=== PATIENT | male | born 1945 | race Caucasian/White ===

== ENCOUNTER 2016-07-10 08:13 | Day surgery (SDC) | payer MEDICARE ==
[2016-07-05 10:29] VITALS: BMI 32.5
[~2016-07-10 08:13] MED LIST: LACTATED RINGERS 1,000 ML IV SCH; SODIUM CHLORIDE 0.9% 1,000 ML IV SCH
[2016-07-10 09:15] LABS: Anion Gap 13 mmol/L; Blood Urea Nitrogen 20 mg/dL (9-20); Calcium 9.2 mg/dL (8.4-10.2); Carbon Dioxide 26 mmol/L (22-30); Chloride 104 mmol/L (98-107); Glucose 115 mg/dL (74-99); Non-African American GFR(MDRD) >60 (>60 ml/min/1.73 sqM); Potassium 4.7 mmol/L (3.5-5.1); Sodium 143 mmol/L (137-145)
[2016-07-10] MEDS ORDERED: SODIUM CHLORIDE 0.9% 1,000 ML IV ONE (09:22)
[2016-07-10] MEDS ORDERED: PROPOFOL 10 MG/ML 20 ML VIAL IV ONE (10:07)
[2016-07-10 11:40] VITALS: PULSE 60
--- NOTE | 2016-07-10 11:45 | CE ---
DATE OF SERVICE: Mr. Jennings has cardiomyopathy, has a single chamber [employer] ICD protector XDVR 314 VRG, serial # [id number]. He has a history of ventricular fibrillation, he received an appropriate ICD shock. He was treated with oral amiodarone. Currently, he is on 200 mg of amiodarone. He was brought in for DFT testing on amiodarone. The battery voltage is 3.04 volts, last volt charge 10.9 seconds, pacing impedance 309 ohms and defibrillation impedance 72 ohms and pacing threshold 1.25 volts at 0.4 ms, R waves 11.1 mV. Shock and T-wave protocol was used to induce ventricular fibrillation. This was adequately and appropriately detected at least sensitivity and successfully internally defibrillated with a 10 joule shock, three dropouts were noted. There was no postshock noise. The charge time was 1.8 seconds. Shocking impedance 72 ohms. Delivered energy 10 joules. The device was then reprogrammed. VF zone at 207 beats a minute, VT zone at 176 beats a minute, monitor zone at 133 beats a minute. The # of detected beats have changed and increased for both the VT zones. Appropriate antitachycardia pacing, cardioversion and defibrillation programmed. Sensitivity was reprogrammed. RESULT: An ICD testing revealed atrial fibrillation, unchanged defibrillation threshold from baseline even after starting oral amiodarone for suppression of ventricular fibrillation. PLAN: Follow up in the ICD clinic in 4 months and follow up with Dr. Laura in 6 months.
[2016-07-10 11:55] VITALS: BP 124/67; RESP 20
== END 2016-07-10 11:56 | disposition home or self-care (01) ==
LOC: CATHEP 08:13
PROVIDERS: ATTEND Internal Medicine Clinical Cardiac Electrophysiology
DX: Z45.02 Encounter for adjustment and management of automatic implantable cardiac defibrillator (principal); I42.9 Cardiomyopathy, unspecified; I49.01 Ventricular fibrillation; I48.91 Unspecified atrial fibrillation; I25.10 Atherosclerotic heart disease of native coronary artery without angina pectoris; I47.2 Ventricular tachycardia; I10 Essential (primary) hypertension; E78.5 Hyperlipidemia, unspecified; I50.22 Chronic systolic (congestive) heart failure; Z79.82 Long term (current) use of aspirin; Z79.899 Other long term (current) drug therapy; Z88.0 Allergy status to penicillin; Z82.49 Family history of ischemic heart disease and other diseases of the circulatory system; Z86.73 Personal history of transient ischemic attack (TIA), and cerebral infarction without residual deficits; Z87.891 Personal history of nicotine dependence
CPT/HCPCS: 93642; 80048; J2704; 99152; 99153

== ENCOUNTER → 2017-08-31 | Outpatient (CLI) | payer MEDICARE ==
[2017-08-31 09:38] LABS: Potassium 4.4 mmol/L (3.5-5.1)
[2017-08-31 09:45] LABS: Anisocytosis Slight; HCT 38.3 % (39.0-53.0); HGB 11.7 gm/dL (13.0-17.5); Hypochromasia Moderate; MCH 26.2 pg (25.0-35.0); MCHC 30.6 g/dL (31.0-37.0); MCV 85.7 fL (80.0-100.0); Mean Platelet Volume 8.3; Platelet Count 185 k/uL (150-450); RBC 4.47 m/uL (4.30-5.90); RDW 16.2 % (11.5-15.5); WBC 9.4 k/uL (3.8-10.6)
== END | disposition home or self-care (01) ==
LOC: LABWHC1 08:59
PROVIDERS: ATTEND Internal Medicine Cardiovascular Disease
DX: Z01.812 Encounter for preprocedural laboratory examination (principal); I25.5 Ischemic cardiomyopathy
CPT/HCPCS: 36415; 80051; 82565; 84520; 85027

== ENCOUNTER 2017-09-05 07:36 | Day surgery (SDC) | payer MEDICARE ==
[2017-09-03 17:20] VITALS: BMI 31.2
[~2017-09-05 07:36] MED LIST changes: +ALPRAZolam 0.25 MG TAB PO PRN; +ALPRAZolam 0.5 MG TAB PO PRN; +ASPIRIN 325 MG TAB PO STA; -LACTATED RINGERS 1,000 ML IV SCH; +NITROGLYCERIN SL TABS 0.4 MG TAB SUBLINGUAL PRN; -SODIUM CHLORIDE 0.9% 1,000 ML IV SCH; +SODIUM CHLORIDE 0.9% 1,000 ML in EMPTY BAG 1 BAG IV ONE
[2017-09-05 08:42] VITALS: PULSE 86; TEMP 97.7
[2017-09-05] MEDS ORDERED: IV FLUID CONTINUATION 950 ML IV ONE (08:55)
[2017-09-05] MEDS ORDERED: LIDOCAINE 2% INJ 20 MG/ML (20 ML MDV) ONE (08:56)
[2017-09-05] MEDS ORDERED: fentaNYL (PF) 50 MCG/ML 2 ML AMP ONE (08:56)
[2017-09-05] MEDS ORDERED: LIDOCAINE 2% INJ 20 MG/ML SQ ONE (09:14)
[2017-09-05] MEDS ORDERED: fentaNYL (PF) 50 MCG/ML 2 ML AMP IV ONE (09:14)
[2017-09-05] MEDS ORDERED: IOPAMIDOL-370 125ML BTL INJ ONE (09:33)
[2017-09-05] MEDS ORDERED: RX INFO: IV CONTRAST WAS GIVEN 1 EACH MISC MISCELLANE PRN (09:51)
[2017-09-05] MEDS ORDERED: CARVEDILOL 6.25 MG TAB PO SCH (10:00)
[2017-09-05] MEDS ORDERED: LOSARTAN 50 MG TAB PO SCH (10:00)
[2017-09-05] MEDS ORDERED: SODIUM CHLORIDE 0.9% 1,000 ML IV SCH (10:00)
--- NOTE | 2017-09-05 10:00 | CC ---
CARDIAC CATHETERIZATION REPORT INDICATIONS: This is a 72-year-old gentleman with history of cardiomyopathy with congestive heart failure, who recently underwent a stress test that showed ischemia involving anterior wall due to which his primary diver tender, Dr. Laura has advised him to undergo cardiac catheterization. I was asked to perform this procedure. I had seen the patient prior to cath, explained risks, benefits. The patient understood and accepted. The patient is hypotensive at rest, which he has been all along. His systolic blood pressures are in the 90s systolic. He does not have any symptoms other than the leg edema. PROCEDURE NOTE: After obtaining informed consent, left heart catheterization and coronary angiogram were performed via the right femoral artery using standard Cinda catheters. The patient tolerated the procedure well without any obvious immediate complications. FINDINGS: 1. HEMODYNAMICS: Left ventricular end-diastolic pressure is 24 to 26 mm. There is no significant gradient across the aortic valve. 2. LEFT VENTRICULOGRAM: Left ventriculogram is not performed. 3. ANGIOGRAPHIC DATA: Left main coronary artery: Left main coronary artery left main coronary artery is a normal-sized vessel and is free of stenosis. Divides into left anterior descending coronary artery and circumflex coronary artery. LAD and its branches, circumflex coronary artery and its branches are free of significant stenosis. Circumflex coronary artery is a large dominant vessel and is free of significant disease. Right coronary artery was selectively engaged using a Mehrdad catheter, where it is a nondominant vessel and is free of significant disease. CONCLUSIONS: 1. Normal coronary arteries. 2. Elevated left ventricular end-diastolic pressures. PLAN: I reviewed angiographic data with the patient and advised him on continued medical therapy. His stress test is probably a false-positive stress test. The patient will follow up with Dr. Laura for further optimization of his medical therapy. MMODL / IJN: [id number] /
[2017-09-05 15:04] VITALS: RESP 18
[2017-09-05 15:06] VITALS: BP 112/63
== END 2017-09-05 15:04 | disposition home or self-care (01) ==
LOC: CATHCVL 07:36
PROVIDERS: ATTEND Internal Medicine Cardiovascular Disease
DX: R94.39 Abnormal result of other cardiovascular function study (principal); I42.9 Cardiomyopathy, unspecified; I49.3 Ventricular premature depolarization; I11.0 Hypertensive heart disease with heart failure; I50.9 Heart failure, unspecified; E78.5 Hyperlipidemia, unspecified; I47.2 Ventricular tachycardia; I34.0 Nonrheumatic mitral (valve) insufficiency; Z95.810 Presence of automatic (implantable) cardiac defibrillator; Z82.49 Family history of ischemic heart disease and other diseases of the circulatory system; Z79.82 Long term (current) use of aspirin; Z79.891 Long term (current) use of opiate analgesic; Z79.899 Other long term (current) drug therapy; Z88.0 Allergy status to penicillin; Z87.891 Personal history of nicotine dependence
CPT/HCPCS: J2001; J3010; Q9967; 93458

== ENCOUNTER 2017-09-18 20:13 | Inpatient (IN) | payer MEDICARE ==
--- NOTE | 2017-09-18 20:55 | ED ---
General Adult HPI - General Chief complaint: Shortness of Breath Stated complaint: fluid retention Time Seen by Provider: 09/18/17 20:52 Source: patient, RN notes reviewed, old records reviewed Mode of arrival: ambulatory Limitations: no limitations - History of Present Illness Initial comments: This is a 72-year-old male to the ER for evaluation. Patient presents today for evaluation regarding shortness of breath patient was seen in his office by cardiology, sent to ER for further evaluation management treatment. Patient herself does complain of shortness of breath. No chest pain patient was seen in the office by school crossing guard supervisor, concern for level of fluid patient is is gaining both in weight and on his legs. Patient himself admits to mild shortness of breath but denies any pain - Related Data Home Medications Medication Instructions Recorded Confirmed Aspirin [Adult Low Dose Aspirin EC] 81 mg PO DAILY 11/03/15 09/18/17 Metaxalone [Skelaxin] 800 mg PO TID PRN 11/03/15 09/18/17 Albuterol Nebulized [Ventolin 2.5 mg INHALATION RT-QID PRN 09/03/17 09/18/17 Nebulized] Zagnw-R-Ctzklkggihuci [Beano] 300 unit PO DIRECTED PRN 09/03/17 09/18/17 Atorvastatin [Lipitor] 20 mg PO HS 09/03/17 09/18/17 Ketoprofen 200 mg PO DAILY PRN 09/03/17 09/18/17 traMADol HCL [traMADol HCL ER] 200 mg PO DAILY PRN 09/03/17 09/18/17 Amiodarone [Cordarone] 100 mg PO DAILY 09/18/17 09/18/17 Furosemide [Lasix] 40 mg PO BID 09/18/17 09/18/17 Isosorbide Mononitrate ER [Imdur] 30 mg PO DAILY 09/18/17 09/18/17 Levofloxacin [Levaquin] 500 mg PO DAILY 09/18/17 09/18/17 Losartan [Cozaar] 50 mg PO BID 09/18/17 09/18/17 Potassium Chloride [Klor-Con 20] 20 meq PO DAILY 09/18/17 09/18/17 Promethazine 6.25MG/5Ml [Phenergan 6.25 mg PO Q8H PRN 09/18/17 09/18/17 Syrup] Spironolactone [Aldactone] 25 mg PO DAILY 09/18/17 09/18/17 Previous Rx's Medication Instructions Recorded Carvedilol [Coreg] 6.25 mg PO BID-W/MEALS #60 tab 09/05/17 Allergies Allergy/AdvReac Type Severity Reaction Status Date / Time Penicillins Allergy Anaphylaxis Verified 09/18/17 21:05 venom-honey bee Allergy Anaphylaxis Verified 09/18/17 21:05 [bee venom (honey bee)] Review of Systems ROS Statement: Those systems with pertinent positive or pertinent negative responses have been documented in the HPI. ROS Other: All systems not noted in ROS Statement are negative. Past Medical History Past Medical History: Hypertension Additional Past Medical History / Comment(s): REVIEW DR. SIDHU'S HISTORY AND PHYSICAL FOR CARDIAC HISTORY. CHRONIC BACK History of Any Multi-Drug Resistant Organisms: None Reported Past Surgical History: AICD, Heart Catheterization, Pacemaker, Tonsillectomy Additional Past Surgical History / Comment(s): defibulator Past Anesthesia/Blood Transfusion Reactions: No Reported Reaction Type of Cardiac Device: AICD Device Placement Date:: 2012 Past Psychological History: No Psychological Hx Reported Smoking Status: Former smoker Past Alcohol Use History: None Reported Past Drug Use History: None Reported - Past Family History Mother Family Medical History: Cancer Father Family Medical History: Diabetes Mellitus Sister(s) Family Medical History: Cancer General Exam Limitations: no limitations General appearance: alert, in no apparent distress Head exam: Present: atraumatic, normocephalic, normal inspection Eye exam: Present: normal appearance, PERRL, EOMI. Absent: scleral icterus, conjunctival injection, periorbital swelling ENT exam: Present: normal exam, mucous membranes moist Neck exam: Present: normal inspection. Absent: tenderness, meningismus, lymphadenopathy Respiratory exam: Present: normal lung sounds bilaterally. Absent: respiratory distress, wheezes, rales, rhonchi, stridor Cardiovascular Exam: Present: regular rate, normal rhythm, normal heart sounds. Absent: systolic murmur, diastolic murmur, rubs, gallop, clicks GI/Abdominal exam: Present: soft, normal bowel sounds. Absent: distended, tenderness, guarding, rebound, rigid Extremities exam: Present: normal inspection, full ROM, normal capillary refill. Absent: tenderness, pedal edema, joint swelling, calf tenderness Back exam: Present: normal inspection Neurological exam: Present: alert, oriented X3, CN II-XII intact Psychiatric exam: Present: normal affect, normal mood Skin exam: Present: warm, dry, intact, normal color. Absent: rash Course Vital Signs 09/18/17 09/18/17 09/18/17 20:14 21:33 21:47 Temperature 94.5 F L Pulse Rate 97 89 Pulse Rate [ Left] Respiratory 18 20 18 Rate Blood Pressure 101/77 99/67 Blood Pressure [Left Arm Sitting] O2 Sat by Pulse 98 97 Oximetry 09/18/17 09/18/17 22:16 22:25 Temperature 97.0 F L Pulse Rate 90 Pulse Rate [ 90 Left] Respiratory 20 18 Rate Blood Pressure 118/91 Blood Pressure 115/75 [Left Arm Sitting] O2 Sat by Pulse 97 98 Oximetry - Reevaluation(s) Reevaluation #1: 09/18/17 21:36 Spoke with school crossing guard supervisor will continue to evaluate Medical Decision Making - Medical Decision Making 72 male sent to ER for evaluation by school crossing guard supervisor. Patient sent for admission regarding heart failure, need for cardiac surgery secondary to heart disease. Nonischemic cardiomyopathy - Lab Data Result diagrams: 09/18/17 21:12 09/18/17 21:12 Lab Results 09/18/17 09/18/17 09/18/17 Range/Units 21:12 21:12 21:12 WBC 9.3 (3.8-10.6) k/uL RBC 4.59 (4.30-5.90) m/uL Hgb 12.0 L (13.0-17.5) gm/dL Hct 38.1 L (39.0-53.0) % MCV 83.1 (80.0-100.0) fL MCH 26.1 (25.0-35.0) pg MCHC 31.4 (31.0-37.0) g/dL RDW 16.6 H (11.5-15.5) % Plt Count 135 L (150-450) k/uL Neutrophils % (Manual) 69 % Lymphocytes % (Manual) 26 % Monocytes % (Manual) 5 % Neutrophils # (Manual) 6.42 (1.3-7.7) k/uL Lymphocytes # (Manual) 2.42 (1.0-4.8) k/uL Monocytes # (Manual) 0.47 (0-1.0) k/uL Nucleated RBCs 0 (0-0) /100 WBC Polychromasia Present Hypochromasia Slight Anisocytosis Slight PT (9.0-12.0) sec INR (<1.2) APTT (22.0-30.0) sec Sodium 139 (137-145) mmol/L Potassium 3.7 (3.5-5.1) mmol/L Chloride 98 (98-107) mmol/L Carbon Dioxide 24 (22-30) mmol/L Anion Gap 17 mmol/L BUN 44 H (9-20) mg/dL Creatinine 1.33 H (0.66-1.25) mg/dL Est GFR (CKD-EPI)AfAm 62 (>60 ml/min/1.73 sqM) Est GFR (CKD-EPI)NonAf 54 (>60 ml/min/1.73 sqM) Glucose 125 H (74-99) mg/dL Calcium 9.2 (8.4-10.2) mg/dL Magnesium 1.9 (1.6-2.3) mg/dL Total Bilirubin 3.3 H (0.2-1.3) mg/dL AST 86 H (17-59) U/L ALT 90 H (21-72) U/L Alkaline Phosphatase 120 (38-126) U/L Total Creatine Kinase 47 L (55-170) U/L CK-MB (CK-2) 1.8 (0.0-2.4) ng/mL CK-MB (CK-2) Rel Index 3.8 Troponin I 0.027 (0.000-0.034) ng/mL NT-Pro-B Natriuret Pep pg/mL Total Protein 6.5 (6.3-8.2) g/dL Albumin 3.6 (3.5-5.0) g/dL Lipase 263 (23-300) U/L TSH (0.465-4.680) mIU/L 09/18/17 09/18/17 09/18/17 Range/Units 21:12 21:12 21:12 WBC (3.8-10.6) k/uL RBC (4.30-5.90) m/uL Hgb (13.0-17.5) gm/dL Hct (39.0-53.0) % MCV (80.0-100.0) fL MCH (25.0-35.0) pg MCHC (31.0-37.0) g/dL RDW (11.5-15.5) % Plt Count (150-450) k/uL Neutrophils % (Manual) % Lymphocytes % (Manual) % Monocytes % (Manual) % Neutrophils # (Manual) (1.3-7.7) k/uL Lymphocytes # (Manual) (1.0-4.8) k/uL Monocytes # (Manual) (0-1.0) k/uL Nucleated RBCs (0-0) /100 WBC Polychromasia Hypochromasia Anisocytosis PT 13.5 H (9.0-12.0) sec INR 1.4 H (<1.2) APTT 23.5 (22.0-30.0) sec Sodium (137-145) mmol/L Potassium (3.5-5.1) mmol/L Chloride (98-107) mmol/L Carbon Dioxide (22-30) mmol/L Anion Gap mmol/L BUN (9-20) mg/dL Creatinine (0.66-1.25) mg/dL Est GFR (CKD-EPI)AfAm (>60 ml/min/1.73 sqM) Est GFR (CKD-EPI)NonAf (>60 ml/min/1.73 sqM) Glucose (74-99) mg/dL Calcium (8.4-10.2) mg/dL Magnesium (1.6-2.3) mg/dL Total Bilirubin (0.2-1.3) mg/dL AST (17-59) U/L ALT (21-72) U/L Alkaline Phosphatase (38-126) U/L Total Creatine Kinase (55-170) U/L CK-MB (CK-2) (0.0-2.4) ng/mL CK-MB (CK-2) Rel Index Troponin I (0.000-0.034) ng/mL NT-Pro-B Natriuret Pep 19143 pg/mL Total Protein (6.3-8.2) g/dL Albumin (3.5-5.0) g/dL Lipase (23-300) U/L TSH 4.510 (0.465-4.680) mIU/L - Radiology Data Radiology results: report reviewed (Chest x-ray is pending), image reviewed Disposition Clinical Impression: Hyperlipemia, NICM (nonischemic cardiomyopathy), Bilateral lower extremity edema, CHF (congestive heart failure) Disposition: ADMITTED IP TO THIS HOSP Condition: Fair
[2017-09-18] MEDS ORDERED: FUROSEMIDE 250 MG in SODIUM CHLORIDE 0.9% 225 ML IVP ONE (21:15)
[2017-09-18] MEDS ORDERED: NITROGLYCERIN OINT 1 INCH/GM PACKET TOPICAL STA (21:17)
[2017-09-18] MEDS ORDERED: NITROGLYCERIN SL TABS 0.4 MG TAB SUBLINGUAL PRN (21:17)
[2017-09-18 21:38] LABS: Anisocytosis Slight; HCT 38.1 % (39.0-53.0); Hypochromasia Slight; MCH 26.1 pg (25.0-35.0); MCHC 31.4 g/dL (31.0-37.0); MCV 83.1 fL (80.0-100.0); Mean Platelet Volume 8.5; Platelet Count 135 k/uL (150-450); RBC 4.59 m/uL (4.30-5.90); RDW 16.6 % (11.5-15.5); WBC 9.3 k/uL (3.8-10.6)
[2017-09-18 21:48] LABS: INR 1.4 (<1.2); Partial Thromboplastin Time 23.5 sec (22.0-30.0); Prothrombin Time 13.5 sec (9.0-12.0)
[2017-09-18 21:49] LABS: Albumin 3.6 g/dL (3.5-5.0); Calcium 9.2 mg/dL (8.4-10.2); Magnesium 1.9 mg/dL (1.6-2.3); Potassium 3.7 mmol/L (3.5-5.1); Total Bilirubin 3.3 mg/dL (0.2-1.3); Total Protein 6.5 g/dL (6.3-8.2)
--- NOTE | 2017-09-18 21:51 | XR ---
EXAMINATION TYPE: XR chest 2V DATE OF EXAM: 09/18/2017 COMPARISON: 02/26/2016 HISTORY: Short of breath TECHNIQUE: Frontal and lateral views of the chest are obtained. FINDINGS: Heart is enlarged. There is coarsening of pulmonary markings. There is mild pulmonary khoi estion. There is a left axillary pacemaker noted with the lead tip over the right ventricle. There ar e chest leads. There is slight blunting of the costophrenic angle posteriorly on the lateral view. Th is is probably on the right side. Bony thorax is intact. IMPRESSION: Heart appears increased compared to last exam and there are changes consistent with mild heart failure which is new compared to old exam.
[2017-09-18 22:10] LABS: Lymphocytes # (M) 2.42 k/uL (1.0-4.8); Monocytes # (M) 0.47 k/uL (0-1.0); Neutrophils # (M) 6.42 k/uL (1.3-7.7); Neutrophils % (M) 69 %; Nucleated Red Blood Cells 0 /100 WBC (0-0); Polychromasia Present; Total Cells Counted 100
[2017-09-18 22:16] LABS: Creatine Kinase MB 1.8 ng/mL (0.0-2.4); Troponin I 0.027 ng/mL (0.000-0.034)
[2017-09-19 03:55] LABS: Calcium 9.3 mg/dL (8.4-10.2); Magnesium 1.9 mg/dL (1.6-2.3); Potassium 3.8 mmol/L (3.5-5.1)
[2017-09-19 04:18] LABS: Creatine Kinase MB 2.1 ng/mL (0.0-2.4); Troponin I 0.021 ng/mL (0.000-0.034)
--- NOTE | 2017-09-19 08:41 | P.CRDCN ---
History of Present Illness Consult date: 09/19/17 Requesting physician: Zo Castaneda Consult reason: congestive heart failure Chief complaint: Shortness of breath and weight gain History of present illness: This is a pleasant 72-year-old gentleman who follows with Dr. Laura in the office. He has a known history of nonischemic cardiomyopathy, hypertension, hyperlipidemia, mitral regurgitation, most recent echo showed an ejection fraction of 20-25%. History of single chamber AICD, history of nonsustained ventricular tachycardia. Patient did undergo a cardiac catheterization recently by Dr. Rizvi which revealed normal coronary arteries. This was performed in August of this year. Patient has been progressively more short of breath, he also states that he's been feeling bloated and has noticed significant peripheral edema. For this reason he was advised by Dr. Laura to be admitted to the [facility]. The patient was initiated on an IV Lasix drip, he has diuresed well through the night last night. 2900 out. White blood cell count 9.3, hemoglobin 12, platelet count 135. Sodium 141, potassium 3.8, BUN on admission 44 creatinine 13, 44 and 1.2 this morning. AST and ALT mildly elevated, AST 86, ALT 90, likely secondary to liver congestion. Troponin 0.0-7 , 0.021. BNP level 10,700. TSH normal at 4.5. EKG shows a normal sinus rhythm with PVCs. Chest x-ray reveals changes consistent with mild congestive heart failure, new from prior exam. At the time of my examination this morning , patient does state he feels less bloated, still complaining of mild shortness of breath, continues to have peripheral edema and mild tenderness in the right upper quadrant this morning. Past Medical History Past Medical History: Hypertension Additional Past Medical History / Comment(s): REVIEW DR. LAURA'S HISTORY AND PHYSICAL FOR CARDIAC HISTORY. CHRONIC BACK History of Any Multi-Drug Resistant Organisms: None Reported Past Surgical History: AICD, Heart Catheterization, Pacemaker, Tonsillectomy Additional Past Surgical History / Comment(s): defibulator Past Anesthesia/Blood Transfusion Reactions: No Reported Reaction Type of Cardiac Device: AICD Device Placement Date:: 2012 Past Psychological History: No Psychological Hx Reported Smoking Status: Former smoker Past Alcohol Use History: None Reported Past Drug Use History: None Reported - Past Family History Mother Family Medical History: Cancer Father Family Medical History: Diabetes Mellitus Sister(s) Family Medical History: Cancer Medications and Allergies Home Medications Medication Instructions Recorded Confirmed Type Aspirin [Adult Low Dose Aspirin EC] 81 mg PO DAILY 11/03/15 09/18/17 History Metaxalone [Skelaxin] 800 mg PO TID PRN 11/03/15 09/18/17 History Albuterol Nebulized [Ventolin 2.5 mg INHALATION RT-QID PRN 09/03/17 09/18/17 History Nebulized] Hfqrh-A-Utmbzkehhcyyq [Beano] 300 unit PO DIRECTED PRN 09/03/17 09/18/17 History Atorvastatin [Lipitor] 20 mg PO HS 09/03/17 09/18/17 History Ketoprofen 200 mg PO DAILY PRN 09/03/17 09/18/17 History traMADol HCL [traMADol HCL ER] 200 mg PO DAILY PRN 09/03/17 09/18/17 History Carvedilol [Coreg] 6.25 mg PO BID-W/MEALS #60 tab 09/05/17 09/18/17 Rx Amiodarone [Cordarone] 100 mg PO DAILY 09/18/17 09/18/17 History Furosemide [Lasix] 40 mg PO BID 09/18/17 09/18/17 History Isosorbide Mononitrate ER [Imdur] 30 mg PO DAILY 09/18/17 09/18/17 History Levofloxacin [Levaquin] 500 mg PO DAILY 09/18/17 09/18/17 History Losartan [Cozaar] 50 mg PO BID 09/18/17 09/18/17 History Potassium Chloride [Klor-Con 20] 20 meq PO DAILY 09/18/17 09/18/17 History Promethazine 6.25MG/5Ml [Phenergan 6.25 mg PO Q8H PRN 09/18/17 09/18/17 History Syrup] Spironolactone [Aldactone] 25 mg PO DAILY 09/18/17 09/18/17 History Allergies Allergy/AdvReac Type Severity Reaction Status Date / Time Penicillins Allergy Anaphylaxis Verified 09/18/17 21:05 venom-honey bee Allergy Anaphylaxis Verified 09/18/17 21:05 [bee venom (honey bee)] Physical Exam Vitals: Vital Signs Temp Pulse Pulse Resp BP BP Pulse Ox 09/19/17 03:33 97.9 F 86 18 94/62 96 09/19/17 00:00 97.2 F L 81 17 120/72 96 09/18/17 22:25 97.0 F L 90 18 115/75 98 09/18/17 22:16 90 20 118/91 97 09/18/17 21:47 89 18 99/67 97 09/18/17 21:33 20 09/18/17 20:14 94.5 F L 97 18 101/77 98 Intake and Output 09/18/17 09/19/17 09/19/17 22:59 06:59 14:59 Intake Total 50 Output Total 2900 Balance -2850 Intake: Intake, IV Titration 50 Amount Furosemide 250 mg In 50 Sodium Chloride 0.9% 225 ml @ 10 MG/HR 10 mls/hr IVP .Q24H ONE Rx#: [id number] Output: Urine 2900 Other: Voiding Method Toilet Urinal Weight 98.883 kg 98.4 kg PHYSICAL EXAMINATION: HEENT: Head is atraumatic, normocephalic. Pupils equal, round. Neck is supple. There is elevated jugular venous pressure. HEART EXAMINATION: Heart S1 S2 1 systolic murmur is heard. CHEST EXAMINATION: Lungs are clear with mild diminished air entry to the bases ABDOMEN: [ Soft, mild right upper quadrant tenderness, liver is mildly enlarged on palpation EXTREMITIES:[ 2+ peripheral pulses with 2+ evidence of peripheral edema NEUROLOGIC patient is awake, alert and oriented -3. . Results 09/18/17 21:12 09/19/17 03:20 Cardiac Enzymes 09/18/17 09/18/17 09/19/17 Range/Units 21:12 21:12 03:05 AST 86 H (17-59) U/L CK-MB (CK-2) 1.8 2.1 (0.0-2.4) ng/mL Troponin I 0.027 0.021 (0.000-0.034) ng/mL Coagulation 09/18/17 Range/Units 21:12 PT 13.5 H (9.0-12.0) sec APTT 23.5 (22.0-30.0) sec Lipids 09/19/17 Range/Units 03:20 Triglycerides 83 (<150) mg/dL Cholesterol 98 (<200) mg/dL HDL Cholesterol 28 L (40-60) mg/dL CBC 09/18/17 Range/Units 21:12 WBC 9.3 (3.8-10.6) k/uL RBC 4.59 (4.30-5.90) m/uL Hgb 12.0 L (13.0-17.5) gm/dL Hct 38.1 L (39.0-53.0) % Plt Count 135 L (150-450) k/uL Comprehensive Metabolic Panel 09/18/17 09/19/17 Range/Units 21:12 03:20 Sodium 139 141 (137-145) mmol/L Potassium 3.7 3.8 (3.5-5.1) mmol/L Chloride 98 98 (98-107) mmol/L Carbon Dioxide 24 28 (22-30) mmol/L BUN 44 H 44 H (9-20) mg/dL Creatinine 1.33 H 1.29 H (0.66-1.25) mg/dL Glucose 125 H 105 H (74-99) mg/dL Calcium 9.2 9.3 (8.4-10.2) mg/dL AST 86 H (17-59) U/L ALT 90 H (21-72) U/L Alkaline Phosphatase 120 (38-126) U/L Total Protein 6.5 (6.3-8.2) g/dL Albumin 3.6 (3.5-5.0) g/dL Current Medications Generic Name Dose Route Start Last Admin Trade Name Freq PRN Reason Stop Dose Admin Amiodarone HCl 100 mg 09/19/17 09:00 Cordarone PO DAILY [facility] Aspirin 81 mg 09/19/17 09:00 Aspirin PO DAILY [facility] Atorvastatin Calcium 20 mg 09/19/17 21:00 Lipitor PO HS [facility] Carvedilol 3.125 mg 09/19/17 07:30 Coreg PO BID-W/MEALS [facility] Furosemide 250 mg/ Sodium 250 mls @ 10 mls/hr 09/18/17 21:15 09/18/17 21:27 Chloride IVP 09/19/17 21:14 10 mg/hr .Q24H ONE 10 mls/hr Protocol Administration 10 MG/HR Nitroglycerin 0.4 mg 09/18/17 21:17 Nitrostat SUBLINGUAL Q5M PRN Chest Pain Spironolactone 50 mg 09/19/17 09:00 Aldactone PO DAILY [facility]ANE[facility] Intake and Output 09/18/17 09/19/17 09/19/17 22:59 06:59 14:59 Intake Total 50 Output Total 2900 Balance -2850 Intake: Intake, IV Titration 50 Amount Furosemide 250 mg In 50 Sodium Chloride 0.9% 225 ml @ 10 MG/HR 10 mls/hr IVP .Q24H ONE Rx#: [id number] Output: Urine 2900 Other: Voiding Method Toilet Urinal Weight 98.883 kg 98.4 kg 09/18/17 21:12 09/19/17 03:20 EKG Interpretations (text) EKG shows a normal sinus rhythm with occasional PVCs. Assessment and Plan Plan: Assessment and plan #1 systolic congestive heart failure acute on chronic #2 nonischemic cardiomyopathy with prior single chamber AICD, last documented ejection fraction 20-25% #3 hypertension #4 hyperlipidemia #5 family history of premature coronary artery disease #6 history of nonsustained VT #7 prior history of smoking #8 mild CAD, most recent heart cath performed in August of this year. Plan We will continue the IV Lasix drip for 24 hours. Patient had ALSO been on Cozaar as an outpatient, this was discontinued. We will start the patient on Entresto today. Continue to monitor intake and output along with daily weights , daily lytes BUN and creatinine. We will also continue amiodarone 100 mg daily , baby aspirin 81 mg daily, Lipitor 20 mg daily, Coreg 3.125 mg twice a day, and Aldactone 50 mg daily. DNP note has been reviewed, I agree with a documented findings and plan of care. Patient was seen and examined.
[2017-09-19] MEDS ORDERED: ASPIRIN 325 MG TAB PO SCH (09:00)
[2017-09-19] MEDS ORDERED: SPIRONOLACTONE 25 MG TAB PO SCH (09:00)
[2017-09-19 09:29] LABS: Creatine Kinase MB 1.7 ng/mL (0.0-2.4); Troponin I 0.023 ng/mL (0.000-0.034)
[2017-09-19] MEDS: ASPIRIN 81 MG PO SCH (12:44)
[2017-09-19] MEDS: AMIODARONE 100 MG TAB PO SCH (12:44)
[2017-09-19] MEDS: CARVEDILOL 3.125 MG TAB PO SCH ×2 (12:44→17:24)
[2017-09-19] MEDS: SACUBITRIL/VALSARTAN 24 MG-26 MG TABLET PO SCH ×2 (12:44→21:19)
--- NOTE | 2017-09-19 13:41 | US ---
EXAMINATION TYPE: US gallbladder DATE OF EXAM: 09/19/2017 COMPARISON: NONE CLINICAL HISTORY: 72 year-old male abdominal pain. Right upper quadrant pain Technique: Multiple sonographic images of the right upper quadrant are obtained. FINDINGS: PAPER SALES REPRESENTATIVE NOTES: Overlying bowel gas Liver Length: 17.9 cm Gallbladder Wall: 0.4 cm CBD: 0.5 cm Right Kidney: 11.9 x 4.9 x 5.4 cm Pancreas: wnl Liver: difficult to penetrate, intercostal images. Limited assessment. Gallbladder: Mild wall thickening and borderline distention of 4.0 cm. No pericholecystic fluid or s hadowing calculi. Evidence for sonographic Song's sign: no CBD: wnl Right Kidney: 4.0cm simple cyst, centrally in the mid pole. No hydronephrosis. IMPRESSION: 1. Limited assessment of the liver due to intercostal views and attenuating appearance. There may be some degree of underlying fatty infiltration. 2. Mild gallbladder wall thickening is nonspecific. Wall thickening can also be seen in the setting of fluid overload states or adjacent inflammation (for example, hepatitis and pancreatitis). No galls tones or evidence of sonographic Song sign. If further imaging evaluation of the gallbladder is lilliam ired, HIDA scan can be performed.
--- NOTE | 2017-09-19 20:26 | P.HPIM ---
History of Present Illness H&P Date: 09/19/17 This is a pleasant 72 years old male with past medical history of HTN, nonischemic cardiomyopathy, with EF 20-25% status post AICD and heart catheterization, status post pacemaker , he presents with signs and symptoms of dyspnea CXR is consistent with congestive heart failure, mild Past Medical History Past Medical History: Hypertension Additional Past Medical History / Comment(s): REVIEW DR. SIDHU'S HISTORY AND PHYSICAL FOR CARDIAC HISTORY. CHRONIC BACK History of Any Multi-Drug Resistant Organisms: None Reported Past Surgical History: AICD, Heart Catheterization, Pacemaker, Tonsillectomy Additional Past Surgical History / Comment(s): defibulator Past Anesthesia/Blood Transfusion Reactions: No Reported Reaction Type of Cardiac Device: AICD Device Placement Date:: 2012 Past Psychological History: No Psychological Hx Reported Smoking Status: Former smoker Past Alcohol Use History: None Reported Past Drug Use History: None Reported - Past Family History Mother Family Medical History: Cancer Father Family Medical History: Diabetes Mellitus Sister(s) Family Medical History: Cancer Medications and Allergies Home Medications Medication Instructions Recorded Confirmed Type Aspirin [Adult Low Dose Aspirin EC] 81 mg PO DAILY 11/03/15 09/18/17 History Metaxalone [Skelaxin] 800 mg PO TID PRN 11/03/15 09/18/17 History Albuterol Nebulized [Ventolin 2.5 mg INHALATION RT-QID PRN 09/03/17 09/18/17 History Nebulized] Fnrxs-F-Kxqnmfosrdlpt [Beano] 300 unit PO DIRECTED PRN 09/03/17 09/18/17 History Atorvastatin [Lipitor] 20 mg PO HS 09/03/17 09/18/17 History Ketoprofen 200 mg PO DAILY PRN 09/03/17 09/18/17 History traMADol HCL [traMADol HCL ER] 200 mg PO DAILY PRN 09/03/17 09/18/17 History Carvedilol [Coreg] 6.25 mg PO BID-W/MEALS #60 tab 09/05/17 09/18/17 Rx Amiodarone [Cordarone] 100 mg PO DAILY 09/18/17 09/18/17 History Furosemide [Lasix] 40 mg PO BID 09/18/17 09/18/17 History Isosorbide Mononitrate ER [Imdur] 30 mg PO DAILY 09/18/17 09/18/17 History Levofloxacin [Levaquin] 500 mg PO DAILY 09/18/17 09/18/17 History Losartan [Cozaar] 50 mg PO BID 09/18/17 09/18/17 History Potassium Chloride [Klor-Con 20] 20 meq PO DAILY 09/18/17 09/18/17 History Promethazine 6.25MG/5Ml [Phenergan 6.25 mg PO Q8H PRN 09/18/17 09/18/17 History Syrup] Spironolactone [Aldactone] 25 mg PO DAILY 09/18/17 09/18/17 History Allergies Allergy/AdvReac Type Severity Reaction Status Date / Time Penicillins Allergy Anaphylaxis Verified 09/18/17 21:05 venom-honey bee Allergy Anaphylaxis Verified 09/18/17 21:05 [bee venom (honey bee)] Physical Exam Vitals: Vital Signs Temp Pulse Pulse Resp BP BP Pulse Ox 09/19/17 19:54 97.6 F 102 H 16 107/70 95 09/19/17 17:27 85 09/19/17 16:03 97 F L 94 16 108/65 96 09/19/17 08:00 88 16 103/60 94 L 09/19/17 03:33 97.9 F 86 18 94/62 96 09/19/17 00:00 97.2 F L 81 17 120/72 96 09/18/17 22:25 97.0 F L 90 18 115/75 98 09/18/17 22:16 90 20 118/91 97 09/18/17 21:47 89 18 99/67 97 09/18/17 21:33 20 09/18/17 20:14 94.5 F L 97 18 101/77 98 Intake and Output 09/19/17 09/19/17 09/19/17 06:59 14:59 22:59 Intake Total 50 360 240 Output Total 2900 2450 Balance -2850 -2090 240 Intake: Intake, IV Titration 50 Amount Furosemide 250 mg In 50 Sodium Chloride 0.9% 225 ml @ 10 MG/HR 10 mls/hr IVP .Q24H ONE Rx#: [id number] Oral 360 240 Output: Urine 2900 2450 Other: Voiding Method Toilet Toilet Urinal Urinal Weight 98.4 kg 98.4 kg Results CBC & Chem 7: 09/18/17 21:12 09/19/17 03:20 Labs: Abnormal Lab Results - Last 24 Hours (Table) 09/18/17 09/18/17 09/18/17 Range/Units 21:12 21:12 21:12 Hgb 12.0 L (13.0-17.5) gm/dL Hct 38.1 L (39.0-53.0) % RDW 16.6 H (11.5-15.5) % Plt Count 135 L (150-450) k/uL PT (9.0-12.0) sec INR (<1.2) BUN 44 H (9-20) mg/dL Creatinine 1.33 H (0.66-1.25) mg/dL Glucose 125 H (74-99) mg/dL Total Bilirubin 3.3 H (0.2-1.3) mg/dL AST 86 H (17-59) U/L ALT 90 H (21-72) U/L Total Creatine Kinase 47 L (55-170) U/L HDL Cholesterol (40-60) mg/dL 09/18/17 09/19/17 09/19/17 Range/Units 21:12 03:05 03:20 Hgb (13.0-17.5) gm/dL Hct (39.0-53.0) % RDW (11.5-15.5) % Plt Count (150-450) k/uL PT 13.5 H (9.0-12.0) sec INR 1.4 H (<1.2) BUN 44 H (9-20) mg/dL Creatinine 1.29 H (0.66-1.25) mg/dL Glucose 105 H (74-99) mg/dL Total Bilirubin (0.2-1.3) mg/dL AST (17-59) U/L ALT (21-72) U/L Total Creatine Kinase 40 L (55-170) U/L HDL Cholesterol 28 L (40-60) mg/dL 09/19/17 Range/Units 08:35 Hgb (13.0-17.5) gm/dL Hct (39.0-53.0) % RDW (11.5-15.5) % Plt Count (150-450) k/uL PT (9.0-12.0) sec INR (<1.2) BUN (9-20) mg/dL Creatinine (0.66-1.25) mg/dL Glucose (74-99) mg/dL Total Bilirubin (0.2-1.3) mg/dL AST (17-59) U/L ALT (21-72) U/L Total Creatine Kinase 40 L (55-170) U/L HDL Cholesterol (40-60) mg/dL Thrombosis Risk Factor Assmnt - Choose All That Apply Each Factor Represents 1 point: Heart failure (<1month), Obesity (BMI >25) Each Risk Factor Represents 2 Points: Age 61-74 years Thrombosis Risk Factor Assessment Total Risk Factor Score: 4 Thrombosis Risk Factor Assessment Level: Moderate Risk Assessment and Plan Assessment: -acute systolic CHF exacerbation, on the top of her chronic nonischemic cardiomyopathy, presents with dyspnea, cardiology consultation is appreciated continue with Lasix drip and c/w Entresto -Acute kidney injury, creatinine is up from 1.07 on 08/2017-1.33 on 09/18/2017, MISTI Hugo on follow-up creatinine level DVT prophylaxis patient is high-risk continue with heparin subcutaneous
[2017-09-19] MEDS: HEPARIN SODIUM,PORCINE 5,000 UNIT/ML 1 ML VIAL SQ SCH (21:18)
[2017-09-19] MEDS: ATORVASTATIN 20 MG TAB PO SCH (21:19)
[2017-09-19] MEDS: MAGNESIUM OXIDE 400 MG TAB PO SCH (23:52)
[2017-09-20] MEDS: CARVEDILOL 3.125 MG TAB PO SCH ×2 (06:07→17:32)
[2017-09-20 06:30] LABS: Anisocytosis Slight; Basophils # (A) 0.1 k/uL (0-0.2); Basophils % (A) 1 %; Eosinophils # (A) 0.1 k/uL (0-0.7); Eosinophils % (A) 2 %; HCT 43.3 % (39.0-53.0); HGB 13.6 gm/dL (13.0-17.5); Hypochromasia Slight; Lymphocytes # (A) 2.1 k/uL (1.0-4.8); Lymphocytes % (A) 23 %; MCH 25.8 pg (25.0-35.0); MCHC 31.4 g/dL (31.0-37.0); MCV 82.4 fL (80.0-100.0); Mean Platelet Volume 8.4; Monocytes # (A) 0.7 k/uL (0-1.0); Monocytes % (A) 8 %; Neutrophils # (A) 5.5 k/uL (1.3-7.7); Neutrophils % (A) 62 %; Platelet Count 156 k/uL (150-450); RBC 5.25 m/uL (4.30-5.90); RDW 16.3 % (11.5-15.5); WBC 8.9 k/uL (3.8-10.6)
[2017-09-20 06:47] LABS: Albumin 3.6 g/dL (3.5-5.0); Bilirubin, Delta 0.6 mg/dL (0.0-0.2); Bilirubin,Unconjugated 2.6 mg/dL (0.0-1.1); Calcium 9.4 mg/dL (8.4-10.2); Magnesium 1.9 mg/dL (1.6-2.3); Potassium 3.3 mmol/L (3.5-5.1); Total Bilirubin 3.2 mg/dL (0.2-1.3); Total Protein 6.7 g/dL (6.3-8.2)
[2017-09-20] MEDS: ASPIRIN 81 MG PO SCH (07:57)
[2017-09-20] MEDS: HEPARIN SODIUM,PORCINE 5,000 UNIT/ML 1 ML VIAL SQ SCH ×2 (07:57→20:38)
[2017-09-20] MEDS: MAGNESIUM OXIDE 400 MG TAB PO SCH (07:57)
--- NOTE | 2017-09-20 11:15 | P.PN ---
Subjective Progress Note Date: 09/20/17 OLIVIER This is a pleasant 72 years old male with past medical history of HTN, nonischemic cardiomyopathy, with EF 20-25% status post AICD and heart catheterization, status post pacemaker , he presents with signs and symptoms of dyspnea CXR is consistent with congestive heart failure, mild Subjective Patient seen and examined by me at bedside No new complaints Objective - Vital Signs Vital signs: Vital Signs Temp 97 F L 09/20/17 08:00 Pulse 62 09/20/17 08:00 Resp 16 09/20/17 08:00 BP 89/56 09/20/17 08:00 Pulse Ox 94 L 09/20/17 08:00 Intake & Output 09/19/17 09/20/17 09/20/17 18:59 06:59 18:59 Intake Total 600 80 360 Output Total 2450 4875 Balance -1850 -1696 360 Weight 98.4 kg 89.7 kg Intake: Intake, IV Titration 80 Amount Furosemide 250 mg In 80 Sodium Chloride 0.9% 225 ml @ 10 MG/HR 10 mls/hr IVP .Q24H ONE Rx#: [id number] Oral 600 360 Output: Urine 2450 4875 Other: Voiding Method Toilet Toilet Toilet Urinal Urinal Urinal # Voids 1 Constitutional: No acute distress, conversant, pleasant Eyes: Anicteric sclerae, moist conjunctiva, no lid-lag PERRLA ENMT: NC/AT Oropharynx clear, no erythema, exudates Neck: Supple, FROM, no masses, or JVD No carotid bruits No thyromegaly Lungs: Clear to auscultation Clear to percussion Normal respiratory effort, no accessory muscle use Cardiovascular: Heart regular in rate and rhythm, No murmurs, gallops, or rubs No peripheral edema Abdominal: Soft Nontender, no guarding, rebound or rigidity Abdomen moving with respiration Normoactive bowel sounds No hepatomegaly, No splenomegaly No palpable mass No abdominal wall hernia noted Skin: Normal temperature, tone, texture, turgor No induration No subcutaneous nodules No rash, lesions No ulcers Extremities: No digital cyanosis No clubbing Pedal pulses intact and symmetrical Radial pulses intact and symmetrical Normal gait and station No calf tenderness Psychiatric: Alert and oriented to person, place and time Appropriate affect Intact judgement Neuro: Muscles Strength 5/5 in all 4 extremities Sensation to light touch grossly present throughout Cranial nerves II-XII grossly intact No focal sensory deficits - Labs CBC & Chem 7: 09/20/17 05:47 09/20/17 05:47 Labs: Abnormal Lab Results - Last 24 Hours (Table) 09/20/17 09/20/17 Range/Units 05:47 05:47 RDW 16.3 H (11.5-15.5) % Potassium 3.3 L (3.5-5.1) mmol/L Chloride 93 L (98-107) mmol/L Carbon Dioxide 35 H (22-30) mmol/L BUN 39 H (9-20) mg/dL Glucose 102 H (74-99) mg/dL Total Bilirubin 3.2 H (0.2-1.3) mg/dL Unconjugated Bilirubin 2.6 H (0.0-1.1) mg/dL Delta Bilirubin 0.6 H (0.0-0.2) mg/dL AST 71 H (17-59) U/L ALT 89 H (21-72) U/L Alkaline Phosphatase 139 H (38-126) U/L Assessment and Plan Assessment: -acute systolic CHF exacerbation, on the top of her chronic nonischemic cardiomyopathy, presents with dyspnea, cardiology consultation is appreciated, c /w Lasix drip and c/w Entresto, his BP on the low side so multiple pressure medications are held discuss with staff Follow-up cardiology recommendation for management and clearance -Acute kidney injury, creatinine is up from 1.07 on 08/2017-1.33 on 09/18/2017, MISTI Hugo on follow-up creatinine level, creatinine is down to 1.25 [WNL] DVT prophylaxis subcu heparin
[2017-09-20] MEDS: SPIRONOLACTONE 25 MG TAB PO SCH (11:49)
[2017-09-20] MEDS: AMIODARONE 100 MG TAB PO SCH (11:49)
[2017-09-20] MEDS: SACUBITRIL/VALSARTAN 24 MG-26 MG TABLET PO SCH ×2 (11:50→20:38)
--- NOTE | 2017-09-20 12:02 | P.PN ---
Subjective Progress Note Date: 09/20/17 Principal diagnosis: Congestive heart failure exacerbation secondary to systolic dysfunction This is a pleasant 72-year-old gentleman who sees Dr. Laura as an outpatient with severe nonischemic cardiomyopathy and status post AICD, hypertension, and dyslipidemia, was admitted to the hospital with acute exacerbation of systolic heart failure. The patient wasn't started on Lasix drip and also he was started on entersto. On follow-up with him today, he denies having any chest pain or chest discomfort. He stated that he is feeling better in terms of shortness of breath. Hemodynamically, he is slightly hypotensive with a systolic blood pressure in the 80s and 90s. I feel he is a slightly on the dry side today. I am going to DC the Lasix drip and start the patient on Lasix by mouth. Beside that I would lower the dose of Aldactone. He is on a very small dose of Coreg at 3.125 mg by mouth twice a day. Objective - Vital Signs Vital signs: Vital Signs Temp 97 F L 09/20/17 08:00 Pulse 85 09/20/17 11:51 Resp 16 09/20/17 11:54 BP 93/56 09/20/17 11:51 Pulse Ox 95 09/20/17 11:51 Intake & Output 09/19/17 09/20/17 09/20/17 18:59 06:59 18:59 Intake Total 600 80 360 Output Total 2450 4875 Balance -8013 -1631 360 Weight 98.4 kg 89.7 kg Intake: Intake, IV Titration 80 Amount Furosemide 250 mg In 80 Sodium Chloride 0.9% 225 ml @ 10 MG/HR 10 mls/hr IVP .Q24H ONE Rx#: [id number] Oral 600 360 Output: Urine 2450 4875 Other: Voiding Method Toilet Toilet Toilet Urinal Urinal Urinal # Voids 1 - Constitutional General appearance: Present: no acute distress - Respiratory Respiratory: bilateral: CTA - Cardiovascular Rhythm: regular Heart sounds: normal: S1, S2 - Labs CBC & Chem 7: 09/20/17 05:47 09/20/17 05:47 Labs: Abnormal Lab Results - Last 24 Hours (Table) 09/20/17 09/20/17 Range/Units 05:47 05:47 RDW 16.3 H (11.5-15.5) % Potassium 3.3 L (3.5-5.1) mmol/L Chloride 93 L (98-107) mmol/L Carbon Dioxide 35 H (22-30) mmol/L BUN 39 H (9-20) mg/dL Glucose 102 H (74-99) mg/dL Total Bilirubin 3.2 H (0.2-1.3) mg/dL Unconjugated Bilirubin 2.6 H (0.0-1.1) mg/dL Delta Bilirubin 0.6 H (0.0-0.2) mg/dL AST 71 H (17-59) U/L ALT 89 H (21-72) U/L Alkaline Phosphatase 139 H (38-126) U/L Assessment and Plan Assessment: Assessment #1 congestive heart failure exacerbation secondary to systolic dysfunction #2 severe nonischemic cardiomyopathy. #3 status post AICD #4 hypertension Plan #1 DC the Lasix drip and start the patient on Lasix by mouth #2 decrease the dose of Aldactone in view of the marginal blood pressure #3 follow-up with the patient.
[2017-09-20] MEDS ORDERED: Potassium Replacement Protocol 1 EACH MISC MISCELLANE PRN ×2 (13:55→13:58)
[2017-09-20] MEDS ORDERED: POTASSIUM CHLORIDE ER 20 MEQ TAB.ER PO SCH (14:00)
[2017-09-20 14:55] VITALS: BMI 29.2
[2017-09-20] MEDS: POTASSIUM CHLORIDE ER 20 MEQ TAB.ER PO SCH (15:19)
[2017-09-20] MEDS: ATORVASTATIN 20 MG TAB PO SCH (20:38)
[2017-09-21 00:28] VITALS: RESP 16
[2017-09-21 06:38] LABS: HCT 42.6 % (39.0-53.0); HGB 13.2 gm/dL (13.0-17.5); Hypochromasia Slight; MCH 26.1 pg (25.0-35.0); Mean Platelet Volume 7.8; Platelet Count 157 k/uL (150-450); RBC 5.06 m/uL (4.30-5.90); RDW 15.9 % (11.5-15.5); WBC 8.6 k/uL (3.8-10.6)
[2017-09-21] MEDS: CARVEDILOL 3.125 MG TAB PO SCH (06:41)
[2017-09-21 06:48] LABS: Potassium 3.8 mmol/L (3.5-5.1)
[2017-09-21 07:06] LABS: Basophils # (M) 0.17 k/uL (0-0.2); Eosinophils # (M) 0.17 k/uL (0-0.7); Lymphocytes # (M) 2.06 k/uL (1.0-4.8); Monocytes # (M) 1.29 k/uL (0-1.0); Neutrophils % (M) 57 %; Nucleated Red Blood Cells 0 /100 WBC (0-0); Reactive Lymphocytes Present; Total Cells Counted 100
[2017-09-21] MEDS: MAGNESIUM OXIDE 400 MG TAB PO SCH (07:52)
[2017-09-21] MEDS: SACUBITRIL/VALSARTAN 24 MG-26 MG TABLET PO SCH (07:53)
[2017-09-21] MEDS: ASPIRIN 81 MG PO SCH (07:53)
[2017-09-21] MEDS: HEPARIN SODIUM,PORCINE 5,000 UNIT/ML 1 ML VIAL SQ SCH (07:53)
[2017-09-21] MEDS: SPIRONOLACTONE 25 MG TAB PO SCH (07:53)
[2017-09-21] MEDS: AMIODARONE 100 MG TAB PO SCH (07:53)
[2017-09-21] MEDS ORDERED: FUROSEMIDE 40 MG TAB PO SCH (09:00)
[2017-09-21 10:28] VITALS: PULSE 85; TEMP 96.6
[2017-09-21 11:48] VITALS: BP 103/58
--- NOTE | 2017-09-21 13:57 | P.PN ---
Subjective Progress Note Date: 09/21/17 Principal diagnosis: CHF This is a pleasant 72-year-old gentleman who follows with Dr. Laura in the office. He has a known history of nonischemic cardiomyopathy, hypertension, hyperlipidemia, mitral regurgitation, most recent echo showed an ejection fraction of 20-25%. History of single chamber AICD, history of nonsustained ventricular tachycardia. Patient did undergo a cardiac catheterization recently by Dr. Rizvi which revealed normal coronary arteries. This was performed in August of this year. Patient has been progressively more short of breath, he also states that he's been feeling bloated and has noticed significant peripheral edema. For this reason he was advised by Dr. Laura to be admitted to the [facility]. The patient was initiated on an IV Lasix drip, he has diuresed well through the night last night. 2900 out. White blood cell count 9.3, hemoglobin 12, platelet count 135. Sodium 141, potassium 3.8, BUN on admission 44 creatinine 13, 44 and 1.2 this morning. AST and ALT mildly elevated, AST 86, ALT 90, likely secondary to liver congestion. Troponin 0.0-7 , 0.021. BNP level 10,700. TSH normal at 4.5. EKG shows a normal sinus rhythm with PVCs. Chest x-ray reveals changes consistent with mild congestive heart failure, new from prior exam. At the time of my examination this morning , patient does state he feels less bloated, still complaining of mild shortness of breath, continues to have peripheral edema and mild tenderness in the right upper quadrant this morning. 09/21/2017 Patient seen and examined this morning, continues to diurese well. Edema has significantly improved. He is hemodynamically stable. He is noted to have runs of nonsustained ventricular tachycardia on the monitor. Potassium today 3.8, BUN 32, creatinine 1.1. Objective - Vital Signs Vital signs: Vital Signs Temp 96.6 F L 09/21/17 08:00 Pulse 85 09/21/17 11:47 Resp 16 09/21/17 11:47 BP 103/58 09/21/17 11:47 Pulse Ox 95 09/21/17 11:47 Intake & Output 09/20/17 09/21/17 09/21/17 18:59 06:59 18:59 Intake Total 844 20 360 Output Total 900 Balance -56 20 360 Weight 89.7 kg 89.8 kg Intake: IV 20 0.9 20 Intake, IV Titration 40 Amount Furosemide 250 mg In 40 Sodium Chloride 0.9% 225 ml @ 10 MG/HR 10 mls/hr IVP .Q24H ONE Rx#: [id number] Oral 804 360 Output: Urine 900 Other: Voiding Method Toilet Toilet Urinal Urinal # Voids 1 - Exam PHYSICAL EXAMINATION: HEENT: Head is atraumatic, normocephalic. Pupils equal, round. Neck is supple. There is no elevated jugular venous pressure. HEART EXAMINATION: Heart S1 and S2 systolic murmur is heard. CHEST EXAMINATION: Lungs are clear to auscultation and precussion. No chest wall tenderness is noted on palpation or with deep breathing. ABDOMEN: Soft, nontender. Bowel sounds are heard. No organomegaly noted. EXTREMITIES: 2+ peripheral pulses with no evidence of peripheral edema and no calf tenderness noted. NEUROLOGIC patient is awake, alert and oriented -3. . - Labs CBC & Chem 7: 09/21/17 06:08 09/21/17 06:08 Labs: Abnormal Lab Results - Last 24 Hours (Table) 09/21/17 09/21/17 Range/Units 06:08 06:08 RDW 15.9 H (11.5-15.5) % Monocytes # (Manual) 1.29 H (0-1.0) k/uL Chloride 93 L (98-107) mmol/L Carbon Dioxide 34 H (22-30) mmol/L BUN 32 H (9-20) mg/dL Glucose 112 H (74-99) mg/dL Assessment and Plan Plan: Assessment and plan #1 systolic congestive heart failure acute on chronic #2 nonischemic cardiomyopathy with prior single chamber AICD, last documented ejection fraction 20-25% #3 hypertension #4 hyperlipidemia #5 family history of premature coronary artery disease #6 history of nonsustained VT #7 prior history of smoking #8 mild CAD, most recent heart cath performed in August of this year. Plan From cardiology's perspective, patient may be able to be discharged home today. He has an appointment to follow up at the heart failure center with Dr. Scales next week. After that he will follow with Dr. Laura in the office. Patient will be discharged home on amiodarone 100 mg daily, aspirin 81 mg daily , Lipitor 20 mg daily, Coreg 3.125 mg twice a day, Lasix 80 mg by mouth twice a day, and chest O one tablet by mouth twice a day, Aldactone which was decreased to [address] Velazquez. DNP note has been reviewed, I agree with a documented findings and plan of care. Patient was seen and examined.
[2017-09-21 14:10] LABS: Albumin 3.1 g/dL (3.5-5.0); Bilirubin, Delta 0.5 mg/dL (0.0-0.2); Bilirubin,Unconjugated 1.7 mg/dL (0.0-1.1); Total Bilirubin 2.2 mg/dL (0.2-1.3); Total Protein 6.2 g/dL (6.3-8.2)
--- NOTE | 2017-09-21 14:40 | P.DS ---
Providers Date of admission: 09/18/17 21:17 Attending physician: Zo Castaneda price lindsey Consults: 09/18/17 21:17 Consult Physician Urgent Consulting Provider: Jordan Laura Consult Reason/Comments: known Do you want consulting provider notified?: Yes bhavik Pichardo Primary care physician: [facility] Course: This is a pleasant 72 years old male with past medical history of HTN, nonischemic cardiomyopathy, with EF 20-25% status post AICD and heart catheterization, status post pacemaker , he presents with signs and symptoms of dyspnea, patient was admitted for CHF exacerbation secondary to systolic dysfunction and in view of his severe nonischemic cardiomyopathy and has been evaluated by mud [employer] and he was treated with Lasix trip patient showed interval improvement with dyspnea significantly. Patient without any chest pain or discomfort dynamically stable however his blood pressure was on the low side however his blood pressure today is 103/58 and heart rate is 85 regular, and continue with other blood pressure medication including Coreg and traced as well as a statin and oral dose of Lasix, amiodarone 100 mg daily patient was cleared by cardiology team for discharge His high creatinine on admission and went down to 1.1 [WNL] His AST on admission was 86 trending down 41[WNL],, ALT 89 down to 69 [WNL], patient bilirubin is trending down from 3.2 to 2.2 Patient is asymptomatic today and can ambulate with no difficulty; pt is stable, he can be discharged home however he needs follow-up as an outpatient Problem list and management plan were discussed with the patient and he verbalized understanding and acceptance Constitutional: No acute distress, conversant, pleasant Eyes: Anicteric sclerae, moist conjunctiva, no lid-lag PERRLA ENMT: NC/AT Oropharynx clear, no erythema, exudates Neck: supple, FROM, no masses, or JVD No carotid bruits No thyromegaly Lungs: Clear to auscultation Clear to percussion Normal respiratory effort, no accessory muscle use Cardiovascular: Heart regular in rate and rhythm, No murmurs, gallops, or rubs No peripheral edema Abdominal: Soft Nontender, no guarding, rebound or rigidity Abdomen moving with respiration Normoactive bowel sounds No hepatomegaly, No splenomegaly No palpable mass No abdominal wall hernia noted Skin: Normal temperature, tone, texture, turgor No induration No subcutaneous nodules No rash, lesions No ulcers Extremities: No digital cyanosis No clubbing Pedal pulses intact and symmetrical Radial pulses intact and symmetrical Normal gait and station No calf tenderness Psychiatric: Alert and oriented to person, place and time Appropriate affect Intact judgement Neuro: Muscles Strength 5/5 in all 4 extremities Sensation to light touch grossly present throughout Cranial nerves II-XII grossly intact No focal sensory deficits Patient Condition at Discharge: Good Plan - Discharge Summary New Discharge Prescriptions: New Furosemide [Lasix] 40 mg PO DAILY #0 tab Sacubitril/Valsartan [Entresto 24 mg-26 mg Tablet] 1 each PO BID #60 tablet Continue Aspirin [Adult Low Dose Aspirin EC] 81 mg PO DAILY Atorvastatin [Lipitor] 20 mg PO HS Carvedilol [Coreg] 6.25 mg PO BID-W/MEALS #60 tab Spironolactone [Aldactone] 25 mg PO DAILY Isosorbide Mononitrate ER [Imdur] 30 mg PO DAILY Amiodarone [Cordarone] 100 mg PO DAILY Discontinued Furosemide [Lasix] 40 mg PO BID Losartan [Cozaar] 50 mg PO BID No Action Metaxalone [Skelaxin] 800 mg PO TID PRN PRN Reason: BACK PAIN Ketoprofen 200 mg PO DAILY PRN PRN Reason: Pain traMADol HCL [traMADol HCL ER] 200 mg PO DAILY PRN PRN Reason: Pain Albuterol Nebulized [Ventolin Nebulized] 2.5 mg INHALATION RT-QID PRN PRN Reason: Shortness Of Breath Ovpzz-V-Piynqglxxrmug [Beano] 300 unit PO DIRECTED PRN PRN Reason: GAS Promethazine 6.25MG/5Ml [Phenergan Syrup] 6.25 mg PO Q8H PRN PRN Reason: Cough Potassium Chloride [Klor-Con 20] 20 meq PO DAILY Levofloxacin [Levaquin] 500 mg PO DAILY Discharge Medication List Aspirin [Adult Low Dose Aspirin EC] 81 mg PO DAILY 11/03/15 [History] Metaxalone [Skelaxin] 800 mg PO TID PRN 11/03/15 [History] Albuterol Nebulized [Ventolin Nebulized] 2.5 mg INHALATION RT-QID PRN 09/03/17 [ History] Kfuuy-Z-Lmruhrrsuzmpx [Beano] 300 unit PO DIRECTED PRN 09/03/17 [History] Atorvastatin [Lipitor] 20 mg PO HS 09/03/17 [History] Ketoprofen 200 mg PO DAILY PRN 09/03/17 [History] traMADol HCL [traMADol HCL ER] 200 mg PO DAILY PRN 09/03/17 [History] Carvedilol [Coreg] 6.25 mg PO BID-W/MEALS #60 tab 09/05/17 [Rx] Amiodarone [Cordarone] 100 mg PO DAILY 09/18/17 [History] Isosorbide Mononitrate ER [Imdur] 30 mg PO DAILY 09/18/17 [History] Levofloxacin [Levaquin] 500 mg PO DAILY 09/18/17 [History] Potassium Chloride [Klor-Con 20] 20 meq PO DAILY 09/18/17 [History] Promethazine 6.25MG/5Ml [Phenergan Syrup] 6.25 mg PO Q8H PRN 09/18/17 [History] Spironolactone [Aldactone] 25 mg PO DAILY 09/18/17 [History] Furosemide [Lasix] 40 mg PO DAILY #0 tab 09/21/17 [Rx] Sacubitril/Valsartan [Entresto 24 mg-26 mg Tablet] 1 each PO BID #60 tablet [Rx] Follow up Appointment(s)/Referral(s): Jordan Laura MD [STAFF PHYSICIAN] - 10/11/17 6:00 pm Frank Perez MD [Primary Care Provider] - 10/01/17 2:00 pm (we recommend to repeat your blood test with your doctor including liver function test and basic metabolic panel, please take this referal to your doctor) Discharge Disposition: HOME SELF-CARE
--- NOTE | 2017-09-21 15:21 | P.DS ---
Providers Date of admission: 09/18/17 21:17 Attending physician: Zo Castaneda price lindsey Consults: 09/18/17 21:17 Consult Physician Urgent Consulting Provider: Jordan Laura Consult Reason/Comments: known Do you want consulting provider notified?: Yes Dr. Hank Love Primary care physician: [facility] Course: This is a pleasant 72 years old male with past medical history of HTN, nonischemic cardiomyopathy, with EF 20-25% status post AICD and heart catheterization, status post pacemaker , he presents with signs and symptoms of dyspnea, patient was admitted for CHF exacerbation secondary to systolic dysfunction and in view of his severe nonischemic cardiomyopathy and has been evaluated by prom burn off operator and he was treated with Lasix trip patient showed interval improvement with dyspnea significantly. Patient without any chest pain or discomfort dynamically stable however his blood pressure was on the low side however his blood pressure today is 103/58 and heart rate is 85 regular, and continue with other blood pressure medication including Coreg and traced as well as a statin and oral dose of Lasix, amiodarone 100 mg daily patient was cleared by cardiology team for discharge His high creatinine on admission and went down to 1.1 [WNL] His AST on admission was 86 trending down 41[WNL],, ALT 89 down to 69 [WNL], patient bilirubin is trending down from 3.2 to 2.2 Patient is asymptomatic today and can ambulate with no difficulty; pt is stable, he can be discharged home however he needs follow-up as an outpatient Problem list and management plan were discussed with the patient and he verbalized understanding and acceptance Constitutional: No acute distress, conversant, pleasant Eyes: Anicteric sclerae, moist conjunctiva, no lid-lag PERRLA ENMT: NC/AT Oropharynx clear, no erythema, exudates Neck: supple, FROM, no masses, or JVD No carotid bruits No thyromegaly Lungs: Clear to auscultation Clear to percussion Normal respiratory effort, no accessory muscle use Cardiovascular: Heart regular in rate and rhythm, No murmurs, gallops, or rubs No peripheral edema Abdominal: Soft Nontender, no guarding, rebound or rigidity Abdomen moving with respiration Normoactive bowel sounds No hepatomegaly, No splenomegaly No palpable mass No abdominal wall hernia noted Skin: Normal temperature, tone, texture, turgor No induration No subcutaneous nodules No rash, lesions No ulcers Extremities: No digital cyanosis No clubbing Pedal pulses intact and symmetrical Radial pulses intact and symmetrical Normal gait and station No calf tenderness Psychiatric: Alert and oriented to person, place and time Appropriate affect Intact judgement Neuro: Muscles Strength 5/5 in all 4 extremities Sensation to light touch grossly present throughout Cranial nerves II-XII grossly intact No focal sensory deficits Patient Condition at Discharge: Good Plan - Discharge Summary New Discharge Prescriptions: New Sacubitril/Valsartan [Entresto 24 mg-26 mg Tablet] 1 each PO BID #60 tablet Carvedilol [Coreg] 3.125 mg PO BID-W/MEALS #60 tab Furosemide [Lasix] 80 mg PO BID@0900,1600 #60 tab Nitroglycerin Sl Tabs [Nitrostat] 0.4 mg SUBLINGUAL Q5M PRN #30 tab PRN Reason: Chest Pain Potassium Chloride ER [K-Dur 10] 10 meq PO DAILY #10 tab Continue Albuterol Nebulized [Ventolin Nebulized] 2.5 mg INHALATION RT-QID PRN PRN Reason: Shortness Of Breath Debau-M-Ugvbmqommuorn [Beano] 300 unit PO DIRECTED PRN PRN Reason: GAS Spironolactone [Aldactone] 25 mg PO DAILY Isosorbide Mononitrate ER [Imdur] 30 mg PO DAILY Potassium Chloride [Klor-Con 20] 20 meq PO DAILY Amiodarone [Cordarone] 100 mg PO DAILY #30 tab Aspirin [Adult Low Dose Aspirin EC] 81 mg PO DAILY #30 tablet. Atorvastatin [Lipitor] 20 mg PO HS #30 tab Discontinued Metaxalone [Skelaxin] 800 mg PO TID PRN PRN Reason: BACK PAIN Ketoprofen 200 mg PO DAILY PRN PRN Reason: Pain Carvedilol [Coreg] 6.25 mg PO BID-W/MEALS #60 tab Furosemide [Lasix] 40 mg PO BID Promethazine 6.25MG/5Ml [Phenergan Syrup] 6.25 mg PO Q8H PRN PRN Reason: Cough Losartan [Cozaar] 50 mg PO BID Levofloxacin [Levaquin] 500 mg PO DAILY Discharge Medication List Albuterol Nebulized [Ventolin Nebulized] 2.5 mg INHALATION RT-QID PRN 09/03/17 [ History] Bfcib-E-Jqvdpqhubfxus [Beano] 300 unit PO DIRECTED PRN 09/03/17 [History] Isosorbide Mononitrate ER [Imdur] 30 mg PO DAILY 09/18/17 [History] Potassium Chloride [Klor-Con 20] 20 meq PO DAILY 09/18/17 [History] Spironolactone [Aldactone] 25 mg PO DAILY 09/18/17 [History] Amiodarone [Cordarone] 100 mg PO DAILY #30 tab 09/21/17 [Rx] Aspirin [Adult Low Dose Aspirin EC] 81 mg PO DAILY #30 tablet. 09/21/17 [Rx] Atorvastatin [Lipitor] 20 mg PO HS #30 tab 09/21/17 [Rx] Carvedilol [Coreg] 3.125 mg PO BID-W/MEALS #60 tab 09/21/17 [Rx] Furosemide [Lasix] 80 mg PO BID@0900,1600 #60 tab 09/21/17 [Rx] Nitroglycerin Sl Tabs [Nitrostat] 0.4 mg SUBLINGUAL Q5M PRN #30 tab 09/21/17 [Rx ] Potassium Chloride ER [K-Dur 10] 10 meq PO DAILY #10 tab 09/21/17 [Rx] Sacubitril/Valsartan [Entresto 24 mg-26 mg Tablet] 1 each PO BID #60 tablet [Rx] Follow up Appointment(s)/Referral(s): Jordan Laura MD [STAFF PHYSICIAN] - 10/11/17 6:00 pm Frank Perez MD [Primary Care Provider] - 10/01/17 2:00 pm (we recommend to repeat your blood test with your doctor including liver function test and basic metabolic panel, please take this referal to your doctor) Discharge Disposition: HOME SELF-CARE
[2017-09-21] MEDS ORDERED: FUROSEMIDE 80 MG TAB PO SCH (16:00)
== END 2017-09-21 15:38 | disposition home or self-care (01) | DRG 292 ==
LOC: EC 20:13 → 6SEL 21:17
PROVIDERS: ADMIT Hospitalist; ATTEND Hospitalist
DX: I11.0 Hypertensive heart disease with heart failure (principal); N17.9 Acute kidney failure, unspecified; I42.8 Other cardiomyopathies; I34.0 Nonrheumatic mitral (valve) insufficiency; E78.5 Hyperlipidemia, unspecified; I25.10 Atherosclerotic heart disease of native coronary artery without angina pectoris; I49.3 Ventricular premature depolarization; I50.23 Acute on chronic systolic (congestive) heart failure; K76.1 Chronic passive congestion of liver; Z66 Do not resuscitate; Z79.82 Long term (current) use of aspirin; Z79.899 Other long term (current) drug therapy; Z82.49 Family history of ischemic heart disease and other diseases of the circulatory system; Z83.3 Family history of diabetes mellitus; Z87.891 Personal history of nicotine dependence; Z95.810 Presence of automatic (implantable) cardiac defibrillator; Z88.0 Allergy status to penicillin; Z91.030 Bee allergy status; Z80.9 Family history of malignant neoplasm, unspecified
CPT/HCPCS: 36415; 71046; 76705; 80048; 80053; 80061; 80076; 82550; 82553; 83690; 83735; 83880; 84443; 84484; 85025; 85610; 85730; 93005; 96365; 99285

== ENCOUNTER → 2018-06-20 | Outpatient (CLI) | payer MEDICARE ==
[2018-06-20 17:41] LABS: Anion Gap 6.8 mmol/L (4.00-12.00); Calcium 9.3 mg/dL (8.7-10.3); Carbon Dioxide 28.2 mmol/L (21.6-31.8); Potassium 4.5 mmol/L (3.5-5.5)
== END | disposition home or self-care (01) ==
LOC: LABWHC1 06-18 10:14
PROVIDERS: ATTEND Nurse Practitioner Adult Health
DX: E87.5 Hyperkalemia (principal)
CPT/HCPCS: 36415; 80048

== ENCOUNTER → 2019-11-11 | Outpatient (CLI) | payer MEDICARE ==
--- NOTE | 2019-11-11 10:03 | CT ---
EXAMINATION TYPE: CT ChestAbdPelvis wo con DATE OF EXAM: 11/11/2019 COMPARISON: None HISTORY: 74-year-old male R10.9, abdominal pain and weight loss TECHNIQUE: Contiguous axial scanning of the chest, abdomen, and pelvis without IV contrast. Coronal a nd sagittal reconstructions performed. CT DLP: 449.80 mGycm Automated exposure control for dose reduction was used. FINDINGS: CHEST: Left anterior chest wall ICD generator with right ventricular lead.. Heart upper limits of normal in size with trace pericardial fluid. Urinary artery calcifications are present and unremarkable for coronary artery disease. Ectatic ascending aorta 3.8 cm with mild atherosclerotic arch calcifications and conventional branchi ng anatomy. Bilateral axillary lymphadenopathy measuring up to 3.5 cm on the right and 2.4 cm on the left. Extensive mediastinal lymphadenopathy, greatest along the right paratracheal region measuring up to 6 .9 cm craniocaudal on the coronal view and 5.8 cm on the axial series. Subcarinal lymphadenopathy eloina sures up to 3.9 cm. Underlying hilar lymphadenopathy is also suspected though assessment limited due to lack of IV contrast. Retrocrural lymphadenopathy measuring up to 1.2 cm. There is a small right pleural effusion. Approximately 3 right upper and mid lung pulmonary nodules ranging from 5 mm to 7 mm. Some septal lines in the right lower lung. ABDOMEN: Liver normal size at 16.7 cm. Noncontrast appearance of the liver, gallbladder, adrenal glands, and p ancreas show no gross abnormality. Assessment limited due to the lack of IV contrast. Hypodense renal lesions measuring up to 4.4 cm on the right and 5.0 cm on the left suspected renal cy sts. Spleen enlarged at 19.5 cm on axial series. Retroperitoneal lymphadenopathy measuring up to 1.8 cm short axis left periaortic and 1.7 cm short ax is aortocaval. Moderate atherosclerotic calcification throughout the abdominal aorta and iliac arteries. No dilated small bowel, free fluid, or free air. [id number] stool right side of the abdomen there are no pericolonic inflammatory change. PELVIS: Left common iliac chain lymph nodes measure up to 1.7 cm and on the right measures up to 1.8 cm. Bilateral external iliac chain lymph nodes are larger on the left measuring up to 2.0 cm in bilateral inguinal chain lymph nodes, left greater than right, measuring up to 2.5 cm. Upper femoral chain lym ph nodes are also enlarged measuring up to 2.2 cm. Mild circumferential bladder wall thickening. Left-sided dependent bladder calculus measuring 1.8 cm. There is soft tissue impressing on the posterior bladder base, likely median lobe of the prostate hy pertrophy. Prostate gland is enlarged measuring 5.6 cm wide. BONES: Multilevel moderate degenerative change of both hips. Patient within the lower thoracic spine. Degene rative disc disease lower lumbar spine. IMPRESSION: 1. MEDIASTINAL, AXILLARY, hilar, retrocrural, retroperitoneal, bilateral iliac chain, inguinal chain, and upper femoral chain lymphadenopathy. Largest yoan conglomerate is in the right paratracheal reg ion measuring up to 6.9 cm craniocaudal. Findings highly suspicious for lymphoma. 2. Splenomegaly measuring 19.5 cm. 3. Approximately 3 pulmonary nodules on the right measuring up to 7 mm. These are nonspecific and jenny uld be reassessed at follow-up. 4. Small right pleural effusion. Some septal lines in the right lower lung could represent venous con gestion from lymphadenopathy at the right hilum. 5. Bladder calculus measuring 1.8 cm. Prostatomegaly of 5.6 cm; correlate for BPH.
== END | disposition home or self-care (01) ==
LOC: RADCTMAIN 07:47
PROVIDERS: ATTEND Family Medicine
DX: R59.0 Localized enlarged lymph nodes (principal); R16.1 Splenomegaly, not elsewhere classified; J90 Pleural effusion, not elsewhere classified; N21.0 Calculus in bladder; N40.0 Benign prostatic hyperplasia without lower urinary tract symptoms; R10.9 Unspecified abdominal pain
CPT/HCPCS: 71250; 74176

== ENCOUNTER → 2019-11-27 | Outpatient (CLI) | payer MEDICARE ==
--- NOTE | 2019-11-27 15:45 | PE ---
Nuclear medicine PET/CT HISTORY: Lymphadenopathy, lymphoma, initial Patient received 9 mCi F-18 FDG intravenously in delayed scanning was performed from the skull base t o the mid thighs. Localization and attenuation correction CT scan was performed. Correlation to prior chest abdomen pelvis CT 11/11/2019 neck and chest: Extensive cervical uptake, supraclavicular, submandibular axillary adenopathy seen on prior exam shows associated hypermetabolic uptake. There is abnormal uptake corresponding to the enl arged mediastinal and hilar nodes. There is a right pleural effusion as on prior exam. Inflammatory c hange noted in the right maxillary sinus. Upper abdomen shows extensive adenopathy as noted on CT, there is associated hypermetabolic uptake pr esent throughout and extending along the retroperitoneum and iliac chains, into the inguinal regions bilaterally. Osseous structures show focus of uptake within the left femoral neck. The right proximal femur also s hows foci of uptake, focus of uptake present in the left acetabulum, uptake present within the iliac bones, proximal right humerus. IMPRESSION: Findings compatible with patient's history of lymphoma.
== END | disposition home or self-care (01) ==
LOC: RADPETMAIN 13:01
PROVIDERS: ATTEND Family Medicine
DX: R59.0 Localized enlarged lymph nodes (principal)
CPT/HCPCS: 78815; A9552

== ENCOUNTER 2019-12-08 08:47 | Inpatient (IN) | payer MEDICARE ==
[~2019-12-08 08:47] MED LIST changes: +ACETAMINOPHEN TAB 500 MG TAB PO ONE; -ALPRAZolam 0.25 MG TAB PO PRN; -ALPRAZolam 0.5 MG TAB PO PRN; -ASPIRIN 325 MG TAB PO STA; +HEPARIN SODIUM,PORCINE 5,000 UNIT/ML 1 ML VIAL SQ ONE; -NITROGLYCERIN SL TABS 0.4 MG TAB SUBLINGUAL PRN; +Pre Op ABX Message 1 EACH MISC MISCELLANE ONE; -SODIUM CHLORIDE 0.9% 1,000 ML in EMPTY BAG 1 BAG IV ONE
[2019-12-08 09:33] LABS: Glucose,Whole Blood 93 mg/dL (75-99)
[2019-12-08] MEDS ORDERED: LACTATED RINGERS 1,000 ML IV ONE (09:38)
[2019-12-08] MEDS ORDERED: LIDOCAINE 1% (10MG/ML) FOR IV START INTRADERMA ONE (09:39)
--- NOTE | 2019-12-08 09:51 | P.GSHP ---
History of Present Illness H&P Date: 12/08/19 Chief Complaint: Lymphadenopathy This a 74-year-old male who has developed generalized lymphadenopathy. Patient undergoing workup for lymphoma. Patient presents today for left cervical lymph node biopsy Past Medical History Past Medical History: Heart Failure, Hyperlipidemia, Hypertension, Memory Impairment Additional Past Medical History / Comment(s): weakness, 25 lb. weight loss recently, "just not feeling well" per spouse, enlarged lymph nodes per spouse History of Any Multi-Drug Resistant Organisms: None Reported Past Surgical History: AICD, Heart Catheterization, Pacemaker, Tonsillectomy Additional Past Surgical History / Comment(s): defibulator Past Anesthesia/Blood Transfusion Reactions: No Reported Reaction Type of Cardiac Device: AICD Device Placement Date:: 2012 Smoking Status: Former smoker - Past Family History Mother Family Medical History: Cancer Father Family Medical History: Diabetes Mellitus Sister(s) Family Medical History: Cancer Medications and Allergies Home Medications Medication Instructions Recorded Confirmed Type Albuterol Nebulized [Ventolin 2.5 mg INHALATION RT-QID PRN 09/03/17 12/07/19 History Nebulized] Spironolactone [Aldactone] 25 mg PO DAILY 09/18/17 12/07/19 History Amiodarone [Cordarone] 100 mg PO DAILY #30 tab 09/21/17 12/07/19 Rx Atorvastatin [Lipitor] 20 mg PO HS #30 tab 09/21/17 12/07/19 Rx Carvedilol [Coreg] 6.25 mg PO BID-W/MEALS 12/07/19 12/07/19 History Docusate [Colace] 100 mg PO DAILY 12/07/19 12/07/19 History Furosemide [Lasix] 40 mg PO BID@0900,1600 12/07/19 12/07/19 History Ivabradine HCl [Corlanor] 5 mg PO BID 12/07/19 12/07/19 History Lisinopril [Zestril] 2.5 mg PO DAILY 12/07/19 12/07/19 History Lorazepam(Unknown Dose) 5 mg PO BID PRN 12/07/19 History Metoprolol Succinate (ER) [Toprol 25 mg PO DAILY 12/07/19 12/07/19 History Xl] Allergies Allergy/AdvReac Type Severity Reaction Status Date / Time Penicillins Allergy Anaphylaxis Verified 12/08/19 09:41 venom-honey bee Allergy Anaphylaxis Verified 12/08/19 09:41 [bee venom (honey bee)] Surgical - Exam Vital Signs Temp Pulse Resp BP Pulse Ox 97.7 F 60 16 91/63 95 12/08/19 09:09 12/08/19 09:09 12/08/19 09:09 12/08/19 09:09 12/08/19 09:09 - General well developed, no distress - Eyes PERRL - ENT normal pinna - Neck no masses - Respiratory normal expansion - Cardiovascular Rhythm: regular - Abdomen Abdomen: soft, non tender Generalized lymphadenopathy with enlarged axillary cervical and inguinal lymph nodes Assessment and Plan Plan: Lymphadenopathy. We'll perform open excisional biopsy of left cervical lymph node
[2019-12-08] MEDS ORDERED: ONDANSETRON 4 MG/2 ML VIAL IVP ONE (09:55)
[2019-12-08] MEDS ORDERED: fentaNYL (PF) 50 MCG/ML 2 ML AMP ONE (10:03)
[2019-12-08] MEDS ORDERED: LIDOCAINE 1% INJ 10MG/ML (20 ML MDV) ONE (10:03)
[2019-12-08] MEDS ORDERED: ETOMIDATE 2 MG/ML 10 ML VIAL ONE (10:03)
[2019-12-08] MEDS ORDERED: SUCCINYLCHOLINE CHLORIDE 100 MG/5 ML SYR IV ONE (10:03)
[2019-12-08] MEDS ORDERED: PHENYLEPHRINE-0.9% NACL SYG 1 MG/10 ML SYRINGE ONE (10:03)
[2019-12-08] MEDS ORDERED: BUPIVACAIN-EPI 0.25%-1:200,000 30 ML VIAL SQ ONE (10:28)
--- NOTE | 2019-12-08 10:40 | P.OP ---
Date of Procedure: 12/08/19 Preoperative Diagnosis: Lymphadenopathy Postoperative Diagnosis: Lymphadenopathy Procedure(s) Performed: Excision of left cervical lymph node Anesthesia: LADONNA Surgeon: Alex Toledo Estimated Blood Loss (ml): 5 Pathology: other (Left cervical lymph node) Condition: stable Disposition: PACU Description of Procedure: The patient's placed on the operating table in supine position. He received general anesthesia. His left neck was prepped and draped usual fashion. The patient had several enlarged cervical lymph nodes. The skin was anesthetized 1% local Xylocaine over the enlarged supraclavicular lymph node. A transverse skin incision was made. Then using a clutch cautery and blunt and sharp dissection the lymph node was dissected free. Several small veins were ligated 3-0 Vicryl suture. The specimen sent to pathology fresh. The wound was inspected. There is no bleeding seen. The skin was closed interrupted 3-0 Monocryl suture. Dermabond was applied. Patient tolerated the procedure well was sent to recovery in stable condition.
[2019-12-08 11:08] LABS: Glucose,Whole Blood 107 mg/dL (75-99)
[2019-12-08] MEDS ORDERED: SODIUM CHLORIDE 0.9% 1,000 ML IV ONE (11:28)
[2019-12-08] MEDS: PHENYLEPHRINE 40 MG in SODIUM CHLORIDE 0.9% 250 ML IV SCH ×3 (12:34→23:51)
--- NOTE | 2019-12-08 13:26 | P.CRDCN ---
History of Present Illness History of present illness: HISTORY OF PRESENTING ILLNESS This is a pleasant 74-year-old male past medical history significant for chronic systolic heart failure status post AICD 2013, non-ischemic cardiomyopathy with EF 30% hypertension, non-sustained ventricular tachycardia on amiodarone and dyslipidemia. He follows in the office with Dr. Wilkinson. He underwent cardiac catheterization in 2018 revealing normal coronary arteries with elevated LV end-diastolic pressure. He presented to the hospital for an elective cervical node excision secondary to lymphadenopathy with Dr. Toledo. He was seen and evaluated pre-operatively for tachycardia. EKG on arrival revealed atrial fibrillation with heart rate 114. At the time of evaluation his heart rate was 67 with blood pressure of 91/63. He was resting comfortably on the stretcher in no acute distress. He had no chest pain, shortness of breath, dizziness or palpitations. According to the staff on arrival he was short of breath along with tachycardia and 0.9 NS 500 cc bolus was administered. He was clinically stable and underwent his procedure. Post-operatively he was seen in Phase 1 recovery. He continues to be in afib. His blood pressures are running low in the 50-60 systolic range. He he alert and communicating appropriately. He is urinating in the urinal and wants to go home. He still has no complaints. More fluids were given per anesthesia and phenylephrine infusion initiated. REVIEW OF SYSTEMS At the time of my exam: CONSTITUTIONAL: Denies fever or chills. CARDIOVASCULAR: Denies chest pain, shortness of breath, orthopnea, PND or palpitations. RESPIRATORY: Denies cough. GASTROINTESTINAL: Denies abdominal pain, diarrhea, constipation, nausea or vomiting. MUSCULOSKELETAL: Denies myalgias. NEUROLOGIC: Denies numbness, tingling or weakness. ENDOCRINE: Denies fatigue, weight change, polydipsia or polyurina. GENITOURINARY: Denies burning, hematuria or urgency with micturation. HEMATOLOGIC: Denies history of anemia or bleeding. PHYSICAL EXAMINATION Blood pressure 70/63 heart rate 115 afebrile and maintaining oxygen saturation on nasal cannula. CONSTITUTIONAL: No apparent distress. HEENT: Head is normocephalic. Pupils are equal, round. Sclerae anicteric. Mucous membranes of the mouth are moist. No JVD. No carotid bruit. CHEST EXAMINATION: Lungs are clear to auscultation. No chest wall tenderness is noted on palpation or with deep breathing. HEART EXAMINATION: Irregular rate and rhythm. S1, S2 heard. Systolic ejection murmur at the left sternal border, no gallops or rub. ABDOMEN: Soft, nontender. Positive bowel sounds. EXTREMITIES: 2+ peripheral pulses, no lower extremity edema and no calf tenderness. NEUROLOGIC EXAMINATION: Patient is awake, alert and oriented x3. ASSESSMENT New-onset paroxysmal atrial fibrillation with rapid ventricular rate Hypotension Status post cervical node excision Nonischemic cardiomyopathy status post AICD Chronic systolic heart failure, clinically euvolemic History of nonsustained ventricular tachycardia maintained on amiodarone Dyslipidemia PLAN Recommend ICU admission as he is requiring phenylephrine to maintain stable blood pressure. Discussed with Kandi SAMUEL. Repeat 2-D echocardiogram and Doppler study to assess cardiac structure and function. Hold antihypertensives. Continue amiodarone and Toprol in the morning if his blood pressure will tolerate. Check a baseline chest x-rays he has received over 1 L of fluids. Check CMP, CBC, TSH and magnesium. Discussed with Dr. Toledo and we will hold on anticoagulation until tomorrow secondary to surgery. Further recommendations to follow based on clinical course. Thank you kindly for this consultation. Nurse Practitioner note has been reviewed, I agree with a documented findings and plan of care. Patient was seen and examined. Past Medical History Past Medical History: Heart Failure, Hyperlipidemia, Hypertension, Memory Impairment Additional Past Medical History / Comment(s): weakness, 25 lb. weight loss recently, "just not feeling well" per spouse, enlarged lymph nodes per spouse History of Any Multi-Drug Resistant Organisms: None Reported Past Surgical History: AICD, Heart Catheterization, Pacemaker, Tonsillectomy Additional Past Surgical History / Comment(s): defibulator Past Anesthesia/Blood Transfusion Reactions: No Reported Reaction Type of Cardiac Device: AICD Device Placement Date:: 2012 Smoking Status: Former smoker - Past Family History Mother Family Medical History: Cancer Father Family Medical History: Diabetes Mellitus Sister(s) Family Medical History: Cancer Medications and Allergies Home Medications Medication Instructions Recorded Confirmed Type Albuterol Nebulized [Ventolin 2.5 mg INHALATION RT-QID PRN 09/03/17 12/07/19 History Nebulized] Spironolactone [Aldactone] 25 mg PO DAILY 09/18/17 12/07/19 History Amiodarone [Cordarone] 100 mg PO DAILY #30 tab 09/21/17 12/07/19 Rx Atorvastatin [Lipitor] 20 mg PO HS #30 tab 09/21/17 12/07/19 Rx Carvedilol [Coreg] 6.25 mg PO BID-W/MEALS 12/07/19 12/07/19 History Docusate [Colace] 100 mg PO DAILY 12/07/19 12/07/19 History Furosemide [Lasix] 40 mg PO BID@0900,1600 12/07/19 12/07/19 History Ivabradine HCl [Corlanor] 5 mg PO BID 12/07/19 12/07/19 History Lisinopril [Zestril] 2.5 mg PO DAILY 12/07/19 12/07/19 History Lorazepam(Unknown Dose) 5 mg PO BID PRN 12/07/19 History Metoprolol Succinate (ER) [Toprol 25 mg PO DAILY 12/07/19 12/07/19 History Xl] Allergies Allergy/AdvReac Type Severity Reaction Status Date / Time Penicillins Allergy Anaphylaxis Verified 12/08/19 09:41 venom-honey bee Allergy Anaphylaxis Verified 12/08/19 09:41 [bee venom (honey bee)] Physical Exam Vitals: Vital Signs Temp Pulse Resp BP BP Pulse Ox 12/08/19 11:46 105 H 16 63/52 100 12/08/19 11:43 66/47 12/08/19 11:36 117 H 16 79/59 100 12/08/19 11:33 107 H 16 75/54 100 12/08/19 11:28 110 H 16 76/57 100 12/08/19 11:15 110 H 16 64/47 61/50 100 12/08/19 11:03 111 H 16 90/63 100 12/08/19 10:46 97.2 F L 117 H 18 82/54 100 12/08/19 09:55 63 95/62 12/08/19 09:09 97.7 F 60 16 91/63 95 Intake and Output 12/07/19 12/08/19 12/08/19 22:59 06:59 14:59 Intake Total 800 Output Total 152 Balance 648 Intake: IV 800 Output: Urine 150 Estimated Blood Loss 2 Other: Weight 76.1 kg Results Intake and Output 12/07/19 12/08/19 12/08/19 22:59 06:59 14:59 Intake Total 800 Output Total 152 Balance 648 Intake: IV 800 Output: Urine 150 Estimated Blood Loss 2 Other: Weight 76.1 kg Patient Weight 12/09/19 06:59 Weight 76.1 kg
--- NOTE | 2019-12-08 13:43 | XR ---
EXAMINATION TYPE: XR chest 1V DATE OF EXAM: 12/08/2019 COMPARISON: Prior chest x-ray 09/18/2017, CT 11/11/2019 HISTORY: Heart failure TECHNIQUE: Single frontal view of the chest is obtained. FINDINGS: The mediastinum is widened due to adenopathy. The heart is enlarged. Aorta is dense and an eurysmal. Patchy densities present at the right lung base. No pneumothorax. Mild blunting the right c ostophrenic angle. There is mild prominence of interstitium in the perihilar locations. There is a ge nerator in left pectoral region, lead is present in the right ventricle. There are overlying cardiac leads. IMPRESSION: There may be a component of interstitial edema, correlate to exclude pneumonia, possible small pleural effusion
--- NOTE | 2019-12-08 16:06 | P.CNPUL ---
History of Present Illness Consult date: 12/08/19 Reason for consult: other (Postoperative hypotension) Chief complaint: Status post supraclavicular lymph node biopsy, possible lymphoma. History of present illness: This is a 74-year-old white male with history of multiple medical problems including chronic systolic congestive heart failure, nonischemic in nature, ejection fraction is around 30%, history of nonsustained ventricular tachycardia, maintained on amiodarone. Patient is also known to have history of hypertension maintained on multiple medications for hypertension. His last cardiac catheterization was in 2018, and showed normal coronaries. Elevated l eft ventricular end-diastolic pressure. Patient was recently discovered to have significant lymphadenopathy including cervical lymph nodes, supraclavicular lymph nodes, retroperitoneal lymph nodes, iliac and groin lymph nodes. Patient was referred to Dr. Toledo for excisional biopsy of one of his supraclavicular lymph nodes, and this was done today. Prior to his surgery, the patient was noted to be tachycardic, and he was in atrial fibrillation with RVR rate of 114. Blood pressure was also noted to be a bit low at 91/63. Patient was cleared by cardiology for surgery, and postoperatively the patient was brought into the recovery room, his blood pressure was extremely low with a systolic in the 50s60s range. Hence the patient was placed on phenylephrine, and presently on 2.5 mcg/kg/m. Patient is sitting in bed, asymptomatic, denies any cough no wheezing no shortness of breath no chest pain denies any palpitations. He seems to have decent urine output, and the patient is not in any form of distress. However considering a low blood pressure, and considering his atrial fibrillation, agent will be admitted to the ICU, and I was asked to see him on consultation. I saw the patient in the recovery room, and he was basically asymptomatic. Again the patient was discovered to have lymphadenopathy in the last 4-6 weeks, and he was advised to undergo supraclavicular lymph node biopsy by Dr. Toledo which was done today. Clinically the patient had symptoms of weight loss, no fever no chills, and no pruritus. Review of Systems CONSTITUTIONAL: Significant amount of weight loss over the last few months. Poor appetite. CARDIOVASCULAR: Denies chest pain, shortness of breath, orthopnea, PND or palpitations. RESPIRATORY: Denies any chest pain, no cough, no wheezing. GASTROINTESTINAL: Denies abdominal pain, diarrhea, constipation, nausea or vomiting. MUSCULOSKELETAL: Denies myalgias. NEUROLOGIC: Denies numbness, tingling or weakness. ENDOCRINE: Denies fatigue, weight change, polydipsia or polyurina. GENITOURINARY: Denies burning, hematuria or urgency with micturation. HEMATOLOGIC: Denies history of anemia or bleeding. Past Medical History Past Medical History: Heart Failure, Hyperlipidemia, Hypertension, Memory Impairment Additional Past Medical History / Comment(s): weakness, 25 lb. weight loss recently, "just not feeling well" per spouse, enlarged lymph nodes per spouse History of Any Multi-Drug Resistant Organisms: None Reported Past Surgical History: AICD, Heart Catheterization, Pacemaker, Tonsillectomy Additional Past Surgical History / Comment(s): defibulator Past Anesthesia/Blood Transfusion Reactions: No Reported Reaction Type of Cardiac Device: AICD Device Placement Date:: 2012 Smoking Status: Former smoker - Past Family History Mother Family Medical History: Cancer Father Family Medical History: Diabetes Mellitus Sister(s) Family Medical History: Cancer Medications and Allergies Home Medications Medication Instructions Recorded Confirmed Type Albuterol Nebulized [Ventolin 2.5 mg INHALATION RT-QID PRN 09/03/17 12/07/19 History Nebulized] Spironolactone [Aldactone] 25 mg PO DAILY 09/18/17 12/07/19 History Amiodarone [Cordarone] 100 mg PO DAILY #30 tab 09/21/17 12/07/19 Rx Atorvastatin [Lipitor] 20 mg PO HS #30 tab 09/21/17 12/07/19 Rx Carvedilol [Coreg] 6.25 mg PO BID-W/MEALS 12/07/19 12/07/19 History Docusate [Colace] 100 mg PO DAILY 12/07/19 12/07/19 History Furosemide [Lasix] 40 mg PO BID@0900,1600 12/07/19 12/07/19 History Ivabradine HCl [Corlanor] 5 mg PO BID 12/07/19 12/07/19 History Lisinopril [Zestril] 2.5 mg PO DAILY 12/07/19 12/07/19 History Lorazepam(Unknown Dose) 5 mg PO BID PRN 12/07/19 History Metoprolol Succinate (ER) [Toprol 25 mg PO DAILY 12/07/19 12/07/19 History Xl] Allergies Allergy/AdvReac Type Severity Reaction Status Date / Time Penicillins Allergy Anaphylaxis Verified 12/08/19 09:41 venom-honey bee Allergy Anaphylaxis Verified 12/08/19 09:41 [bee venom (honey bee)] Physical Exam Vitals: Vital Signs Temp Pulse Resp BP BP Pulse Ox 12/08/19 15:44 84 16 88/61 98 12/08/19 14:59 108 H 16 91/62 100 12/08/19 14:56 104/73 12/08/19 14:44 104 H 16 83/60 100 12/08/19 14:38 112 H 20 82/63 99 12/08/19 14:30 122 H 16 77/55 98 12/08/19 14:23 103 H 16 76/46 100 12/08/19 14:16 77/56 12/08/19 14:13 83/56 12/08/19 13:59 118 H 16 92/73 100 12/08/19 13:40 105 H 16 90/63 100 12/08/19 13:34 95 16 84/69 100 12/08/19 13:20 100 16 87/70 100 12/08/19 13:05 99 16 98/72 99 12/08/19 12:50 70/63 12/08/19 12:46 116 H 16 66/58 100 12/08/19 12:44 113 H 16 72/57 100 12/08/19 12:42 97 16 77/50 99 12/08/19 12:31 70/44 12/08/19 12:11 110 H 16 87/75 100 12/08/19 12:10 108 H 16 67/49 100 12/08/19 12:04 90 16 74/60 99 12/08/19 12:00 103 H 16 75/46 100 12/08/19 11:55 100 16 79/64 95 12/08/19 11:48 59/44 12/08/19 11:46 105 H 16 63/52 100 12/08/19 11:43 66/47 12/08/19 11:36 117 H 16 79/59 100 12/08/19 11:33 107 H 16 75/54 100 12/08/19 11:28 110 H 16 76/57 100 12/08/19 11:26 59/44 12/08/19 11:15 110 H 16 64/47 61/50 100 12/08/19 11:03 111 H 16 90/63 100 12/08/19 10:46 97.2 F L 117 H 18 82/54 100 12/08/19 09:55 63 95/62 12/08/19 09:09 97.7 F 60 16 91/63 95 Intake and Output 12/08/19 12/08/19 12/08/19 06:59 14:59 22:59 Intake Total 800 Output Total 727 Balance 73 Intake: IV 800 Output: Urine 725 Estimated Blood Loss 2 Other: Weight 76.1 kg Physical Exam: Revealed a 74-year-old white male very pleasant, in no distress, sitting in bed, on room air. Head: Atraumatic, normocephalic. HEENT:[Neck is supple.] Positive bilateral cervical lymphadenopathy and supraclavicular lymphadenopathy] Chest: [Clear throughout, no crackles, no rhonchi, no wheezes.] Pacemaker/defibrillator is noted in the left upper chest wall area Cardiac Exam: Irregular irregular rhythm. [Normal S1 and S2, no S3 gallop, 2/6 systolic murmur at the left lower sternal border. Abdomen: [Soft, nontender, no megaly, no rebound, no guarding, normal bowel sounds.] Extremities: [No clubbing, no edema, no cyanosis.] Neurological Exam: [No focal neurologic deficit.] Alert and oriented 3. Skin: No rashes. Psychiatric: Normal mood affect and normal mental status examination. Results - Laboratory Findings Abnormal lab findings: Abnormal Labs 12/08/19 11:06 POC Glucose (mg/dL) 107 H - Diagnostic Findings Chest x-ray: image reviewed (Chest x-ray showed minimal interstitial changes, possibly mild interstitial edema.) Assessment and Plan Assessment: Impression: Postoperative hypotension, multifactorial, secondary to severe nonischemic cardiomyopathy and LV dysfunction, atrial fibrillation with RVR, and related to the fact that the patient took all his blood pressure medications prior to surgery. Paroxysmal atrial fibrillation with RVR. Status post left cervical node excisional biopsy. Possible lymphoma, diagnostic workup is in progress. History of nonischemic cardiomyopathy History of nonsustained ventricular tachycardia, normally maintained on amiodarone. Mild systolic congestive heart failure as noted on the chest x-ray, this is clearly related to underlying nonischemic cardiomyopathy and the fact that the patient was given 1 L of fluid bolus. Recommendation: Continue phenylephrine, titrate to a mean of above 60. Continue to hold his blood pressure medications for now. Cautious hydration, as the patient may go into congestive heart failure easily. Monitor the patient in the ICU overnight. Patient will need another IV access since I have noted that the patient has very small tiny peripheral IV in the dorsal aspect of his right foot. Anesthesia was made aware. We'll continue to follow. Time with Patient: Greater than 30
--- NOTE | 2019-12-08 16:15 | XR ---
EXAMINATION TYPE: XR chest 1V DATE OF EXAM: 12/08/2019 COMPARISON: Prior chest x-ray same dated earlier time HISTORY: Central line placement TECHNIQUE: Single frontal view of the chest is obtained. FINDINGS: Interval placement of right jugular central venous catheter, distal tip is overlying super ior vena cava. No evident pneumothorax or sizable effusion. Basilar density persists. IMPRESSION: No evident complication status post central venous catheter placement
[2019-12-08 16:34] LABS: Albumin 3.3 g/dL (3.5-5.0); Calcium 11.2 mg/dL (8.4-10.2); Magnesium 2.1 mg/dL (1.6-2.3); Potassium 4.6 mmol/L (3.5-5.1); Total Bilirubin 2.7 mg/dL (0.2-1.3); Total Protein 5.6 g/dL (6.3-8.2)
[2019-12-08 16:36] LABS: Glucose,Whole Blood 97 mg/dL (75-99)
[2019-12-08 16:38] LABS: Anisocytosis Slight; HCT 38.8 % (39.0-53.0); HGB 12.7 gm/dL (13.0-17.5); MCH 30.3 pg (25.0-35.0); MCHC 32.7 g/dL (31.0-37.0); MCV 92.6 fL (80.0-100.0); Mean Platelet Volume 8.7; Platelet Count 142 k/uL (150-450); RBC 4.18 m/uL (4.30-5.90); RDW 16.1 % (11.5-15.5); WBC 9.6 k/uL (3.8-10.6)
[2019-12-08 17:08] LABS: Lymphocytes # (M) 4.13 k/uL (1.0-4.8); Monocytes # (M) 0.58 k/uL (0-1.0); Neutrophils % (M) 51 %; Nucleated Red Blood Cells 0 /100 WBC (0-0); Reactive Lymphocytes Present; Total Cells Counted 100
[2019-12-08 17:33] LABS: T4, Free (Free Thyroxine) 2.44 ng/dL (0.78-2.19)
--- NOTE | 2019-12-08 17:51 | P.ANPRN ---
Procedure Note - Anesthesia - Invasive Line Right Central Line Time Out Performed: Yes Date of Procedure: 12/08/19 Location of Patient: Phase II Preparation: Sterile Prep, Sterile Dressing Ultrasound Used: Yes Purpose - Visualization and Identification of Vasculature: Yes Needle Guage: Triple-lumen Image Stored and Saved: Yes Narrative: Indication : Hypertension, and hemodynamic instability Procedure : Right internal jugular triple-lumen venous catheter placement under ultrasound guidance Right internal jugular triple-lumen venous catheter placement under sterile conditions with one attempt. Catheter secured with suture. A Biopatch applied. Sterile dressing placed.
[2019-12-08] MEDS: ATORVASTATIN 20 MG TAB PO SCH (20:22)
--- NOTE | 2019-12-08 20:45 | P.CONS ---
History of Present Illness - Reason for Consult Consult date: 12/08/19 Medical management Requesting physician: Alex Toledo - Chief Complaint Low blood pressure - History of Present Illness Consultation: This is a pleasant 74-year-old patient of Dr. Mark gresham. Chronic stable medical conditions include AICD, hyperlipidemia, some cognitive impairment CHF EF not known. Patient was recently found to have cervical lymphadenopathy. Was brought in for an outpatient procedure by Dr. Toledo for left cervical lymph node biopsy. Preoperative patient was running a bit low blood pressure. Cervical node excision was carried out. Patient postoperatively bit hypotensive. Also found to have a heart rate of 130s. Cardiology was called. Patient was then transferred to the ICU. Patient feels slightly tired. Patient is on amiodarone at home. Given IV fluids. Preoperative practically bleak his systolic blood pressure was in the 90s. Later blood pressure dropped down to about 60 systolic. Patient had been put on a norepinephrine drip. Review of systems: GEN.: Tired EYES: None HEENT: None NECK: None RESPIRATORY: None CARDIOVASCULAR: None GASTROINTESTINAL: None GENITOURINARY: None MUSCULOSKELETAL: Some joint pains LYMPHATICS: None HEMATOLOGICAL: None PSYCHIATRY: Slightly forgetful NEUROLOGICAL: None Past medical history to include: CHF EF 30%, hypertension, nonsustained V. tach,. Cardiac catheterization in 2018 revealed normal coronaries. AICD in 2013. Social history: . No alcohol. Started smoking at age of 17 and quit in 2011 smoked a pack a day and also smoked a pipe Physical examination: VITAL SIGNS: 98, 125, 17, 90/76, 93% on 2 L GENERAL: BMI 24.8, laying in bed, a bit tired. EYES: Pupils equal. Conjunctiva normal. HEENT: External appearance of nose and ears normal, oral cavity grossly normal. NECK: JVD not raised; masses not palpable, stitches over the left supraclavicular area. HEART: Heart sounds irregular; no edema. AICD noted LUNGS: Respiratory rate normal; decreased breath sounds. ABDOMEN: Soft, nontender, liver spleen not palpable, no masses palpable. PSYCH: Alert and oriented x3; mood and affect normal. NEUROLOGICAL: Cranial nerves grossly intact; no facial asymmetry, power and sensation grossly intact. LYMPHATICS: Cervical lymphadenopathy INVESTIGATIONS, reviewed in the clinical context: White count 9.6 hemoglobin 12.7 platelets 142 potassium 4.6 bun 26 creatinine 1.4 bilirubin 2.7 albumin 3.3 TSH 9.1 free T4 2.44 Chest x-ray film personally reviewed by me-[email or web address], prominent aortic knuckle Assessment: -Persistent atrial fibrillation with a rapid ventricular rate -Hypotension due to rapid ventricular rate -AICD -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 tach for which patient is on amiodarone -Hyperlipidemia Plan: Patient was given IV fluids. Norepinephrine. Diuretics have been currently been held. Home dose of amiodarone has been resumed. Care was discussed with the patient question were answered. Thank you Dr. Toledo Past Medical History Past Medical History: Heart Failure, Hyperlipidemia, Hypertension, Memory Impairment Additional Past Medical History / Comment(s): weakness, 25 lb. weight loss recently, "just not feeling well" per spouse, enlarged lymph nodes per spouse History of Any Multi-Drug Resistant Organisms: None Reported Past Surgical History: AICD, Heart Catheterization, Pacemaker, Tonsillectomy Additional Past Surgical History / Comment(s): defibulator Past Anesthesia/Blood Transfusion Reactions: No Reported Reaction Type of Cardiac Device: AICD Device Placement Date:: 2012 Smoking Status: Former smoker - Past Family History Mother Family Medical History: Cancer Father Family Medical History: Diabetes Mellitus Sister(s) Family Medical History: Cancer Medications and Allergies Home Medications Medication Instructions Recorded Confirmed Type Albuterol Nebulized [Ventolin 2.5 mg INHALATION RT-QID PRN 09/03/17 12/07/19 History Nebulized] Spironolactone [Aldactone] 25 mg PO DAILY 09/18/17 12/07/19 History Amiodarone [Cordarone] 100 mg PO DAILY #30 tab 09/21/17 12/07/19 Rx Atorvastatin [Lipitor] 20 mg PO HS #30 tab 09/21/17 12/07/19 Rx Carvedilol [Coreg] 6.25 mg PO BID-W/MEALS 12/07/19 12/07/19 History Docusate [Colace] 100 mg PO DAILY 12/07/19 12/07/19 History Furosemide [Lasix] 40 mg PO BID@0900,1600 12/07/19 12/07/19 History Ivabradine HCl [Corlanor] 5 mg PO BID 12/07/19 12/07/19 History Lisinopril [Zestril] 2.5 mg PO DAILY 12/07/19 12/07/19 History Lorazepam(Unknown Dose) 5 mg PO BID PRN 12/07/19 History Metoprolol Succinate (ER) [Toprol 25 mg PO DAILY 12/07/19 12/07/19 History Xl] Allergies Allergy/AdvReac Type Severity Reaction Status Date / Time Penicillins Allergy Anaphylaxis Verified 12/08/19 09:41 venom-honey bee Allergy Anaphylaxis Verified 12/08/19 09:41 [bee venom (honey bee)] Physical Exam Vitals: Vital Signs Temp Pulse Pulse Resp BP BP BP 12/08/19 20:12 12/08/19 19:00 124 H 17 108/82 12/08/19 18:00 125 H 8 L 12/08/19 17:00 125 H 15 96/74 12/08/19 16:40 98.0 F 117 H 25 H 90/76 12/08/19 16:34 100 12 12/08/19 16:00 127 H 16 101/78 12/08/19 15:44 84 16 88/61 12/08/19 14:59 108 H 16 91/62 12/08/19 14:56 104/73 12/08/19 14:44 104 H 16 83/60 12/08/19 14:38 112 H 20 82/63 12/08/19 14:30 122 H 16 77/55 12/08/19 14:23 103 H 16 76/46 12/08/19 14:16 77/56 12/08/19 14:13 83/56 12/08/19 13:59 118 H 16 92/73 12/08/19 13:40 105 H 16 90/63 12/08/19 13:34 95 16 84/69 12/08/19 13:20 100 16 87/70 12/08/19 13:05 99 16 98/72 12/08/19 12:50 70/63 12/08/19 12:46 116 H 16 66/58 12/08/19 12:44 113 H 16 72/57 12/08/19 12:42 97 16 77/50 12/08/19 12:31 70/44 12/08/19 12:11 110 H 16 87/75 12/08/19 12:10 108 H 16 67/49 12/08/19 12:04 90 16 74/60 12/08/19 12:00 103 H 16 75/46 12/08/19 11:55 100 16 79/64 12/08/19 11:48 59/44 12/08/19 11:46 105 H 16 63/52 12/08/19 11:43 66/47 12/08/19 11:36 117 H 16 79/59 12/08/19 11:33 107 H 16 75/54 12/08/19 11:28 110 H 16 76/57 12/08/19 11:26 59/44 12/08/19 11:15 110 H 16 64/47 61/50 12/08/19 11:03 111 H 16 90/63 12/08/19 10:46 97.2 F L 117 H 18 82/54 12/08/19 09:55 63 95/62 12/08/19 09:09 97.7 F 60 16 91/63 Pulse Ox 12/08/19 20:12 96 12/08/19 19:00 96 12/08/19 18:00 96 12/08/19 17:00 97 12/08/19 16:40 93 L 12/08/19 16:34 12/08/19 16:00 99 12/08/19 15:44 98 12/08/19 14:59 100 12/08/19 14:56 12/08/19 14:44 100 12/08/19 14:38 99 12/08/19 14:30 98 12/08/19 14:23 100 12/08/19 14:16 12/08/19 14:13 12/08/19 13:59 100 12/08/19 13:40 100 12/08/19 13:34 100 12/08/19 13:20 100 12/08/19 13:05 99 12/08/19 12:50 12/08/19 12:46 100 12/08/19 12:44 100 12/08/19 12:42 99 12/08/19 12:31 12/08/19 12:11 100 12/08/19 12:10 100 12/08/19 12:04 99 12/08/19 12:00 100 12/08/19 11:55 95 12/08/19 11:48 12/08/19 11:46 12/08/19 11:43 12/08/19 11:36 12/08/19 11:33 12/08/19 11:28 12/08/19 11:26 12/08/19 11:15 100 12/08/19 11:03 12/08/19 10:46 12/08/19 09:55 12/08/19 09:09 95 Intake and Output 12/08/19 12/08/19 12/08/19 06:59 14:59 22:59 Intake Total 800 150 Output Total 727 Balance 73 150 Intake: IV 800 Intake, IV Titration 150 Amount Phenylephrine 40 mg In 150 Sodium Chloride 0.9% 250 ml @ 1 MCG/KG/MIN 28.994 mls/hr IV .[id number] [facility] Rx# :[id number] Output: Urine 725 Estimated Blood Loss 2 Other: # Voids 1 Weight 76.1 kg Results CBC & Chem 7: 12/08/19 15:21 12/08/19 15:21 Labs: Abnormal Lab Results - Last 24 Hours (Table) 12/08/19 12/08/19 12/08/19 Range/Units 11:06 15:21 15:21 RBC 4.18 L (4.30-5.90) m/uL Hgb 12.7 L (13.0-17.5) gm/dL Hct 38.8 L (39.0-53.0) % RDW 16.1 H (11.5-15.5) % Plt Count 142 L (150-450) k/uL Sodium 132 L (137-145) mmol/L Chloride 97 L (98-107) mmol/L BUN 26 H (9-20) mg/dL Creatinine 1.42 H (0.66-1.25) mg/dL POC Glucose (mg/dL) 107 H (75-99) mg/dL Calcium 11.2 H (8.4-10.2) mg/dL Total Bilirubin 2.7 H (0.2-1.3) mg/dL Total Protein 5.6 L (6.3-8.2) g/dL Albumin 3.3 L (3.5-5.0) g/dL TSH 9.180 H (0.465-4.680) mIU/L Free T4 2.44 H (0.78-2.19) ng/dL
[2019-12-09] MEDS: PHENYLEPHRINE 40 MG in SODIUM CHLORIDE 0.9% 250 ML IV SCH ×5 (03:00→23:45)
[2019-12-09 04:41] LABS: Anisocytosis Slight; HCT 37.5 % (39.0-53.0); HGB 12.1 gm/dL (13.0-17.5); MCH 29.8 pg (25.0-35.0); MCHC 32.3 g/dL (31.0-37.0); MCV 92.2 fL (80.0-100.0); Mean Platelet Volume 8.2; Platelet Count 112 k/uL (150-450); RBC 4.07 m/uL (4.30-5.90); RDW 16.1 % (11.5-15.5); WBC 8.6 k/uL (3.8-10.6)
[2019-12-09 04:50] LABS: Calcium 11.2 mg/dL (8.4-10.2); Potassium 4.6 mmol/L (3.5-5.1)
[2019-12-09 05:24] LABS: Neutrophils % (M) 50 %; Nucleated Red Blood Cells 0 /100 WBC (0-0); Total Cells Counted 100
[2019-12-09 05:25] LABS: Reactive Lymphocytes Present
[2019-12-09] MEDS: PANTOPRAZOLE 40 MG TABLET PO SCH (06:44)
[2019-12-09] MEDS ORDERED: HYDROCORTISONE SUCCINATE 100 MG/2 ML VIAL IV STA (08:42)
[2019-12-09] MEDS ORDERED: SODIUM CHLORIDE 0.9% 500 ML 500 ML IV ONE (08:48)
[2019-12-09] MEDS: MIDODRINE 5 MG TAB PO SCH ×2 (08:50→17:02)
[2019-12-09] MEDS: METOPROLOL SUCCINATE (ER) 25 MG TAB.ER.24H PO SCH (08:50)
[2019-12-09] MEDS: AMIODARONE 100 MG TAB PO SCH ×2 (08:57→21:12)
[2019-12-09] MEDS ORDERED: AMIODARONE 100 MG TAB PO SCH (09:00)
[2019-12-09] MEDS: SODIUM CHLORIDE 0.9% 1,000 ML IV SCH ×2 (09:42→23:45)
[2019-12-09] MEDS: APIXABAN 5 MG TAB PO SCH ×2 (09:42→21:12)
--- NOTE | 2019-12-09 12:19 | P.PN ---
Subjective Progress Note Date: 12/09/19 Principal diagnosis: Hypotension secondary to atrial fibrillation with RVR, and nonischemic cardiomyopathy with LV dysfunction. This is a 74-year-old white male with history of multiple medical problems including chronic systolic congestive heart failure, nonischemic in nature, ejection fraction is around 30%, history of nonsustained ventricular tachycardia, maintained on amiodarone. Patient is also known to have history of hypertension maintained on multiple medications for hypertension. His last cardiac catheterization was in 2018, and showed normal coronaries. Elevated left ventricular end-diastolic pressure. Patient was recently discovered to have significant lymphadenopathy including cervical lymph nodes, supraclavicular lymph nodes, retroperitoneal lymph nodes, iliac and groin lymph nodes. Patient was referred to Dr. Toledo for excisional biopsy of one of his supraclavicular lymph nodes, and this was done today. Prior to his surgery, the patient was n oted to be tachycardic, and he was in atrial fibrillation with RVR rate of 114. Blood pressure was also noted to be a bit low at 91/63. Patient was cleared by cardiology for surgery, and postoperatively the patient was brought into the recovery room, his blood pressure was extremely low with a systolic in the 50s60s range. Hence the patient was placed on phenylephrine, and presently on 2.5 mcg/kg/m. Patient is sitting in bed, asymptomatic, denies any cough no wheezing no shortness of breath no chest pain denies any palpitations. He seems to have decent urine output, and the patient is not in any form of distress. However considering a low blood pressure, and considering his atrial fib rillation, agent will be admitted to the ICU, and I was asked to see him on consultation. I saw the patient in the recovery room, and he was basically asymptomatic. Again the patient was discovered to have lymphadenopathy in the last 4-6 weeks, and he was advised to undergo supraclavicular lymph node biopsy by Dr. Toledo which was done today. Clinically the patient had symptoms of weight loss, no fever no chills, and no pruritus. Patient was reevaluated today on 12/09/19, patient remains in the ICU, remains on Onel-Synephrine. Patient is presently on 2.1 mcg/kg/m of Onel-Synephrine. Remain s in atrial fibrillation with RVR, he is on amiodarone at 200 mg twice a day, midodrine was added today, and the patient is on Eliquis. Blood pressure remains low, hence I recommended CVP evaluation and came back to be low, I recommended 500 mL of fluid bolus. Hoping once his heart rate is controlled, his blood pressure will likely improve. Serum cortisol level was ordered, and I recommended 100 mg of hydrocortisone to be given 1. Midodrine was added by cardiology. Considering the low blood pressure, patient will remain in the ICU as long as he is requiring pressors. CBC is relatively normal lites are normal BUN is 28 creatinine 1.41 Objective - Vital Signs Vital signs: Vital Signs Temp 97.6 F 12/09/19 12:00 Pulse 126 H 12/09/19 12:00 Resp 12 12/09/19 12:00 BP 90/70 12/09/19 12:00 Pulse Ox 99 12/09/19 12:00 Intake & Output 12/08/19 12/09/19 12/09/19 18:59 06:59 18:59 Intake Total 950 3778.073 9406.000 Output Total 727 700 300 Balance 223 579.452 994.000 Weight 76.1 kg 78.7 kg Intake: IV 800 550 800 .9 @ 50 550 300 Sodium Chloride 0.9% 500 500 ml 500 ml @ 999 mls/hr IV .Q31M ONE Rx#:[id number] Intake, IV Titration 150 729.452 254.000 Amount Phenylephrine 40 mg In 150 729.452 254.000 Sodium Chloride 0.9% 250 ml @ 1 MCG/KG/MIN 28.994 mls/hr IV .Q8H46M [facility] Rx# :[id number] Oral 240 Output: Urine 725 700 300 Estimated Blood Loss 2 Other: Voiding Method Urinal Urinal # Voids 0 1 - Exam Physical Exam: Revealed a 74-year-old white male very pleasant, in no distress, sitting in bed, on 2 L nasal cannula. Head: Atraumatic, normocephalic. HEENT:[Neck is supple.] Positive bilateral cervical lymphadenopathy and bruce praclavicular lymphadenopathy] Chest: [Clear throughout, no crackles, no rhonchi, no wheezes.] Pace maker/defibrillator is noted in the left upper chest wall area Cardiac Exam: Irregular irregular rhythm. [Normal S1 and S2, no S3 gallop, 2/6 systolic murmur at the left lower sternal border. Abdomen: [Soft, nontender, no megaly, no rebound, no guarding, normal bowel sounds.] Extremities: [No clubbing, no edema, no cyanosis.] Neurological Exam: [No focal neurologic deficit.] Alert and oriented 3. Skin: No rashes. Psychiatric: Normal mood affect and normal mental status examination. - Labs CBC & Chem 7: 12/09/19 03:57 12/09/19 03:57 Labs: Abnormal Lab Results - Last 24 Hours (Table) 12/08/19 12/08/19 12/09/19 Range/Units 15:21 15:21 03:57 RBC 4.18 L 4.07 L (4.30-5.90) m/uL Hgb 12.7 L 12.1 L (13.0-17.5) gm/dL Hct 38.8 L 37.5 L (39.0-53.0) % RDW 16.1 H 16.1 H (11.5-15.5) % Plt Count 142 L 112 L (150-450) k/uL Monocytes # (Manual) 1.20 H (0-1.0) k/uL Sodium 132 L (137-145) mmol/L Chloride 97 L (98-107) mmol/L Carbon Dioxide (22-30) mmol/L BUN 26 H (9-20) mg/dL Creatinine 1.42 H (0.66-1.25) mg/dL Glucose (74-99) mg/dL Calcium 11.2 H (8.4-10.2) mg/dL Total Bilirubin 2.7 H (0.2-1.3) mg/dL Total Protein 5.6 L (6.3-8.2) g/dL Albumin 3.3 L (3.5-5.0) g/dL TSH 9.180 H (0.465-4.680) mIU/L Free T4 2.44 H (0.78-2.19) ng/dL 12/09/19 Range/Units 03:57 RBC (4.30-5.90) m/uL Hgb (13.0-17.5) gm/dL Hct (39.0-53.0) % RDW (11.5-15.5) % Plt Count (150-450) k/uL Monocytes # (Manual) (0-1.0) k/uL Sodium 130 L (137-145) mmol/L Chloride (98-107) mmol/L Carbon Dioxide 21 L (22-30) mmol/L BUN 28 H (9-20) mg/dL Creatinine 1.41 H (0.66-1.25) mg/dL Glucose 104 H (74-99) mg/dL Calcium 11.2 H (8.4-10.2) mg/dL Total Bilirubin (0.2-1.3) mg/dL Total Protein (6.3-8.2) g/dL Albumin (3.5-5.0) g/dL TSH (0.465-4.680) mIU/L Free T4 (0.78-2.19) ng/dL Assessment and Plan Assessment: Impression: Postoperative hypotension, multifactorial, secondary to severe nonischemic cardiomyopathy and LV dysfunction, atrial fibrillation with RVR, and related to the fact that the patient took all his blood pressure medications prior to surgery. Paroxysmal atrial fibrillation with RVR. Amiodarone has been increased by cardiology. Status post left cervical node excisional biopsy. Possible lymphoma, diagnostic workup is in progress. History of nonischemic cardiomyopathy, ejection fraction is 30% History of nonsustained ventricular tachycardia, normally maintained on amiodarone. Suspect chronic mild congestive heart failure secondary to LV dysfunction. Chronic in nature. Recommendation: Continue phenylephrine, titrate accordingly. Agree with attempts to control the rate that would hopefully improve blood pressure. Will give a trial of hydrocortisone and add midodrine. Continue to hold his blood pressure medications for now. Cautious hydration, since the patient CVP is low, will give him 1 bolus of 500 mL of 0.9 normal saline. Continue to monitor in the ICU.. We'll continue to follow. Time with Patient: Less than 30
[2019-12-09] MEDS: DILTIAZEM ORAL 30 MG TAB PO SCH ×2 (12:50→21:12)
--- NOTE | 2019-12-09 14:48 | PN ---
PROGRESS NOTE 74-year-old gentleman who is admitted to hospital with weight loss and an enlarged lymph node. He actually came for a lymph node biopsy and after the biopsy was done, he was found to be significantly hypotensive, was started on a pressor and is admitted to ICU and was also found to be in atrial fibrillation, seems to be a new onset. This morning he remains in atrial fibrillation with poorly controlled ventricular rate. We have resumed his Toprol-XL 25 mg daily. I am giving him midodrine and I started him on Eliquis 5 b.i.d., hopefully we can taper and stop the pressors. He is also on amiodarone 200 b.i.d. On exam, heart rate is 110 beats per minute. Blood pressure is 100/87, respiratory rate is 18. Chest exam reveals good air entry bilaterally. Heart exam reveals first and second heart sounds, irregular rhythm. Abdomen is soft. Exam of extremities did not reveal any edema. Peripheral pulses are palpable. I will obtain a 2D echo on him. ASSESSMENT: 1. Persistent atrial fibrillation with poorly controlled ventricular rate. 2. Related enlarged lymph nodes status post biopsy. 3. Nonischemic cardiomyopathy status post AICD. 4. Chronic systolic heart failure. 5. Hypotension. PLAN: I am going to put him on midodrine, start him on amiodarone. Resume the oral beta blockers. MMTOYAL / IJN: [id number] /
--- NOTE | 2019-12-09 15:11 | ECHOF ---
Referral Reason:afib MEASUREMENTS -------- HEIGHT: 175.3 cm WEIGHT: 69.4 kg BP: 103/77 RVIDd: 2.5 cm (< 3.3) IVSd: 0.9 cm (0.6 - 1.1) LVIDd: 6.3 cm (3.9 - 5.3) LVPWd: 0.9 cm (0.6 - 1.1) IVSs: 1.0 cm LVIDs: 5.7 cm LVPWs: 1.2 cm LAESV Index (A-L): 42.18 ml/m Ao Diam: 3.0 cm (2.0 - 3.7) AV Cusp: 2.1 cm (1.5 - 2.6) LA Diam: 4.2 cm (2.7 - 3.8) AR PHT: 293 ms RAP: 20.00 mmHg RVSP: 40.47 mmHg FINDINGS -------- Atrial fibrillation. AICD This was a technically good study. The left ventricle is mildly dilated. Left ventricular wall thickness is normal. There is severe global hypokinesis of LV . Overall left ventricular systolic function is severely impaired with, an EF < 20%. The right ventricle is normal in size. LA is severely dilated >40 ml/m2 RA appears enlarged. Aortic valve is trileaflet and is mildly thickened. Trace amount of aortic regurgitation. The mitral valve is normal. The mitral valve leaflets are mildly thickened. Moderate mitral regur gitation is present. The tricuspid valve appears structurally normal. Mild tricuspid regurgitation present. There is m ild pulmonary hypertension. The right ventricular systolic pressure, as measured by Doppler, is 40. 47mmHg. There is no pulmonic regurgitation present. The aortic root size is normal. The inferior vena cava is dilated with no significant inspiratory collapse which is consistent estima johnna right atrial pressure of >20 mmHg. There is a small, generalized pericardial effusion present. CONCLUSIONS -------- 1. Atrial fibrillation. 2. AICD 3. This was a technically good study. 4. The left ventricle is mildly dilated. 5. Left ventricular wall thickness is normal. 6. There is severe global hypokinesis of LV . 7. Overall left ventricular systolic function is severely impaired with, an EF < 20%. 8. The right ventricle is normal in size. 9. LA is severely dilated >40 ml/m2 10. RA appears enlarged. 11. Aortic valve is trileaflet and is mildly thickened. 12. Trace amount of aortic regurgitation. 13. The mitral valve is normal. 14. The mitral valve leaflets are mildly thickened. 15. Moderate mitral regurgitation is present. 16. The tricuspid valve appears structurally normal. 17. Mild tricuspid regurgitation present. 18. There is mild pulmonary hypertension. 19. The right ventricular systolic pressure, as measured by Doppler, is 40.47mmHg. 20. There is no pulmonic regurgitation present. 21. The aortic root size is normal. 22. The inferior vena cava is dilated with no significant inspiratory collapse which is consistent es timated right atrial pressure of >20 mmHg. 23. There is a small, generalized pericardial effusion present. DIRECTOR INDEPENDENT: Ambreen Song RDCS
--- NOTE | 2019-12-09 17:13 | P.PN ---
Progress Note - Text Progress Note Date: 12/09/19 - Chief Complaint Low blood pressure - History of Present Illness Consultation: This is a pleasant 74-year-old patient of Dr. Mark gresham. Chronic stable medical conditions include AICD, hyperlipidemia, some cognitive impairment CHF EF not known. Patient was recently found to have cervical lymphadenopathy. Was brought in for an outpatient procedure by Dr. Toledo for left cervical lymph node biopsy. Preoperative patient was running a bit low blood pressure. Cervical node excision was carried out. Patient postoperatively bit hypotensive. Also found to have a heart rate of 130s. Cardiology was called. Patient was then transferred to the ICU. Patient feels slightly tired. Patient is on amiodarone at home. Given IV fluids. Preoperative practically bleak his systolic blood pressure was in the 90s. Later blood pressure dropped down to about 60 systolic. Patient had been put on a norepinephrine drip. [id number]'s heart rate still remains uncontrolled and 130s. Cardizem was added orally by cardiac surgery. Does of amiodarone was increased. Patient started having some diet. Patient is having urinary frequency. Bladder scanning did not show any retention. at the bedside. Patient a bit tired. Review of systems: Was done for constitutional, cardiovascular, GI, pulmonary. relevant finding as above Active Medications Amiodarone HCl (Cordarone) 200 mg PO BID [facility] Last Admin: 12/09/19 08:57 Dose: 200 mg Documented by: Apixaban (Eliquis) 5 mg PO BID [facility] Last Admin: 12/09/19 09:42 Dose: 5 mg Documented by: Atorvastatin Calcium (Lipitor) 20 mg PO HS [facility] Last Admin: 12/08/19 20:22 Dose: 20 mg Documented by: Diltiazem HCl (Cardizem Oral) 30 mg PO Q8H [facility] Last Admin: 12/09/19 12:50 Dose: 30 mg Documented by: Phenylephrine HCl 40 mg/ (Sodium Chloride) 254 mls @ 28.994 mls/hr IV .Q8H46M [facility]; Protocol Last Admin: 12/09/19 17:00 Dose: 1.4 mcg/kg/min, 40.592 mls/hr Documented by: Sodium Chloride (Saline 0.9%) 1,000 mls @ 50 mls/hr IV .Q20H [facility] Last Admin: 12/09/19 09:42 Dose: 50 mls/hr Documented by: Metoprolol Succinate (Toprol Xl) 25 mg PO DAILY [facility] Last Admin: 12/09/19 08:50 Dose: 25 mg Documented by: Midodrine (Proamatine) 5 mg PO AC-BID [facility] Last Admin: 12/09/19 17:02 Dose: 5 mg Documented by: Pantoprazole Sodium (Protonix) 40 mg PO AC-BRKFST [facility] Last Admin: 12/09/19 06:44 Dose: 40 mg Documented by: Physical examination: VITAL SIGNS: 97.6, 126, 20, 90/70, 99% on 2 L GENERAL: Sitting up in the bed, but tired eating EYES: Pupils equal. Conjunctiva normal. HEENT: External appearance of nose and ears normal, oral cavity grossly normal. NECK: JVD not raised; masses not palpable, stitches over the left supraclavicular area. HEART: Heart sounds irregular; no edema. AICD LUNGS: Respiratory rate normal; decreased breath sounds. ABDOMEN: Soft, nontender, liver spleen not palpable, no masses palpable. PSYCH: Alert and oriented x3; mood and affect normal. LYMPHATICS: Cervical lymphadenopathy INVESTIGATIONS, reviewed in the clinical context: White count 8.6 hemoglobin 12.1 platelets 112 potassium 4.6 bun 28 creatinine 1.41 Previous testing White count 9.6 hemoglobin 12.7 platelets 142 potassium 4.6 bun 26 creatinine 1.4 bilirubin 2.7 albumin 3.3 TSH 9.1 free T4 2.44 Chest x-ray film personally reviewed by me-cardiomegaly, prominent aortic knuckle Assessment: -Persistent atrial fibrillation with a rapid ventricular rate-remains uncontrolled -Anticoagulation with eliquis -Hypotension shock due to rapid ventricular rate-requiring norepinephrine -AICD -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 tach for which patient is on amiodarone -Hyperlipidemia -Hyponatremia -Chronic kidney disease stage III likely nephrosclerosis -Abnormal TSH in the setting of patient taking amiodarone. Clinically patient is not hypothyroid. Does not eat any further treatment currently. Plan: Cardizem 30 mg 3 times a day was added. Also on Toprol-XL. Also getting IV norepinephrine. Also getting IV fluids at 50 mL an hour. Care was discussed with the patient and at the bedside. Also started on liquids. Thank you Dr. Toledo
[2019-12-09] MEDS: ATORVASTATIN 20 MG TAB PO SCH (21:12)
[2019-12-10 04:03] LABS: Anisocytosis Slight; HCT 37.6 % (39.0-53.0); HGB 11.9 gm/dL (13.0-17.5); MCHC 31.6 g/dL (31.0-37.0); MCV 91.8 fL (80.0-100.0); Mean Platelet Volume 8.1; Platelet Count 103 k/uL (150-450); RBC 4.09 m/uL (4.30-5.90); RDW 16.3 % (11.5-15.5)
[2019-12-10 04:22] LABS: Calcium 10.5 mg/dL (8.4-10.2); Potassium 4.2 mmol/L (3.5-5.1)
[2019-12-10 04:40] LABS: Basophils # (M) 0.08 k/uL (0-0.2); Lymphocytes # (M) 2.24 k/uL (1.0-4.8); Monocytes # (M) 1.52 k/uL (0-1.0); Neutrophils # (M) 4.16 k/uL (1.3-7.7); Neutrophils % (M) 52 %; Nucleated Red Blood Cells 0 /100 WBC (0-0); Total Cells Counted 100
[2019-12-10] MEDS: PANTOPRAZOLE 40 MG TABLET PO SCH (06:13)
[2019-12-10] MEDS: DILTIAZEM ORAL 30 MG TAB PO SCH ×3 (06:13→22:02)
[2019-12-10] MEDS: MIDODRINE 5 MG TAB PO SCH ×2 (06:14→18:26)
[2019-12-10] MEDS: PHENYLEPHRINE 40 MG in SODIUM CHLORIDE 0.9% 250 ML IV SCH (06:33)
[2019-12-10] MEDS: METOPROLOL SUCCINATE (ER) 25 MG TAB.ER.24H PO SCH (08:51)
[2019-12-10] MEDS: APIXABAN 5 MG TAB PO SCH ×2 (08:51→20:26)
[2019-12-10] MEDS: AMIODARONE 100 MG TAB PO SCH ×2 (08:51→20:26)
--- NOTE | 2019-12-10 09:56 | XR ---
EXAMINATION TYPE: XR chest 1V portable DATE OF EXAM: 12/10/2019 HISTORY: Shortness of breath. COMPARISON: 12/08/2019 TECHNIQUE: Single view of the chest is submitted. FINDINGS: Demonstrated are scattered senescent parenchymal change. Persistent pulmonary venous congestion with right lower lobe infiltrate and/or atelectasis. Right-rolando ed effusion is stable. The heart is stable. Hilar and mediastinal structures are within normal limits. Degenerative changes are seen of the dorsal spine. IMPRESSION: 1. Persistent pulmonary venous congestion with right lower lobe infiltrate and/or atelectasis. Right -sided effusion is stable.
[2019-12-10] MEDS ORDERED: FUROSEMIDE 10 MG/ML 2 ML VIAL IV ONE (09:58)
[2019-12-10] MEDS ORDERED: LACTULOSE 20 GM/30 ML CUP PO ONE (10:49)
--- NOTE | 2019-12-10 12:47 | P.PN ---
Subjective Progress Note Date: 12/10/19 Principal diagnosis: Hypotension secondary to atrial fibrillation with RVR, and nonischemic cardiomyopathy with LV dysfunction. This is a 74-year-old white male with history of multiple medical problems including chronic systolic congestive heart failure, nonischemic in nature, ejection fraction is around 30%, history of nonsustained ventricular tachycardia, maintained on amiodarone. Patient is also known to have history of hypertension maintained on multiple medications for hypertension. His last cardiac catheterization was in 2018, and showed normal coronaries. Elevated left ventricular end-diastolic pressure. Patient was recently discovered to have significant lymphadenopathy including cervical lymph nodes, supraclavicular lymph nodes, retroperitoneal lymph nodes, iliac and groin lymph nodes. Patient was referred to Dr. Toledo for excisional biopsy of one of his supraclavicular lymph nodes, and this was done today. Prior to his surgery, the patient was n oted to be tachycardic, and he was in atrial fibrillation with RVR rate of 114. Blood pressure was also noted to be a bit low at 91/63. Patient was cleared by cardiology for surgery, and postoperatively the patient was brought into the recovery room, his blood pressure was extremely low with a systolic in the 50s60s range. Hence the patient was placed on phenylephrine, and presently on 2.5 mcg/kg/m. Patient is sitting in bed, asymptomatic, denies any cough no wheezing no shortness of breath no chest pain denies any palpitations. He seems to have decent urine output, and the patient is not in any form of distress. However considering a low blood pressure, and considering his atrial fib rillation, agent will be admitted to the ICU, and I was asked to see him on consultation. I saw the patient in the recovery room, and he was basically asymptomatic. Again the patient was discovered to have lymphadenopathy in the last 4-6 weeks, and he was advised to undergo supraclavicular lymph node biopsy by Dr. Toledo which was done today. Clinically the patient had symptoms of weight loss, no fever no chills, and no pruritus. Patient was reevaluated today on 12/09/19, patient remains in the ICU, remains on Onel-Synephrine. Patient is presently on 2.1 mcg/kg/m of Onel-Synephrine. Remain s in atrial fibrillation with RVR, he is on amiodarone at 200 mg twice a day, midodrine was added today, and the patient is on Eliquis. Blood pressure remains low, hence I recommended CVP evaluation and came back to be low, I recommended 500 mL of fluid bolus. Hoping once his heart rate is controlled, his blood pressure will likely improve. Serum cortisol level was ordered, and I recommended 100 mg of hydrocortisone to be given 1. Midodrine was added by cardiology. Considering the low blood pressure, patient will remain in the ICU as long as he is requiring pressors. CBC is relatively normal lites are normal BUN is 28 creatinine 1.41 Patient was reevaluated today on 12/10/19, patient remains in the ICU, still requiring Onel-Synephrine however the dose is down to 60 mcg/m, his IV fluids at 50 ML per hour, his mean arterial pressure is 65, chest x-ray showed mild congestive changes hence I recommended that the patient goes on Lasix 20 mg IV push times one. CVP is ranging around 8. And the patient has fairly good urine output. He is on 2 L nasal cannula, he is in atrial fibrillation, and his echocardiogram showed ejection fraction less than 20%. Objective - Vital Signs Vital signs: Vital Signs Temp 98.6 F 12/10/19 12:00 Pulse 100 12/10/19 12:00 Resp 24 12/10/19 12:00 BP 72/58 12/10/19 12:00 Pulse Ox 95 12/10/19 12:00 Intake & Output 12/09/19 12/10/19 12/10/19 18:59 06:59 18:59 Intake Total 2505.071 1319.255 232.808 Output Total 500 475 375 Balance 844.255 -142.192 Weight 79.6 kg Intake: IV 1100 650 130 .9 @ 50 600 650 130 Sodium Chloride 0.9% 500 500 ml 500 ml @ 999 mls/hr IV .Q31M [facility] Rx#:[id number] Intake, IV Titration 445.071 419.255 102.808 Amount Phenylephrine 40 mg In 445.071 419.255 102.808 Sodium Chloride 0.9% 250 ml @ 1 MCG/KG/MIN 28.994 mls/hr IV .Q8H46M [facility] Rx# :[id number] Oral 960 250 Output: Urine 500 475 375 Other: Voiding Method Urinal Urinal Urinal - Exam Physical Exam: Revealed a 74-year-old white male very pleasant, in no distress, sitting in bed, on 2 L nasal cannula. Head: Atraumatic, normocephalic. HEENT:[Neck is supple.] Positive bilateral cervical lymphadenopathy and supracl avicular lymphadenopathy] Chest: [Clear throughout, no crackles, no rhonchi, no wheezes.] Pacemaker /defibrillator is noted in the left upper chest wall area Cardiac Exam: Irregular irregular rhythm. [Normal S1 and S2, no S3 gallop, 2/6 systolic murmur at the left lower sternal border. Abdomen: [Soft, nontender, no megaly, no rebound, no guarding, normal bowel sounds.] Extremities: [No clubbing, no edema, no cyanosis.] Neurological Exam: [No focal neurologic deficit.] Alert and oriented 3. Skin: No rashes. Psychiatric: Normal mood affect and normal mental status examination. - Labs CBC & Chem 7: 12/10/19 03:52 12/10/19 03:52 Labs: Abnormal Lab Results - Last 24 Hours (Table) 12/10/19 12/10/19 Range/Units 03:52 03:52 RBC 4.09 L (4.30-5.90) m/uL Hgb 11.9 L (13.0-17.5) gm/dL Hct 37.6 L (39.0-53.0) % RDW 16.3 H (11.5-15.5) % Plt Count 103 L (150-450) k/uL Monocytes # (Manual) 1.52 H (0-1.0) k/uL Sodium 132 L (137-145) mmol/L BUN 28 H (9-20) mg/dL Creatinine 1.27 H (0.66-1.25) mg/dL Glucose 102 H (74-99) mg/dL Calcium 10.5 H (8.4-10.2) mg/dL Assessment and Plan Assessment: Impression: Postoperative hypotension, multifactorial, secondary to severe nonischemic cardiomyopathy and LV dysfunction, atrial fibrillation with RVR, and related to the fact that the patient took all his blood pressure medications prior to surgery. Paroxysmal atrial fibrillation with RVR. Amiodarone has been increased by cardiology. Acute on chronic systolic congestive heart failure Status post left cervical node excisional biopsy. Possible lymphoma, diagnostic workup is in progress. History of nonischemic cardiomyopathy, ejection fraction is less than 20% History of nonsustained ventricular tachycardia, normally maintained on amiodarone. Recommendation: Continue phenylephrine, titrate down, and possibly discontinue today. Gentle diuresis. Continue midodrine. Continue to hold his blood pressure medications for now. Continue to monitor CVP. Continue to monitor in the ICU.. We'll continue to follow. Time with Patient: Less than 30
--- NOTE | 2019-12-10 14:10 | PN ---
PROGRESS NOTE Yogesh is admitted to hospital with hypotension in the perioperative setting. Continues to require pressors but they are gradually coming down. He is back on his Eliquis. He is on amiodarone 200 b.i.d. Cardizem 30-18, Toprol-XL and I started him on midodrine yesterday for the low blood pressure. EXAM: Heart rate is 80 beats per minute. Blood pressure is 90/70, respiratory rate 18. Chest exam reveals good air entry bilaterally. Heart exam reveals first and second heart sounds, irregular rhythm. Systolic murmur at the apex. Abdomen soft. Exam of extremities reveals bilateral pitting edema. ASSESSMENT: 1. Persistent atrial fibrillation with better controlled ventricular rate. 2. Hypotension. 3. Acute exacerbation of chronic systolic heart failure. PLAN: We will resume the Lasix and continue rest of his medications we should be able to send him home once the pressors are off. MMODL / IJN: [id number] /
[2019-12-10] MEDS: ATORVASTATIN 20 MG TAB PO SCH (20:26)
--- NOTE | 2019-12-10 21:29 | P.PN ---
Progress Note - Text Progress Note Date: 12/10/19 Consultation: This is a pleasant 74-year-old patient of Dr. Mark greshma. Chronic stable medical conditions include AICD, hyperlipidemia, some cognitive impairment CHF EF not known. Patient was recently found to have cervical lymphadenopathy. Was brought in for an outpatient procedure by Dr. Toledo for left cervical lymph node biopsy. Preoperative patient was running a bit low blood pressure. Cervical node excision was carried out. Patient postoperatively bit hypotensive. Also found to have a heart rate of 130s. Cardiology was called. Patient was then transferred to the ICU. Patient feels slightly tired. Patient is on amiodarone at home. Given IV fluids. Preoperative practically bleak his systolic blood pressure was in the 90s. Later blood pressure dropped down to about 60 systolic. Patient had been put on a norepinephrine drip. Cardizem was added. Because of amiodarone increased. [id number] remains on IV norepinephrine. Remains in atrial fibrillation heart rate about 1 teens. Tolerating a diet. Review of systems: Was done for constitutional, cardiovascular, GI, pulmonary. relevant finding as above Active Medications Amiodarone HCl (Cordarone) 200 mg PO BID [facility] Last Admin: 12/10/19 20:26 Dose: 200 mg Documented by: Apixaban (Eliquis) 5 mg PO BID [facility] Last Admin: 12/10/19 20:26 Dose: 5 mg Documented by: Atorvastatin Calcium (Lipitor) 20 mg PO HS [facility] Last Admin: 12/10/19 20:26 Dose: 20 mg Documented by: Diltiazem HCl (Cardizem Oral) 30 mg PO Q8H [facility] Last Admin: 12/10/19 13:09 Dose: 30 mg Documented by: Phenylephrine HCl 40 mg/ (Sodium Chloride) 254 mls @ 28.994 mls/hr IV .Q8H46M [facility]; Protocol Last Titration: 12/10/19 14:30 Dose: 0 mcg/kg/min, 0 mls/hr Documented by: Sodium Chloride (Saline 0.9%) 1,000 mls @ 10 mls/hr IV .Q24H [facility] Last Admin: 12/09/19 23:45 Dose: 50 mls/hr Documented by: Metoprolol Succinate (Toprol Xl) 25 mg PO DAILY [facility] Last Admin: 12/10/19 08:51 Dose: 25 mg Documented by: Midodrine (Proamatine) 5 mg PO AC-BID [facility] Last Admin: 12/10/19 18:26 Dose: 5 mg Documented by: Pantoprazole Sodium (Protonix) 40 mg PO AC-BRKFST [facility] Last Admin: 12/10/19 06:13 Dose: 40 mg Documented by: Physical examination: VITAL SIGNS: 98.6, 112, 20, 75% 60, 95% on room air GENERAL: Sitting up in the bed, tired EYES: Pupils equal. Conjunctiva normal. HEENT: External appearance of nose and ears normal, oral cavity grossly normal. NECK: JVD not raised; masses not palpable, stitches over the left supraclavicular area. HEART: Heart sounds irregular; no edema. AICD LUNGS: Respiratory rate normal; decreased breath sounds. ABDOMEN: Soft, nontender, liver spleen not palpable, no masses palpable. PSYCH: Alert and oriented x3; mood and affect normal. LYMPHATICS: Cervical lymphadenopathy INVESTIGATIONS, reviewed in the clinical context: White count 8 hemoglobin 11.9 potassium 4.2 bun 28 creatinine 1.27 Previous testing White count 9.6 hemoglobin 12.7 platelets 142 potassium 4.6 bun 26 creatinine 1.4 bilirubin 2.7 albumin 3.3 TSH 9.1 free T4 2.44 Chest x-ray film personally reviewed by me-cardiomegaly, prominent aortic knuckle Assessment: -Persistent atrial fibrillation with a rapid ventricular rate-remains uncontrolled -Anticoagulation with eliquis -Hypotension shock due to rapid ventricular rate-requiring norepinephrine- uncontrolled -AICD -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 tach for which patient is on amiodarone -Hyperlipidemia -Hyponatremia -Chronic kidney disease stage III likely nephrosclerosis -Abnormal TSH in the setting of patient taking amiodarone. Clinically patient is not hypothyroid. Does not eat any further treatment currently. Plan: Patient's currently on amiodarone, eliquis, Cardizem 30 mg every 8, Toprol-XL 25 mg a day. Midodrine was also added by cardiology earlier today. Follow Thank you Dr. Toledo
[2019-12-11] MEDS ORDERED: ACETAMINOPHEN TAB 325 MG TAB PO PRN (04:20)
[2019-12-11] MEDS: PHENYLEPHRINE 40 MG in SODIUM CHLORIDE 0.9% 250 ML IV SCH (04:26)
[2019-12-11] MEDS: SODIUM CHLORIDE 0.9% 1,000 ML IV SCH (04:29)
[2019-12-11 06:10] LABS: Anisocytosis Slight; HCT 36.1 % (39.0-53.0); HGB 11.8 gm/dL (13.0-17.5); MCH 30.3 pg (25.0-35.0); MCHC 32.6 g/dL (31.0-37.0); MCV 92.8 fL (80.0-100.0); Mean Platelet Volume 8.2; Platelet Count 107 k/uL (150-450); RBC 3.89 m/uL (4.30-5.90); RDW 16.5 % (11.5-15.5)
[2019-12-11 06:18] LABS: Calcium 10.6 mg/dL (8.4-10.2)
[2019-12-11] MEDS: MIDODRINE 5 MG TAB PO SCH ×3 (06:42→17:14)
[2019-12-11] MEDS: DILTIAZEM ORAL 30 MG TAB PO SCH (06:42)
[2019-12-11] MEDS: PANTOPRAZOLE 40 MG TABLET PO SCH (06:42)
[2019-12-11] MEDS ORDERED: DIGOXIN 250 MCG/ML 2 ML AMP IVP ONE (09:12)
[2019-12-11] MEDS: AMIODARONE 100 MG TAB PO SCH ×2 (09:15→20:09)
[2019-12-11] MEDS: METOPROLOL SUCCINATE (ER) 25 MG TAB.ER.24H PO SCH (09:16)
[2019-12-11] MEDS: APIXABAN 5 MG TAB PO SCH ×2 (09:16→20:09)
--- NOTE | 2019-12-11 09:17 | P.PN ---
Progress Note - Text Progress Note Date: 12/11/19 This is a 74-year-old male with history of cardiomyopathy and chronic congestive heart failure who is being treated for hypertension and CHF. Patient has persistent atrial fibrillation with moderately rapid ventricle response. Patient is also hypotensive. He is on accommodation of amiodarone, beta addison and small dose of Cardizem. His blood pressure still running low. His heart rate is in the 100s. Patient claims that he is feeling fairly well. Doesn't appear to be in acute distress. Patient seemed to be on a positive fluid balance. I'm going to add small dose of Lanoxin and discontinue Cardizem. Continue to monitor his cardiac rhythm and be cautious about the dose of Lanoxin because of renal failure and also being on amiodarone. After 3 doses. I'll get a Lanoxin level. Further recommendations will depend upon clinical course. Prognosis is guarded Physical exam: Reveals a gentleman who is alert. Doesn't appear to be in acute distress. Blood pressure is about 85/60. Pulse is in the 110 range. Lungs show a few rales. Heart is irregular. Final impression: #1. Acute on chronic CHF #2. Atrial fibrillation with a rapid ventricular response #3. Cardiomyopathy #4 hypertension. Plan: I will add small dose of Lanoxin. Discontinue Cardizem. Further recommendation depending upon clinical course
--- NOTE | 2019-12-11 11:12 | P.PN ---
Subjective Progress Note Date: 12/11/19 Principal diagnosis: Hypotension secondary to atrial fibrillation with RVR, and nonischemic cardiomyopathy with LV dysfunction. This is a 74-year-old white male with history of multiple medical problems including chronic systolic congestive heart failure, nonischemic in nature, ejection fraction is around 30%, history of nonsustained ventricular tachycardia, maintained on amiodarone. Patient is also known to have history of hypertension maintained on multiple medications for hypertension. His last cardiac catheterization was in 2018, and showed normal coronaries. Elevated left ventricular end-diastolic pressure. Patient was recently discovered to have significant lymphadenopathy including cervical lymph nodes, supraclavicular lymph nodes, retroperitoneal lymph nodes, iliac and groin lymph nodes. Patient was referred to Dr. Toledo for excisional biopsy of one of his supraclavicular lymph nodes, and this was done today. Prior to his surgery, the patient was n oted to be tachycardic, and he was in atrial fibrillation with RVR rate of 114. Blood pressure was also noted to be a bit low at 91/63. Patient was cleared by cardiology for surgery, and postoperatively the patient was brought into the recovery room, his blood pressure was extremely low with a systolic in the 50s60s range. Hence the patient was placed on phenylephrine, and presently on 2.5 mcg/kg/m. Patient is sitting in bed, asymptomatic, denies any cough no wheezing no shortness of breath no chest pain denies any palpitations. He seems to have decent urine output, and the patient is not in any form of distress. However considering a low blood pressure, and considering his atrial fib rillation, agent will be admitted to the ICU, and I was asked to see him on consultation. I saw the patient in the recovery room, and he was basically asymptomatic. Again the patient was discovered to have lymphadenopathy in the last 4-6 weeks, and he was advised to undergo supraclavicular lymph node biopsy by Dr. Toledo which was done today. Clinically the patient had symptoms of weight loss, no fever no chills, and no pruritus. Patient was reevaluated today on 12/09/19, patient remains in the ICU, remains on Onel-Synephrine. Patient is presently on 2.1 mcg/kg/m of Onel-Synephrine. Remain s in atrial fibrillation with RVR, he is on amiodarone at 200 mg twice a day, midodrine was added today, and the patient is on Eliquis. Blood pressure remains low, hence I recommended CVP evaluation and came back to be low, I recommended 500 mL of fluid bolus. Hoping once his heart rate is controlled, his blood pressure will likely improve. Serum cortisol level was ordered, and I recommended 100 mg of hydrocortisone to be given 1. Midodrine was added by cardiology. Considering the low blood pressure, patient will remain in the ICU as long as he is requiring pressors. CBC is relatively normal lites are normal BUN is 28 creatinine 1.41 Patient was reevaluated today on 12/10/19, patient remains in the ICU, still requiring Onel-Synephrine however the dose is down to 60 mcg/m, his IV fluids at 50 ML per hour, his mean arterial pressure is 65, chest x-ray showed mild congestive changes hence I recommended that the patient goes on Lasix 20 mg IV push times one. CVP is ranging around 8. And the patient has fairly good urine output. He is on 2 L nasal cannula, he is in atrial fibrillation, and his echocardiogram showed ejection fraction less than 20%. Patient was reevaluated today on 01/07/20 remains in the ICU, asymptomatic, however his blood pressure remains low and still requiring Onel-Synephrine at 0.8 mcg/kg/m. Yesterday he was off Onel-Synephrine between 2 PM until 10 PM last night, however his systolic pressure dropped down late at night and had to go back on Onel-Synephrine, patient is doing well otherwise. Remains on midodrine. 5 mg twice a day. And his serum cortisol level was normal, hence the patient will not benefit from hydrocortisone injections Objective - Vital Signs Vital signs: Vital Signs Temp 98.2 F 12/11/19 08:00 Pulse 101 H 12/11/19 10:00 Resp 13 12/11/19 10:00 BP 85/66 12/11/19 10:00 Pulse Ox 97 12/11/19 10:00 Intake & Output 12/10/19 12/11/19 12/11/19 18:59 06:59 18:59 Intake Total 752.192 201.085 154.429 Output Total 575 260 30 Balance 177.192 -58.915 124.429 Weight 80.5 kg Intake: IV 190 120 40 .9 @ 50 190 120 10 Sodium Chloride 0.9% 1, 30 000 ml @ 10 mls/hr IV . Q24H [facility] Rx#:[id number] Intake, IV Titration 142.192 81.085 114.429 Amount Phenylephrine 40 mg In 142.192 81.085 114.429 Sodium Chloride 0.9% 250 ml @ 1 MCG/KG/MIN 28.994 mls/hr IV .Q8H46M [facility] Rx# :[id number] Oral 420 Output: Urine 575 260 30 Other: Voiding Method Urinal Urinal # Voids 1 0 # Bowel Movements 1 - Exam Physical Exam: Revealed a 74-year-old white male very pleasant, in no distress, sitting in bed, on 2 L nasal cannula. Head: Atraumatic, normocephalic. HEENT:[Neck is supple.] Positive bilateral cervical lymphadenopathy and supraclavicular lymphadenopathy] Chest: [Clear throughout, no crackles, no rhonchi, no wheezes.] Pacemaker/defibrillator is noted in the left upper chest wall area Cardiac Exam: Irregular irregular rhythm. [Normal S1 and S2, no S3 gallop, 2/6 systolic murmur at the left lower sternal border. Abdomen: [Soft, nontender, no megaly, no rebound, no guarding, normal bowel sounds.] Extremities: [No clubbing, no edema, no cyanosis.] Neurological Exam: [No focal neurologic deficit.] Alert and oriented 3. Skin: No rashes. Psychiatric: Normal mood affect and normal mental status examination. - Labs CBC & Chem 7: 12/11/19 05:41 12/11/19 05:41 Labs: Abnormal Lab Results - Last 24 Hours (Table) 12/11/19 12/11/19 Range/Units 05:41 05:41 RBC 3.89 L (4.30-5.90) m/uL Hgb 11.8 L (13.0-17.5) gm/dL Hct 36.1 L (39.0-53.0) % RDW 16.5 H (11.5-15.5) % Plt Count 107 L (150-450) k/uL Sodium 133 L (137-145) mmol/L BUN 28 H (9-20) mg/dL Creatinine 1.38 H (0.66-1.25) mg/dL Glucose 101 H (74-99) mg/dL Calcium 10.6 H (8.4-10.2) mg/dL Assessment and Plan Assessment: Impression: Postoperative hypotension, multifactorial, secondary to severe nonischemic cardiomyopathy and LV dysfunction, atrial fibrillation with RVR, and related to the fact that the patient took all his blood pressure medications prior to surgery. Paroxysmal atrial fibrillation with RVR. Amiodarone has been increased by ca rdiology. Acute on chronic systolic congestive heart failure Status post left cervical node excisional biopsy. Possible lymphoma, diagnostic workup is in progress. History of nonischemic cardiomyopathy, ejection fraction is less than 20% History of nonsustained ventricular tachycardia, normally maintained on amiodarone. Recommendation: Continue to titrate Onel-Synephrine until discontinued. Gentle diuresis. As needed Continue midodrine. At 5 mg twice a day.. Continue to monitor CVP. Continue to monitor in the ICU.. We'll continue to follow. Time with Patient: Less than 30
--- NOTE | 2019-12-11 20:01 | P.PN ---
Progress Note - Text Progress Note Date: 12/11/19 Consultation: This is a pleasant 74-year-old patient of Dr. Mark gresham. Chronic stable medical conditions include AICD, hyperlipidemia, some cognitive impairment CHF EF not known. Patient was recently found to have cervical lymphadenopathy. Was brought in for an outpatient procedure by Dr. Toledo for left cervical lymph node biopsy. Preoperative patient was running a bit low blood pressure. Cervical node excision was carried out. Patient postoperatively bit hypotensive. Also found to have a heart rate of 130s. Cardiology was called. Patient was then transferred to the ICU. Patient feels slightly tired. Patient is on amiodarone at home. Given IV fluids. Preoperative practically bleak his systolic blood pressure was in the 90s. Later blood pressure dropped down to about 60 systolic. Patient had been put on a norepinephrine drip. Cardizem was added. Because of amiodarone increased. Vittm-UBS-cprui pressure still running low. On IV norepinephrine. Cardizem discontinued by cardiology earlier today and given IV digoxin. Also on beta addison and amiodarone. Patient is tolerating a diet. Awake otherwise comfortable Review of systems: Was done for constitutional, cardiovascular, GI, pulmonary. relevant finding as above Active Medications Acetaminophen (Tylenol Tab) 650 mg PO Q6HR PRN PRN Reason: Fever and/ or Pain Last Admin: 12/11/19 04:26 Dose: 650 mg Documented by: Amiodarone HCl (Cordarone) 200 mg PO BID [facility] OF [facility] Last Admin: 12/11/19 09:15 Dose: 200 mg Documented by: Apixaban (Eliquis) 5 mg PO BID [facility] Last Admin: 12/11/19 09:16 Dose: 5 mg Documented by: Atorvastatin Calcium (Lipitor) 20 mg PO HS [facility] Last Admin: 12/10/19 20:26 Dose: 20 mg Documented by: Digoxin (Lanoxin) 125 mcg PO DAILY ON [facility] OF [facility] Phenylephrine HCl 40 mg/ (Sodium Chloride) 254 mls @ 28.994 mls/hr IV .Q8H46M [facility]; Protocol Last Titration: 12/11/19 15:30 Dose: 0 mcg/kg/min, 0 mls/hr Documented by: Sodium Chloride (Saline 0.9%) 1,000 mls @ 10 mls/hr IV .Q24H [facility] Last Admin: 12/11/19 04:29 Dose: 10 mls/hr Documented by: Metoprolol Succinate (Toprol Xl) 25 mg PO DAILY [facility] Last Admin: 12/11/19 09:16 Dose: 25 mg Documented by: Midodrine (Proamatine) 5 mg PO AC-TID [facility] Last Admin: 12/11/19 17:14 Dose: 5 mg Documented by: Pantoprazole Sodium (Protonix) 40 mg PO AC-BRKFST [facility] Last Admin: 12/11/19 06:42 Dose: 40 mg Documented by: Physical examination: VITAL SIGNS: 97.7, 92, 19, 77 was 65, 90% on room air GENERAL: Sitting up in the bed, awake EYES: Pupils equal. Conjunctiva normal. HEENT: External appearance of nose and ears normal, oral cavity grossly normal. NECK: JVD not raised; masses not palpable, stitches over the left supraclavicular area. HEART: Heart sounds irregular; no edema. AICD LUNGS: Respiratory rate normal; decreased breath sounds. ABDOMEN: Soft, nontender, liver spleen not palpable, no masses palpable. PSYCH: Alert and oriented x3; mood and affect normal. LYMPHATICS: Cervical lymphadenopathy INVESTIGATIONS, reviewed in the clinical context: White count 8 hemoglobin 11.8 platelets 107 potassium 4 creatinine 1.38 Previous testing White count 9.6 hemoglobin 12.7 platelets 142 potassium 4.6 bun 26 creatinine 1.4 bilirubin 2.7 albumin 3.3 TSH 9.1 free T4 2.44 Chest x-ray film personally reviewed by me-cardiomegaly, prominent aortic knuckle Assessment: -Persistent atrial fibrillation with a rapid ventricular somewhat better controlled -Anticoagulation with eliquis -Hypotension shock due to rapid ventricular rate-requiring norepinephrine- uncontrolled -AICD -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 tach for which patient is on amiodarone -Hyperlipidemia -Hyponatremia -Chronic kidney disease stage III likely nephrosclerosis -Abnormal TSH in the setting of patient taking amiodarone. Clinically patient is not hypothyroid. Does not eat any further treatment currently. Plan: Continue on IV norepinephrine. Toribio discussed her. IV digoxin started gynecology. Discussed with patient. Follow Thank you Dr. Toledo
[2019-12-11] MEDS: ATORVASTATIN 20 MG TAB PO SCH (20:09)
[2019-12-12 03:54] LABS: Anisocytosis Slight; HCT 34.9 % (39.0-53.0); HGB 11.4 gm/dL (13.0-17.5); MCH 30.3 pg (25.0-35.0); MCHC 32.7 g/dL (31.0-37.0); MCV 92.7 fL (80.0-100.0); Mean Platelet Volume 8.5; Poikilocytosis Slight; RBC 3.77 m/uL (4.30-5.90); RDW 16.9 % (11.5-15.5); WBC 5.3 k/uL (3.8-10.6)
[2019-12-12 04:04] LABS: Calcium 10.5 mg/dL (8.4-10.2); Potassium 4.2 mmol/L (3.5-5.1)
[2019-12-12] MEDS: SODIUM CHLORIDE 0.9% 1,000 ML IV SCH (04:25)
[2019-12-12 04:39] LABS: Band Neutrophils % 2 %; Eosinophils # (M) 0.11 k/uL (0-0.7); Lymphocytes # (M) 1.43 k/uL (1.0-4.8); Monocytes # (M) 0.74 k/uL (0-1.0); Neutrophils % (M) 55 %; Nucleated Red Blood Cells 0 /100 WBC (0-0); Total Cells Counted 100
[2019-12-12 04:40] LABS: Platelet Count 83 k/uL (150-450)
[2019-12-12] MEDS: PHENYLEPHRINE 40 MG in SODIUM CHLORIDE 0.9% 250 ML IV SCH ×2 (04:42→14:31)
[2019-12-12] MEDS: PANTOPRAZOLE 40 MG TABLET PO SCH (06:56)
[2019-12-12] MEDS: MIDODRINE 5 MG TAB PO SCH ×3 (06:56→17:20)
[2019-12-12] MEDS: AMIODARONE 100 MG TAB PO SCH ×2 (09:31→21:10)
[2019-12-12] MEDS: DIGOXIN 125 MCG TAB PO SCH (09:31)
[2019-12-12] MEDS: METOPROLOL SUCCINATE (ER) 25 MG TAB.ER.24H PO SCH (09:31)
[2019-12-12] MEDS: APIXABAN 5 MG TAB PO SCH ×2 (09:31→21:10)
--- NOTE | 2019-12-12 10:00 | P.PN ---
Subjective Progress Note Date: 12/12/19 This is a 74-year-old gentleman with a nonischemic heart myopathy and generalized lymphadenopathy and chronic systolic congestive heart failure. Recently had a biopsy of the lymph node. Following that patient became hypotensive requiring admission to ICU. Patient also in atrial fibrillation with moderately rapid ventricular response. Patient is on amiodarone and beta addison. Patient was put on Lanoxin, yesterday. His heart rate is in the 90 distal 100. His blood pressure is running about 85-90 systolic. Patient is tolerating well is mildly short of breath. Doesn't appear to be in acute dis tress. We'll continue current medical therapy and increase activity as tolerated. May transfer to telemetry unit Objective - Vital Signs Vital signs: Vital Signs Temp 98.6 F 12/12/19 08:00 Pulse 109 H 12/12/19 09:30 Resp 17 12/12/19 09:30 BP 83/64 12/12/19 09:30 Pulse Ox 96 12/12/19 09:30 Intake & Output 12/11/19 12/12/19 12/12/19 18:59 06:59 18:59 Intake Total 303.390 136.772 30 Output Total 440 405 Balance -136.610 -268.228 30 Weight 81 kg Intake: IV 110 110 30 .9 @ 50 10 Sodium Chloride 0.9% 1, 100 110 30 000 ml @ 10 mls/hr IV . Q24H [facility] Rx#:[id number] Intake, IV Titration 193.390 26.772 Amount Phenylephrine 40 mg In 193.390 26.772 Sodium Chloride 0.9% 250 ml @ 1 MCG/KG/MIN 28.994 mls/hr IV .Q8H46M [facility] Rx# :[id number] Output: Urine 440 405 Other: Voiding Method Urinal Urinal Urinal # Voids 0 0 - Exam GENERAL EXAM: Patient is alert and oriented and doesn't appear to be in any acute distress HEENT: Normocephalic. Normal reaction of pupils, equal size, normal range of extraocular motion. No erythema or exudates in the throat. NECK: No masses, no nuchal rigidity. CHEST: No chest wall deformity. LUNGS: Equal air entry with no crackles or wheeze. HEART: S1 and S2 normal with no audible mumurs or gallops. Irregular rhythm ABDOMEN: No hepatosplenomegaly, normal bowel sounds, no guarding or rigidity. SKIN: No rashes CENTRAL NERVOUS SYSTEM: No focal deficits. EXTREMITIES: No cyanosis, clubbing or edema. - Labs CBC & Chem 7: 12/12/19 03:45 12/12/19 03:45 Labs: Abnormal Lab Results - Last 24 Hours (Table) 12/12/19 12/12/19 Range/Units 03:45 03:45 RBC 3.77 L (4.30-5.90) m/uL Hgb 11.4 L (13.0-17.5) gm/dL Hct 34.9 L (39.0-53.0) % RDW 16.9 H (11.5-15.5) % Plt Count 83 L (150-450) k/uL Sodium 131 L (137-145) mmol/L BUN 27 H (9-20) mg/dL Creatinine 1.27 H (0.66-1.25) mg/dL Calcium 10.5 H (8.4-10.2) mg/dL Assessment and Plan (1) Cardiac defibrillator in place Current Visit: Yes Status: Acute Code(s): Z95.810 - PRESENCE OF AUTOMATIC (IMPLANTABLE) CARDIAC DEFIBRILLATOR SNOMED Code(s): 754704930 (2) NICM (nonischemic cardiomyopathy) Current Visit: No Status: Acute Code(s): I42.9 - CARDIOMYOPATHY, UNSPECIFIED SNOMED Code(s): 84890978 (3) Ventricular tachycardia Current Visit: No Status: Acute Code(s): I47.2 - VENTRICULAR TACHYCARDIA SNOMED Code(s): 66817099 (4) Persistent atrial fibrillation Current Visit: Yes Status: Acute Code(s): I48.19 - OTHER PERSISTENT ATRIAL FIBRILLATION SNOMED Code(s): 561157211 (5) Hypotension Current Visit: Yes Status: Acute Code(s): I95.9 - HYPOTENSION, UNSPECIFIED SNOMED Code(s): 07416696 Plan: Continue current medical therapy. Lanoxin level tomorrow. Increase activity as tolerated
[2019-12-12] MEDS: FUROSEMIDE 10 MG/ML 2 ML VIAL IV SCH (11:17)
--- NOTE | 2019-12-12 13:02 | P.PN ---
Subjective Progress Note Date: 12/12/19 Principal diagnosis: Hypotension secondary to atrial fibrillation with RVR, and nonischemic cardiomyopathy with LV dysfunction. This is a 74-year-old white male with history of multiple medical problems including chronic systolic congestive heart failure, nonischemic in nature, ejection fraction is around 30%, history of nonsustained ventricular tachycardia, maintained on amiodarone. Patient is also known to have history of hypertension maintained on multiple medications for hypertension. His last cardiac catheterization was in 2018, and showed normal coronaries. Elevated left ventricular end-diastolic pressure. Patient was recently discovered to have significant lymphadenopathy including cervical lymph nodes, supraclavicular lymph nodes, retroperitoneal lymph nodes, iliac and groin lymph nodes. Patient was referred to Dr. Toledo for excisional biopsy of one of his supraclavicular lymph nodes, and this was done today. Prior to his surgery, the patient was n oted to be tachycardic, and he was in atrial fibrillation with RVR rate of 114. Blood pressure was also noted to be a bit low at 91/63. Patient was cleared by cardiology for surgery, and postoperatively the patient was brought into the recovery room, his blood pressure was extremely low with a systolic in the 50s60s range. Hence the patient was placed on phenylephrine, and presently on 2.5 mcg/kg/m. Patient is sitting in bed, asymptomatic, denies any cough no wheezing no shortness of breath no chest pain denies any palpitations. He seems to have decent urine output, and the patient is not in any form of distress. However considering a low blood pressure, and considering his atrial fib rillation, agent will be admitted to the ICU, and I was asked to see him on consultation. I saw the patient in the recovery room, and he was basically asymptomatic. Again the patient was discovered to have lymphadenopathy in the last 4-6 weeks, and he was advised to undergo supraclavicular lymph node biopsy by Dr. Toledo which was done today. Clinically the patient had symptoms of weight loss, no fever no chills, and no pruritus. Patient was reevaluated today on 12/09/19, patient remains in the ICU, remains on Onel-Synephrine. Patient is presently on 2.1 mcg/kg/m of Onel-Synephrine. Remain s in atrial fibrillation with RVR, he is on amiodarone at 200 mg twice a day, midodrine was added today, and the patient is on Eliquis. Blood pressure remains low, hence I recommended CVP evaluation and came back to be low, I recommended 500 mL of fluid bolus. Hoping once his heart rate is controlled, his blood pressure will likely improve. Serum cortisol level was ordered, and I recommended 100 mg of hydrocortisone to be given 1. Midodrine was added by cardiology. Considering the low blood pressure, patient will remain in the ICU as long as he is requiring pressors. CBC is relatively normal lites are normal BUN is 28 creatinine 1.41 Patient was reevaluated today on 12/10/19, patient remains in the ICU, still requiring Onel-Synephrine however the dose is down to 60 mcg/m, his IV fluids at 50 ML per hour, his mean arterial pressure is 65, chest x-ray showed mild congestive changes hence I recommended that the patient goes on Lasix 20 mg IV push times one. CVP is ranging around 8. And the patient has fairly good urine output. He is on 2 L nasal cannula, he is in atrial fibrillation, and his echocardiogram showed ejection fraction less than 20%. Patient was reevaluated today on 12/11/19 remains in the ICU, asymptomatic, however his blood pressure remains low and still requiring Onel-Synephrine at 0.8 mcg/kg/m. Yesterday he was off Onel-Synephrine between 2 PM until 10 PM last night, however his systolic pressure dropped down late at night and had to go back on Onel-Synephrine, patient is doing well otherwise. Remains on midodrine. 5 mg twice a day. And his serum cortisol level was normal, hence the patient will not benefit from hydrocortisone injections Patient was reevaluated today on 12/12/19, remains in the intensive care unit, continues to have low blood pressure requiring Onel-Synephrine. Presently at 0.25 mcg/kg/m, developing more swelling of the lower extremities. Hence I recommended Lasix to be given on a daily basis. His CVP is 12 remains in atrial fibrillation but with relatively controlled rate. Patient denies shortness of breath, no cough no wheezing no chest pain. Objective - Vital Signs Vital signs: Vital Signs Temp 98.6 F 12/12/19 08:00 Pulse 105 H 12/12/19 11:00 Resp 11 L 12/12/19 11:00 BP 92/68 12/12/19 11:00 Pulse Ox 93 L 12/12/19 11:00 Intake & Output 12/11/19 12/12/19 12/12/19 18:59 06:59 18:59 Intake Total 303.390 136.772 50 Output Total 440 405 150 Balance -136.610 -268.228 -100 Weight 81 kg Intake: IV 110 110 50 .9 @ 50 10 Sodium Chloride 0.9% 1, 100 110 50 000 ml @ 10 mls/hr IV . Q24H [facility] Rx#:[id number] Intake, IV Titration 193.390 26.772 Amount Phenylephrine 40 mg In 193.390 26.772 Sodium Chloride 0.9% 250 ml @ 1 MCG/KG/MIN 28.994 mls/hr IV .Q8H46M [facility] Rx# :[id number] Output: Urine 440 405 150 Other: Voiding Method Urinal Urinal Urinal # Voids 0 0 - Exam Physical Exam: Revealed a 74-year-old white male very pleasant, in no distress, sitting in bed, on 2 L nasal cannula. Head: Atraumatic, normocephalic. HEENT:[Neck is supple.] Positive bilateral cervical lymphadenopathy and supraclavicular lymphadenopathy] Chest: [Clear throughout, no crackles, no rhonchi, no wheezes.] Pacemaker/defibrillator is noted in the left upper chest wall area Cardiac Exam: Irregular irregular rhythm. [Normal S1 and S2, no S3 gallop, 2/6 systolic murmur at the left lower sternal border. Abdomen: [Soft, nontender, no megaly, no rebound, no guarding, normal bowel sounds.] Extremities: [No clubbing, 2+ bipedal edema, no cyanosis.] Neurological Exam: [No focal neurologic deficit.] Alert and oriented 3. Skin: No rashes. Psychiatric: Normal mood affect and normal mental status examination. - Labs CBC & Chem 7: 12/12/19 03:45 12/12/19 03:45 Labs: Abnormal Lab Results - Last 24 Hours (Table) 12/12/19 12/12/19 Range/Units 03:45 03:45 RBC 3.77 L (4.30-5.90) m/uL Hgb 11.4 L (13.0-17.5) gm/dL Hct 34.9 L (39.0-53.0) % RDW 16.9 H (11.5-15.5) % Plt Count 83 L (150-450) k/uL Sodium 131 L (137-145) mmol/L BUN 27 H (9-20) mg/dL Creatinine 1.27 H (0.66-1.25) mg/dL Calcium 10.5 H (8.4-10.2) mg/dL Assessment and Plan Assessment: Impression: Postoperative hypotension, multifactorial, secondary to severe nonischemic cardiomyopathy and LV dysfunction, atrial fibrillation with RVR, and related to the fact that the patient took all his blood pressure medications prior to surgery. Paroxysmal atrial fibrillation with RVR. Remains on amiodarone. Acute on chronic systolic congestive heart failure Status post left cervical node excisional biopsy. Pathology from the biopsy is pending. Possible lymphoma, diagnostic workup is in progress. History of nonischemic cardiomyopathy, ejection fraction is less than 20% History of nonsustained ventricular tachycardia, normally maintained on amiodarone. Recommendation: Continue to titrate Onel-Synephrine until discontinued. Gentle diuresis. Continue Lasix. Continue midodrine. Continue to monitor CVP. Continue to monitor in the ICU.. We'll continue to follow. Time with Patient: Less than 30
--- NOTE | 2019-12-12 16:34 | P.PN ---
Progress Note - Text Progress Note Date: 12/12/19 Consultation: This is a pleasant 74-year-old patient of Dr. Mark gresham. Chronic stable medical conditions include AICD, hyperlipidemia, some cognitive impairment CHF EF not known. Patient was recently found to have cervical lymphadenopathy. Was brought in for an outpatient procedure by Dr. Toledo for left cervical lymph node biopsy. Preoperative patient was running a bit low blood pressure. Cervical node excision was carried out. Patient postoperatively bit hypotensive. Also found to have a heart rate of 130s. Cardiology was called. Patient was then transferred to the ICU. Patient feels slightly tired. Patient is on amiodarone at home. Given IV fluids. Preoperative practically bleak his systolic blood pressure was in the 90s. Later blood pressure dropped down to about 60 systolic. Patient had been put on a norepinephrine drip. Cardizem was added. Because of amiodarone increased. Nptep-FNP-qshylot on phenylephrine IV. Heart rate close to 100. Tolerating diet. at the bedside. Review of systems: Was done for constitutional, cardiovascular, GI, pulmonary. relevant finding as above Active Medications Acetaminophen (Tylenol Tab) 650 mg PO Q6HR PRN PRN Reason: Fever and/ or Pain Last Admin: 12/11/19 04:26 Dose: 650 mg Documented by: Amiodarone HCl (Cordarone) 200 mg PO BID [facility] Last Admin: 12/12/19 09:31 Dose: 200 mg Documented by: Apixaban (Eliquis) 5 mg PO BID [facility] Last Admin: 12/12/19 09:31 Dose: 5 mg Documented by: Atorvastatin Calcium (Lipitor) 20 mg PO HS [facility] Last Admin: 12/11/19 20:09 Dose: 20 mg Documented by: Digoxin (Lanoxin) 125 mcg PO DAILY [facility] Last Admin: 12/12/19 09:31 Dose: 125 mcg Documented by: Furosemide (Lasix) 20 mg IV DAILY [facility] Last Admin: 12/12/19 11:17 Dose: 20 mg Documented by: Phenylephrine HCl 40 mg/ (Sodium Chloride) 254 mls @ 28.994 mls/hr IV .Q8H46M [facility]; Protocol Last Admin: 12/12/19 14:31 Dose: Not Given Documented by: Sodium Chloride (Saline 0.9%) 1,000 mls @ 10 mls/hr IV .Q24H [facility] Last Admin: 12/12/19 04:25 Dose: 10 mls/hr Documented by: Metoprolol Succinate (Toprol Xl) 25 mg PO DAILY [facility] Last Admin: 12/12/19 09:31 Dose: 25 mg Documented by: Midodrine (Proamatine) 5 mg PO AC-TID [facility] Last Admin: 12/12/19 14:00 Dose: 5 mg Documented by: Pantoprazole Sodium (Protonix) 40 mg PO AC-BRKFST [facility] Last Admin: 12/12/19 06:56 Dose: 40 mg Documented by: Physical examination: VITAL SIGNS: 98.9, 116, 14, 104/93, 92% on room air GENERAL: Laying in bed, comfortable EYES: Pupils equal. Conjunctiva normal. HEENT: External appearance of nose and ears normal, oral cavity grossly normal. NECK: JVD not raised; masses not palpable, stitches over the left supraclavicular area. HEART: Heart sounds irregular; no edema. AICD LUNGS: Respiratory rate normal; decreased breath sounds. ABDOMEN: Soft, nontender, liver spleen not palpable, no masses palpable. PSYCH: Alert and oriented x3; mood and affect normal. LYMPHATICS: Cervical lymphadenopathy INVESTIGATIONS, reviewed in the clinical context: White count 5.3 hemoglobin 11.4 platelets 83 potassium 4.2 bun 27 creatinine 1.27 Previous testing White count 9.6 hemoglobin 12.7 platelets 142 potassium 4.6 bun 26 creatinine 1.4 bilirubin 2.7 albumin 3.3 TSH 9.1 free T4 2.44 Chest x-ray film personally reviewed by me-cardiomegaly, prominent aortic knuckle Assessment: -Persistent atrial fibrillation with a rapid ventricular-still uncontrolled -Anticoagulation with eliquis -Hypotension shock due to rapid ventricular rate-requiring norepinephrine- uncontrolled -AICD -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 tach for which patient is on amiodarone -Hyperlipidemia -Hyponatremia -Chronic kidney disease stage III likely nephrosclerosis -Abnormal TSH in the setting of patient taking amiodarone. Clinically patient is not hypothyroid. Does not eat any further treatment currently. Plan: Continue on IV norepinephrine. Patient on by mouth amiodarone, eliquis, by mouth digoxin IV Lasix 20 mg daily Toprol-XL and midodrine. Discussed with the patient.
[2019-12-12] MEDS: ATORVASTATIN 20 MG TAB PO SCH (21:10)
[2019-12-13] MEDS: SODIUM CHLORIDE 0.9% 1,000 ML IV SCH (03:35)
[2019-12-13 05:21] LABS: Anisocytosis Slight; HCT 32.5 % (39.0-53.0); HGB 11.1 gm/dL (13.0-17.5); MCH 31.2 pg (25.0-35.0); MCHC 34.1 g/dL (31.0-37.0); MCV 91.6 fL (80.0-100.0); Mean Platelet Volume 8.1; Poikilocytosis Slight; RBC 3.55 m/uL (4.30-5.90); RDW 16.9 % (11.5-15.5); WBC 4.4 k/uL (3.8-10.6)
[2019-12-13 05:30] LABS: Platelet Count 73 k/uL (150-450)
[2019-12-13 05:31] LABS: Calcium 10.3 mg/dL (8.4-10.2); Potassium 3.9 mmol/L (3.5-5.1)
[2019-12-13] MEDS: PHENYLEPHRINE 40 MG in SODIUM CHLORIDE 0.9% 250 ML IV SCH (06:54)
--- NOTE | 2019-12-13 07:28 | XR ---
EXAMINATION TYPE: XR chest 1V portable DATE OF EXAM: 12/13/2019 COMPARISON: 12/10/2019 HISTORY: Shortness of breath TECHNIQUE: Single frontal view of the chest is obtained. FINDINGS: There is widening of the mediastinum. Patient rotated. Heart is enlarged. Persistent bilat eral consolidation and pleural effusion. Coarsened interstitium with biapical pleural thickening, car diomegaly and atherosclerotic change aorta. IMPRESSION: 1. Widened mediastinum may reflect the reported history of mediastinal adenopathy and ectatic aorta. 2. Persistent diffuse bilateral pleural-parenchymal changes stable. Correlate for CHF otherwise consi adin pneumonia.
[2019-12-13] MEDS: MIDODRINE 5 MG TAB PO SCH ×3 (08:20→16:58)
[2019-12-13] MEDS: PANTOPRAZOLE 40 MG TABLET PO SCH (08:20)
[2019-12-13] MEDS: APIXABAN 5 MG TAB PO SCH ×2 (08:20→20:23)
[2019-12-13] MEDS: FUROSEMIDE 10 MG/ML 2 ML VIAL IV SCH (08:20)
[2019-12-13] MEDS: METOPROLOL SUCCINATE (ER) 25 MG TAB.ER.24H PO SCH (08:20)
[2019-12-13] MEDS: DIGOXIN 125 MCG TAB PO SCH (08:21)
[2019-12-13] MEDS: AMIODARONE 100 MG TAB PO SCH ×2 (08:21→21:37)
--- NOTE | 2019-12-13 09:54 | P.PN ---
Subjective Progress Note Date: 12/13/19 This is a 74-year-old gentleman with a nonischemic heart myopathy and generalized lymphadenopathy and chronic systolic congestive heart failure. Recently had a biopsy of the lymph node. Following that patient became hypotensive requiring admission to ICU. Patient also in atrial fibrillation with moderately rapid ventricular response. Patient is on amiodarone and beta addison. Patient was put on Lanoxin, yesterday. His heart rate is in the 90 distal 100. His blood pressure is running about 85-90 systolic. Patient is tolerating well is mildly short of breath. Doesn't appear to be in acute dis tress. We'll continue current medical therapy and increase activity as tolerated. May transfer to telemetry unit. 12/13/2019: This patient with history of nonischemic cardiomyopathy, generalized lymphadenopathy and chronic systolic heart congestive heart failure. Patient is a feeling reasonably well. Complaints of mild shortness of breath. Chest x-ray shows some congestive changes consistent with CHF. His on by mouth Lasix 20 mg twice a day. Patient is in atrial fibrillation with his heart rate fluctuating between 9210. He is on metoprolol, amiodarone, and also digoxin. We will get a digoxin level tomorrow. Otherwise patient doesn't appear to be in acute distress. His blood pressure has been fluctuating between 80 and about 110 systolic Objective - Vital Signs Vital signs: Vital Signs Temp 97.9 F 12/13/19 04:00 Pulse 92 12/13/19 06:30 Resp 18 12/13/19 06:30 BP 61/42 12/13/19 06:30 Pulse Ox 95 12/13/19 06:30 Intake & Output 12/12/19 12/13/19 12/13/19 18:59 06:59 18:59 Intake Total 773.447 146.456 Output Total 1100 500 Balance -326.553 -353.544 Intake: IV 120 120 Sodium Chloride 0.9% 1, 120 120 000 ml @ 10 mls/hr IV . Q24H [facility] Rx#:[id number] Intake, IV Titration 53.447 26.456 Amount Phenylephrine 40 mg In 53.447 26.456 Sodium Chloride 0.9% 250 ml @ 1 MCG/KG/MIN 28.994 mls/hr IV .Q8H46M [facility] Rx# :[id number] Oral 600 Output: Urine 1100 500 Other: Voiding Method Urinal Urinal - Exam GENERAL EXAM: Patient is alert and oriented and doesn't appear to be in any acute distress HEENT: Normocephalic. Normal reaction of pupils, equal size, normal range of extraocular motion. No erythema or exudates in the throat. NECK: No masses, no nuchal rigidity. CHEST: No chest wall deformity. LUNGS: Diminished breath sounds at bases HEART: S1 and S2 normal with no audible mumurs or gallops. Irregular rhythm ABDOMEN: No hepatosplenomegaly, normal bowel sounds, no guarding or rigidity. SKIN: No rashes CENTRAL NERVOUS SYSTEM: No focal deficits. EXTREMITIES: No cyanosis, clubbing or edema. - Labs CBC & Chem 7: 12/13/19 04:58 12/13/19 04:58 Labs: Abnormal Lab Results - Last 24 Hours (Table) 12/13/19 12/13/19 Range/Units 04:58 04:58 RBC 3.55 L (4.30-5.90) m/uL Hgb 11.1 L (13.0-17.5) gm/dL Hct 32.5 L (39.0-53.0) % RDW 16.9 H (11.5-15.5) % Plt Count 73 L (150-450) k/uL Sodium 130 L (137-145) mmol/L BUN 27 H (9-20) mg/dL Creatinine 1.31 H (0.66-1.25) mg/dL Calcium 10.3 H (8.4-10.2) mg/dL Assessment and Plan (1) Cardiac defibrillator in place Current Visit: Yes Status: Acute Code(s): Z95.810 - PRESENCE OF AUTOMATIC (IMPLANTABLE) CARDIAC DEFIBRILLATOR SNOMED Code(s): 385788574 (2) NICM (nonischemic cardiomyopathy) Current Visit: No Status: Acute Code(s): I42.9 - CARDIOMYOPATHY, UNSPECIFIED SNOMED Code(s): 98860787 (3) Ventricular tachycardia Current Visit: No Status: Acute Code(s): I47.2 - VENTRICULAR TACHYCARDIA SNOMED Code(s): 86953484 (4) Persistent atrial fibrillation Current Visit: Yes Status: Acute Code(s): I48.19 - OTHER PERSISTENT ATRIAL FIBRILLATION SNOMED Code(s): 637951503 (5) Hypotension Current Visit: Yes Status: Acute Code(s): I95.9 - HYPOTENSION, UNSPECIFIED SNOMED Code(s): 39201387 Plan: Patient continues to be hypotensive and mildly tachycardic. Waiting for the biopsy of this lymph node. Doesn't appear to be in acute distress. If necessary, we'll may consider adding dobutamine.
--- NOTE | 2019-12-13 13:27 | P.PN ---
Subjective Progress Note Date: 12/13/19 Principal diagnosis: Hypotension secondary to atrial fibrillation with RVR, and nonischemic cardiomyopathy with LV dysfunction. This is a 74-year-old white male with history of multiple medical problems including chronic systolic congestive heart failure, nonischemic in nature, ejection fraction is around 30%, history of nonsustained ventricular tachycardia, maintained on amiodarone. Patient is also known to have history of hypertension maintained on multiple medications for hypertension. His last cardiac catheterization was in 2018, and showed normal coronaries. Elevated left ventricular end-diastolic pressure. Patient was recently discovered to have significant lymphadenopathy including cervical lymph nodes, supraclavicular lymph nodes, retroperitoneal lymph nodes, iliac and groin lymph nodes. Patient was referred to Dr. Toledo for excisional biopsy of one of his supraclavicular lymph nodes, and this was done today. Prior to his surgery, the patient was n oted to be tachycardic, and he was in atrial fibrillation with RVR rate of 114. Blood pressure was also noted to be a bit low at 91/63. Patient was cleared by cardiology for surgery, and postoperatively the patient was brought into the recovery room, his blood pressure was extremely low with a systolic in the 50s60s range. Hence the patient was placed on phenylephrine, and presently on 2.5 mcg/kg/m. Patient is sitting in bed, asymptomatic, denies any cough no wheezing no shortness of breath no chest pain denies any palpitations. He seems to have decent urine output, and the patient is not in any form of distress. However considering a low blood pressure, and considering his atrial fib rillation, agent will be admitted to the ICU, and I was asked to see him on consultation. I saw the patient in the recovery room, and he was basically asymptomatic. Again the patient was discovered to have lymphadenopathy in the last 4-6 weeks, and he was advised to undergo supraclavicular lymph node biopsy by Dr. Toledo which was done today. Clinically the patient had symptoms of weight loss, no fever no chills, and no pruritus. Patient was reevaluated today on 12/09/19, patient remains in the ICU, remains on Onel-Synephrine. Patient is presently on 2.1 mcg/kg/m of Onel-Synephrine. Remain s in atrial fibrillation with RVR, he is on amiodarone at 200 mg twice a day, midodrine was added today, and the patient is on Eliquis. Blood pressure remains low, hence I recommended CVP evaluation and came back to be low, I recommended 500 mL of fluid bolus. Hoping once his heart rate is controlled, his blood pressure will likely improve. Serum cortisol level was ordered, and I recommended 100 mg of hydrocortisone to be given 1. Midodrine was added by cardiology. Considering the low blood pressure, patient will remain in the ICU as long as he is requiring pressors. CBC is relatively normal lites are normal BUN is 28 creatinine 1.41 Patient was reevaluated today on 12/10/19, patient remains in the ICU, still requiring Onel-Synephrine however the dose is down to 60 mcg/m, his IV fluids at 50 ML per hour, his mean arterial pressure is 65, chest x-ray showed mild congestive changes hence I recommended that the patient goes on Lasix 20 mg IV push times one. CVP is ranging around 8. And the patient has fairly good urine output. He is on 2 L nasal cannula, he is in atrial fibrillation, and his echocardiogram showed ejection fraction less than 20%. Patient was reevaluated today on 12/11/19 remains in the ICU, asymptomatic, however his blood pressure remains low and still requiring Onel-Synephrine at 0.8 mcg/kg/m. Yesterday he was off Onel-Synephrine between 2 PM until 10 PM last night, however his systolic pressure dropped down late at night and had to go back on Onel-Synephrine, patient is doing well otherwise. Remains on midodrine. 5 mg twice a day. And his serum cortisol level was normal, hence the patient will not benefit from hydrocortisone injections Patient was reevaluated today on 12/12/19, remains in the intensive care unit, continues to have low blood pressure requiring Onel-Synephrine. Presently at 0.25 mcg/kg/m, developing more swelling of the lower extremities. Hence I recommended Lasix to be given on a daily basis. His CVP is 12 remains in atrial fibrillation but with relatively controlled rate. Patient denies shortness of breath, no cough no wheezing no chest pain. Patient was reevaluated today on 12/13/19, remains in the intensive care unit, has been off Onel-Synephrine since yesterday at 2 PM. Patient is doing well, denies any shortness of breath cough or wheezing, I have noted that his chest x-ray is showing evidence of mild edema, and I recommended Lasix 20 mg by mouth twice a day. In the meantime I have recommended possibly transferring the patient today out of the ICU to a monitor bed on selective. CBC is relatively normal elect rolytes are basically normal. Renal profile is improving. Objective - Vital Signs Vital signs: Vital Signs Temp 97.9 F 12/13/19 04:00 Pulse 102 H 12/13/19 12:30 Resp 26 H 12/13/19 12:30 BP 91/75 12/13/19 12:30 Pulse Ox 93 L 12/13/19 12:30 Intake & Output 12/12/19 12/13/19 12/13/19 18:59 06:59 18:59 Intake Total 773.447 146.456 410 Output Total 1100 500 675 Balance -326.553 -353.544 -265 Intake: IV 120 120 60 Sodium Chloride 0.9% 1, 120 120 60 000 ml @ 10 mls/hr IV . Q24H [facility] Rx#:[id number] Intake, IV Titration 53.447 26.456 Amount Phenylephrine 40 mg In 53.447 26.456 Sodium Chloride 0.9% 250 ml @ 1 MCG/KG/MIN 28.994 mls/hr IV .[id number] [facility] Rx# :[id number] Oral 600 350 Output: Urine 1100 500 675 Other: Voiding Method Urinal Urinal Urinal - Exam Physical Exam: Revealed a 74-year-old white male very pleasant, in no distress, sitting in bed, on 2 L nasal cannula. Head: Atraumatic, normocephalic. HEENT:[Neck is supple.] Positive bilateral cervical lymphadenopathy and supraclavicular lymphadenopathy] Chest: [Clear throughout, no crackles, no rhonchi, no wheezes.] Pacemaker/defibrillator is noted in the left upper chest wall area Cardiac Exam: Irregular irregular rhythm. [Normal S1 and S2, no S3 gallop, 2/6 systolic murmur at the left lower sternal border. Abdomen: [Soft, nontender, no megaly, no rebound, no guarding, normal bowel sounds.] Extremities: [No clubbing, 2+ bipedal edema, no cyanosis.] Neurological Exam: [No focal neurologic deficit.] Alert and oriented 3. Skin: No rashes. Psychiatric: Normal mood affect and normal mental status examination. - Labs CBC & Chem 7: 12/13/19 04:58 12/13/19 04:58 Labs: Abnormal Lab Results - Last 24 Hours (Table) 12/13/19 12/13/19 Range/Units 04:58 04:58 RBC 3.55 L (4.30-5.90) m/uL Hgb 11.1 L (13.0-17.5) gm/dL Hct 32.5 L (39.0-53.0) % RDW 16.9 H (11.5-15.5) % Plt Count 73 L (150-450) k/uL Sodium 130 L (137-145) mmol/L BUN 27 H (9-20) mg/dL Creatinine 1.31 H (0.66-1.25) mg/dL Calcium 10.3 H (8.4-10.2) mg/dL Assessment and Plan Assessment: Impression: Postoperative hypotension, multifactorial, secondary to severe nonischemic cardiomyopathy and LV dysfunction, atrial fibrillation with RVR, and related to the fact that the patient took all his blood pressure medications prior to surgery. Paroxysmal atrial fibrillation with RVR. Remains on amiodarone. Acute on chronic systolic congestive heart failure Status post left cervical node excisional biopsy. Pathology from the biopsy is pending. Possible lymphoma, diagnostic workup is in progress. History of nonischemic cardiomyopathy, ejection fraction is less than 20% History of nonsustained ventricular tachycardia, normally maintained on amiodarone. Recommendation: Discontinue Onel-Synephrine Continue Lasix. Continue midodrine. Transfer to a monitor bed on selective Consider discharge planning in the next 24 hours. We'll continue to follow. Time with Patient: Less than 30
--- NOTE | 2019-12-13 14:28 | P.PN ---
Progress Note - Text Progress Note Date: 12/13/19 Interval history: This is a pleasant 74-year-old patient of Dr. Mark gresham. Chronic stable medical conditions include AICD, hyperlipidemia, some cognitive impairment CHF EF not known. Patient was recently found to have cervical lymphadenopathy. Was brought in for an outpatient procedure by Dr. Toledo for left cervical lymph node biopsy. Preoperative patient was running a bit low blood pressure. Cervical node excision was carried out. Patient postoperatively bit hypotensive. Also found to have a heart rate of 130s. Cardiology was called. Patient was then transferred to the ICU. Patient feels slightly tired. Patient is on amiodarone at home. Given IV fluids. Preoperative practically bleak his systolic blood pressure was in the 90s. Later blood pressure dropped down to about 60 systolic. Patient had been put on a norepinephrine drip. Cardizem was added. Because of amiodarone increased. [id number] is taken off pressor support yesterday. Blood pressures running anywhere from 70s to 90s systolic. At her baseline his systolic from urology on 90s. Heart rate is anywhere from 100 -130s. Tolerating a diet. Slightly tired. is present. Significant edema present. Review of systems: Was done for constitutional, cardiovascular, GI, pulmonary. relevant finding as above Active Medications Acetaminophen (Tylenol Tab) 650 mg PO Q6HR PRN PRN Reason: Fever and/ or Pain Last Admin: 12/11/19 04:26 Dose: 650 mg Documented by: Amiodarone HCl (Cordarone) 200 mg PO BID [facility] Last Admin: 12/13/19 08:21 Dose: 200 mg Documented by: Apixaban (Eliquis) 5 mg PO BID [facility] Last Admin: 12/13/19 08:20 Dose: 5 mg Documented by: Atorvastatin Calcium (Lipitor) 20 mg PO HS [facility] Last Admin: 12/12/19 21:10 Dose: 20 mg Documented by: Digoxin (Lanoxin) 125 mcg PO DAILY [facility] Last Admin: 12/13/19 08:21 Dose: 125 mcg Documented by: Furosemide (Lasix) 20 mg PO BID@0900,1600 [facility] Sodium Chloride (Saline 0.9%) 1,000 mls @ 10 mls/hr IV .Q24H [facility] Last Admin: 12/13/19 03:35 Dose: Not Given Documented by: Metoprolol Succinate (Toprol Xl) 25 mg PO DAILY [facility] Last Admin: 12/13/19 08:20 Dose: 25 mg Documented by: Midodrine (Proamatine) 5 mg PO AC-TID [facility] Last Admin: 12/13/19 13:06 Dose: 5 mg Documented by: Pantoprazole Sodium (Protonix) 40 mg PO AC-BRKFST [facility] Last Admin: 12/13/19 08:20 Dose: 40 mg Documented by: Physical examination: VITAL SIGNS: Afebrile, 120, 19, 81/62, 94% GENERAL: Sitting up in a chair, tired EYES: Pupils equal. Conjunctiva normal. HEENT: External appearance of nose and ears normal, oral cavity grossly normal. NECK: JVD not raised; masses not palpable, stitches over the left supraclavicular area. HEART: Heart sounds irregular; significant edema, AICD LUNGS: Respiratory rate normal; decreased breath sounds. ABDOMEN: Soft, nontender, liver spleen not palpable, no masses palpable. : Alert and oriented x3; mood and affect normal. LYMPHATICS: Cervical lymphadenopathy INVESTIGATIONS, reviewed in the clinical context: White count 4.4 hemoglobin 11.1. This 73 potassium 3.9 creatinine 1.31 Previous testing White count 9.6 hemoglobin 12.7 platelets 142 potassium 4.6 bun 26 creatinine 1.4 bilirubin 2.7 albumin 3.3 TSH 9.1 free T4 2.44 Chest x-ray film personally reviewed by me-cardiomegaly, prominent aortic knuckle Assessment: -Persistent atrial fibrillation with a rapid ventricular-still uncontrolled- patient remains off IV pressor support. -Anticoagulation with eliquis -Hypotension shock due to rapid ventricular now has been off IV pressor support since yesterday -AICD -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 tach for which patient is on amiodarone -Hyperlipidemia -Hyponatremia -Chronic kidney disease stage III likely nephrosclerosis -Abnormal TSH in the setting of patient taking amiodarone. Clinically patient is not hypothyroid. Does not eat any further treatment currently. Plan: Patient currently on Cordarone, eliquis, oral digoxin, Lasix 20 mg twice a day, Toprol-XL. Overall prognosis guarded. Patient to be moved out of the ICU. Discussed with the patient.
[2019-12-13] MEDS: FUROSEMIDE 20 MG TAB PO SCH (16:58)
[2019-12-13] MEDS: ATORVASTATIN 20 MG TAB PO SCH (20:23)
[2019-12-13 21:56] VITALS: RESP 18
[2019-12-14] MEDS: MIDODRINE 5 MG TAB PO SCH ×2 (06:17→12:35)
[2019-12-14] MEDS: PANTOPRAZOLE 40 MG TABLET PO SCH (06:17)
[2019-12-14 08:08] LABS: Calcium 10.2 mg/dL (8.4-10.2); Potassium 4.1 mmol/L (3.5-5.1)
[2019-12-14 08:27] LABS: Anisocytosis Slight; HCT 34.8 % (39.0-53.0); HGB 11.8 gm/dL (13.0-17.5); MCH 31.1 pg (25.0-35.0); MCHC 33.9 g/dL (31.0-37.0); MCV 91.8 fL (80.0-100.0); Mean Platelet Volume 8.1; RBC 3.79 m/uL (4.30-5.90); WBC 4.8 k/uL (3.8-10.6)
[2019-12-14 08:28] LABS: Platelet Count 79 k/uL (150-450)
[2019-12-14 08:50] LABS: Basophils # (M) 0.05 k/uL (0-0.2); Lymphocytes # (M) 1.15 k/uL (1.0-4.8); Monocytes # (M) 0.58 k/uL (0-1.0); Neutrophils # (M) 3.02 k/uL (1.3-7.7); Neutrophils % (M) 63 %; Nucleated Red Blood Cells 0 /100 WBC (0-0); Total Cells Counted 100
--- NOTE | 2019-12-14 08:57 | XR ---
EXAMINATION TYPE: XR chest 1V portable DATE OF EXAM: 12/14/2019 COMPARISON: Prior chest x-ray 12/13/2019 HISTORY: Congestive heart failure TECHNIQUE: Single frontal view of the chest is obtained. FINDINGS: Patient is rotated. Generator is present in left pectoral region, lead is present right ve ntricle. Right jugular central venous catheter has been removed. There is improved aeration in the ri ght upper lobe. No evident pneumothorax. There is persistent blunting of the right costophrenic angle , obscured right hemidiaphragm consistent with pleural effusion. Central vascularity is mildly promin ent. Perihilar vascular indistinctness is noted. Aorta is dense. IMPRESSION: Suspect some improvement in patient's volume status, aeration.
[2019-12-14] MEDS: AMIODARONE 100 MG TAB PO SCH (09:33)
[2019-12-14] MEDS: METOPROLOL SUCCINATE (ER) 25 MG TAB.ER.24H PO SCH (09:33)
[2019-12-14] MEDS: APIXABAN 5 MG TAB PO SCH (09:33)
[2019-12-14] MEDS: DIGOXIN 125 MCG TAB PO SCH (09:33)
[2019-12-14] MEDS: FUROSEMIDE 20 MG TAB PO SCH (09:33)
[2019-12-14 09:47] VITALS: TEMP 97.7
[2019-12-14 12:08] VITALS: BP 100/58; PULSE 95
[2019-12-14 14:31] VITALS: BMI 25.7
--- NOTE | 2019-12-14 14:45 | P.PN ---
Subjective Progress Note Date: 12/14/19 Principal diagnosis: Hypotension secondary to age fibrillation with RVR, and nonischemic cardiomyopathy with LV dysfunction This is a 74-year-old white male with history of multiple medical problems including chronic systolic congestive heart failure, nonischemic in nature, ej ection fraction is around 30%, history of nonsustained ventricular tachycardia, maintained on amiodarone. Patient is also known to have history of hypertension maintained on multiple medications for hypertension. His last cardiac catheterization was in 2018, and showed normal coronaries. Elevated left ventricular end-diastolic pressure. Patient was recently discovered to have significant lymphadenopathy including cervical lymph nodes, supraclavicular lymph nodes, retroperitoneal lymph nodes, iliac and groin lymph nodes. Patient was referred to Dr. Toledo for excisional biopsy of one of his supraclavicular lymph nodes, and this was done today. Prior to his surgery, the patient was not ed to be tachycardic, and he was in atrial fibrillation with RVR rate of 114. Blood pressure was also noted to be a bit low at 91/63. Patient was cleared by cardiology for surgery, and postoperatively the patient was brought into the recovery room, his blood pressure was extremely low with a systolic in the 50s60s range. Hence the patient was placed on phenylephrine, and presently on 2.5 mcg/kg/m. Patient is sitting in bed, asymptomatic, denies any cough no wheezing no shortness of breath no chest pain denies any palpitations. He seems to have decent urine output, and the patient is not in any form of distress. However considering a low blood pressure, and considering his atrial fibri llation, agent will be admitted to the ICU, and I was asked to see him on consultation. I saw the patient in the recovery room, and he was basically asymptomatic. Again the patient was discovered to have lymphadenopathy in the last 4-6 weeks, and he was advised to undergo supraclavicular lymph node biopsy by Dr. Toledo which was done today. Clinically the patient had symptoms of weight loss, no fever no chills, and no pruritus. Patient was reevaluated today on 12/09/19, patient remains in the ICU, remains on Onel-Synephrine. Patient is presently on 2.1 mcg/kg/m of Onel-Synephrine. Remains in atrial fibrillation with RVR, he is on amiodarone at 200 mg twice a day, midodrine was added today, and the patient is on Eliquis. Blood pressure remains low, hence I recommended CVP evaluation and came back to be low, I recommended 500 mL of fluid bolus. Hoping once his heart rate is controlled, his blood pressure will likely improve. Serum cortisol level was ordered, and I recommended 100 mg of hydrocortisone to be given 1. Midodrine was added by cardiology. Considering the low blood pressure, patient will remain in the ICU as long as he is requiring pressors. CBC is relatively normal lites are normal BUN is 28 creatinine 1.41 Patient was reevaluated today on 12/10/19, patient remains in the ICU, still requiring Onel-Synephrine however the dose is down to 60 mcg/m, his IV fluids at 50 ML per hour, his mean arterial pressure is 65, chest x-ray showed mild congestive changes hence I recommended that the patient goes on Lasix 20 mg IV push times one. CVP is ranging around 8. And the patient has fairly good urine output. He is on 2 L nasal cannula, he is in atrial fibrillation, and his echocardiogram showed ejection fraction less than 20%. Patient was reevaluated today on 12/11/19 remains in the ICU, asymptomatic, however his blood pressure remains low and still requiring Onel-Synephrine at 0.8 mcg/kg/m. Yesterday he was off Onel-Synephrine between 2 PM until 10 PM last night, however his systolic pressure dropped down late at night and had to go back on Onel-Synephrine, patient is doing well otherwise. Remains on midodrine. 5 mg twice a day. And his serum cortisol level was normal, hence the patient will not benefit from hydrocortisone injections Patient was reevaluated today on 12/12/19, remains in the intensive care unit, continues to have low blood pressure requiring Onel-Synephrine. Presently at 0.25 mcg/kg/m, developing more swelling of the lower extremities. Hence I recommended Lasix to be given on a daily basis. His CVP is 12 remains in atrial fibrillation but with relatively controlled rate. Patient denies shortness of breath, no cough no wheezing no chest pain. Patient was reevaluated today on 12/13/19, remains in the intensive care unit, has been off Onel-Synephrine since yesterday at 2 PM. Patient is doing well, denies any shortness of breath cough or wheezing, I have noted that his chest x-ray is showing evidence of mild edema, and I recommended Lasix 20 mg by mouth twice a day. In the meantime I have recommended possibly transferring the patient today out of the ICU to a monitor bed on [facility]. CBC is relatively normal electro lytes are basically normal. Renal profile is improving. On 12/14/2019 patient seen in follow-up on [facility] care unit, she is up in the chair, denies any acute distress, and a pulse ox is 90%, hemodynamically patient is stable, no fever or chills. His cervical node biopsy is still pending at thi s time, lung sounds are clear, diminished at the bases, legs reveal significant amount of lower extremity edema, 2+. he remains on oral Lasix at 20 mg twice daily. But pressure has been stable, remains on midodrine 5 mg 3 times daily, patient is on oral amiodarone, and on Eliquis for anticoagulation. His chest pain, no couplets or shortness of breath cough or congestion. Today's chest x- ray shows some improvement in patient's volume status and aeration. Objective - Vital Signs Vital signs: Vital Signs Temp 97.7 F 12/14/19 09:33 Pulse 95 12/14/19 12:00 Resp 18 12/14/19 12:00 BP 100/58 12/14/19 12:00 Pulse Ox 98 12/14/19 12:00 Intake & Output 12/13/19 12/14/19 12/14/19 18:59 06:59 18:59 Intake Total 670 240 Output Total 825 730 Balance -155 -730 240 Weight 79.1 kg 79.1 kg Intake: IV 80 Sodium Chloride 0.9% 1, 80 000 ml @ 10 mls/hr IV . Q24H [facility] Rx#:[id number] Oral 590 240 Output: Urine 825 730 Other: Voiding Method Urinal Urinal Urinal # Voids 1 # Bowel Movements 1 - Exam GENERAL EXAM: Alert, very pleasant, 74-year-old white male, sitting up in the recliner, on room air, with pulse ox of 98%, comfortable in no apparent distress. HEAD: Normocephalic/atraumatic. EYES: Normal reaction of pupils, equal size. Conjunctiva pink, sclera white. NOSE: Clear with pink turbinates. THROAT: No erythema or exudates. NECK: No masses, no JVD, no thyroid enlargement, no adenopathy. CHEST: No chest wall deformity. Symmetrical expansion. LUNGS: Equal air entry with no crackles, wheeze, rhonchi or dullness. CVS: Regular rate and rhythm, normal S1 and S2, no gallops, no murmurs, no rubs ABDOMEN: Soft, nontender. No hepatosplenomegaly, normal bowel sounds, no guarding or rigidity. EXTREMITIES: No clubbing, 2+ lower extremity edema involving bilateral legs, lower legs are yobany wrapped, no cyanosis, 2+ pulses and upper and lower extremities. MUSCULOSKELETAL: Muscle strength and tone normal. SPINE: No scoliosis or deformity SKIN: No rashes CENTRAL NERVOUS SYSTEM: Alert and oriented -3. No focal deficits, tone is normal in all 4 extremities. PSYCHIATRIC: Alert and oriented -3. Appropriate affect. Intact judgment and insight. - Labs CBC & Chem 7: 12/14/19 06:51 12/14/19 06:51 Labs: Abnormal Lab Results - Last 24 Hours (Table) 12/14/19 12/14/19 Range/Units 06:51 06:51 RBC 3.79 L (4.30-5.90) m/uL Hgb 11.8 L (13.0-17.5) gm/dL Hct 34.8 L (39.0-53.0) % RDW 17.0 H (11.5-15.5) % Plt Count 79 L (150-450) k/uL Sodium 130 L (137-145) mmol/L Carbon Dioxide 20 L (22-30) mmol/L BUN 27 H (9-20) mg/dL Creatinine 1.26 H (0.66-1.25) mg/dL Assessment and Plan Plan: Assessment: #1. Postoperative hypotension, multifactorial, secondary to severe nonischemic cardiomyopathy and LV dysfunction, atrial fibrillation with RVR, and related to the fact that the patient took all his blood pressure medications prior to surgery. #2. Paroxysmal atrial fibrillation with RVR. Remains on amiodarone. #3. Acute on chronic systolic congestive heart failure #4. Status post left cervical node excisional biopsy. Pathology from the biopsy is pending. #5. Possible lymphoma, diagnostic workup is in progress. #6. History of nonischemic cardiomyopathy, ejection fraction is less than 20% #7. History of nonsustained ventricular tachycardia, normally maintained on amiodarone. Recommendation: Continue oral diuretics, patient is breathing comfortably, vital signs are stable, blood pressure stable, no acute events overnight, today's chest x-ray shows improvement in volume status and aeration, is maintaining stable oxygenation on room air. From pulmonary perspective patient could be considered for discharge home. Discharge recommendations per attending and discharge planning I performed a history & physical examination of the patient and discussed their management with my nurse practitioner, Kandi Park. I reviewed the nurse practitioner's note and agree with the documented findings and plan of care. Lung sounds are positive for diminished breath sounds. The findings and the impression was discussed with the patient. I attest to the documentation by the nurse practitioner. Time with Patient: Less than 30
--- NOTE | 2019-12-15 23:26 | P.DS ---
Providers Date of admission: 12/08/19 10:46 Expected date of discharge: 12/14/19 Attending physician: Ever Springer Consults: 12/08/19 13:03 Consult Physician Routine Consulting Provider: Ran Spencer Consult Reason/Comments: hypotension, ICU management Do you want consulting provider notified?: Already Contacted Placement Type Exists?: Yes Consult Physician Routine Consulting Provider: Timo Toro Consult Reason/Comments: afib Do you want consulting provider notified?: Already Contacted Placement Type Exists?: Yes 12/08/19 20:29 Consult Physician Routine Consulting Provider: Ever Springer Consult Reason/Comments: primary physican Do you want consulting provider notified?: Already Contacted Primary care physician: Frank Perez [facility] Course: Interval history: This is a pleasant 74-year-old patient of Dr. Mark perez. Chronic stable medical conditions include AICD, hyperlipidemia, some cognitive impairment CHF EF not known. Patient was recently found to have cervical lymphadenopathy. Was brought in for an outpatient procedure by Dr. Toledo for left cervical lymph node biopsy. Preoperative patient was running a bit low blood pressure. C ervical node excision was carried out. Patient postoperatively bit hypotensive. Also found to have a heart rate of 130s. Cardiology was called. Patient was then transferred to the ICU. tired. Patient is on amiodarone at home. Given IV fluids. Preoperative his systolic blood pressure was in the 90s. Later blood pressure dropped down to about 60 systolic. Patient had been put on a norepinephrine drip. Cardizem was added. amiodarone increased. Digoxin admitted. Today-discussed with Dr. Pizano from cardiology. Discussed with the patient. And the . Use Harjinder wraps. Prognosis is guarded. Systolic blood pressure 1 teens. Discussion and discharge planning more than 35 minutes Consultation: Dr. Pizano from cardiology Physical examination: VITAL SIGNS: Afebrile, 120, 18, 107/59, 95% room air GENERAL: Sitting up in a chair, more comfortable EYES: Pupils equal. Conjunctiva normal. HEENT: External appearance of nose and ears normal, oral cavity grossly normal. NECK: JVD not raised; masses not palpable, stitches over the left supraclavicular area. HEART: Heart sounds irregular; significant edema, AICD LUNGS: Respiratory rate normal; decreased breath sounds. ABDOMEN: Soft, nontender, liver spleen not palpable, no masses palpable. : Alert and oriented x3; mood and affect normal. LYMPHATICS: Cervical lymphadenopathy INVESTIGATIONS, reviewed in the clinical context: White count 4.8 hemoglobin 11.8 potassium 4.1 crit 1.26 digoxin 0.7 Previous testing White count 9.6 hemoglobin 12.7 platelets 142 potassium 4.6 bun 26 creatinine 1.4 bilirubin 2.7 albumin 3.3 TSH 9.1 free T4 2.44 Chest x-ray film personally reviewed by me-cardiomegaly, prominent aortic knuckle Assessment: -Persistent atrial fibrillation with a rapid POA -Anticoagulation with eliquis -Hypotension shock due to rapid ventricular now has been off IV pressor support POA -AICD -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 tach for which patient is on amiodarone -Hyperlipidemia -Hyponatremia -Chronic kidney disease stage III likely nephrosclerosis -Abnormal TSH in the setting of patient taking amiodarone. Clinically patient is not hypothyroid. Does not eat any further treatment currently. Disposition: Home Patient Condition at Discharge: Stable Plan - Discharge Summary Discharge Rx Participant: No New Discharge Prescriptions: New Apixaban [Eliquis] 5 mg PO BID #60 tab Digoxin [Lanoxin] 125 mcg PO DAILY #30 tab Furosemide [Lasix] 20 mg PO BID@0900,1600 #60 tab Midodrine [ProAmatine] 5 mg PO AC-TID #90 tab Amiodarone [Cordarone] 200 mg PO DAILY #7 tab Continue Albuterol Nebulized [Ventolin Nebulized] 2.5 mg INHALATION RT-QID PRN PRN Reason: Shortness Of Breath Atorvastatin [Lipitor] 20 mg PO HS #30 tab Docusate [Colace] 100 mg PO DAILY Metoprolol Succinate (ER) [Toprol XL] 25 mg PO DAILY Discontinued Spironolactone [Aldactone] 25 mg PO DAILY Amiodarone [Cordarone] 100 mg PO DAILY #30 tab Lisinopril [Zestril] 2.5 mg PO DAILY Furosemide [Lasix] 40 mg PO BID@0900,1600 Carvedilol [Coreg] 6.25 mg PO BID-W/MEALS Lorazepam(Unknown Dose) 5 mg PO BID PRN PRN Reason: Anxiety Ivabradine HCl [Corlanor] 5 mg PO BID Discharge Medication List Albuterol Nebulized [Ventolin Nebulized] 2.5 mg INHALATION RT-QID PRN 09/03/17 [History] Atorvastatin [Lipitor] 20 mg PO HS #30 tab 09/21/17 [Rx] Docusate [Colace] 100 mg PO DAILY 12/07/19 [History] Metoprolol Succinate (ER) [Toprol XL] 25 mg PO DAILY 12/07/19 [History] Amiodarone [Cordarone] 200 mg PO DAILY #7 tab 12/14/19 [Rx] Apixaban [Eliquis] 5 mg PO BID #60 tab 12/14/19 [Rx] Digoxin [Lanoxin] 125 mcg PO DAILY #30 tab 12/14/19 [Rx] Furosemide [Lasix] 20 mg PO BID@0900,1600 #60 tab 12/14/19 [Rx] Midodrine [ProAmatine] 5 mg PO AC-TID #90 tab 12/14/19 [Rx] Follow up Appointment(s)/Referral(s): Jordan Laura MD [STAFF PHYSICIAN] - 12/22/19 3:00 pm (Saturday device check and follow up with [employer] appointment is cancelled. ) Frank Perez MD [REFERRING] - 12/24/19 12:30 pm ( earliest available appointment) Alex Toledo MD [STAFF PHYSICIAN] - 12/15/19 3:10 pm (Saturday) Patient Instructions/Handouts: A-fib (Atrial Fibrillation) (DC), Safe Use of Anticoagulants (DC) Activity/Diet/Wound Care/Special Instructions: bmp - 3 days harjinder wraps daily during daytime Discharge Disposition: HOME SELF-CARE
== END 2019-12-14 14:49 | disposition home or self-care (01) | DRG 823 ==
LOC: OR 08:47 → 2SICU 10:46 → 3SCARD 12-13 18:18
PROVIDERS: ADMIT Hospitalist; ATTEND Hospitalist
PROC: 07B20ZX Excision of Left Neck Lymphatic, Open Approach, Diagnostic (ICD-10-PCS; principal; 2019-12-08 10:00)
DX: C85.91 Non-Hodgkin lymphoma, unspecified, lymph nodes of head, face, and neck (principal); I50.23 Acute on chronic systolic (congestive) heart failure; R57.9 Shock, unspecified; I47.2 Ventricular tachycardia; I13.0 Hypertensive heart and chronic kidney disease with heart failure and stage 1 through stage 4 chronic kidney disease, or unspecified chronic kidney disease; I42.8 Other cardiomyopathies; I48.19 Other persistent atrial fibrillation; E87.1 Hypo-osmolality and hyponatremia; N18.3 Chronic kidney disease, stage 3 (moderate); R59.0 Localized enlarged lymph nodes; E78.5 Hyperlipidemia, unspecified; R41.89 Other symptoms and signs involving cognitive functions and awareness; R63.4 Abnormal weight loss; R35.0 Frequency of micturition; R94.6 Abnormal results of thyroid function studies; Z71.3 Dietary counseling and surveillance; Z79.899 Other long term (current) drug therapy; Z95.810 Presence of automatic (implantable) cardiac defibrillator; Z98.890 Other specified postprocedural states; Z87.891 Personal history of nicotine dependence; Z88.0 Allergy status to penicillin; Z91.030 Bee allergy status; Z83.3 Family history of diabetes mellitus; Z80.9 Family history of malignant neoplasm, unspecified
CPT/HCPCS: 71045; 80048; 80053; 80162; 82533; 83735; 84439; 84443; 85025; 85027; 93005; 93306

== ENCOUNTER 2019-12-30 17:01 | Inpatient (IN) | payer MEDICARE ==
--- NOTE | 2019-12-30 17:24 | ED ---
SOB HPI - General Chief Complaint: Shortness of Breath Stated Complaint: MALLORY Time Seen by Provider: 12/30/19 17:11 Source: patient, family, RN notes reviewed Mode of arrival: wheelchair Limitations: physical limitation - History of Present Illness Initial Comments: This is a 74-year-old male with a recent diagnosis of lymphoma who presents from the doctor's office with complaints of shortness of breath peripheral edema decreased oral intake occasional fever. He has some nausea and did vomit this morning. MD Complaint: shortness of breath - Related Data Home Medications Medication Instructions Recorded Confirmed Albuterol Nebulized [Ventolin 2.5 mg INHALATION RT-QID PRN 09/03/17 12/07/19 Nebulized] Docusate [Colace] 100 mg PO DAILY 12/07/19 12/07/19 Metoprolol Succinate (ER) [Toprol 25 mg PO DAILY 12/07/19 12/07/19 XL] Previous Rx's Medication Instructions Recorded Atorvastatin [Lipitor] 20 mg PO HS #30 tab 09/21/17 Amiodarone [Cordarone] 200 mg PO DAILY #7 tab 12/14/19 Apixaban [Eliquis] 5 mg PO BID #60 tab 12/14/19 Digoxin [Lanoxin] 125 mcg PO DAILY #30 tab 12/14/19 Furosemide [Lasix] 20 mg PO BID@0900,1600 #60 tab 12/14/19 Midodrine [ProAmatine] 5 mg PO AC-TID #90 tab 12/14/19 Allergies Allergy/AdvReac Type Severity Reaction Status Date / Time Penicillins Allergy Anaphylaxis Verified 12/30/19 17:04 venom-honey bee Allergy Anaphylaxis Verified 12/30/19 17:04 [bee venom (honey bee)] Review of Systems ROS Statement: Those systems with pertinent positive or pertinent negative responses have been documented in the HPI. ROS Other: All systems not noted in ROS Statement are negative. Past Medical History Past Medical History: Heart Failure, Hyperlipidemia, Hypertension, Memory Impairment Additional Past Medical History / Comment(s): weakness, 25 lb. weight loss recently, "just not feeling well" per spouse, enlarged lymph nodes per spouse History of Any Multi-Drug Resistant Organisms: None Reported Past Surgical History: AICD, Heart Catheterization, Pacemaker, Tonsillectomy Additional Past Surgical History / Comment(s): defibulator Past Anesthesia/Blood Transfusion Reactions: No Reported Reaction Type of Cardiac Device: AICD Device Placement Date:: 2012 Past Psychological History: No Psychological Hx Reported Smoking Status: Never smoker Past Alcohol Use History: None Reported Past Drug Use History: None Reported - Past Family History Mother Family Medical History: Cancer Father Family Medical History: Diabetes Mellitus Sister(s) Family Medical History: Cancer General Exam - General Exam Comments Initial Comments: This is a well-developed well-nourished awake alert oriented times 3 male Limitations: physical limitation General appearance: alert, lethargic Head exam: Present: atraumatic, normocephalic, normal inspection Eye exam: Present: normal appearance, PERRL, EOMI. Absent: scleral icterus, conjunctival injection, periorbital swelling ENT exam: Present: mucous membranes dry Neck exam: Present: full ROM, other (Healing wounds with ecchymosis to the right side of the neck. No stridor JVD or bruits). Absent: tenderness, meningismus, lymphadenopathy Respiratory exam: Present: normal lung sounds bilaterally. Absent: respiratory distress, wheezes, rales, rhonchi, stridor Cardiovascular Exam: Present: regular rate, normal rhythm, normal heart sounds. Absent: systolic murmur, diastolic murmur, rubs, gallop, clicks GI/Abdominal exam: Present: soft, normal bowel sounds. Absent: distended, tenderness, guarding, rebound, rigid Extremities exam: Present: normal inspection, full ROM, normal capillary refill, pedal edema (Bilateral pedal edema). Absent: tenderness, joint swelling, calf tenderness Back exam: Present: normal inspection Neurological exam: Present: alert, oriented X3, CN II-XII intact Psychiatric exam: Present: normal affect, normal mood Skin exam: Present: warm, dry, intact, normal color. Absent: rash Course Vital Signs 12/30/19 12/30/19 12/30/19 17:04 17:47 18:21 Temperature 97.7 F Pulse Rate 76 75 Respiratory 16 20 18 Rate Blood Pressure 80/47 101/57 O2 Sat by Pulse 98 95 Oximetry 12/30/19 19:09 Temperature Pulse Rate 64 Respiratory 16 Rate Blood Pressure 95/61 O2 Sat by Pulse 93 L Oximetry Medical Decision Making - Medical Decision Making I did discuss findings with patient family the patient will be admitted to the [facility]. Dr. Harris will be consulted. - Lab Data Result diagrams: 12/30/19 17:53 12/30/19 17:53 Lab Results 12/30/19 12/30/19 12/30/19 Range/Units 17:53 17:53 17:53 WBC 9.0 (3.8-10.6) k/uL RBC 4.10 L (4.30-5.90) m/uL Hgb 12.9 L (13.0-17.5) gm/dL Hct 38.2 L (39.0-53.0) % MCV 93.0 (80.0-100.0) fL MCH 31.4 (25.0-35.0) pg MCHC 33.8 (31.0-37.0) g/dL RDW 16.7 H (11.5-15.5) % Plt Count 106 L (150-450) k/uL Neutrophils % (Manual) 62 % Band Neutrophils % 16 % Lymphocytes % (Manual) 15 % Monocytes % (Manual) 6 % Metamyelocytes % 1 % Neutrophils # (Manual) 7.00 (1.3-7.7) k/uL Lymphocytes # (Manual) 1.35 (1.0-4.8) k/uL Monocytes # (Manual) 0.54 (0-1.0) k/uL Metamyelocytes # (Man) 0.09 H (0) k/uL Nucleated RBCs 0 (0-0) /100 WBC Manual Slide Review Performed Poikilocytosis Slight Anisocytosis Slight Sodium 128 L (137-145) mmol/L Potassium 4.4 (3.5-5.1) mmol/L Chloride 95 L (98-107) mmol/L Carbon Dioxide 12 L (22-30) mmol/L Anion Gap 21 mmol/L BUN 52 H (9-20) mg/dL Creatinine 2.51 H (0.66-1.25) mg/dL Est GFR (CKD-EPI)AfAm 28 (>60 ml/min/1.73 sqM) Est GFR (CKD-EPI)NonAf 25 (>60 ml/min/1.73 sqM) Glucose 111 H (74-99) mg/dL Calcium 9.0 (8.4-10.2) mg/dL Magnesium 1.9 (1.6-2.3) mg/dL Total Bilirubin 2.0 H (0.2-1.3) mg/dL AST 46 (17-59) U/L ALT 23 (4-49) U/L Alkaline Phosphatase 93 (38-126) U/L Creatine Kinase 33 L (55-170) U/L Troponin I 0.034 (0.000-0.034) ng/mL NT-Pro-B Natriuret Pep pg/mL Total Protein 4.9 L (6.3-8.2) g/dL Albumin 2.8 L (3.5-5.0) g/dL 12/30/19 Range/Units 17:53 WBC (3.8-10.6) k/uL RBC (4.30-5.90) m/uL Hgb (13.0-17.5) gm/dL Hct (39.0-53.0) % MCV (80.0-100.0) fL MCH (25.0-35.0) pg MCHC (31.0-37.0) g/dL RDW (11.5-15.5) % Plt Count (150-450) k/uL Neutrophils % (Manual) % Band Neutrophils % % Lymphocytes % (Manual) % Monocytes % (Manual) % Metamyelocytes % % Neutrophils # (Manual) (1.3-7.7) k/uL Lymphocytes # (Manual) (1.0-4.8) k/uL Monocytes # (Manual) (0-1.0) k/uL Metamyelocytes # (Man) (0) k/uL Nucleated RBCs (0-0) /100 WBC Manual Slide Review Poikilocytosis Anisocytosis Sodium (137-145) mmol/L Potassium (3.5-5.1) mmol/L Chloride (98-107) mmol/L Carbon Dioxide (22-30) mmol/L Anion Gap mmol/L BUN (9-20) mg/dL Creatinine (0.66-1.25) mg/dL Est GFR (CKD-EPI)AfAm (>60 ml/min/1.73 sqM) Est GFR (CKD-EPI)NonAf (>60 ml/min/1.73 sqM) Glucose (74-99) mg/dL Calcium (8.4-10.2) mg/dL Magnesium (1.6-2.3) mg/dL Total Bilirubin (0.2-1.3) mg/dL AST (17-59) U/L ALT (4-49) U/L Alkaline Phosphatase (38-126) U/L Creatine Kinase (55-170) U/L Troponin I (0.000-0.034) ng/mL NT-Pro-B Natriuret Pep 00591 pg/mL Total Protein (6.3-8.2) g/dL Albumin (3.5-5.0) g/dL - EKG Data -: EKG Interpreted by Me EKG Comments: Atrial fibrillation rate of 80 QRS 120 QT since QTC 364/419 left exodeviation low-voltage incomplete left bundle-branch block nonspecific ST-T wave configuration - Radiology Data Radiology results: report reviewed (I did review the imaging and report there is evidence of improvement of CHF and mediastinum is present. He mainly present please see complete report.), image reviewed Disposition Clinical Impression: Lymphoma, CHF (congestive heart failure), Acute kidney injury, Elevated brain natriuretic peptide (BNP) level, Failure to thrive in adult Disposition: ADMITTED IP TO THIS HOSP Condition: Fair Referrals: Frank Perez MD [Primary Care Provider] - 1-2 days
[2019-12-30 18:17] LABS: Anisocytosis Slight; HCT 38.2 % (39.0-53.0); HGB 12.9 gm/dL (13.0-17.5); MCH 31.4 pg (25.0-35.0); MCHC 33.8 g/dL (31.0-37.0); Mean Platelet Volume 8.5; Platelet Count 106 k/uL (150-450); Poikilocytosis Slight; RDW 16.7 % (11.5-15.5)
[2019-12-30 18:19] LABS: Albumin 2.8 g/dL (3.5-5.0); Magnesium 1.9 mg/dL (1.6-2.3); Potassium 4.4 mmol/L (3.5-5.1); Total Protein 4.9 g/dL (6.3-8.2)
--- NOTE | 2019-12-30 18:39 | XR ---
EXAMINATION TYPE: XR chest 2V DATE OF EXAM: 12/30/2019 COMPARISON: 12/14/2019 HISTORY: Short of breath TECHNIQUE: FINDINGS: There is consolidation in the medial right lower lobe. Thoracic aorta is atheromatous and t ortuous. There is mild pulmonary congestion. There is some interstitial infiltrates in both lower lob es. There is a left axillary pacemaker. IMPRESSION: Widened mediastinum probably due to aneurysmal thoracic aorta unchanged. There is improve ment in the right pleural effusion compared to old exam. Lower lobe bilateral pulmonary infiltrates o r the same or slightly worse than old exam. There is improvement in the heart failure to a mild degre e compared to old exam.
[2019-12-30 18:44] LABS: Band Neutrophils % 16 %; Lymphocytes # (M) 1.35 k/uL (1.0-4.8); Metamyelocytes # (M) 0.09 k/uL (0); Metamyelocytes % 1 %; Monocytes # (M) 0.54 k/uL (0-1.0); Neutrophils % (M) 62 %; Nucleated Red Blood Cells 0 /100 WBC (0-0); Total Cells Counted 100
[2019-12-30] MEDS ORDERED: NALOXONE 0.4 MG/ML 1 ML VIAL IV PRN (19:13)
[2019-12-30] MEDS ORDERED: HYDROmorphone 1 MG/ML 1 ML SYRINGE IVP STA (19:19)
[2019-12-30] MEDS: SODIUM CHLORIDE 0.9% 1,000 ML IV SCH (21:14)
[2019-12-30] MEDS: ATORVASTATIN 20 MG TAB PO SCH (21:18)
[2019-12-30] MEDS: APIXABAN 5 MG TAB PO SCH (21:18)
--- NOTE | 2019-12-31 02:19 | P.HPIM ---
History of Present Illness H&P Date: 12/30/19 Chief Complaint: leg edema 74-year-old male with recently diagnosed lymphoma, extensive cardiac history with aortic aneurysm, paroxysmal A. fib, nonischemic cardiomyopathy left ventricular ejection fraction less than 20% status post AICD Patient was sent in from Dr. Harris's office where he presented with bilateral leg edema and some difficulty breathing. Patient was seen on the medical floor he has some muffled speech but otherwise he is awake and alert. He seems very t ired and depressed. Patient reported that he is feeling fine at this time other than feeling very drained and tired doesn't have any complaints of chest pain or trouble breathing at the moment. He denies any GI bleeding he denies any changes in his medications. He was recently discharged from the hospital where he presented for excisional biopsy from the neck was complicated by going into A. fib and becoming hypotensive he was admitted to the ICU for close monitoring and treatment. He was discharged about 2 weeks ago Today in the ED he was found to be hypotensive blood work revealed acute kidney injury over CK D, chest x-ray showed improvement compared to before however still has some vascular congestion without any pleural effusion at this time. Patient has significant bilateral leg edema. He was also found to be hyponatremic. Patient was started on gentle IV fluid hydration due to severe hypotension which has responded with currently systolic blood pressure in the low 100 patient is feeling slightly improved he is continued on gentle hydration for further evaluation in the morning Review of Systems Pertinent positives as noted in HPI. All other systems were reviewed and are negative Past Medical History Past Medical History: Heart Failure, Hyperlipidemia, Hypertension, Memory Impairment Additional Past Medical History / Comment(s): weakness, 25 lb. weight loss recently, "just not feeling well" per spouse, enlarged lymph nodes per spouse History of Any Multi-Drug Resistant Organisms: None Reported Past Surgical History: AICD, Heart Catheterization, Pacemaker, Tonsillectomy Additional Past Surgical History / Comment(s): defibulator Past Anesthesia/Blood Transfusion Reactions: No Reported Reaction Type of Cardiac Device: AICD Device Placement Date:: 2012 Past Psychological History: No Psychological Hx Reported Smoking Status: Never smoker Past Alcohol Use History: None Reported Past Drug Use History: None Reported - Past Family History Mother Family Medical History: Cancer Father Family Medical History: Diabetes Mellitus Sister(s) Family Medical History: Cancer Medications and Allergies Home Medications Medication Instructions Recorded Confirmed Type Albuterol Nebulized [Ventolin 2.5 mg INHALATION RT-TID PRN 09/03/17 12/30/19 History Nebulized] Atorvastatin [Lipitor] 20 mg PO HS #30 tab 09/21/17 12/30/19 Rx Docusate [Colace] 100 mg PO DAILY 12/07/19 12/30/19 History Metoprolol Succinate (ER) [Toprol 25 mg PO DAILY 12/07/19 12/30/19 History XL] Apixaban [Eliquis] 5 mg PO BID #60 tab 12/14/19 12/30/19 Rx Digoxin [Lanoxin] 125 mcg PO DAILY #30 tab 12/14/19 12/30/19 Rx Furosemide [Lasix] 20 mg PO BID@0900,1600 #60 tab 12/14/19 12/30/19 Rx Midodrine [ProAmatine] 5 mg PO AC-TID #90 tab 12/14/19 12/30/19 Rx Amiodarone [Cordarone] 100 mg PO DAILY 12/30/19 12/30/19 History Clotrimazole [place] [Mycelex 10 mg MUCOUS MEM 5XD 12/30/19 12/30/19 History [place]] dronabinoL [Marinol] 5 mg PO BID 12/30/19 12/30/19 History Allergies Allergy/AdvReac Type Severity Reaction Status Date / Time Penicillins Allergy Anaphylaxis Verified 12/30/19 17:04 venom-honey bee Allergy Anaphylaxis Verified 12/30/19 17:04 [bee venom (honey bee)] Physical Exam Vitals: Vital Signs Temp Pulse Resp BP Pulse Ox 12/30/19 19:24 103/55 12/30/19 19:09 64 16 95/61 93 L 12/30/19 18:21 75 18 101/57 95 12/30/19 17:47 20 12/30/19 17:04 97.7 F 76 16 80/47 98 Intake and Output 12/30/19 12/30/19 12/30/19 06:59 14:59 22:59 Other: Weight 70.76 kg Constitutional: No acute distress, conversant, pleasant Eyes: Anicteric sclerae, moist conjunctiva, Pupils equal round reactive to light ENMT: NC/AT Oropharynx clear, no erythema, or exudates Neck: Supple, FROM, no masses, or JVD No carotid bruits No thyromegaly Lungs: Clear to auscultation Clear to percussion Normal respiratory effort, no accessory muscle use Cardiovascular: Heart irregular in rate and rhythm, No murmurs, gallops, or rubs +3 bilateral peripheral edema Abdominal: Soft Nontender, no guarding, rebound or rigidity Abdomen moving with respiration Normoactive bowel sounds No hepatomegaly, No splenomegaly No palpable mass No abdominal wall hernia noted Skin: Normal temperature, tone, texture, turgor No induration No subcutaneous nodules No rash, lesions No ulcers Extremities: No digital cyanosis No clubbing Pedal pulses intact and symmetrical Radial pulses intact and symmetrical No calf tenderness Psychiatric: Alert and oriented to person, place depressed affect poor judgement Neuro Muscles Strength 3-4/5 in all 4 extremities Sensation to light touch grossly present throughout Cranial nerves II-XII grossly intact No focal sensory deficits Lymphatics: palpable cervical , supraclavicular , and exhibited lymph nodes Results CBC & Chem 7: 12/30/19 17:53 12/30/19 17:53 Labs: Abnormal Lab Results - Last 24 Hours (Table) 12/30/19 12/30/19 Range/Units 17:53 17:53 RBC 4.10 L (4.30-5.90) m/uL Hgb 12.9 L (13.0-17.5) gm/dL Hct 38.2 L (39.0-53.0) % RDW 16.7 H (11.5-15.5) % Plt Count 106 L (150-450) k/uL Metamyelocytes # (Man) 0.09 H (0) k/uL Sodium 128 L (137-145) mmol/L Chloride 95 L (98-107) mmol/L Carbon Dioxide 12 L (22-30) mmol/L BUN 52 H (9-20) mg/dL Creatinine 2.51 H (0.66-1.25) mg/dL Glucose 111 H (74-99) mg/dL Total Bilirubin 2.0 H (0.2-1.3) mg/dL Creatine Kinase 33 L (55-170) U/L Total Protein 4.9 L (6.3-8.2) g/dL Albumin 2.8 L (3.5-5.0) g/dL Assessment and Plan Assessment: Acute kidney injury on CK D Hypotension Hyponatremia Nonischemic cardiomyopathy with left ventricular ejection fraction less than 20% status post ICD Chronic bilateral leg edema Paroxysmal A. fib on Eliquis Ascending aortic aneurysm Recently diagnosed with lymphoma 2 months ago thrombocytopenia Plan Gentle IV fluid hydration close monitoring of blood pressure Continue with midodrine Avoid going into overt congestive heart failure patient has very poor cardiac function Monitor urine output Follow-up chest x-ray in the morning Monitor sodium every 4 hours Avoid nephrotoxic meds Oncology evaluation for further recommendations Preformed a thorough record review from recent hospitalization post supracl avicular excisional lymph node biopsy complicated by A. fib and hypertension discharged to weeks ago CODE STATUS full code DVT prophylaxis: Heparin subcu 3 times a day Discussed with: Patient, ER, rn Anticipated length of stay > than [address]: Pending clinical course A total of 75 minutes was spent on the care of this complex patient more than 50% of the time was spent in counseling and care coordination. Discussed with oncology Consider hospice evaluation
[2019-12-31 03:09] LABS: Calcium 8.6 mg/dL (8.4-10.2); Potassium 4.4 mmol/L (3.5-5.1)
[2019-12-31] MEDS: ALBUTEROL NEBULIZED 2.5 MG/3 ML INHALATION PRN ×2 (07:00→11:15)
[2019-12-31] MEDS ORDERED: MIDODRINE 5 MG TAB PO SCH (07:30)
[2019-12-31 08:26] LABS: Calcium 8.7 mg/dL (8.4-10.2); Potassium 4.8 mmol/L (3.5-5.1)
[2019-12-31 08:42] LABS: Anisocytosis Slight; HCT 38.8 % (39.0-53.0); HGB 12.8 gm/dL (13.0-17.5); MCH 30.9 pg (25.0-35.0); MCV 93.6 fL (80.0-100.0); Mean Platelet Volume 9.1; Platelet Count 103 k/uL (150-450); Poikilocytosis Slight; RBC 4.14 m/uL (4.30-5.90); RDW 17.2 % (11.5-15.5); WBC 6.1 k/uL (3.8-10.6)
[2019-12-31] MEDS ORDERED: METOPROLOL SUCCINATE (ER) 25 MG TAB.ER.24H PO SCH (09:00)
[2019-12-31] MEDS ORDERED: FUROSEMIDE 20 MG TAB PO SCH (09:00)
[2019-12-31] MEDS: DIGOXIN 125 MCG TAB PO SCH (09:21)
[2019-12-31] MEDS ORDERED: FUROSEMIDE 10 MG/ML 2 ML VIAL IV STA (09:32)
--- NOTE | 2019-12-31 09:37 | XR ---
EXAMINATION TYPE: XR chest 1V portable DATE OF EXAM: 12/31/2019 CLINICAL HISTORY: Difficulty breathing progress study. TECHNIQUE: Single AP portable upright view of the chest is obtained. COMPARISON: Chest x-ray from one day earlier FINDINGS: There is cardiomegaly with single lead pacemaker/AICD. There is atherosclerotic and ectati c thoracic aorta. There is moderate central vascular congestion along with small right pleural effusi on and worsening left basilar opacity as there is increased silhouetting of the left hemidiaphragm. U pper lungs remain clear without pneumothorax. Osseous structures remain demineralized IMPRESSION: Persisting cardiomegaly with moderate central alveolar edema, correlate for CHF exacerbat ion. Underlying infiltrates not excluded. Stable small right pleural effusion. Worsening left basilar acute infiltrate and/or atelectasis noted.
[2019-12-31] MEDS: SODIUM CHLORIDE 0.9% 1,000 ML IV SCH (09:43)
[2019-12-31] MEDS: APIXABAN 5 MG TAB PO SCH ×2 (09:51→22:11)
[2019-12-31] MEDS: AMIODARONE 200 MG TAB PO SCH (09:51)
[2019-12-31] MEDS: DOCUSATE 100 MG CAP PO SCH (09:51)
[2019-12-31 10:12] LABS: Uric Acid 19.1 mg/dL (3.5-8.5)
[2019-12-31 10:13] LABS: Phosphorus 5.6 mg/dL (2.5-4.5)
[2019-12-31 10:31] LABS: Band Neutrophils % 22 %; Lymphocytes # (M) 0.85 k/uL (1.0-4.8); Monocytes # (M) 0.24 k/uL (0-1.0); Neutrophils % (M) 61 %; Nucleated Red Blood Cells 0 /100 WBC (0-0); Total Cells Counted 200
[2019-12-31 10:32] LABS: Polychromasia Present
[2019-12-31 10:34] LABS: Spherocytes Present
[2019-12-31] MEDS ORDERED: RASBURICASE 6 MG in SODIUM CHLORIDE 0.9% 46 ML IV ONE (11:01)
[2019-12-31 11:29] LABS: Amorphous Sediment,Urine Moderate /hpf; Appearance,Urine Turbid (Clear); Bacteria,Urine Occasional /hpf; Bilirubin,Urine Negative (Negative); Blood,Urine Large (Negative); Color,Urine Red; Glucose,Urine (UA) Negative (Negative); Hyaline Casts,Urine 31 /lpf (0-2); Ketones,Urine Trace (Negative); Leukocyte Esterase,Urine Trace (Negative); Mucus,Urine Occasional /hpf; Nitrite,Urine Negative (Negative); Protein,Urine 1+ (Negative); RBC,Urine >182 /hpf (0-5); Specific Gravity,Urine 1.017 (1.001-1.035); Squamous Epithelial Cell,Urine 2 /hpf (0-4); Urobilinogen,Urine <2.0 mg/dL (<2.0); WBC,Urine 37 /hpf (0-5)
[2019-12-31] MEDS ORDERED: FUROSEMIDE 10 MG/ML 4 ML VIAL IV STA (11:50)
[2019-12-31] MEDS ORDERED: VANCOMYCIN IV PER PHARMACY 1 EACH MISC MISCELLANE PRN (11:54)
[2019-12-31] MEDS: MIDODRINE 5 MG TAB PO SCH ×2 (11:55→17:41)
[2019-12-31] MEDS ORDERED: CEFEPIME 1 GM in SODIUM CHLORIDE 0.9% 50 ML IVPB SCH (12:00)
[2019-12-31] MEDS ORDERED: NOREPINEPHRINE 4 MG in SODIUM CHLORIDE 0.9% 250 ML IV SCH (12:00)
[2019-12-31] MEDS ORDERED: DEXTROSE/WATER 1 250ML.BAG with DOPamine DRIP 800 MG IV SCH (12:30)
[2019-12-31] MEDS ORDERED: VANCOMYCIN 1,500 MG in SODIUM CHLORIDE 0.9% 250 ML IVPB ONE (12:30)
--- NOTE | 2019-12-31 12:50 | P.PN ---
Subjective Progress Note Date: 12/31/19 Principal diagnosis: CC: Shortness of breath Patient this morning was hypotensive and tachypneic. Chest x-ray obtained this morning showed volume overload. Patient was given a dose of IV Lasix 40 mg after which his blood pressure dropped into the 80s systolically. I discussed with patient and he wants his CODE STATUS changed to DNR/DNI however he was to keep fighting. Patient will be transferred to ICU and he'll be started on dopamine and Lasix drip. I discussed with the patient and told him that his prognosis was guarded. Objective - Vital Signs Vital signs: Vital Signs Temp 98.2 F 12/31/19 12:41 Pulse 82 12/31/19 12:41 Resp 28 H 12/31/19 12:41 BP 90/56 12/31/19 12:41 Pulse Ox 94 L 12/31/19 12:41 Intake & Output 12/30/19 12/31/19 12/31/19 18:59 06:59 18:59 Intake Total 200 Balance 200 Weight 70.76 kg 79.5 kg Intake: Oral 200 Other: # Voids 1 - Exam General examination - Alert and Oriented 3. 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 spontaneously Psych - patient in distress - Labs CBC & Chem 7: 12/31/19 07:15 12/31/19 07:15 Labs: Abnormal Lab Results - Last 24 Hours (Table) 12/30/19 12/30/19 12/31/19 Range/Units 17:53 17:53 02:39 RBC 4.10 L (4.30-5.90) m/uL Hgb 12.9 L (13.0-17.5) gm/dL Hct 38.2 L (39.0-53.0) % RDW 16.7 H (11.5-15.5) % Plt Count 106 L (150-450) k/uL Lymphocytes # (Manual) (1.0-4.8) k/uL Metamyelocytes # (Man) 0.09 H (0) k/uL Sodium 128 L 128 L (137-145) mmol/L Chloride 95 L 94 L (98-107) mmol/L Carbon Dioxide 12 L 17 L (22-30) mmol/L BUN 52 H 57 H (9-20) mg/dL Creatinine 2.51 H 2.75 H (0.66-1.25) mg/dL Glucose 111 H 110 H (74-99) mg/dL Uric Acid (3.5-8.5) mg/dL Phosphorus (2.5-4.5) mg/dL Total Bilirubin 2.0 H (0.2-1.3) mg/dL Creatine Kinase 33 L (55-170) U/L Total Protein 4.9 L (6.3-8.2) g/dL Albumin 2.8 L (3.5-5.0) g/dL Urine Protein (Negative) Urine Ketones (Negative) Urine Blood (Negative) Ur Leukocyte Esterase (Negative) Urine RBC (0-5) /hpf Urine WBC (0-5) /hpf Urine WBC Clumps (None) /hpf Amorphous Sediment (None) /hpf Urine Bacteria (None) /hpf Hyaline Casts (0-2) /lpf Urine Mucus (None) /hpf 12/31/19 12/31/19 12/31/19 Range/Units 07:15 07:15 07:15 RBC 4.14 L (4.30-5.90) m/uL Hgb 12.8 L (13.0-17.5) gm/dL Hct 38.8 L (39.0-53.0) % RDW 17.2 H (11.5-15.5) % Plt Count 103 L (150-450) k/uL Lymphocytes # (Manual) 0.85 L (1.0-4.8) k/uL Metamyelocytes # (Man) (0) k/uL Sodium 130 L (137-145) mmol/L Chloride 95 L (98-107) mmol/L Carbon Dioxide 16 L (22-30) mmol/L BUN 56 H (9-20) mg/dL Creatinine 2.87 H (0.66-1.25) mg/dL Glucose 100 H (74-99) mg/dL Uric Acid 19.1 H* (3.5-8.5) mg/dL Phosphorus 5.6 H (2.5-4.5) mg/dL Total Bilirubin (0.2-1.3) mg/dL Creatine Kinase (55-170) U/L Total Protein (6.3-8.2) g/dL Albumin (3.5-5.0) g/dL Urine Protein (Negative) Urine Ketones (Negative) Urine Blood (Negative) Ur Leukocyte Esterase (Negative) Urine RBC (0-5) /hpf Urine WBC (0-5) /hpf Urine WBC Clumps (None) /hpf Amorphous Sediment (None) /hpf Urine Bacteria (None) /hpf Hyaline Casts (0-2) /lpf Urine Mucus (None) /hpf 12/31/19 Range/Units 10:18 RBC (4.30-5.90) m/uL Hgb (13.0-17.5) gm/dL Hct (39.0-53.0) % RDW (11.5-15.5) % Plt Count (150-450) k/uL Lymphocytes # (Manual) (1.0-4.8) k/uL Metamyelocytes # (Man) (0) k/uL Sodium (137-145) mmol/L Chloride (98-107) mmol/L Carbon Dioxide (22-30) mmol/L BUN (9-20) mg/dL Creatinine (0.66-1.25) mg/dL Glucose (74-99) mg/dL Uric Acid (3.5-8.5) mg/dL Phosphorus (2.5-4.5) mg/dL Total Bilirubin (0.2-1.3) mg/dL Creatine Kinase (55-170) U/L Total Protein (6.3-8.2) g/dL Albumin (3.5-5.0) g/dL Urine Protein 1+ H (Negative) Urine Ketones Trace H (Negative) Urine Blood Large H (Negative) Ur Leukocyte Esterase Trace H (Negative) Urine RBC >182 H (0-5) /hpf Urine WBC 37 H (0-5) /hpf Urine WBC Clumps Occasional H (None) /hpf Amorphous Sediment Moderate H (None) /hpf Urine Bacteria Occasional H (None) /hpf Hyaline Casts 31 H (0-2) /lpf Urine Mucus Occasional H (None) /hpf Assessment and Plan Assessment: #Hypertension secondary to likely cardiogenic shock and less likely septic shock -Chest x-ray shows centrilobular edema and underlying infiltrates cannot be excluded and also right-sided pleural effusion. -Patient be transferred to the ICU. -Start dopamine drip and Lasix drip -Resume midodrine. Hold BP meds which includes metoprolol -Start IV vancomycin, cefepime and Flagyl -Obtain stat blood cultures and lactic acid -Check sputum culture -hold fluids as the patient chest x-ray shows worsening edema when he was on gentle fluids -Reassessment physical exam done. Patient has good capillary refill -Cardiology on board. Consult pulmonology #Acute kidney injury on CK D - worsening - likely due to tumor lysis syndrome versus cardiorenal syndrome -Uric acid is 19 -Nephrology and hematology on board #Paroxysmal atrial fibrillation -Hold metoprolol. Resume digoxin and amiodarone #Hypervolemic Hyponatremia -Patient started on Lasix drip -Trend BMP #Acute on chronic systolic heart failure #Nonischemic cardiomyopathy with left ventricular ejection fraction less than 20% status post ICD -Diuresing as above -Beta addison on hold due to hypotension -No NESSA inhibitor or ARBI due to renal failure #Recently diagnosed with lymphoma 2 months ago thrombocytopenia -Hematology on board -Hematology would like to start first dose chemotherapy while patient is inpatient and when patient is more stable. #Thrombocytopenia -Stable -Monitor platelets #Ascending aortic aneurysm CODE STATUS DNR/DNI DVT prophylaxis: Heparin subcu 3 times a day watch platelets closely
--- NOTE | 2019-12-31 12:51 | P.CRDCN ---
History of Present Illness History of present illness: HISTORY OF PRESENTING ILLNESS This is a pleasant 74-year-old male past medical history significant for chronic systolic heart failure status post AICD in 2013, nonischemic cardiomyopathy with ejection fraction of 30%, hypertension, history of nonsustained ventricular tachycardia on amiodarone, paroxysmal atrial fibrillation on long-term anticoagulation and dyslipidemia. He follows in the office with Dr. Laura. We have been asked to see in consultation for shortness of breath. He was sent to ER from Dr. Harris's office secondary to shortness of breath and lower extremity edema. On admission he was started on IV fluids. This morning his breathing has worsened. IV fluids discontinued. He is seen and examined sitting in the chair in significant respiratory distress. He is r estless and agitated. He is complaining of decreased oral intake, nausea, vomiting and fevers at home. He has no chest pain, dizziness or palpitations. DIAGNOSTICS EKG reveals atrial fibrillation, left axis deviation left bundle branch block and nonspecific ST changes laterally. Heart rate 80. Chest xray on admission reveals a widened mediastinum secondary to thoracic aortic aneurysm unchanged from previous, bilateral lower lobe pulmonary infiltrates and improving right pleural effusion. Repeat x-ray this morning reveals moderate central alveolar edema, stable right pleural effusion and wo rsening left basilar infiltrate. Laboratory reviewed, WBC 6.1, hemoglobin 12.8, platelets 103, sodium 1:30, potassium 4.8, creatinine 2.87 with a GFR of 21, uric acid 19.1, magnesium 1.9,cardiac enzymes negative 1, NT proBNP 24,400. Current cardiac medications include midodrine 5 mg TID, toprol 25 mg daily, lasix mg 20 mg BID, digoxin 125 mcg daily, atorvastatin 20 mg, eliquis 5 mg BID, amiodarone 100 mg daily. most recent echocardiogram obtained earlier this month when he was diagnosed with A. fib reveals severe global LV hypokinesia with ejection fraction less than 20%, moderate MR, mild TR and mild pulmonary hypertension with an RVSP of 40 mmHg. REVIEW OF SYSTEMS At the time of my exam: CONSTITUTIONAL: Denies fever or chills. CARDIOVASCULAR: complains of shortness of breath, orthopnea and PND. Denies chest pain and palpitations. RESPIRATORY: Denies cough. GASTROINTESTINAL: Denies abdominal pain, diarrhea, constipation, nausea or vomiting. MUSCULOSKELETAL: Denies myalgias. NEUROLOGIC: Denies numbness, tingling or weakness. ENDOCRINE: Denies fatigue, weight change, polydipsia or polyurina. GENITOURINARY: Denies burning, hematuria or urgency with micturation. HEMATOLOGIC: Denies history of anemia or bleeding. PHYSICAL EXAMINATION Blood pressure 81/49 heart rate 84 afebrile and maintaining oxygen saturation on nasal cannula. CONSTITUTIONAL: Moderate respiratory distress. HEENT: Head is normocephalic. Pupils are equal, round. Sclerae anicteric. Mucous membranes of the mouth are moist. + JVD. No carotid bruit. CHEST EXAMINATION: Bibasilar rales, no rhonchi or wheezes. No chest wall tenderness is noted on palpation or with deep breathing. HEART EXAMINATION: Irregular rate and rhythm. S1, S2 heard. Systolic ejection murmur at the left sternal border, no gallops or rub. ABDOMEN: Soft, nontender. Positive bowel sounds. EXTREMITIES: 2+ peripheral pulses, 3+ pitting bilateral lower extremity edema up to the knees and no calf tenderness. NEUROLOGIC EXAMINATION: Patient is awake, alert and oriented x3. ASSESSMENT Acute systolic heart failure Hypotension Respiratory distress Acute renal failure Paroxysmal atrial fibrillation on eliquis History of non-sustained ventricular tachycardia Dyslipidemia Lymphoma, recently diagnosed PLAN Recommend transfer to a higher level of care. Initiate Lasix and dopamine infusion. Hold toprol. Continue digoxin for heart rate control. Guarded prognosis. Thank you kindly for this consultation. Nurse Practitioner note has been reviewed, I agree with a documented findings and plan of care. Patient was seen and examined. Past Medical History Past Medical History: Heart Failure, Hyperlipidemia, Hypertension, Memory Impairment Additional Past Medical History / Comment(s): weakness, 25 lb. weight loss recently, "just not feeling well" per spouse, enlarged lymph nodes per spouse History of Any Multi-Drug Resistant Organisms: None Reported Past Surgical History: AICD, Heart Catheterization, Pacemaker, Tonsillectomy Additional Past Surgical History / Comment(s): defibulator Past Anesthesia/Blood Transfusion Reactions: No Reported Reaction Type of Cardiac Device: AICD Device Placement Date:: 2012 Past Psychological History: No Psychological Hx Reported Smoking Status: Never smoker Past Alcohol Use History: None Reported Past Drug Use History: None Reported - Past Family History Mother Family Medical History: Cancer Father Family Medical History: Diabetes Mellitus Sister(s) Family Medical History: Cancer Medications and Allergies Home Medications Medication Instructions Recorded Confirmed Type Albuterol Nebulized [Ventolin 2.5 mg INHALATION RT-TID PRN 09/03/17 12/30/19 History Nebulized] Atorvastatin [Lipitor] 20 mg PO HS #30 tab 09/21/17 12/30/19 Rx Docusate [Colace] 100 mg PO DAILY 12/07/19 12/30/19 History Metoprolol Succinate (ER) [Toprol 25 mg PO DAILY 12/07/19 12/30/19 History XL] Apixaban [Eliquis] 5 mg PO BID #60 tab 12/14/19 12/30/19 Rx Digoxin [Lanoxin] 125 mcg PO DAILY #30 tab 12/14/19 12/30/19 Rx Furosemide [Lasix] 20 mg PO BID@0900,1600 #60 tab 12/14/19 12/30/19 Rx Midodrine [ProAmatine] 5 mg PO AC-TID #90 tab 12/14/19 12/30/19 Rx Amiodarone [Cordarone] 100 mg PO DAILY 12/30/19 12/30/19 History Clotrimazole [place] [Mycelex 10 mg MUCOUS MEM 5XD 12/30/19 12/30/19 History [place]ys] dronabinoL [Marinol] 5 mg PO BID 12/30/19 12/30/19 History Allergies Allergy/AdvReac Type Severity Reaction Status Date / Time Penicillins Allergy Anaphylaxis Verified 12/30/19 17:04 venom-honey bee Allergy Anaphylaxis Verified 12/30/19 17:04 [bee venom (honey bee)] Physical Exam Vitals: Vital Signs Temp Pulse Pulse Resp BP BP BP 12/31/19 11:25 84 12/31/19 11:15 80 12/31/19 10:50 81/49 12/31/19 10:45 81 32 H 87/50 12/31/19 08:17 82 28 H 105/54 12/31/19 07:15 76 28 H 80/51 12/31/19 07:10 72 12/31/19 07:00 76 12/31/19 05:00 97.6 F 71 20 97/64 12/30/19 21:43 84 18 103/57 12/30/19 21:00 70 18 113/65 12/30/19 19:24 103/55 12/30/19 19:09 64 16 95/61 12/30/19 18:21 75 18 101/57 12/30/19 17:47 20 12/30/19 17:04 97.7 F 76 16 80/47 Pulse Ox 12/31/19 11:25 12/31/19 11:15 12/31/19 10:50 12/31/19 10:45 95 12/31/19 08:17 94 L 12/31/19 07:15 94 L 12/31/19 07:10 12/31/19 07:00 12/31/19 05:00 94 L 12/30/19 21:43 92 L 12/30/19 21:00 95 12/30/19 19:24 12/30/19 19:09 93 L 12/30/19 18:21 95 12/30/19 17:47 12/30/19 17:04 98 Intake and Output 12/30/19 12/31/19 12/31/19 22:59 06:59 14:59 Intake Total 0 200 Balance 0 200 Intake: Oral 0 200 Other: # Voids 1 Weight 79.5 kg 79.5 kg Results 12/31/19 07:15 12/31/19 07:15 Cardiac Enzymes 12/30/19 12/30/19 Range/Units 17:53 17:53 AST 46 (17-59) U/L Troponin I 0.034 (0.000-0.034) ng/mL CBC 12/30/19 12/31/19 Range/Units 17:53 07:15 WBC 9.0 6.1 (3.8-10.6) k/uL RBC 4.10 L 4.14 L (4.30-5.90) m/uL Hgb 12.9 L 12.8 L (13.0-17.5) gm/dL Hct 38.2 L 38.8 L (39.0-53.0) % Plt Count 106 L 103 L (150-450) k/uL Comprehensive Metabolic Panel 12/30/19 12/31/19 12/31/19 Range/Units 17:53 02:39 07:15 Sodium 128 L 128 L 130 L (137-145) mmol/L Potassium 4.4 4.4 4.8 (3.5-5.1) mmol/L Chloride 95 L 94 L 95 L (98-107) mmol/L Carbon Dioxide 12 L 17 L 16 L (22-30) mmol/L BUN 52 H 57 H 56 H (9-20) mg/dL Creatinine 2.51 H 2.75 H 2.87 H (0.66-1.25) mg/dL Glucose 111 H 110 H 100 H (74-99) mg/dL Calcium 9.0 8.6 8.7 (8.4-10.2) mg/dL AST 46 (17-59) U/L ALT 23 (4-49) U/L Alkaline Phosphatase 93 (38-126) U/L Total Protein 4.9 L (6.3-8.2) g/dL Albumin 2.8 L (3.5-5.0) g/dL Current Medications Generic Name Dose Route Start Last Admin Trade Name Freq PRN Reason Stop Dose Admin Albuterol Sulfate 2.5 mg 12/30/19 19:15 12/31/19 11:15 Ventolin Nebulized INHALATION 2.5 mg RT-QID PRN Administration Shortness Of Breath Amiodarone HCl 200 mg 12/31/19 09:00 12/31/19 09:51 Cordarone PO 200 mg DAILY DELANEY Administration Apixaban 5 mg 12/30/19 21:00 12/31/19 09:51 Eliquis PO 5 mg BID DELANEY Administration Atorvastatin Calcium 20 mg 12/30/19 21:00 12/30/19 21:18 Lipitor PO 20 mg HS DELANEY Administration Digoxin 125 mcg 12/31/19 09:00 12/31/19 09:21 Lanoxin PO Not Given DAILY [facility] Docusate Sodium 100 mg 12/31/19 09:00 12/31/19 09:51 Colace PO 100 mg DAILY DELANEY Administration Norepinephrine Bitartrate 4 mg 254 mls @ 15.145 mls/hr 12/31/19 12:00 / Sodium Chloride IV .[id number] DELANEY Protocol 0.05 MCG/KG/MIN Cefepime HCl 1 gm/ Sodium 50 mls @ 100 mls/hr 12/31/19 12:00 Chloride IVPB Q12HR DELANEY Metronidazole 500 mg/ IV 100 mls @ 100 mls/hr 12/31/19 12:00 Solution IVPB Q8H [facility] Vancomycin HCl 1,500 mg/ 250 mls @ 125 mls/hr 12/31/19 12:30 Sodium Chloride IVPB 12/31/19 14:29 ONCE ONE Furosemide 100 mg/ Sodium 100 mls @ 10 mls/hr 12/31/19 12:15 Chloride IV .Q10H DELANEY 10 MG/HR Dopamine HCl/Dextrose 800 mg/ 250 mls @ 3.727 mls/hr 12/31/19 12:30 IV Solution IV .Q24H DELANEY 2.5 MCG/KG/MIN Midodrine 10 mg 12/31/19 12:30 12/31/19 11:55 Proamatine PO 10 mg AC-TID DELANEY Administration Miscellaneous Information 1 each 12/31/19 11:54 Pharmacy To Dose Iv Vancomycin MISCELLANE DIRECTED PRN Per Protocol Naloxone HCl 0.2 mg 12/30/19 19:13 Narcan IV Q2M PRN Opioid Reversal Intake and Output 12/30/19 12/31/19 12/31/19 22:59 06:59 14:59 Intake Total 0 200 Balance 0 200 Intake: Oral 0 200 Other: # Voids 1 Weight 79.5 kg 79.5 kg 12/31/19 07:15 12/31/19 07:15
[2019-12-31 13:19] LABS: Glucose,Whole Blood 100 mg/dL (75-99)
[2019-12-31] MEDS ORDERED: FUROSEMIDE 10 MG/ML 4 ML VIAL ONE (13:26)
[2019-12-31] MEDS ORDERED: MORPHINE SULFATE 4 MG/ML SYRINGE ONE (13:39)
[2019-12-31 13:56] LABS: ABG Base Excess -23.9 mmol/L; ABG Oxygen Saturation 99.2 % (94-97); ABG PCO2 21 mmHg (35-45); ABG PO2 273 mmHg (83-108); ABG TCO2 7 mmol/L (19-24); Allen Test Performed? Yes
[2019-12-31 13:58] LABS: ABG HCO3 6 mmol/L (21-25); ABG PH 7.07 (7.35-7.45)
[2019-12-31] MEDS ORDERED: MORPHINE SULFATE 4 MG/ML SYRINGE IVP PRN (14:03)
[2019-12-31] MEDS ORDERED: DEXAMETHASONE SOD PHOSPHATE 4 MG/ML 1 ML VIAL IV STA (14:03)
[2019-12-31] MEDS: SODIUM BICARB 8.4% 50 ML SYR (1 MEQ/ML) IV STA (14:08)
[2019-12-31] MEDS: MORPHINE SULFATE 4 MG/ML SYRINGE ONE ×2 (14:09→14:10)
[2019-12-31] MEDS: LEVOFLOXACIN 750MG-D5W PMX 750 MG in DEXTROSE/WATER 1 150ML.BAG IVPB SCH (14:15)
--- NOTE | 2019-12-31 14:16 | P.PN ---
Progress Note - Text Progress Note Date: 12/31/19 Patient was seen shortly after he arrived to the ICU, patient was noted to be in severe respiratory distress. Placed on initially on BiPAP, he was hypotensive requiring levo fed. And he was in impending respiratory failure. Discussed with his his CODE STATUS, and the told me that he withdraws her pass in peace and comfort, does not want to have any pain. And she definitely would not want him to be placed on life-support machinery. She also does not want any CPR or defibrillation on the patient if needed. Agreeable to lines placement including central line and arterial line. These were placed since the patient is requiring norepinephrine for hypertension. A right femoral triple-lumen catheter was placed and the right brachial arterial line was also placed. Patient was given sodium bicarb drip he was also given sodium bicarb IV push, and placed on Lasix drip, placed on norepinephrine drip and the norepinephrine will be titrated to a mean arterial pressure above 60. CODE STATUS is DO NOT RESUSCITATE.
[2019-12-31] MEDS: FUROSEMIDE 100 MG in SODIUM CHLORIDE 0.9% 90 ML IV SCH ×2 (14:20→20:01)
[2019-12-31] MEDS: metroNIDAZOLE-NS PMX 500 MG in SALINE 1 100ML.BAG IVPB SCH ×2 (14:24→20:15)
--- NOTE | 2019-12-31 14:26 | CONS ---
CONSULTATION REASON FOR CONSULT: Renal failure. HISTORY OF PRESENT ILLNESS: Patient is a 74-year-old male who has a history of cardiomyopathy, EF less than 20% and as well as history of lymphoma. Patient was admitted to the hospital with increased shortness of breath and worsening lower extremity edema. He initially presented to Dr. Harris's office and was sent over to the ER. He did receive IV fluids overnight, but got worsening shortness of breath and fluids were discontinued. Patient received IV Lasix as well. He states he is breathing slightly better. His serum creatinine was 2.5 on admission. It is up to 2.87 now. Previous creatinine was 1.2 and 1.3 mg/dL as of 12/14/2019. Patient's sodium was 128, now improved to 130. He denies any diarrhea, nausea, vomiting, chest x-ray shows evidence of CHF. Labs showed elevated uric acid at 19.1 with phosphorus 5.6. Potassium has been at 4.8. PAST MEDICAL HISTORY: Significant for lymphoma, CHF, cardiomyopathy, hypertension, hyperlipidemia, depression. PAST SURGICAL HISTORY: AICD placement, cardiac catheterization, tonsillectomy. SOCIAL HISTORY: Negative for smoking, drug abuse or alcohol abuse. MEDICATIONS: Medications prior to admission included Lipitor, Colace, Toprol, Eliquis, Lanoxin, midodrine, Lasix, Cordarone, Marinol. ALLERGIES: Include PENICILLIN and BEE VENOM, both of which caused anaphylaxis. PHYSICAL EXAMINATION: Currently patient is short of breath. He is awake, he is not in any acute distress. Blood pressure was 105/54, heart rate 82 per minute, he is afebrile. Examination of the heart S1, S2. Examination of the lungs, decreased breath sounds at bases, basal crackles are heard. Abdomen is soft, nontender. Examination of the lower extremities shows edema 2+ bilaterally. GENERAL ACTIVITIES THERAPIST exam grossly intact. LABS: Show sodium 130, potassium 4.8, chloride 95, CO2 of 16, BUN 56, creatinine 2.87, hemoglobin 12.8, uric acid of 19.1. ASSESSMENT: 1. Acute kidney injury, cardiorenal as well as associated with hypotension, hypoperfusion, check postvoidal residual. Repeat vital signs now. Patient will need dobutamine if he remains hypotensive and if urine output does not pecan picker. The acute kidney injury can also be from tumor lysis syndrome as uric acid was significantly elevated at 19.1. However, one would expect the phosphorus to be much higher. In any case, he will benefit from Uricase. 2. Hypervolemic hyponatremia, improved post loop diuretics. 3. Anion gap metabolic acidosis secondary to renal failure and possible underlying tumor lysis. Maintain patient on oral sodium bicarb for now. I would avoid IV fluids. 4. Hypotension, rule out sepsis. PLAN: Check UA, check postvoid residual. Start oral sodium bicarb. Add Uricase for the elevated uric acid and possible tumor lysis. Consider dobutamine if patient is oliguric. I will also increase the midodrine to 10 mg t.i.d. Overall prognosis is guarded. Thank you for this consultation. Will continue to follow the patient with you during his hospitalization. HALIMA / MON: [id number] /
--- NOTE | 2019-12-31 14:36 | P.CNPUL ---
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 Patient was at Dr. Harris's office, and was noted to have significant bilateral lower leg edema, shortness of breath and weakness sent to the hospital for evaluation. Patient is very tired on presentation. He has had decreased oral intake, occasional fever, he did have some nausea and vomiting. Nursing also reports diarrhea. Chest x-ray on admission showed cardiomegaly, moderate central alveolar edema, stable small right pleural effusion, and worsening left basilar acute infiltrate and atelectasis. Admission lab work showed white blood cell count of 9.0, hemoglobin of 12.9, platelet count is 106, sodium was 128, chloride was 95, CO2 was only 12, BUN is 52, creatinine was 2.51, proBNP was 24,400, troponin was 0.034, and 0.053, today's urinalysis shows large amount of blood, trace leuk trase, white blood cells in clumps, and occasional bacteria with the possibility of urinary tract infection. Urine is quite turbid with sediment. Today patient was noted to have increased shortness of breath, using accessory muscles of breathing, he became hypotensive, requi ring transfer to the intensive care unit. Follow-up chest x-ray today shows pulmonary edema, small right pleural effusion, today's labs show worsening renal function, and patient has only had 200 mL of urine output since admission. During her evaluation in the intensive care unit patient is awake, but he is quite dyspneic, tachypneic using accessory muscles of breathing, he was placed on BiPAP support, was given 80 of IV Lasix and the Lasix drip was started, he is hypotensive requiring levo fed infusion. We spoke to the patient and his about the CODE STATUS and the decided on supportive care measures, and no ventilator support, no CPR, no defibrillation. Triple-lumen central venous catheter was emergently placed in the right femoral area, and right brachial art line was placed for hemodynamic monitoring, he was placed on BiPAP support the pressures of 12 and 6 and FiO2 100%, he required a few doses of IV morphine, he found it very difficult to tolerate the BiPAP support, we did switch him to high flow oxygen with Airvo with FiO2 of 50%, and 40 L/m flow, and is currently tolerating it better, stat blood gas was obtained showing profound metabolic acidosis, and 2 doses of IV sodium bicarb was given and sodium bicarb infusion be started, blood cultures were sent, urine culture was sent, we'll send a lactic acid and empiric antibiotics were started in the form of Levaquin, Flagyl and vancomycin. Review of Systems All systems: negative Constitutional: Reports fatigue, Reports fever, Reports poor appetite, Reports weakness, Denies chills Eyes: denies blurred vision, denies pain Ears, nose, mouth and throat: Denies headache, Denies sore throat Cardiovascular: Reports decreased exercise tolerance, Reports dyspnea on exertion, Reports leg edema, Reports orthopnea, Reports paroxysmal nocturnal dyspnea, Denies chest pain, Denies shortness of breath Respiratory: Reports dyspnea, Reports respiratory infections, Denies cough Gastrointestinal: Reports diarrhea, Reports nausea, Reports vomiting, Denies abdominal pain Musculoskeletal: Denies myalgias Integumentary: Denies pruritus, Denies rash Neurological: Denies numbness, Denies weakness Psychiatric: Denies anxiety, Denies depression Endocrine: Denies fatigue, Denies weight change Hematologic/Lymphatic: Reports lymphadenopathy Past Medical History Past Medical History: Heart Failure, Hyperlipidemia, Hypertension, Memory Impairment Additional Past Medical History / Comment(s): weakness, 25 lb. weight loss recently, "just not feeling well" per spouse, enlarged lymph nodes per spouse History of Any Multi-Drug Resistant Organisms: None Reported Past Surgical History: AICD, Heart Catheterization, Pacemaker, Tonsillectomy Additional Past Surgical History / Comment(s): defibulator Past Anesthesia/Blood Transfusion Reactions: No Reported Reaction Type of Cardiac Device: AICD Device Placement Date:: 2012 Past Psychological History: No Psychological Hx Reported Smoking Status: Never smoker Past Alcohol Use History: None Reported Past Drug Use History: None Reported - Past Family History Mother Family Medical History: Cancer Father Family Medical History: Diabetes Mellitus Sister(s) Family Medical History: Cancer Medications and Allergies Home Medications Medication Instructions Recorded Confirmed Type Albuterol Nebulized [Ventolin 2.5 mg INHALATION RT-TID PRN 09/03/17 12/30/19 History Nebulized] Atorvastatin [Lipitor] 20 mg PO HS #30 tab 09/21/17 12/30/19 Rx Docusate [Colace] 100 mg PO DAILY 12/07/19 12/30/19 History Metoprolol Succinate (ER) [Toprol 25 mg PO DAILY 12/07/19 12/30/19 History XL] Apixaban [Eliquis] 5 mg PO BID #60 tab 12/14/19 12/30/19 Rx Digoxin [Lanoxin] 125 mcg PO DAILY #30 tab 12/14/19 12/30/19 Rx Furosemide [Lasix] 20 mg PO BID@0900,1600 #60 tab 12/14/19 12/30/19 Rx Midodrine [ProAmatine] 5 mg PO AC-TID #90 tab 12/14/19 12/30/19 Rx Amiodarone [Cordarone] 100 mg PO DAILY 12/30/19 12/30/19 History Clotrimazole [place] [Mycelex 10 mg MUCOUS MEM 5XD 12/30/19 12/30/19 History [place]] dronabinoL [Marinol] 5 mg PO BID 12/30/19 12/30/19 History Allergies Allergy/AdvReac Type Severity Reaction Status Date / Time Penicillins Allergy Anaphylaxis Verified 12/30/19 17:04 venom-honey bee Allergy Anaphylaxis Verified 12/30/19 17:04 [bee venom (honey bee)] Physical Exam Vitals: Vital Signs Temp Pulse Pulse Resp BP BP BP 12/31/19 12:41 98.2 F 82 28 H 90/56 12/31/19 11:25 84 12/31/19 11:15 80 12/31/19 10:50 81/49 12/31/19 10:45 81 32 H 87/50 12/31/19 08:17 82 28 H 105/54 12/31/19 07:15 76 28 H 80/51 12/31/19 07:10 72 12/31/19 07:00 76 12/31/19 05:00 97.6 F 71 20 97/64 12/30/19 21:43 84 18 103/57 12/30/19 21:00 70 18 113/65 12/30/19 19:24 103/55 12/30/19 19:09 64 16 95/61 12/30/19 18:21 75 18 101/57 12/30/19 17:47 20 12/30/19 17:04 97.7 F 76 16 80/47 Pulse Ox 12/31/19 12:41 94 L 12/31/19 11:25 12/31/19 11:15 12/31/19 10:50 12/31/19 10:45 95 12/31/19 08:17 94 L 12/31/19 07:15 94 L 12/31/19 07:10 12/31/19 07:00 12/31/19 05:00 94 L 12/30/19 21:43 92 L 12/30/19 21:00 95 12/30/19 19:24 12/30/19 19:09 93 L 12/30/19 18:21 95 12/30/19 17:47 12/30/19 17:04 98 Intake and Output 12/30/19 12/31/19 12/31/19 22:59 06:59 14:59 Intake Total 0 200 Balance 0 200 Intake: Oral 0 200 Other: # Voids 1 Weight 79.5 kg 79.5 kg 79.5 kg GENERAL EXAM: Alert, anxious, 74-year-old white male, on BiPAP support, tachypneic, using accessory muscles of breathing, BiPAP at pressures of 12 and 6 and FiO2 of 100% comfortable in no apparent distress. HEAD: Normocephalic/atraumatic. EYES: Normal reaction of pupils, equal size. Conjunctiva pink, sclera white. NOSE: Clear with pink turbinates. THROAT: No erythema or exudates. NECK: No masses, no JVD, no thyroid enlargement, cervical adenopathy in the anterior cervical chains bilaterally CHEST: No chest wall deformity. Symmetrical expansion. LUNGS: Equal air entry with no crackles, wheeze, rhonchi or dullness. CVS: Irregular rate and rhythm, normal S1 and S2, no gallops, no murmurs, no rubs ABDOMEN: Soft, nontender. No hepatosplenomegaly, normal bowel sounds, no guarding or rigidity. EXTREMITIES: No clubbing, significant 2+ lower extremity edema no cyanosis, 2+ pulses and upper and lower extremities. Inguinal lymphadenopathy MUSCULOSKELETAL: Muscle strength and tone normal. SPINE: No scoliosis or deformity SKIN: No rashes CENTRAL NERVOUS SYSTEM: Alert and oriented -3. No focal deficits, tone is normal in all 4 extremities. PSYCHIATRIC: Alert and oriented -3. Appropriate affect. Intact judgment and insight. Results - Laboratory Findings CBC and BMP: 12/31/19 07:15 12/31/19 07:15 ABG ABG pH 7.07 (7.35-7.45) L* 12/31/19 13:51 ABG pCO2 21 mmHg (35-45) L 12/31/19 13:51 ABG pO2 273 mmHg (83-108) H 12/31/19 13:51 ABG O2 Saturation 99.2 % (94-97) H 12/31/19 13:51 Abnormal lab findings: Abnormal Labs 12/30/19 12/30/19 12/31/19 17:53 17:53 02:39 RBC 4.10 L Hgb 12.9 L Hct 38.2 L RDW 16.7 H Plt Count 106 L Lymphocytes # (Manual) Metamyelocytes # (Man) 0.09 H ABG pH ABG pCO2 ABG pO2 ABG HCO3 ABG Total CO2 ABG O2 Saturation Sodium 128 L 128 L Chloride 95 L 94 L Carbon Dioxide 12 L 17 L BUN 52 H 57 H Creatinine 2.51 H 2.75 H Glucose 111 H 110 H POC Glucose (mg/dL) Plasma Lactic Acid Reji Uric Acid Phosphorus Total Bilirubin 2.0 H Creatine Kinase 33 L Troponin I Total Protein 4.9 L Albumin 2.8 L Urine Protein Urine Ketones Urine Blood Ur Leukocyte Esterase Urine RBC Urine WBC Urine WBC Clumps Amorphous Sediment Urine Bacteria Hyaline Casts Urine Mucus 12/31/19 12/31/19 12/31/19 07:15 07:15 07:15 RBC 4.14 L Hgb 12.8 L Hct 38.8 L RDW 17.2 H Plt Count 103 L Lymphocytes # (Manual) 0.85 L Metamyelocytes # (Man) ABG pH ABG pCO2 ABG pO2 ABG HCO3 ABG Total CO2 ABG O2 Saturation Sodium 130 L Chloride 95 L Carbon Dioxide 16 L BUN 56 H Creatinine 2.87 H Glucose 100 H POC Glucose (mg/dL) Plasma Lactic Acid Reji Uric Acid 19.1 H* Phosphorus 5.6 H Total Bilirubin Creatine Kinase Troponin I Total Protein Albumin Urine Protein Urine Ketones Urine Blood Ur Leukocyte Esterase Urine RBC Urine WBC Urine WBC Clumps Amorphous Sediment Urine Bacteria Hyaline Casts Urine Mucus 12/31/19 12/31/19 12/31/19 10:18 12:15 12:15 RBC Hgb Hct RDW Plt Count Lymphocytes # (Manual) Metamyelocytes # (Man) ABG pH ABG pCO2 ABG pO2 ABG HCO3 ABG Total CO2 ABG O2 Saturation Sodium Chloride Carbon Dioxide BUN Creatinine Glucose POC Glucose (mg/dL) Plasma Lactic Acid Reji 13.7 H* Uric Acid Phosphorus Total Bilirubin Creatine Kinase Troponin I 0.053 H* Total Protein Albumin Urine Protein 1+ H Urine Ketones Trace H Urine Blood Large H Ur Leukocyte Esterase Trace H Urine RBC >182 H Urine WBC 37 H Urine WBC Clumps Occasional H Amorphous Sediment Moderate H Urine Bacteria Occasional H Hyaline Casts 31 H Urine Mucus Occasional H 12/31/19 12/31/19 13:17 13:51 RBC Hgb Hct RDW Plt Count Lymphocytes # (Manual) Metamyelocytes # (Man) ABG pH 7.07 L* ABG pCO2 21 L ABG pO2 273 H ABG HCO3 6 L* ABG Total CO2 7 L ABG O2 Saturation 99.2 H Sodium Chloride Carbon Dioxide BUN Creatinine Glucose POC Glucose (mg/dL) 100 H Plasma Lactic Acid Reji Uric Acid Phosphorus Total Bilirubin Creatine Kinase Troponin I Total Protein Albumin Urine Protein Urine Ketones Urine Blood Ur Leukocyte Esterase Urine RBC Urine WBC Urine WBC Clumps Amorphous Sediment Urine Bacteria Hyaline Casts Urine Mucus - Diagnostic Findings Chest x-ray: report reviewed, image reviewed Assessment and Plan Plan: Assessment: #1. Acute hypoxic respiratory failure related to acute exacerbation of systolic CHF, chest x-ray showing pulmonary edema and pleural effusion #2. Hypotension, multifactorial, likely related to cardiogenic shock, rule out septic shock #3. Acute kidney injury, likely cardiorenal, rule out possibility of septic shock etiology #4. Acute anion gap metabolic acidosis, related to lactic acidosis #5. Troponin leak likely related to acute hypoxic rest or a failure and acute exacerbation of CHF #6. Recent diagnosis of low-grade B-cell lymphoma #7. Hyponatremia, likely hypervolemic #8. Hyperuricemia, possibly related to tumor lysis syndrome #9. History of paroxysmal atrial fibrillation #10. History of severe nonischemic cardiomyopathy with EF of less than 20% status post AICD placement #11. Thrombocytopenia #12. Hypertension #13. Hyperlipidemia Plan: Patient was given 80 of Lasix on arrival to the intensive care unit, continue La six drip at 10 mg per hour, we will use the levofed for blood pressure support, discontinue dopamine, blood gases have been reviewed, 2 A of bicarb given, we'll start D5W with 3 A of bicarbonate at a rate of 50 ML per hour. We will give one-time dose of Decadron 6 mg IV push. We'll panculture the patient, blood cultures, sputum and urine culture continue with current antibiotic coverage including Levaquin, Flagyl and vancomycin, we'll send a stool for C. diff. Continue with oral anticoagulation, patient is in atrial fibrillation with a controlled rate. Chest x-ray reviewed, showing pulmonary edema. Central line and arterial line have been placed at the bedside. May use morphine IV push 2-4 mg every 4 hours for discomfort, and shortness of breath. We had a conversation with the patient and his , and the patient is too breathless and too anxious to give us a clear instruction, however the patient's decided on DO NOT RESUSCITATE, and no ventilator support". We will continue supportively treating the patient. Overall prognosis is guarded. I performed a history & physical examination of the patient and discussed their management with my nurse practitioner, Kandi Park. I reviewed the nurse practitioner's note and agree with the documented findings and plan of care. Lung sounds are positive for diminished breath sounds. The findings and the impression was discussed with the patient. I attest to the documentation by the nurse practitioner. Time with Patient: Greater than 30
[2019-12-31] MEDS: DEXTROSE 5% IN WATER 1,000 ML with SODIUM BICARB (1 MEQ/ML) 150 ML IV SCH (14:48)
[2019-12-31 14:54] LABS: Anisocytosis Slight; HCT 35.7 % (39.0-53.0); HGB 11.7 gm/dL (13.0-17.5); Hypochromasia Slight; MCHC 32.8 g/dL (31.0-37.0); MCV 94.4 fL (80.0-100.0); Platelet Count 122 k/uL (150-450); Poikilocytosis Slight; RBC 3.78 m/uL (4.30-5.90); RDW 17.1 % (11.5-15.5)
[2019-12-31 15:14] LABS: ABG Base Excess -19.3 mmol/L; ABG Oxygen Saturation 90.4 % (94-97); ABG PCO2 21 mmHg (35-45); ABG PH 7.21 (7.35-7.45); ABG PO2 71 mmHg (83-108); ABG TCO2 9 mmol/L (19-24); Allen Test Performed? Yes
[2019-12-31 15:15] LABS: ABG HCO3 9 mmol/L (21-25)
[2019-12-31] MEDS ORDERED: SODIUM BICARB 8.4% 50 ML SYR (1 MEQ/ML) IV STA (16:01)
[2019-12-31 16:03] LABS: Albumin 2.5 g/dL (3.5-5.0); Calcium 8.1 mg/dL (8.4-10.2); Potassium 4.8 mmol/L (3.5-5.1); Total Bilirubin 1.6 mg/dL (0.2-1.3); Total Protein 4.3 g/dL (6.3-8.2)
[2019-12-31 16:42] LABS: Amorphous Sediment,Urine Rare /hpf; Appearance,Urine Turbid (Clear); Bacteria,Urine Rare /hpf; Bilirubin,Urine Negative (Negative); Blood,Urine Large (Negative); Color,Urine Light Red; Glucose,Urine (UA) Negative (Negative); Hyaline Casts,Urine 16 /lpf (0-2); Ketones,Urine Trace (Negative); Leukocyte Esterase,Urine Negative (Negative); Mucus,Urine Rare /hpf; Nitrite,Urine Negative (Negative); Protein,Urine 1+ (Negative); RBC,Urine >182 /hpf (0-5); Specific Gravity,Urine 1.015 (1.001-1.035); Squamous Epithelial Cell,Urine 2 /hpf (0-4); Urobilinogen,Urine <2.0 mg/dL (<2.0); WBC,Urine 2 /hpf (0-5)
[2019-12-31] MEDS: DOBUTamine DRIP 500 MG in DEXTROSE/WATER 1 250ML.BAG IV SCH (19:00)
[2019-12-31] MEDS: ATORVASTATIN 20 MG TAB PO SCH (22:10)
[2020-01-01] MEDS: NOREPINEPHRINE 8 MG in SODIUM CHLORIDE 0.9% 250 ML IV SCH ×3 (01:12→15:50)
--- NOTE | 2020-01-01 03:03 | PCN ---
PROCEDURE NOTE OPERATIVE REPORT: Placement of the right femoral triple-lumen catheter. PREOPERATIVE DIAGNOSIS: Acute hypoxic respiratory failure and acute metabolic acidosis, possible sepsis. POSTOPERATIVE DIAGNOSIS: Acute hypoxic respiratory failure and acute metabolic acidosis, possible sepsis. ANESTHESIA USED: 2 mL of 1% lidocaine. PROCEDURE: The patient was placed in a supine position, the right groin was prepared in a sterile fashion and drapes were applied. The area was locally anesthetized with lidocaine. Then the right femoral vein was cannulated, a guidewire was placed, and the area around the guidewire was dilated. Then a triple-lumen catheter was inserted over the guidewire, the guidewire was removed. Good blood flow noted in the 3 different ports of the triple-lumen catheter. No evidence of any complications. Line was secured using 3.0 silk sutures. MMODL / IJN: [id number] /
[2020-01-01 03:06] VITALS: BP 76/59
--- NOTE | 2020-01-01 03:06 | PCN ---
PROCEDURE NOTE OPERATIVE REPORT: Placement of the right brachial arterial line. PREOPERATIVE DIAGNOSIS: Hypotension. POSTOPERATIVE DIAGNOSIS: Hypotension. ANESTHESIA USED: None deployed. PROCEDURE: The patient was placed in the supine position, the right brachial region was prepared in a sterile fashion and drapes were applied. Then the right brachial artery was palpated, cannulated, and a guidewire was placed. A Cook catheter was inserted over the guidewire, and the guidewire was removed. Good blood flow noted in the line, good waveform, and no evidence of any immediate complications. The line was secured using 3.0 silk sutures. MMODL / IJN: [id number] /
[2020-01-01] MEDS: metroNIDAZOLE-NS PMX 500 MG in SALINE 1 100ML.BAG IVPB SCH ×3 (03:49→21:14)
[2020-01-01] MEDS: FUROSEMIDE 100 MG in SODIUM CHLORIDE 0.9% 90 ML IV SCH ×4 (05:49→23:11)
[2020-01-01] MEDS: DEXTROSE 5% IN WATER 1,000 ML with SODIUM BICARB (1 MEQ/ML) 150 ML IV SCH (07:09)
[2020-01-01] MEDS: MIDODRINE 5 MG TAB PO SCH ×3 (07:09→15:58)
--- NOTE | 2020-01-01 08:19 | XR ---
EXAMINATION TYPE: XR chest 1V DATE OF EXAM: 01/01/2020 CLINICAL HISTORY: CHF TECHNIQUE: Portable upright view of the chest obtained. COMPARISON: Chest radiograph 12/31/2019 FINDINGS: Left-sided single-chamber AICD. Cardiomegaly and pulmonary vascular congestion. There is i ncreased pulmonary edema and small bilateral pleural effusions versus 12/31/2019 comparison. No pneumo thorax. IMPRESSION: Most likely CHF, with increased pulmonary edema and small bilateral pleural effusions kyung michele 12/31/2019 comparison.
[2020-01-01] MEDS: DIGOXIN 125 MCG TAB PO SCH (08:24)
[2020-01-01] MEDS: APIXABAN 5 MG TAB PO SCH ×2 (08:24→21:14)
[2020-01-01] MEDS: AMIODARONE 200 MG TAB PO SCH (08:24)
[2020-01-01] MEDS: DOCUSATE 100 MG CAP PO SCH (08:24)
[2020-01-01] MEDS: ALBUTEROL NEBULIZED 2.5 MG/3 ML INHALATION PRN ×3 (08:31→18:25)
[2020-01-01 09:00] LABS: Albumin 2.2 g/dL (3.5-5.0); Calcium 7.4 mg/dL (8.4-10.2); Magnesium 1.9 mg/dL (1.6-2.3); Potassium 4.1 mmol/L (3.5-5.1); Total Protein 3.8 g/dL (6.3-8.2)
[2020-01-01 09:02] LABS: ABG Base Excess -6.5 mmol/L; ABG HCO3 17 mmol/L (21-25); ABG Oxygen Saturation 94.5 % (94-97); ABG PCO2 23 mmHg (35-45); ABG PH 7.48 (7.35-7.45); ABG PO2 70 mmHg (83-108); ABG TCO2 18 mmol/L (19-24)
[2020-01-01 09:03] LABS: Allen Test Performed? no
[2020-01-01 09:41] LABS: Anisocytosis Slight; HCT 35.1 % (39.0-53.0); HGB 11.9 gm/dL (13.0-17.5); MCH 30.9 pg (25.0-35.0); MCHC 33.8 g/dL (31.0-37.0); MCV 91.4 fL (80.0-100.0); Mean Platelet Volume 8.6; Poikilocytosis Slight; RBC 3.84 m/uL (4.30-5.90); RDW 17.3 % (11.5-15.5); WBC 5.9 k/uL (3.8-10.6)
--- NOTE | 2020-01-01 10:03 | P.PN ---
Subjective Progress Note Date: 01/01/20 Principal diagnosis: CC: Shortness of breath Patient appears better compared to yesterday. Patient however states that he still feels short of breath and is requesting for more breathing treatment. He is currently on dobutamine and norepinephrine. Per nurse patient is making less than 30 mL an hour of urine. Objective - Vital Signs Vital signs: Vital Signs Temp 97.5 F L 01/01/20 08:00 Pulse 123 H 01/01/20 09:00 Resp 24 01/01/20 09:00 BP 76/59 01/01/20 09:00 Pulse Ox 93 L 01/01/20 09:00 Intake & Output 12/31/19 01/01/20 01/01/20 18:59 06:59 18:59 Intake Total 675.027 0437.393 88 Output Total 170 234 20 Balance 405.248 8178.393 68 Weight 79.5 kg 89.2 kg Intake: IV 1158 88 A line flush 33 3 Dextrose 5% in Water 1, 825 75 000 ml @ 75 mls/hr IV . [id number] [facility] with Sodium Bicarb (1 Meq/ml) 150 ml Rx#:[id number] Furosemide 100 mg In 100 10 Sodium Chloride 0.9% 90 ml @ 10 MG/HR 10 mls/hr IV .Q10H [facility] Rx#: [id number] metroNIDAZOLE-NS PMX 500 200 mg In Saline 1 100ml.bag @ 100 mls/hr IVPB Q8H [facility] Rx#:[id number] Intake, IV Titration 789.366 222.393 Amount Dextrose 5% in Water 1, 225 000 ml @ 75 mls/hr IV . [id number] [facility] with Sodium Bicarb (1 Meq/ml) 150 ml Rx#:[id number] Furosemide 100 mg In 154.833 Sodium Chloride 0.9% 90 ml @ 10 MG/HR 10 mls/hr IV .Q10H [facility] Rx#: [id number] Levofloxacin 750Mg-D5w 150 Pmx 750 mg In Dextrose/ Water 1 150ml.bag @ 100 mls/hr IVPB Q48H [facility] Rx#: [id number] Norepinephrine 4 mg In 64.366 37.459 Sodium Chloride 0.9% 250 ml @ 0.05 MCG/KG/MIN 15. 145 mls/hr IV .[id number] [facility] Rx#:[id number] Norepinephrine 8 mg In 30.101 Sodium Chloride 0.9% 250 ml @ 0.05 MCG/KG/MIN 7. 692 mls/hr IV .Q24H [facility] Rx#:[id number] Vancomycin 1,500 mg In 250 Sodium Chloride 0.9% 250 ml @ 125 mls/hr IVPB ONCE ONE Rx#:[id number] metroNIDAZOLE-NS PMX 500 100 mg In Saline 1 100ml.bag @ 100 mls/hr IVPB Q8H [facility] Rx#:[id number] Output: Urine 170 234 20 Other: Voiding Method Indwelling Catheter Indwelling Catheter Indwelling Catheter ABP, PAP, CO, CI - Last Documented Arterial Blood Pressure 102/52 - Exam General examination - Alert and Oriented 3. Mild to moderate respiratory distress, appears chronically debilitated Heart - + S1S2 no murmurs Lungs - crackles in bilateral lower lobes Abdomen soft NT ND +ve BS Extremities -generalized edema PHYSICAL THERAPY COORDINATOR - Moving all 4 extremities spontaneously Psych - patient in distress - Labs CBC & Chem 7: 01/01/20 08:11 01/01/20 08:11 Labs: Abnormal Lab Results - Last 24 Hours (Table) 12/31/19 12/31/19 12/31/19 Range/Units 07:15 07:15 10:18 RBC (4.30-5.90) m/uL Hgb (13.0-17.5) gm/dL Hct (39.0-53.0) % RDW (11.5-15.5) % Plt Count (150-450) k/uL Lymphocytes # (Manual) 0.85 L (1.0-4.8) k/uL PT (9.0-12.0) sec INR (<1.2) ABG pH (7.35-7.45) ABG pCO2 (35-45) mmHg ABG pO2 (83-108) mmHg ABG HCO3 (21-25) mmol/L ABG Total CO2 (19-24) mmol/L ABG O2 Saturation (94-97) % ABG Lactic Acid (0.5-1.6) mmol/L Sodium (137-145) mmol/L Chloride (98-107) mmol/L Carbon Dioxide (22-30) mmol/L BUN (9-20) mg/dL Creatinine (0.66-1.25) mg/dL Glucose (74-99) mg/dL POC Glucose (mg/dL) (75-99) mg/dL Plasma Lactic Acid Reji (0.7-2.0) mmol/L Uric Acid 19.1 H* (3.5-8.5) mg/dL Calcium (8.4-10.2) mg/dL Phosphorus 5.6 H (2.5-4.5) mg/dL Total Bilirubin (0.2-1.3) mg/dL AST (17-59) U/L ALT (4-49) U/L Troponin I (0.000-0.034) ng/mL Total Protein (6.3-8.2) g/dL Albumin (3.5-5.0) g/dL Urine Protein 1+ H (Negative) Urine Ketones Trace H (Negative) Urine Blood Large H (Negative) Ur Leukocyte Esterase Trace H (Negative) Urine RBC >182 H (0-5) /hpf Urine WBC 37 H (0-5) /hpf Urine WBC Clumps Occasional H (None) /hpf Amorphous Sediment Moderate H (None) /hpf Urine Bacteria Occasional H (None) /hpf Hyaline Casts 31 H (0-2) /lpf Urine Mucus Occasional H (None) /hpf 12/31/19 12/31/19 12/31/19 Range/Units 12:15 12:15 13:17 RBC (4.30-5.90) m/uL Hgb (13.0-17.5) gm/dL Hct (39.0-53.0) % RDW (11.5-15.5) % Plt Count (150-450) k/uL Lymphocytes # (Manual) (1.0-4.8) k/uL PT (9.0-12.0) sec INR (<1.2) ABG pH (7.35-7.45) ABG pCO2 (35-45) mmHg ABG pO2 (83-108) mmHg ABG HCO3 (21-25) mmol/L ABG Total CO2 (19-24) mmol/L ABG O2 Saturation (94-97) % ABG Lactic Acid (0.5-1.6) mmol/L Sodium (137-145) mmol/L Chloride (98-107) mmol/L Carbon Dioxide (22-30) mmol/L BUN (9-20) mg/dL Creatinine (0.66-1.25) mg/dL Glucose (74-99) mg/dL POC Glucose (mg/dL) 100 H (75-99) mg/dL Plasma Lactic Acid Reji 13.7 H* (0.7-2.0) mmol/L Uric Acid (3.5-8.5) mg/dL Calcium (8.4-10.2) mg/dL Phosphorus (2.5-4.5) mg/dL Total Bilirubin (0.2-1.3) mg/dL AST (17-59) U/L ALT (4-49) U/L Troponin I 0.053 H* (0.000-0.034) ng/mL Total Protein (6.3-8.2) g/dL Albumin (3.5-5.0) g/dL Urine Protein (Negative) Urine Ketones (Negative) Urine Blood (Negative) Ur Leukocyte Esterase (Negative) Urine RBC (0-5) /hpf Urine WBC (0-5) /hpf Urine WBC Clumps (None) /hpf Amorphous Sediment (None) /hpf Urine Bacteria (None) /hpf Hyaline Casts (0-2) /lpf Urine Mucus (None) /hpf 12/31/19 12/31/19 12/31/19 Range/Units 13:51 14:36 14:36 RBC 3.78 L (4.30-5.90) m/uL Hgb 11.7 L (13.0-17.5) gm/dL Hct 35.7 L (39.0-53.0) % RDW 17.1 H (11.5-15.5) % Plt Count 122 L (150-450) k/uL Lymphocytes # (Manual) (1.0-4.8) k/uL PT (9.0-12.0) sec INR (<1.2) ABG pH 7.07 L* (7.35-7.45) ABG pCO2 21 L (35-45) mmHg ABG pO2 273 H (83-108) mmHg ABG HCO3 6 L* (21-25) mmol/L ABG Total CO2 7 L (19-24) mmol/L ABG O2 Saturation 99.2 H (94-97) % ABG Lactic Acid (0.5-1.6) mmol/L Sodium 132 L (137-145) mmol/L Chloride 96 L (98-107) mmol/L Carbon Dioxide 10 L (22-30) mmol/L BUN 58 H (9-20) mg/dL Creatinine 3.35 H (0.66-1.25) mg/dL Glucose (74-99) mg/dL POC Glucose (mg/dL) (75-99) mg/dL Plasma Lactic Acid Reji (0.7-2.0) mmol/L Uric Acid (3.5-8.5) mg/dL Calcium 8.1 L (8.4-10.2) mg/dL Phosphorus (2.5-4.5) mg/dL Total Bilirubin 1.6 H (0.2-1.3) mg/dL AST 74 H (17-59) U/L ALT (4-49) U/L Troponin I (0.000-0.034) ng/mL Total Protein 4.3 L (6.3-8.2) g/dL Albumin 2.5 L (3.5-5.0) g/dL Urine Protein (Negative) Urine Ketones (Negative) Urine Blood (Negative) Ur Leukocyte Esterase (Negative) Urine RBC (0-5) /hpf Urine WBC (0-5) /hpf Urine WBC Clumps (None) /hpf Amorphous Sediment (None) /hpf Urine Bacteria (None) /hpf Hyaline Casts (0-2) /lpf Urine Mucus (None) /hpf 12/31/19 12/31/19 12/31/19 Range/Units 14:36 14:36 15:12 RBC (4.30-5.90) m/uL Hgb (13.0-17.5) gm/dL Hct (39.0-53.0) % RDW (11.5-15.5) % Plt Count (150-450) k/uL Lymphocytes # (Manual) (1.0-4.8) k/uL PT (9.0-12.0) sec INR (<1.2) ABG pH 7.21 L (7.35-7.45) ABG pCO2 21 L (35-45) mmHg ABG pO2 71 L (83-108) mmHg ABG HCO3 9 L* (21-25) mmol/L ABG Total CO2 9 L (19-24) mmol/L ABG O2 Saturation 90.4 L (94-97) % ABG Lactic Acid 15.8 H* (0.5-1.6) mmol/L Sodium (137-145) mmol/L Chloride (98-107) mmol/L Carbon Dioxide (22-30) mmol/L BUN (9-20) mg/dL Creatinine (0.66-1.25) mg/dL Glucose (74-99) mg/dL POC Glucose (mg/dL) (75-99) mg/dL Plasma Lactic Acid Reji (0.7-2.0) mmol/L Uric Acid (3.5-8.5) mg/dL Calcium (8.4-10.2) mg/dL Phosphorus (2.5-4.5) mg/dL Total Bilirubin (0.2-1.3) mg/dL AST (17-59) U/L ALT (4-49) U/L Troponin I 0.050 H* (0.000-0.034) ng/mL Total Protein (6.3-8.2) g/dL Albumin (3.5-5.0) g/dL Urine Protein (Negative) Urine Ketones (Negative) Urine Blood (Negative) Ur Leukocyte Esterase (Negative) Urine RBC (0-5) /hpf Urine WBC (0-5) /hpf Urine WBC Clumps (None) /hpf Amorphous Sediment (None) /hpf Urine Bacteria (None) /hpf Hyaline Casts (0-2) /lpf Urine Mucus (None) /hpf 12/31/19 12/31/19 12/31/19 Range/Units 16:14 17:30 20:45 RBC (4.30-5.90) m/uL Hgb (13.0-17.5) gm/dL Hct (39.0-53.0) % RDW (11.5-15.5) % Plt Count (150-450) k/uL Lymphocytes # (Manual) (1.0-4.8) k/uL PT (9.0-12.0) sec INR (<1.2) ABG pH (7.35-7.45) ABG pCO2 (35-45) mmHg ABG pO2 (83-108) mmHg ABG HCO3 (21-25) mmol/L ABG Total CO2 (19-24) mmol/L ABG O2 Saturation (94-97) % ABG Lactic Acid (0.5-1.6) mmol/L Sodium (137-145) mmol/L Chloride (98-107) mmol/L Carbon Dioxide (22-30) mmol/L BUN (9-20) mg/dL Creatinine (0.66-1.25) mg/dL Glucose (74-99) mg/dL POC Glucose (mg/dL) (75-99) mg/dL Plasma Lactic Acid Reji 13.4 H* 11.2 H* (0.7-2.0) mmol/L Uric Acid (3.5-8.5) mg/dL Calcium (8.4-10.2) mg/dL Phosphorus (2.5-4.5) mg/dL Total Bilirubin (0.2-1.3) mg/dL AST (17-59) U/L ALT (4-49) U/L Troponin I (0.000-0.034) ng/mL Total Protein (6.3-8.2) g/dL Albumin (3.5-5.0) g/dL Urine Protein 1+ H (Negative) Urine Ketones Trace H (Negative) Urine Blood Large H (Negative) Ur Leukocyte Esterase (Negative) Urine RBC >182 H (0-5) /hpf Urine WBC (0-5) /hpf Urine WBC Clumps (None) /hpf Amorphous Sediment Rare H (None) /hpf Urine Bacteria Rare H (None) /hpf Hyaline Casts 16 H (0-2) /lpf Urine Mucus Rare H (None) /hpf 12/31/19 01/01/20 01/01/20 Range/Units 23:50 03:50 08:11 RBC 3.84 L (4.30-5.90) m/uL Hgb 11.9 L (13.0-17.5) gm/dL Hct 35.1 L (39.0-53.0) % RDW 17.3 H (11.5-15.5) % Plt Count (150-450) k/uL Lymphocytes # (Manual) (1.0-4.8) k/uL PT (9.0-12.0) sec INR (<1.2) ABG pH (7.35-7.45) ABG pCO2 (35-45) mmHg ABG pO2 (83-108) mmHg ABG HCO3 (21-25) mmol/L ABG Total CO2 (19-24) mmol/L ABG O2 Saturation (94-97) % ABG Lactic Acid (0.5-1.6) mmol/L Sodium (137-145) mmol/L Chloride (98-107) mmol/L Carbon Dioxide (22-30) mmol/L BUN (9-20) mg/dL Creatinine (0.66-1.25) mg/dL Glucose (74-99) mg/dL POC Glucose (mg/dL) (75-99) mg/dL Plasma Lactic Acid Reji 9.9 H* 9.0 H* (0.7-2.0) mmol/L Uric Acid (3.5-8.5) mg/dL Calcium (8.4-10.2) mg/dL Phosphorus (2.5-4.5) mg/dL Total Bilirubin (0.2-1.3) mg/dL AST (17-59) U/L ALT (4-49) U/L Troponin I (0.000-0.034) ng/mL Total Protein (6.3-8.2) g/dL Albumin (3.5-5.0) g/dL Urine Protein (Negative) Urine Ketones (Negative) Urine Blood (Negative) Ur Leukocyte Esterase (Negative) Urine RBC (0-5) /hpf Urine WBC (0-5) /hpf Urine WBC Clumps (None) /hpf Amorphous Sediment (None) /hpf Urine Bacteria (None) /hpf Hyaline Casts (0-2) /lpf Urine Mucus (None) /hpf 01/01/20 01/01/20 01/01/20 Range/Units 08:11 08:11 08:11 RBC (4.30-5.90) m/uL Hgb (13.0-17.5) gm/dL Hct (39.0-53.0) % RDW (11.5-15.5) % Plt Count (150-450) k/uL Lymphocytes # (Manual) (1.0-4.8) k/uL PT 19.0 H (9.0-12.0) sec INR 2.0 H (<1.2) ABG pH (7.35-7.45) ABG pCO2 (35-45) mmHg ABG pO2 (83-108) mmHg ABG HCO3 (21-25) mmol/L ABG Total CO2 (19-24) mmol/L ABG O2 Saturation (94-97) % ABG Lactic Acid (0.5-1.6) mmol/L Sodium 131 L (137-145) mmol/L Chloride 93 L (98-107) mmol/L Carbon Dioxide 19 L (22-30) mmol/L BUN 68 H (9-20) mg/dL Creatinine 3.25 H (0.66-1.25) mg/dL Glucose 145 H (74-99) mg/dL POC Glucose (mg/dL) (75-99) mg/dL Plasma Lactic Acid Reji 9.1 H* (0.7-2.0) mmol/L Uric Acid (3.5-8.5) mg/dL Calcium 7.4 L (8.4-10.2) mg/dL Phosphorus (2.5-4.5) mg/dL Total Bilirubin 2.0 H (0.2-1.3) mg/dL AST 345 H (17-59) U/L ALT 144 H (4-49) U/L Troponin I (0.000-0.034) ng/mL Total Protein 3.8 L (6.3-8.2) g/dL Albumin 2.2 L (3.5-5.0) g/dL Urine Protein (Negative) Urine Ketones (Negative) Urine Blood (Negative) Ur Leukocyte Esterase (Negative) Urine RBC (0-5) /hpf Urine WBC (0-5) /hpf Urine WBC Clumps (None) /hpf Amorphous Sediment (None) /hpf Urine Bacteria (None) /hpf Hyaline Casts (0-2) /lpf Urine Mucus (None) /hpf 01/01/20 Range/Units 08:57 RBC (4.30-5.90) m/uL Hgb (13.0-17.5) gm/dL Hct (39.0-53.0) % RDW (11.5-15.5) % Plt Count (150-450) k/uL Lymphocytes # (Manual) (1.0-4.8) k/uL PT (9.0-12.0) sec INR (<1.2) ABG pH 7.48 H (7.35-7.45) ABG pCO2 23 L (35-45) mmHg ABG pO2 70 L (83-108) mmHg ABG HCO3 17 L (21-25) mmol/L ABG Total CO2 18 L (19-24) mmol/L ABG O2 Saturation (94-97) % ABG Lactic Acid (0.5-1.6) mmol/L Sodium (137-145) mmol/L Chloride (98-107) mmol/L Carbon Dioxide (22-30) mmol/L BUN (9-20) mg/dL Creatinine (0.66-1.25) mg/dL Glucose (74-99) mg/dL POC Glucose (mg/dL) (75-99) mg/dL Plasma Lactic Acid Reji (0.7-2.0) mmol/L Uric Acid (3.5-8.5) mg/dL Calcium (8.4-10.2) mg/dL Phosphorus (2.5-4.5) mg/dL Total Bilirubin (0.2-1.3) mg/dL AST (17-59) U/L ALT (4-49) U/L Troponin I (0.000-0.034) ng/mL Total Protein (6.3-8.2) g/dL Albumin (3.5-5.0) g/dL Urine Protein (Negative) Urine Ketones (Negative) Urine Blood (Negative) Ur Leukocyte Esterase (Negative) Urine RBC (0-5) /hpf Urine WBC (0-5) /hpf Urine WBC Clumps (None) /hpf Amorphous Sediment (None) /hpf Urine Bacteria (None) /hpf Hyaline Casts (0-2) /lpf Urine Mucus (None) /hpf Microbiology - Last 24 Hours (Table) 12/31/19 16:14 Urine Culture - Preliminary Urine,Catheterized Assessment and Plan Assessment: #Hypertension secondary to likely cardiogenic shock and less likely septic shock -Chest x-ray shows centrilobular edema and underlying infiltrates cannot be excluded and also right-sided pleural effusion. -News Library Director on board -Resume dopamine drip and Lasix drip as per cardiology -Resume the Levophed and titrate as tolerated -Resume midodrine. Hold BP meds which includes metoprolol -Start IV vancomycin, Levaquin and Flagyl. Check MRSA and discontinue vancomycin if negative. -Follow up blood cultures -Check sputum culture -hold fluids as the patient chest x-ray shows worsening edema when he was on gentle fluids -Cardiology and pulmonology on board #Acute hypoxic respiratory failure secondary to volume overload and less likely pneumonia -Patient currently on high flow oxygen -Patient refused intubation -DuoNeb's -Wean O2 as tolerated #Acute kidney injury on CK D - mild improvement this morning - likely due to tumor lysis syndrome versus cardiorenal syndrome -Uric acid is 19 -Nephrology and hematology on board #Metabolic acidosis #Lactic acidosis Secondary to above -Patient on bicarb drip -pH is normal this morning -Lactic acid trending down however still significantly elevated #Paroxysmal atrial fibrillation -Hold metoprolol. Resume digoxin and amiodarone #Hypervolemic Hyponatremia -Patient started on Lasix drip -Trend BMP #Acute on chronic systolic heart failure #Nonischemic cardiomyopathy with left ventricular ejection fraction less than 20% status post ICD -Diuresing as above -Beta addison on hold due to hypotension -No NESSA inhibitor or ARBI due to renal failure and hypotension #Recently diagnosed with lymphoma 2 months ago -Hematology on board -Hematology would like to start first dose chemotherapy while patient is inpatient and when patient is more stable. #Thrombocytopenia -Stable -Monitor platelets #Ascending aortic aneurysm -PATIENT follow CODE STATUS DNR/DNI DVT prophylaxis: Heparin subcu 3 times a day watch platelets closely
[2020-01-01 11:44] LABS: Band Neutrophils % 14 %; Lymphocytes # (M) 0.71 k/uL (1.0-4.8); Monocytes # (M) 0.18 k/uL (0-1.0); Neutrophils % (M) 71 %; Nucleated Red Blood Cells 0 /100 WBC (0-0); Total Cells Counted 100
[2020-01-01 12:00] LABS: Platelet Count 83 k/uL (150-450)
--- NOTE | 2020-01-01 12:24 | P.PN ---
Subjective Progress Note Date: 01/01/20 Principal diagnosis: Acute hypoxic respiratory failure, acute systolic congestive heart failure, hypotension, possible sepsis. 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 Patient was at Dr. Harris's office, and was noted to have significant bilateral lower leg edema, shortness of breath and weakness sent to the hospital for evaluation. Patient is very tired on presentation. He has had decreased oral intake, occasional fever, he did have some nausea and vomiting. Nursing also reports diarrhea. Chest x-ray on admission showed cardiomegaly, moderate central alveolar edema, stable small right pleural effusion, and worsening left basilar acute infiltrate and atelectasis. Admission lab work showed white blood cell count of 9.0, hemoglobin of 12.9, platelet count is 106, sodium was 128, chloride was 95, CO2 was only 12, BUN is 52, creatinine was 2.51, proBNP was 24,400, troponin was 0.034, and 0.053, today's urinalysis shows large amount of blood, trace leuk trase, white blood cells in clumps, and occasional bacteria with the possibility of urinary tract infection. Urine is quite turbid with sediment. Today patient was noted to have increased shortness of breath, using accessory muscles of breathing, he became hypotensive, requiring transfer to the intensive care unit. Follow-up chest x-ray today shows pulmonary edema, small right pleural effusion, today's labs show worsening renal function, and patient has only had 200 mL of urine output since admission. During her evaluation in the intensive care unit patient is awake, but he is quite dyspneic, tachypneic using accessory muscles of breathing, he was placed on BiPAP support, was given 80 of IV Lasix and the Lasix drip was started, he is hypotensive requiring levo fed infusion. We spoke to the patient and his about the CODE STATUS and the decided on supportive care measures, and no ventilator support, no CPR, no defibrillation. Triple-lumen central venous catheter was emergently placed in the right femoral area, and right brachial art line was placed for hemodynamic monitoring, he was placed on BiPAP support the pressures of 12 and 6 and FiO2 100%, he required a few doses of IV morphine, he found it very difficult to tolerate the BiPAP support, we did switch him to high flow oxygen with Airvo with FiO2 of 50%, and 40 L/m flow, and is currently tolerating it better, stat blood gas was obtained showing profound metabolic acidosis, and 2 doses of IV sodium bicarb was given and sodium bicarb infusion be started, blood cultures were sent, urine culture was sent, we'll send a lactic acid and empiric antibiotics were started in the form of Levaquin, Flagyl and vancomycin. Patient was reevaluated today on 01/01/20. Remains in the intensive care unit. Patient is doing fairly well. Significantly better compared to yesterday. However he is on multiple drips including a bicarb drip which I cut down to 25 mL per hour. He is on norepinephrine 0.12 mcg/kg/m and I cut it down to 0.06 mcg/kg/m he is on Lasix at 10 mg per hour. Dobutrex 2.5 mcg/kg/m and a decrease that to 5 mcg/kg/m. His ABG today showed a pO2 of 70 pCO2 of 23 pH of 7.48, and his bicarb today is 20. PH yesterday was 7.21. Patient remains on 50% FiO2 and 40 L high flow oxygen. Chest x-ray continues to show widened mediastinum and CHF findings/pulmonary edema with small bilateral effusions patient is making small amount of urine, roughly about 30 mL per hour. Renal profile showed a BUN of 68 creatinine of 3.25, slightly improved with improvement of blood pressure compared to yesterday. Lactic acid remains at 9.1. Liver enzymes are elevated including AST of 345 and ALT of 144 albumin is 2.2. Objective - Vital Signs Vital signs: Vital Signs Temp 97.5 F L 01/01/20 08:00 Pulse 108 H 01/01/20 11:17 Resp 24 01/01/20 11:00 BP 76/59 01/01/20 10:00 Pulse Ox 93 L 01/01/20 11:00 Intake & Output 12/31/19 01/01/20 01/01/20 18:59 06:59 18:59 Intake Total 717.207 0162.393 578.361 Output Total 170 234 70 Balance 344.385 1701.393 508.361 Weight 79.5 kg 89.2 kg Intake: IV 1158 222 A line flush 33 12 Dextrose 5% in Water 1, 825 200 000 ml @ 25 mls/hr IV . Q24H [facility] with Sodium Bicarb (1 Meq/ml) 150 ml Rx#:[id number] Furosemide 100 mg In 100 10 Sodium Chloride 0.9% 90 ml @ 10 MG/HR 10 mls/hr IV .Q10H [facility] Rx#: [id number] metroNIDAZOLE-NS PMX 500 200 mg In Saline 1 100ml.bag @ 100 mls/hr IVPB Q8H [facility] Rx#:[id number] Intake, IV Titration 789.366 222.393 266.361 Amount DOBUTamine DRIP 500 mg In 89.843 Dextrose/Water 1 250ml. bag @ 2.5 MCG/KG/MIN 5. 963 mls/hr IV .Q24H [facility] Rx#:[id number] Dextrose 5% in Water 1, 225 000 ml @ 25 mls/hr IV . Q24H [facility] with Sodium Bicarb (1 Meq/ml) 150 ml Rx#:[id number] Furosemide 100 mg In 154.833 57.667 Sodium Chloride 0.9% 90 ml @ 10 MG/HR 10 mls/hr IV .Q10H [facility] Rx#: [id number] Levofloxacin 750Mg-D5w 150 Pmx 750 mg In Dextrose/ Water 1 150ml.bag @ 100 mls/hr IVPB Q48H [facility] Rx#: [id number] Norepinephrine 4 mg In 64.366 37.459 Sodium Chloride 0.9% 250 ml @ 0.05 MCG/KG/MIN 15. 145 mls/hr IV .[id number] [facility] Rx#:[id number] Norepinephrine 8 mg In 30.101 118.851 Sodium Chloride 0.9% 250 ml @ 0.05 MCG/KG/MIN 7. 692 mls/hr IV .Q24H [facility] Rx#:[id number] Vancomycin 1,500 mg In 250 Sodium Chloride 0.9% 250 ml @ 125 mls/hr IVPB ONCE ONE Rx#:[id number] metroNIDAZOLE-NS PMX 500 100 mg In Saline 1 100ml.bag @ 100 mls/hr IVPB Q8H [facility] Rx#:[id number] Oral 90 Output: Urine 170 234 70 Other: Voiding Method Indwelling Catheter Indwelling Catheter Indwelling Catheter ABP, PAP, CO, CI - Last Documented Arterial Blood Pressure 100/47 - Exam GENERAL EXAM: Revealed 74-year-old white male, slightly pale looking, in no distress, however he is on high flow oxygen utilizing airvo HEENT: PERRLA, EOMI, no icterus, bilateral cervical adenopathy palpable. CHEST: No chest wall deformity. Symmetrical expansion. LUNGS: Equal air entry fine crackles at the bases.. AICD noted in the left upper chest wall area. CVS: Irregular rate and rhythm, normal S1 and S2, no gallops, 2/6 systolic murmur thought the precordium. ABDOMEN: Soft, nontender. No hepatosplenomegaly, normal bowel sounds, no gua rding or rigidity. EXTREMITIES: No clubbing, significant 3+ lower extremity edema no cyanosis, 2+ pulses and upper and lower extremities. Inguinal lymphadenopathy MUSCULOSKELETAL: Muscle strength and tone normal. SPINE: No scoliosis or deformity SKIN: No rashes CENTRAL NERVOUS SYSTEM: Alert and oriented -3. No focal deficits, tone is normal in all 4 extremities. PSYCHIATRIC: Alert and oriented -3. Appropriate affect. Intact judgment and insight. - Labs CBC & Chem 7: 01/01/20 08:11 01/01/20 08:11 Labs: Abnormal Lab Results - Last 24 Hours (Table) 12/31/19 12/31/19 12/31/19 Range/Units 12:15 12:15 13:17 RBC (4.30-5.90) m/uL Hgb (13.0-17.5) gm/dL Hct (39.0-53.0) % RDW (11.5-15.5) % Plt Count (150-450) k/uL Lymphocytes # (Manual) (1.0-4.8) k/uL PT (9.0-12.0) sec INR (<1.2) ABG pH (7.35-7.45) ABG pCO2 (35-45) mmHg ABG pO2 (83-108) mmHg ABG HCO3 (21-25) mmol/L ABG Total CO2 (19-24) mmol/L ABG O2 Saturation (94-97) % ABG Lactic Acid (0.5-1.6) mmol/L Sodium (137-145) mmol/L Chloride (98-107) mmol/L Carbon Dioxide (22-30) mmol/L BUN (9-20) mg/dL Creatinine (0.66-1.25) mg/dL Glucose (74-99) mg/dL POC Glucose (mg/dL) 100 H (75-99) mg/dL Plasma Lactic Acid Reji 13.7 H* (0.7-2.0) mmol/L Calcium (8.4-10.2) mg/dL Total Bilirubin (0.2-1.3) mg/dL AST (17-59) U/L ALT (4-49) U/L Troponin I 0.053 H* (0.000-0.034) ng/mL Total Protein (6.3-8.2) g/dL Albumin (3.5-5.0) g/dL Urine Protein (Negative) Urine Ketones (Negative) Urine Blood (Negative) Urine RBC (0-5) /hpf Amorphous Sediment (None) /hpf Urine Bacteria (None) /hpf Hyaline Casts (0-2) /lpf Urine Mucus (None) /hpf 12/31/19 12/31/19 12/31/19 Range/Units 13:51 14:36 14:36 RBC 3.78 L (4.30-5.90) m/uL Hgb 11.7 L (13.0-17.5) gm/dL Hct 35.7 L (39.0-53.0) % RDW 17.1 H (11.5-15.5) % Plt Count 122 L (150-450) k/uL Lymphocytes # (Manual) (1.0-4.8) k/uL PT (9.0-12.0) sec INR (<1.2) ABG pH 7.07 L* (7.35-7.45) ABG pCO2 21 L (35-45) mmHg ABG pO2 273 H (83-108) mmHg ABG HCO3 6 L* (21-25) mmol/L ABG Total CO2 7 L (19-24) mmol/L ABG O2 Saturation 99.2 H (94-97) % ABG Lactic Acid (0.5-1.6) mmol/L Sodium 132 L (137-145) mmol/L Chloride 96 L (98-107) mmol/L Carbon Dioxide 10 L (22-30) mmol/L BUN 58 H (9-20) mg/dL Creatinine 3.35 H (0.66-1.25) mg/dL Glucose (74-99) mg/dL POC Glucose (mg/dL) (75-99) mg/dL Plasma Lactic Acid Reji (0.7-2.0) mmol/L Calcium 8.1 L (8.4-10.2) mg/dL Total Bilirubin 1.6 H (0.2-1.3) mg/dL AST 74 H (17-59) U/L ALT (4-49) U/L Troponin I (0.000-0.034) ng/mL Total Protein 4.3 L (6.3-8.2) g/dL Albumin 2.5 L (3.5-5.0) g/dL Urine Protein (Negative) Urine Ketones (Negative) Urine Blood (Negative) Urine RBC (0-5) /hpf Amorphous Sediment (None) /hpf Urine Bacteria (None) /hpf Hyaline Casts (0-2) /lpf Urine Mucus (None) /hpf 12/31/19 12/31/19 12/31/19 Range/Units 14:36 14:36 15:12 RBC (4.30-5.90) m/uL Hgb (13.0-17.5) gm/dL Hct (39.0-53.0) % RDW (11.5-15.5) % Plt Count (150-450) k/uL Lymphocytes # (Manual) (1.0-4.8) k/uL PT (9.0-12.0) sec INR (<1.2) ABG pH 7.21 L (7.35-7.45) ABG pCO2 21 L (35-45) mmHg ABG pO2 71 L (83-108) mmHg ABG HCO3 9 L* (21-25) mmol/L ABG Total CO2 9 L (19-24) mmol/L ABG O2 Saturation 90.4 L (94-97) % ABG Lactic Acid 15.8 H* (0.5-1.6) mmol/L Sodium (137-145) mmol/L Chloride (98-107) mmol/L Carbon Dioxide (22-30) mmol/L BUN (9-20) mg/dL Creatinine (0.66-1.25) mg/dL Glucose (74-99) mg/dL POC Glucose (mg/dL) (75-99) mg/dL Plasma Lactic Acid Reji (0.7-2.0) mmol/L Calcium (8.4-10.2) mg/dL Total Bilirubin (0.2-1.3) mg/dL AST (17-59) U/L ALT (4-49) U/L Troponin I 0.050 H* (0.000-0.034) ng/mL Total Protein (6.3-8.2) g/dL Albumin (3.5-5.0) g/dL Urine Protein (Negative) Urine Ketones (Negative) Urine Blood (Negative) Urine RBC (0-5) /hpf Amorphous Sediment (None) /hpf Urine Bacteria (None) /hpf Hyaline Casts (0-2) /lpf Urine Mucus (None) /hpf 12/31/19 12/31/19 12/31/19 Range/Units 16:14 17:30 20:45 RBC (4.30-5.90) m/uL Hgb (13.0-17.5) gm/dL Hct (39.0-53.0) % RDW (11.5-15.5) % Plt Count (150-450) k/uL Lymphocytes # (Manual) (1.0-4.8) k/uL PT (9.0-12.0) sec INR (<1.2) ABG pH (7.35-7.45) ABG pCO2 (35-45) mmHg ABG pO2 (83-108) mmHg ABG HCO3 (21-25) mmol/L ABG Total CO2 (19-24) mmol/L ABG O2 Saturation (94-97) % ABG Lactic Acid (0.5-1.6) mmol/L Sodium (137-145) mmol/L Chloride (98-107) mmol/L Carbon Dioxide (22-30) mmol/L BUN (9-20) mg/dL Creatinine (0.66-1.25) mg/dL Glucose (74-99) mg/dL POC Glucose (mg/dL) (75-99) mg/dL Plasma Lactic Acid Reji 13.4 H* 11.2 H* (0.7-2.0) mmol/L Calcium (8.4-10.2) mg/dL Total Bilirubin (0.2-1.3) mg/dL AST (17-59) U/L ALT (4-49) U/L Troponin I (0.000-0.034) ng/mL Total Protein (6.3-8.2) g/dL Albumin (3.5-5.0) g/dL Urine Protein 1+ H (Negative) Urine Ketones Trace H (Negative) Urine Blood Large H (Negative) Urine RBC >182 H (0-5) /hpf Amorphous Sediment Rare H (None) /hpf Urine Bacteria Rare H (None) /hpf Hyaline Casts 16 H (0-2) /lpf Urine Mucus Rare H (None) /hpf 12/31/19 01/01/20 01/01/20 Range/Units 23:50 03:50 08:11 RBC 3.84 L (4.30-5.90) m/uL Hgb 11.9 L (13.0-17.5) gm/dL Hct 35.1 L (39.0-53.0) % RDW 17.3 H (11.5-15.5) % Plt Count 83 L (150-450) k/uL Lymphocytes # (Manual) 0.71 L (1.0-4.8) k/uL PT (9.0-12.0) sec INR (<1.2) ABG pH (7.35-7.45) ABG pCO2 (35-45) mmHg ABG pO2 (83-108) mmHg ABG HCO3 (21-25) mmol/L ABG Total CO2 (19-24) mmol/L ABG O2 Saturation (94-97) % ABG Lactic Acid (0.5-1.6) mmol/L Sodium (137-145) mmol/L Chloride (98-107) mmol/L Carbon Dioxide (22-30) mmol/L BUN (9-20) mg/dL Creatinine (0.66-1.25) mg/dL Glucose (74-99) mg/dL POC Glucose (mg/dL) (75-99) mg/dL Plasma Lactic Acid Reji 9.9 H* 9.0 H* (0.7-2.0) mmol/L Calcium (8.4-10.2) mg/dL Total Bilirubin (0.2-1.3) mg/dL AST (17-59) U/L ALT (4-49) U/L Troponin I (0.000-0.034) ng/mL Total Protein (6.3-8.2) g/dL Albumin (3.5-5.0) g/dL Urine Protein (Negative) Urine Ketones (Negative) Urine Blood (Negative) Urine RBC (0-5) /hpf Amorphous Sediment (None) /hpf Urine Bacteria (None) /hpf Hyaline Casts (0-2) /lpf Urine Mucus (None) /hpf 01/01/20 01/01/20 01/01/20 Range/Units 08:11 08:11 08:11 RBC (4.30-5.90) m/uL Hgb (13.0-17.5) gm/dL Hct (39.0-53.0) % RDW (11.5-15.5) % Plt Count (150-450) k/uL Lymphocytes # (Manual) (1.0-4.8) k/uL PT 19.0 H (9.0-12.0) sec INR 2.0 H (<1.2) ABG pH (7.35-7.45) ABG pCO2 (35-45) mmHg ABG pO2 (83-108) mmHg ABG HCO3 (21-25) mmol/L ABG Total CO2 (19-24) mmol/L ABG O2 Saturation (94-97) % ABG Lactic Acid (0.5-1.6) mmol/L Sodium 131 L (137-145) mmol/L Chloride 93 L (98-107) mmol/L Carbon Dioxide 19 L (22-30) mmol/L BUN 68 H (9-20) mg/dL Creatinine 3.25 H (0.66-1.25) mg/dL Glucose 145 H (74-99) mg/dL POC Glucose (mg/dL) (75-99) mg/dL Plasma Lactic Acid Reji 9.1 H* (0.7-2.0) mmol/L Calcium 7.4 L (8.4-10.2) mg/dL Total Bilirubin 2.0 H (0.2-1.3) mg/dL AST 345 H (17-59) U/L ALT 144 H (4-49) U/L Troponin I (0.000-0.034) ng/mL Total Protein 3.8 L (6.3-8.2) g/dL Albumin 2.2 L (3.5-5.0) g/dL Urine Protein (Negative) Urine Ketones (Negative) Urine Blood (Negative) Urine RBC (0-5) /hpf Amorphous Sediment (None) /hpf Urine Bacteria (None) /hpf Hyaline Casts (0-2) /lpf Urine Mucus (None) /hpf 01/01/20 Range/Units 08:57 RBC (4.30-5.90) m/uL Hgb (13.0-17.5) gm/dL Hct (39.0-53.0) % RDW (11.5-15.5) % Plt Count (150-450) k/uL Lymphocytes # (Manual) (1.0-4.8) k/uL PT (9.0-12.0) sec INR (<1.2) ABG pH 7.48 H (7.35-7.45) ABG pCO2 23 L (35-45) mmHg ABG pO2 70 L (83-108) mmHg ABG HCO3 17 L (21-25) mmol/L ABG Total CO2 18 L (19-24) mmol/L ABG O2 Saturation (94-97) % ABG Lactic Acid (0.5-1.6) mmol/L Sodium (137-145) mmol/L Chloride (98-107) mmol/L Carbon Dioxide (22-30) mmol/L BUN (9-20) mg/dL Creatinine (0.66-1.25) mg/dL Glucose (74-99) mg/dL POC Glucose (mg/dL) (75-99) mg/dL Plasma Lactic Acid Reji (0.7-2.0) mmol/L Calcium (8.4-10.2) mg/dL Total Bilirubin (0.2-1.3) mg/dL AST (17-59) U/L ALT (4-49) U/L Troponin I (0.000-0.034) ng/mL Total Protein (6.3-8.2) g/dL Albumin (3.5-5.0) g/dL Urine Protein (Negative) Urine Ketones (Negative) Urine Blood (Negative) Urine RBC (0-5) /hpf Amorphous Sediment (None) /hpf Urine Bacteria (None) /hpf Hyaline Casts (0-2) /lpf Urine Mucus (None) /hpf Microbiology - Last 24 Hours (Table) 12/31/19 16:14 Urine Culture - Preliminary Urine,Catheterized Assessment and Plan Assessment: #1. Acute hypoxic respiratory failure related to acute exacerbation of systolic CHF, chest x-ray showing pulmonary edema and pleural effusion #2. Hypotension, multifactorial, likely related to cardiogenic shock, rule out septic shock #3. Acute kidney injury, likely cardiorenal, rule out possibility of septic shock etiology #4. Acute anion gap metabolic acidosis, related to lactic acidosis #5. Troponin leak likely related to acute hypoxic rest or a failure and acute exacerbation of CHF #6. Recent diagnosis of low-grade B-cell lymphoma #7. Hypervolemic hyponatremia, improving. #8. Hyperuricemia, related to his underlying lymphoma #9. History of paroxysmal atrial fibrillation #10. History of severe nonischemic cardiomyopathy with EF of less than 20% status post AICD placement #11. Thrombocytopenia #12. Hypertension #13. Hyperlipidemia Recommendation: Continue hemodynamic support. Hence we'll continue dobutamine and the dose was increased, titrated down and possibly discontinue norepinephrine. Continue Cordarone. Continue Lasix drip. Continue Eliquis. Continue empiric antibiotics. Continue midodrine. Continue sodium bicarb however cut down the dose. Follow up on all cultures including urine cultures and blood cultures. Patient remains critically ill, prognosis remains extremely guarded. Hence we'll continue to follow in the ICU. Critical care time is 32 minutes Time with Patient: Greater than 30
[2020-01-01 13:57] LABS: ABG HCO3 16 mmol/L (21-25); ABG Oxygen Saturation 95.2 % (94-97); ABG PCO2 21 mmHg (35-45); ABG PH 7.48 (7.35-7.45); ABG PO2 74 mmHg (83-108); ABG TCO2 16 mmol/L (19-24)
[2020-01-01 13:58] LABS: Allen Test Performed? no
--- NOTE | 2020-01-01 14:50 | P.CONS ---
History of Present Illness - Reason for Consult Consult date: 01/01/20 Lymphoma Requesting physician: Eduardo Schneider - Chief Complaint Weakness, Fatigue - History of Present Illness Late Entry: Patient was seen and evaluated on 12/31/[address] 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 Mr Jennings is a pleasant white male, with multiple medical problems. He was first seen by Dr. Harris in the office on 12/30/19. The patient had presented to his PCP in early 11/27 with complains of progressive weakness, shortness of breath and cough off and on, mostly nonproductive. Over the past 2-3 weeks. He had received antibiotics as an outpatient without much response. He also reported decreased appetite, and onset of lower extremity swelling. On exam the patient was noted to have lymphadenopathy, and therefore had CT of the chest abdomen and pelvis on 11/11/19. This showed extensive adenopathy involving bilateral axilla, mediastinum, retrocrural, retroperitoneal, bilateral iliac and inguinal nodes. There is also splenomegaly at 19 cm. The largest lymph nodes were in the mediastinum, at 6.9 cm right paratracheal and 3.9 cm subcarinal. Patient had a PET scan on 11/27/19, which showed extensive uptake in the above mentioned lymph node areas. There was also uptake in the left femoral neck, right proximal femur, left acetabulum, iliac bones and proximal right humerus. Labs showed elevated uric acid 8.6, creatinine of 1.3, bilirubin of 1.6. CBC showed hemoglobin of 12.4, white count of 5.1, and platelets of 85. ANC was 1.7 with lymphocytes 1.9. The patient was referred for biopsy revealed thoracic surgery. the recommended biopsy by General surgery. Patient was also referred here and was supposed to be seen on 12/11/19. However, he was admitted to the hospital on 12/08/19, when he went in for a left supraclavicular node biopsy. The patient was hypotensive and tachycardic and was admitted to the ICU. He was found to be new onset atrial fibrillation. Hemoglobin remained stable in the 10-11 range, while creatinine also remained stable in the 1.2-1.3 range. the patient was stabilized from the cardiac standpoint, and then discharged. His consultation here was rescheduled and he was seen on 12/30/19. Initial biopsy was read as possible lymphoma and sent to the [facility] for additional consultation. Report became available actually on 12/30/19. 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 Cells were plasmacytoid with subset of CD138 positive cells. However, no immunoglobulin light chain or heavy chain expression was identified. 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 As CD5, CD10 and cyclin D1 were negative, CLL/SLL, follicular, as well as mantle cell lymphoma were felt to be unlikely. the patient denied any prior history of malignancy. He does have an extensive cardiac history including CAD, hypertension, cardiomyopathy, ventricular arrhythmias, CHF and AICD. Also has a history of ischemic stroke. On 12/30/19 - the patient was being seen for a new diagnosis of non-Hodgkin's lymphoma. Pathology was read as a low-grade B-cell lymphoma, but presentation is actually quite aggressive. Therefore, there is a possibility of this being a n underlying low-grade lymphoma with transformation. The patient has had rapid progression of symptoms since early 11/27. - The pathology and implications were discussed in detail with him, especially given his current clinical condition. The patient has had persistent failure to thrive, with multiple complaints including lethargy, intermittent confusion, decreased appetite, progressive edema, as well as progressive weakness. They were advised that his condition is very treatable, but his current performance status is extremely poor and would place him at very high risk of adverse events with treatment at this point. Given his current condition, there is also concern for other conditions such as hypercalcemia, progressive renal insufficiency, dehydration, etc. The patient will therefore need to be evaluated and potentially treated for any acutely reversible problems. Given multiple ongoing issues. Currently, he was then advised to go to the emergency room. Case was discussed in detail with the emergency room physician. On admission his Uric Acid was greater than 19, rasburicase was ordered. He was revealing acute kidney injury, elevated liver function, and pancytopenia. Review of Systems A 14 point review of systems assessed and completed and all negative except HPI Past Medical History Past Medical History: Heart Failure, Hyperlipidemia, Hypertension, Memory Impairment Additional Past Medical History / Comment(s): weakness, 25 lb. weight loss recently, "just not feeling well" per spouse, enlarged lymph nodes per spouse History of Any Multi-Drug Resistant Organisms: None Reported Past Surgical History: AICD, Heart Catheterization, Pacemaker, Tonsillectomy Additional Past Surgical History / Comment(s): defibulator Past Anesthesia/Blood Transfusion Reactions: No Reported Reaction Type of Cardiac Device: AICD Device Placement Date:: 2012 Past Psychological History: No Psychological Hx Reported Smoking Status: Never smoker Past Alcohol Use History: None Reported Past Drug Use History: None Reported - Past Family History Mother Family Medical History: Cancer Father Family Medical History: Diabetes Mellitus Sister(s) Family Medical History: Cancer Medications and Allergies Home Medications Medication Instructions Recorded Confirmed Type Albuterol Nebulized [Ventolin 2.5 mg INHALATION RT-TID PRN 09/03/17 12/30/19 History Nebulized] Atorvastatin [Lipitor] 20 mg PO HS #30 tab 09/21/17 12/30/19 Rx Docusate [Colace] 100 mg PO DAILY 12/07/19 12/30/19 History Metoprolol Succinate (ER) [Toprol 25 mg PO DAILY 12/07/19 12/30/19 History XL] Apixaban [Eliquis] 5 mg PO BID #60 tab 12/14/19 12/30/19 Rx Digoxin [Lanoxin] 125 mcg PO DAILY #30 tab 12/14/19 12/30/19 Rx Furosemide [Lasix] 20 mg PO BID@0900,1600 #60 tab 12/14/19 12/30/19 Rx Midodrine [ProAmatine] 5 mg PO AC-TID #90 tab 12/14/19 12/30/19 Rx Amiodarone [Cordarone] 100 mg PO DAILY 12/30/19 12/30/19 History Clotrimazole Glenys [Mycelex 10 mg MUCOUS MEM 5XD 12/30/19 12/30/19 History Glenys] dronabinoL [Marinol] 5 mg PO BID 12/30/19 12/30/19 History Allergies Allergy/AdvReac Type Severity Reaction Status Date / Time Penicillins Allergy Anaphylaxis Verified 12/30/19 17:04 venom-honey bee Allergy Anaphylaxis Verified 12/30/19 17:04 [bee venom (honey bee)] Physical Exam Vitals: Vital Signs Temp Pulse Pulse Resp BP Pulse Ox 01/01/20 14:00 97 24 93 L 01/01/20 13:30 78 20 94 L 01/01/20 13:00 86 22 92 L 01/01/20 12:30 108 H 21 93 L 01/01/20 12:00 97.5 F L 96 21 93 L 01/01/20 11:30 81 22 94 L 01/01/20 11:17 108 H 01/01/20 11:07 105 H 01/01/20 11:00 110 H 24 93 L 01/01/20 10:30 103 H 27 H 89 L 01/01/20 10:00 95 22 76/59 92 L 01/01/20 09:30 92 25 H 76/59 92 L 01/01/20 09:00 123 H 24 76/59 93 L 01/01/20 08:41 105 H 01/01/20 08:33 99 94 L 01/01/20 08:30 112 H 21 76/59 95 01/01/20 08:00 97.5 F L 101 H 16 76/59 93 L 01/01/20 07:30 100 22 76/59 93 L 01/01/20 07:00 98 17 93 L 01/01/20 06:30 104 H 21 93 L 01/01/20 06:00 87 16 76/59 93 L 01/01/20 05:30 87 20 93 L 01/01/20 05:00 104 H 14 94 L 01/01/20 04:30 96 19 93 L 01/01/20 04:00 97.7 F 90 20 93 L 01/01/20 03:30 105 H 14 93 L 01/01/20 03:24 95 01/01/20 03:00 88 25 H 76/59 93 L 01/01/20 02:30 84 17 93 L 01/01/20 02:00 97 15 93 L 01/01/20 01:30 96 19 93 L 01/01/20 01:00 95 14 94 L 01/01/20 00:30 85 14 94 L 01/01/20 00:15 85 14 93 L 01/01/20 00:00 97.2 F L 75 15 94 L 12/31/19 23:35 94 L 12/31/19 23:30 73 16 94 L 12/31/19 23:00 76 14 94 L 12/31/19 22:30 90 14 94 L 12/31/19 22:00 89 14 94 L 12/31/19 21:30 105 H 14 94 L 12/31/19 21:00 101 H 21 93 L 12/31/19 20:30 90 15 85/64 94 L 12/31/19 20:00 97.6 F 99 18 104/65 95 12/31/19 19:30 87 15 89/63 93 L 12/31/19 19:00 96 15 76/62 93 L 12/31/19 18:30 92 17 90/67 92 L 12/31/19 18:00 71 17 101/65 91 L 12/31/19 17:30 80 26 H 104/64 12/31/19 17:00 78 30 H 94/51 92 L 12/31/19 16:30 87 26 H 94/53 12/31/19 16:00 97.5 F L 92 82 23 89/70 93 L 12/31/19 15:30 126 H 97/68 94 L 12/31/19 15:00 91 24 100/54 91 L Intake and Output 12/31/19 01/01/20 01/01/20 22:59 06:59 14:59 Intake Total 1097.658 922.101 620.694 Output Total 109 155 70 Balance 988.658 767.101 550.694 Intake: IV 364 794 222 A line flush 9 24 12 Dextrose 5% in Water 1, 225 600 200 000 ml @ 25 mls/hr IV . Q24H [facility] with Sodium Bicarb (1 Meq/ml) 150 ml Rx#:[id number] Furosemide 100 mg In 30 70 10 Sodium Chloride 0.9% 90 ml @ 10 MG/HR 10 mls/hr IV .Q10H [facility] Rx#: [id number] metroNIDAZOLE-NS PMX 500 100 100 mg In Saline 1 100ml.bag @ 100 mls/hr IVPB Q8H [facility] Rx#:[id number] Intake, IV Titration 733.658 128.101 308.694 Amount DOBUTamine DRIP 500 mg In 89.843 Dextrose/Water 1 250ml. bag @ 2.5 MCG/KG/MIN 5. 963 mls/hr IV .Q24H [facility] Rx#:[id number] Dextrose 5% in Water 1, 225 000 ml @ 25 mls/hr IV . Q24H [facility] with Sodium Bicarb (1 Meq/ml) 150 ml Rx#:[id number] Furosemide 100 mg In 56.833 98 100.000 Sodium Chloride 0.9% 90 ml @ 10 MG/HR 10 mls/hr IV .Q10H [facility] Rx#: [id number] Norepinephrine 4 mg In 101.825 Sodium Chloride 0.9% 250 ml @ 0.05 MCG/KG/MIN 15. 145 mls/hr IV .[id number] [facility] Rx#:[id number] Norepinephrine 8 mg In 30.101 118.851 Sodium Chloride 0.9% 250 ml @ 0.05 MCG/KG/MIN 7. 692 mls/hr IV .Q24H [facility] Rx#:[id number] Vancomycin 1,500 mg In 250 Sodium Chloride 0.9% 250 ml @ 125 mls/hr IVPB ONCE ONE Rx#:[id number] metroNIDAZOLE-NS PMX 500 100 mg In Saline 1 100ml.bag @ 100 mls/hr IVPB Q8H [facility] Rx#:[id number] Oral 90 Output: Urine 109 155 70 Other: Voiding Method Indwelling Catheter Indwelling Catheter Indwelling Catheter Weight 89.2 kg ABP, PAP, CO, CI - Last 8 Hours Arterial Blood Pressure 107/47 Arterial Blood Pressure 98/41 Arterial Blood Pressure 103/41 Arterial Blood Pressure 95/42 Arterial Blood Pressure 102/43 Arterial Blood Pressure 97/46 Arterial Blood Pressure 100/47 Arterial Blood Pressure 79/42 Arterial Blood Pressure 89/41 Arterial Blood Pressure 102/52 Arterial Blood Pressure 139/61 Arterial Blood Pressure 96/56 Arterial Blood Pressure 101/48 Arterial Blood Pressure 91/45 - Constitutional General appearance: cooperative, mild distress - EENT Eyes: dentition normal, scleral icterus ENT: hard of hearing, NA/AT - Neck Neck: lymphadenopathy - Respiratory Respiratory: bilateral: diminished - Cardiovascular Rhythm: irregularly irregular leg Peripheral Edema: bilateral: Trace - Gastrointestinal General gastrointestinal: hepatomegaly, soft, splenomegaly, tenderness - Integumentary Integumentary: pale - Neurologic non-focal, appears ill - Musculoskeletal Musculoskeletal: generalized weakness - Psychiatric Psychiatric: intact judgment & insight Results CBC & Chem 7: 01/01/20 08:11 01/01/20 08:11 Labs: Abnormal Lab Results - Last 24 Hours (Table) 12/31/19 12/31/19 12/31/19 Range/Units 14:36 14:36 14:36 RBC 3.78 L (4.30-5.90) m/uL Hgb 11.7 L (13.0-17.5) gm/dL Hct 35.7 L (39.0-53.0) % RDW 17.1 H (11.5-15.5) % Plt Count 122 L (150-450) k/uL Lymphocytes # (Manual) (1.0-4.8) k/uL PT (9.0-12.0) sec INR (<1.2) ABG pH (7.35-7.45) ABG pCO2 (35-45) mmHg ABG pO2 (83-108) mmHg ABG HCO3 (21-25) mmol/L ABG Total CO2 (19-24) mmol/L ABG O2 Saturation (94-97) % ABG Lactic Acid (0.5-1.6) mmol/L Sodium 132 L (137-145) mmol/L Chloride 96 L (98-107) mmol/L Carbon Dioxide 10 L (22-30) mmol/L BUN 58 H (9-20) mg/dL Creatinine 3.35 H (0.66-1.25) mg/dL Glucose (74-99) mg/dL Plasma Lactic Acid Reji (0.7-2.0) mmol/L Calcium 8.1 L (8.4-10.2) mg/dL Total Bilirubin 1.6 H (0.2-1.3) mg/dL AST 74 H (17-59) U/L ALT (4-49) U/L Troponin I 0.050 H* (0.000-0.034) ng/mL Total Protein 4.3 L (6.3-8.2) g/dL Albumin 2.5 L (3.5-5.0) g/dL Urine Protein (Negative) Urine Ketones (Negative) Urine Blood (Negative) Urine RBC (0-5) /hpf Amorphous Sediment (None) /hpf Urine Bacteria (None) /hpf Hyaline Casts (0-2) /lpf Urine Mucus (None) /hpf 12/31/19 12/31/19 12/31/19 Range/Units 14:36 15:12 16:14 RBC (4.30-5.90) m/uL Hgb (13.0-17.5) gm/dL Hct (39.0-53.0) % RDW (11.5-15.5) % Plt Count (150-450) k/uL Lymphocytes # (Manual) (1.0-4.8) k/uL PT (9.0-12.0) sec INR (<1.2) ABG pH 7.21 L (7.35-7.45) ABG pCO2 21 L (35-45) mmHg ABG pO2 71 L (83-108) mmHg ABG HCO3 9 L* (21-25) mmol/L ABG Total CO2 9 L (19-24) mmol/L ABG O2 Saturation 90.4 L (94-97) % ABG Lactic Acid 15.8 H* (0.5-1.6) mmol/L Sodium (137-145) mmol/L Chloride (98-107) mmol/L Carbon Dioxide (22-30) mmol/L BUN (9-20) mg/dL Creatinine (0.66-1.25) mg/dL Glucose (74-99) mg/dL Plasma Lactic Acid Reji (0.7-2.0) mmol/L Calcium (8.4-10.2) mg/dL Total Bilirubin (0.2-1.3) mg/dL AST (17-59) U/L ALT (4-49) U/L Troponin I (0.000-0.034) ng/mL Total Protein (6.3-8.2) g/dL Albumin (3.5-5.0) g/dL Urine Protein 1+ H (Negative) Urine Ketones Trace H (Negative) Urine Blood Large H (Negative) Urine RBC >182 H (0-5) /hpf Amorphous Sediment Rare H (None) /hpf Urine Bacteria Rare H (None) /hpf Hyaline Casts 16 H (0-2) /lpf Urine Mucus Rare H (None) /hpf 12/31/19 12/31/19 12/31/19 Range/Units 17:30 20:45 23:50 RBC (4.30-5.90) m/uL Hgb (13.0-17.5) gm/dL Hct (39.0-53.0) % RDW (11.5-15.5) % Plt Count (150-450) k/uL Lymphocytes # (Manual) (1.0-4.8) k/uL PT (9.0-12.0) sec INR (<1.2) ABG pH (7.35-7.45) ABG pCO2 (35-45) mmHg ABG pO2 (83-108) mmHg ABG HCO3 (21-25) mmol/L ABG Total CO2 (19-24) mmol/L ABG O2 Saturation (94-97) % ABG Lactic Acid (0.5-1.6) mmol/L Sodium (137-145) mmol/L Chloride (98-107) mmol/L Carbon Dioxide (22-30) mmol/L BUN (9-20) mg/dL Creatinine (0.66-1.25) mg/dL Glucose (74-99) mg/dL Plasma Lactic Acid Reji 13.4 H* 11.2 H* 9.9 H* (0.7-2.0) mmol/L Calcium (8.4-10.2) mg/dL Total Bilirubin (0.2-1.3) mg/dL AST (17-59) U/L ALT (4-49) U/L Troponin I (0.000-0.034) ng/mL Total Protein (6.3-8.2) g/dL Albumin (3.5-5.0) g/dL Urine Protein (Negative) Urine Ketones (Negative) Urine Blood (Negative) Urine RBC (0-5) /hpf Amorphous Sediment (None) /hpf Urine Bacteria (None) /hpf Hyaline Casts (0-2) /lpf Urine Mucus (None) /hpf 01/01/20 01/01/20 01/01/20 Range/Units 03:50 08:11 08:11 RBC 3.84 L (4.30-5.90) m/uL Hgb 11.9 L (13.0-17.5) gm/dL Hct 35.1 L (39.0-53.0) % RDW 17.3 H (11.5-15.5) % Plt Count 83 L (150-450) k/uL Lymphocytes # (Manual) 0.71 L (1.0-4.8) k/uL PT (9.0-12.0) sec INR (<1.2) ABG pH (7.35-7.45) ABG pCO2 (35-45) mmHg ABG pO2 (83-108) mmHg ABG HCO3 (21-25) mmol/L ABG Total CO2 (19-24) mmol/L ABG O2 Saturation (94-97) % ABG Lactic Acid (0.5-1.6) mmol/L Sodium (137-145) mmol/L Chloride (98-107) mmol/L Carbon Dioxide (22-30) mmol/L BUN (9-20) mg/dL Creatinine (0.66-1.25) mg/dL Glucose (74-99) mg/dL Plasma Lactic Acid Reji 9.0 H* 9.1 H* (0.7-2.0) mmol/L Calcium (8.4-10.2) mg/dL Total Bilirubin (0.2-1.3) mg/dL AST (17-59) U/L ALT (4-49) U/L Troponin I (0.000-0.034) ng/mL Total Protein (6.3-8.2) g/dL Albumin (3.5-5.0) g/dL Urine Protein (Negative) Urine Ketones (Negative) Urine Blood (Negative) Urine RBC (0-5) /hpf Amorphous Sediment (None) /hpf Urine Bacteria (None) /hpf Hyaline Casts (0-2) /lpf Urine Mucus (None) /hpf 01/01/20 01/01/20 01/01/20 Range/Units 08:11 08:11 08:57 RBC (4.30-5.90) m/uL Hgb (13.0-17.5) gm/dL Hct (39.0-53.0) % RDW (11.5-15.5) % Plt Count (150-450) k/uL Lymphocytes # (Manual) (1.0-4.8) k/uL PT 19.0 H (9.0-12.0) sec INR 2.0 H (<1.2) ABG pH 7.48 H (7.35-7.45) ABG pCO2 23 L (35-45) mmHg ABG pO2 70 L (83-108) mmHg ABG HCO3 17 L (21-25) mmol/L ABG Total CO2 18 L (19-24) mmol/L ABG O2 Saturation (94-97) % ABG Lactic Acid (0.5-1.6) mmol/L Sodium 131 L (137-145) mmol/L Chloride 93 L (98-107) mmol/L Carbon Dioxide 19 L (22-30) mmol/L BUN 68 H (9-20) mg/dL Creatinine 3.25 H (0.66-1.25) mg/dL Glucose 145 H (74-99) mg/dL Plasma Lactic Acid Reji (0.7-2.0) mmol/L Calcium 7.4 L (8.4-10.2) mg/dL Total Bilirubin 2.0 H (0.2-1.3) mg/dL AST 345 H (17-59) U/L ALT 144 H (4-49) U/L Troponin I (0.000-0.034) ng/mL Total Protein 3.8 L (6.3-8.2) g/dL Albumin 2.2 L (3.5-5.0) g/dL Urine Protein (Negative) Urine Ketones (Negative) Urine Blood (Negative) Urine RBC (0-5) /hpf Amorphous Sediment (None) /hpf Urine Bacteria (None) /hpf Hyaline Casts (0-2) /lpf Urine Mucus (None) /hpf 12/31/ Range/Units 13:55 RBC (4.30-5.90) m/uL Hgb (13.0-17.5) gm/dL Hct (39.0-53.0) % RDW (11.5-15.5) % Plt Count (150-450) k/uL Lymphocytes # (Manual) (1.0-4.8) k/uL PT (9.0-12.0) sec INR (<1.2) ABG pH 7.48 H (7.35-7.45) ABG pCO2 21 L (35-45) mmHg ABG pO2 74 L (83-108) mmHg ABG HCO3 16 L (21-25) mmol/L ABG Total CO2 16 L (19-24) mmol/L ABG O2 Saturation (94-97) % ABG Lactic Acid (0.5-1.6) mmol/L Sodium (137-145) mmol/L Chloride (98-107) mmol/L Carbon Dioxide (22-30) mmol/L BUN (9-20) mg/dL Creatinine (0.66-1.25) mg/dL Glucose (74-99) mg/dL Plasma Lactic Acid Reji (0.7-2.0) mmol/L Calcium (8.4-10.2) mg/dL Total Bilirubin (0.2-1.3) mg/dL AST (17-59) U/L ALT (4-49) U/L Troponin I (0.000-0.034) ng/mL Total Protein (6.3-8.2) g/dL Albumin (3.5-5.0) g/dL Urine Protein (Negative) Urine Ketones (Negative) Urine Blood (Negative) Urine RBC (0-5) /hpf Amorphous Sediment (None) /hpf Urine Bacteria (None) /hpf Hyaline Casts (0-2) /lpf Urine Mucus (None) /hpf Microbiology - Last 24 Hours (Table) 12/31/19 12:21 Blood Culture - Final Blood 12/31/19 16:14 Urine Culture - Preliminary Urine,Catheterized Assessment and Plan (1) Acute kidney injury Current Visit: Yes Status: Acute Code(s): N17.9 - ACUTE KIDNEY FAILURE, UNSPECIFIED SNOMED Code(s): 70030484 (2) Lymphoma Current Visit: Yes Status: Acute Code(s): C85.90 - NON-HODGKIN LYMPHOMA, UNSPECIFIED, UNSPECIFIED SITE SNOMED Code(s): 310593577 Plan: Assessment and Recommendations: Low Grade B - Cell Lymphoma Although behaving much more aggressively therefore considered high grade versus converted. - Check Uric acid, phos and LDH tumor lysis labs - Start Dexamethasone High dose 40mg po daily with PPI
[2020-01-01] MEDS: dexAMETHasone 4 MG TAB PO SCH (15:57)
[2020-01-01] MEDS: PANTOPRAZOLE 40 MG TABLET PO SCH (15:58)
--- NOTE | 2020-01-01 16:45 | PN ---
PROGRESS NOTE Patient is seen for followup for acute kidney injury. He was transferred to the ICU yesterday and started on Lasix drip along with dobutamine. Patient initially had urine output; however, subsequently his urine output has dropped to about 10 mL an hour. Code status is currently NO CODE, NO INTUBATION. The patient is maintained on empiric antibiotics. He is also on midodrine. PHYSICAL EXAMINATION: Today patient is awake, he is not in acute distress, complaining of shortness of breath. Blood pressure was 95/42, heart rate of 96 per minute, patient is afebrile. Examination of the heart S1, S2. Examination of the lungs, bilateral breath sounds are heard. Abdomen is soft. Examination of the lower extremities shows edema 2+ bilaterally. POLITICAL DIRECTOR exam shows patient is moving all 4 extremities. LABS: Show hemoglobin 11.9, white cell count 5.9, sodium 131, potassium 4.1, chloride 93, CO2 is 19, BUN 68, serum creatinine 3.25. Lactic acid is 9.1. ASSESSMENT: 1. Acute kidney injury, cardiorenal and associated with significant hypotension and hypoperfusion, currently nonoliguric. 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 2. CHF, acute on top of chronic, mainly systolic. 3. Lactic acidosis secondary to hypoperfusion and also possibly related to the underlying lymphoma. 4. Acute respiratory failure secondary to volume overload on CHF. 5. Hypotension, mostly associated with poor cardiac output. 6. Hyponatremia which was hypervolemic, currently improved. 7. Metabolic acidosis and anion gap associated with lactic acidosis as well as renal failure maintained on bicarb drip. PLAN: Increase Lasix drip to 20 mg an hour. Ideally, patient would have been dialyzed for persistent CHF volume overload. However, in view of patient's overall general condition and poor cardiac status, he is not a candidate for dialysis. I will continue with the dobutamine drip as well. Overall prognosis is guarded. MMODL / IJN: [id number] /
--- NOTE | 2020-01-01 19:10 | P.PN ---
Subjective Progress Note Date: 01/01/20 Principal diagnosis: new dx lymphoma He is now under the care of ICU, BP still low. Dr. Harris did discuss with ICU team and pulmonary feels he is improving but still requiring higher level of care. He is on high flow oxygen, and hypotensive. at bedside. Dexamethasone 40mg reece ly given. PPI ordered. Objective - Vital Signs Vital signs: Vital Signs Temp 97.5 F L 01/01/20 12:00 Pulse 89 01/01/20 19:00 Resp 22 01/01/20 18:34 BP 76/59 01/01/20 10:00 Pulse Ox 94 L 01/01/20 19:00 Intake & Output 01/01/20 01/01/20 01/02/20 06:59 18:59 06:59 Intake Total 1250.713 7041.119 Output Total 234 260 Balance 1146.393 953.119 Weight 89.2 kg Intake: IV 1158 474 A line flush 33 39 Dextrose 5% in Water 1, 825 425 000 ml @ 25 mls/hr IV . Q24H [facility] with Sodium Bicarb (1 Meq/ml) 150 ml Rx#:[id number] Furosemide 100 mg In 100 10 Sodium Chloride 0.9% 90 ml @ 20 MG/HR 20 mls/hr IV .Q5H [facility] Rx#:[id number] metroNIDAZOLE-NS PMX 500 200 mg In Saline 1 100ml.bag @ 100 mls/hr IVPB Q8H [facility] Rx#:[id number] Intake, IV Titration 222.393 409.119 Amount DOBUTamine DRIP 500 mg In 89.843 Dextrose/Water 1 250ml. bag @ 5 MCG/KG/MIN 11.925 mls/hr IV .[id number] [facility] Rx#:[id number] Furosemide 100 mg In 154.833 200.000 Sodium Chloride 0.9% 90 ml @ 20 MG/HR 20 mls/hr IV .Q5H [facility] Rx#:[id number] Norepinephrine 4 mg In 37.459 Sodium Chloride 0.9% 250 ml @ 0.05 MCG/KG/MIN 15. 145 mls/hr IV .[id number] [facility] Rx#:[id number] Norepinephrine 8 mg In 30.101 119.276 Sodium Chloride 0.9% 250 ml @ 0.05 MCG/KG/MIN 7. 692 mls/hr IV .Q24H [facility] Rx#:[id number] Oral 330 Output: Urine 234 260 Other: Voiding Method Indwelling Catheter Indwelling Catheter ABP, PAP, CO, CI - Last Documented Arterial Blood Pressure 123/49 - Exam Constitutional General appearance: cooperative, mild distress, Acutely ill - EENT Eyes: dentition normal, scleral icterus ENT: hard of hearing, NA/AT - Neck Neck: lymphadenopathy - Respiratory Respiratory: bilateral: diminished, increased rate and high flow oxygen - Cardiovascular Rhythm: irregularly irregular leg Peripheral Edema: bilateral: Trace to 2+ bilateral - Gastrointestinal General gastrointestinal: hepatomegaly, soft, splenomegaly, tenderness - Integumentary Integumentary: pale - Neurologic non-focal, appears ill - Musculoskeletal Musculoskeletal: generalized weakness - Psychiatric Psychiatric: intact judgment & insight - Labs CBC & Chem 7: 01/01/20 08:11 01/01/20 08:11 Labs: Abnormal Lab Results - Last 24 Hours (Table) 12/31/19 12/31/19 01/01/20 Range/Units 20:45 23:50 03:50 RBC (4.30-5.90) m/uL Hgb (13.0-17.5) gm/dL Hct (39.0-53.0) % RDW (11.5-15.5) % Plt Count (150-450) k/uL Lymphocytes # (Manual) (1.0-4.8) k/uL PT (9.0-12.0) sec INR (<1.2) ABG pH (7.35-7.45) ABG pCO2 (35-45) mmHg ABG pO2 (83-108) mmHg ABG HCO3 (21-25) mmol/L ABG Total CO2 (19-24) mmol/L Sodium (137-145) mmol/L Chloride (98-107) mmol/L Carbon Dioxide (22-30) mmol/L BUN (9-20) mg/dL Creatinine (0.66-1.25) mg/dL Glucose (74-99) mg/dL Plasma Lactic Acid Reji 11.2 H* 9.9 H* 9.0 H* (0.7-2.0) mmol/L Calcium (8.4-10.2) mg/dL Total Bilirubin (0.2-1.3) mg/dL AST (17-59) U/L ALT (4-49) U/L Total Protein (6.3-8.2) g/dL Albumin (3.5-5.0) g/dL 01/01/20 01/01/20 01/01/20 Range/Units 08:11 08:11 08:11 RBC 3.84 L (4.30-5.90) m/uL Hgb 11.9 L (13.0-17.5) gm/dL Hct 35.1 L (39.0-53.0) % RDW 17.3 H (11.5-15.5) % Plt Count 83 L (150-450) k/uL Lymphocytes # (Manual) 0.71 L (1.0-4.8) k/uL PT (9.0-12.0) sec INR (<1.2) ABG pH (7.35-7.45) ABG pCO2 (35-45) mmHg ABG pO2 (83-108) mmHg ABG HCO3 (21-25) mmol/L ABG Total CO2 (19-24) mmol/L Sodium 131 L (137-145) mmol/L Chloride 93 L (98-107) mmol/L Carbon Dioxide 19 L (22-30) mmol/L BUN 68 H (9-20) mg/dL Creatinine 3.25 H (0.66-1.25) mg/dL Glucose 145 H (74-99) mg/dL Plasma Lactic Acid Reji 9.1 H* (0.7-2.0) mmol/L Calcium 7.4 L (8.4-10.2) mg/dL Total Bilirubin 2.0 H (0.2-1.3) mg/dL AST 345 H (17-59) U/L ALT 144 H (4-49) U/L Total Protein 3.8 L (6.3-8.2) g/dL Albumin 2.2 L (3.5-5.0) g/dL 01/01/20 01/01/20 01/01/20 Range/Units 08:11 08:57 13:55 RBC (4.30-5.90) m/uL Hgb (13.0-17.5) gm/dL Hct (39.0-53.0) % RDW (11.5-15.5) % Plt Count (150-450) k/uL Lymphocytes # (Manual) (1.0-4.8) k/uL PT 19.0 H (9.0-12.0) sec INR 2.0 H (<1.2) ABG pH 7.48 H 7.48 H (7.35-7.45) ABG pCO2 23 L 21 L (35-45) mmHg ABG pO2 70 L 74 L (83-108) mmHg ABG HCO3 17 L 16 L (21-25) mmol/L ABG Total CO2 18 L 16 L (19-24) mmol/L Sodium (137-145) mmol/L Chloride (98-107) mmol/L Carbon Dioxide (22-30) mmol/L BUN (9-20) mg/dL Creatinine (0.66-1.25) mg/dL Glucose (74-99) mg/dL Plasma Lactic Acid Reji (0.7-2.0) mmol/L Calcium (8.4-10.2) mg/dL Total Bilirubin (0.2-1.3) mg/dL AST (17-59) U/L ALT (4-49) U/L Total Protein (6.3-8.2) g/dL Albumin (3.5-5.0) g/dL Microbiology - Last 24 Hours (Table) 12/31/19 16:14 Urine Culture - Final Urine,Catheterized 12/31/19 12:15 Blood Culture - Preliminary Blood No Growth after 24 hours 12/31/19 12:21 Blood Culture - Final Blood Assessment and Plan (1) Acute kidney injury Current Visit: Yes Status: Acute Code(s): N17.9 - ACUTE KIDNEY FAILURE, UNSPECIFIED SNOMED Code(s): 53792711 (2) Lymphoma Current Visit: Yes Status: Acute Code(s): C85.90 - NON-HODGKIN LYMPHOMA, UNSPECIFIED, UNSPECIFIED SITE SNOMED Code(s): 894346227 Plan: Assessment and Recommendations: Low Grade B - Cell Lymphoma Although behaving much more aggressively therefore considered high grade versus converted. - Check Uric acid, phos and LDH tumor lysis labs - Start Dexamethasone High dose 40mg po daily with PPI Acute Hypoxic Respiratory Failure: - In the care of ICU - HIgh FLow oxygen and supportive care. - Patient's and Patient have decided against intubation Acute Renal Failure: - Likely secondary to TUmor lysis lymphoma, decreased PO intake and dehydration - Nephrology following - Decreased urinary output Plan: - COntinue supportive care and high dose steroids in hopes to stabilize therefore patient can be treated for his lymphoma. Physician Attest: I have completed the full history and physical and agree with above dictation, dictated as a scribe
[2020-01-01] MEDS: DOBUTamine DRIP 500 MG in DEXTROSE/WATER 1 250ML.BAG IV SCH (20:10)
[2020-01-01] MEDS: ATORVASTATIN 20 MG TAB PO SCH (21:14)
--- NOTE | 2020-01-01 21:17 | P.PN ---
Subjective Patient is sitting up in bed, struggling to breathe Acute respiratory distress He denies any chest discomfort Is a history of nonischemic current myopathy Nonobstructive CAD Atrial fibrillation Nonsustained ventricular tachycardia On amiodarone Currently his B-cell lymphoma He also has significant bilateral lower extremity edema Borderline troponins He was transferred to the ICU because he was quite hypotensive on the observation unit He is being treated with IV Lasix and is on dobutamine and Levophed He is DO NOT INTUBATE From a cardiac standpoint I would continue his current medications provide pharmacologic support as indicated I did speak to him about turning off the ICD He has had inappropriate ICD shocks in the past for A. fib with RVR I asked the nurse to place a magnet on the ICD if this were to happen Blood pressure on pressors his 103/46. His mercury respirations 25, using the accessory muscles Pulse rate in the 80s and 90s Afebrile Impression Patient with lymphoma Known underlying cardio myopathy with acute and chronic congestive heart failure Persistent atrial fibrillation Hypotensive on pressors Chronic kidney disease with acute kidney injury Objective - Vital Signs Vital signs: Vital Signs Temp 97.7 F 01/01/20 20:30 Pulse 98 01/01/20 21:00 Resp 23 01/01/20 21:00 BP 76/59 01/01/20 10:00 Pulse Ox 95 01/01/20 21:00 Intake & Output 01/01/20 01/01/20 01/02/20 06:59 18:59 06:59 Intake Total 9743.285 6087.119 516.443 Output Total 234 260 60 Balance 1146.393 953.119 456.443 Weight 89.2 kg Intake: IV 1158 474 156 A line flush 33 39 6 Dextrose 5% in Water 1, 825 425 50 000 ml @ 25 mls/hr IV . Q24H [facility] with Sodium Bicarb (1 Meq/ml) 150 ml Rx#:[id number] Furosemide 100 mg In 100 10 Sodium Chloride 0.9% 90 ml @ 20 MG/HR 20 mls/hr IV .Q5H [facility] Rx#:[id number] metroNIDAZOLE-NS PMX 500 200 100 mg In Saline 1 100ml.bag @ 100 mls/hr IVPB Q8H [facility] Rx#:[id number] Intake, IV Titration 222.393 409.119 120.443 Amount DOBUTamine DRIP 500 mg In 89.843 120.443 Dextrose/Water 1 250ml. bag @ 5 MCG/KG/MIN 11.925 mls/hr IV .[id number] [facility] Rx#:[id number] Furosemide 100 mg In 154.833 200.000 Sodium Chloride 0.9% 90 ml @ 20 MG/HR 20 mls/hr IV .Q5H [facility] Rx#:[id number] Norepinephrine 4 mg In 37.459 Sodium Chloride 0.9% 250 ml @ 0.05 MCG/KG/MIN 15. 145 mls/hr IV .[id number] [facility] Rx#:[id number] Norepinephrine 8 mg In 30.101 119.276 Sodium Chloride 0.9% 250 ml @ 0.05 MCG/KG/MIN 7. 692 mls/hr IV .Q24H [facility] Rx#:[id number] Oral 330 240 Output: Urine 234 260 60 Other: Voiding Method Indwelling Catheter Indwelling Catheter ABP, PAP, CO, CI - Last Documented Arterial Blood Pressure 119/53 - Labs CBC & Chem 7: 01/01/20 08:11 01/01/20 08:11 Labs: Abnormal Lab Results - Last 24 Hours (Table) 12/31/19 12/31/19 01/01/20 Range/Units 20:45 23:50 03:50 RBC (4.30-5.90) m/uL Hgb (13.0-17.5) gm/dL Hct (39.0-53.0) % RDW (11.5-15.5) % Plt Count (150-450) k/uL Lymphocytes # (Manual) (1.0-4.8) k/uL PT (9.0-12.0) sec INR (<1.2) ABG pH (7.35-7.45) ABG pCO2 (35-45) mmHg ABG pO2 (83-108) mmHg ABG HCO3 (21-25) mmol/L ABG Total CO2 (19-24) mmol/L Sodium (137-145) mmol/L Chloride (98-107) mmol/L Carbon Dioxide (22-30) mmol/L BUN (9-20) mg/dL Creatinine (0.66-1.25) mg/dL Glucose (74-99) mg/dL Plasma Lactic Acid Reji 11.2 H* 9.9 H* 9.0 H* (0.7-2.0) mmol/L Calcium (8.4-10.2) mg/dL Total Bilirubin (0.2-1.3) mg/dL AST (17-59) U/L ALT (4-49) U/L Total Protein (6.3-8.2) g/dL Albumin (3.5-5.0) g/dL 01/01/20 01/01/20 01/01/20 Range/Units 08:11 08:11 08:11 RBC 3.84 L (4.30-5.90) m/uL Hgb 11.9 L (13.0-17.5) gm/dL Hct 35.1 L (39.0-53.0) % RDW 17.3 H (11.5-15.5) % Plt Count 83 L (150-450) k/uL Lymphocytes # (Manual) 0.71 L (1.0-4.8) k/uL PT (9.0-12.0) sec INR (<1.2) ABG pH (7.35-7.45) ABG pCO2 (35-45) mmHg ABG pO2 (83-108) mmHg ABG HCO3 (21-25) mmol/L ABG Total CO2 (19-24) mmol/L Sodium 131 L (137-145) mmol/L Chloride 93 L (98-107) mmol/L Carbon Dioxide 19 L (22-30) mmol/L BUN 68 H (9-20) mg/dL Creatinine 3.25 H (0.66-1.25) mg/dL Glucose 145 H (74-99) mg/dL Plasma Lactic Acid Reji 9.1 H* (0.7-2.0) mmol/L Calcium 7.4 L (8.4-10.2) mg/dL Total Bilirubin 2.0 H (0.2-1.3) mg/dL AST 345 H (17-59) U/L ALT 144 H (4-49) U/L Total Protein 3.8 L (6.3-8.2) g/dL Albumin 2.2 L (3.5-5.0) g/dL 01/01/20 01/01/20 01/01/20 Range/Units 08:11 08:57 13:55 RBC (4.30-5.90) m/uL Hgb (13.0-17.5) gm/dL Hct (39.0-53.0) % RDW (11.5-15.5) % Plt Count (150-450) k/uL Lymphocytes # (Manual) (1.0-4.8) k/uL PT 19.0 H (9.0-12.0) sec INR 2.0 H (<1.2) ABG pH 7.48 H 7.48 H (7.35-7.45) ABG pCO2 23 L 21 L (35-45) mmHg ABG pO2 70 L 74 L (83-108) mmHg ABG HCO3 17 L 16 L (21-25) mmol/L ABG Total CO2 18 L 16 L (19-24) mmol/L Sodium (137-145) mmol/L Chloride (98-107) mmol/L Carbon Dioxide (22-30) mmol/L BUN (9-20) mg/dL Creatinine (0.66-1.25) mg/dL Glucose (74-99) mg/dL Plasma Lactic Acid Reji (0.7-2.0) mmol/L Calcium (8.4-10.2) mg/dL Total Bilirubin (0.2-1.3) mg/dL AST (17-59) U/L ALT (4-49) U/L Total Protein (6.3-8.2) g/dL Albumin (3.5-5.0) g/dL Microbiology - Last 24 Hours (Table) 12/31/19 16:14 Urine Culture - Final Urine,Catheterized 12/31/19 12:15 Blood Culture - Preliminary Blood No Growth after 24 hours 12/31/19 12:21 Blood Culture - Final Blood
[2020-01-02] MEDS: FUROSEMIDE 100 MG in SODIUM CHLORIDE 0.9% 90 ML IV SCH ×5 (04:24→23:19)
[2020-01-02] MEDS: metroNIDAZOLE-NS PMX 500 MG in SALINE 1 100ML.BAG IVPB SCH ×2 (04:24→12:22)
[2020-01-02 04:46] LABS: Anisocytosis Slight; Basophils % (A) 0 %; Eosinophils % (A) 0 %; HCT 34.8 % (39.0-53.0); HGB 11.4 gm/dL (13.0-17.5); Lymphocytes # (A) 0.5 k/uL (1.0-4.8); Lymphocytes % (A) 10 %; MCH 29.6 pg (25.0-35.0); MCHC 32.6 g/dL (31.0-37.0); MCV 90.8 fL (80.0-100.0); Mean Platelet Volume 8.9; Monocytes # (A) 0.1 k/uL (0-1.0); Monocytes % (A) 3 %; Neutrophils % (A) 84 %; Poikilocytosis Slight; RBC 3.84 m/uL (4.30-5.90); RDW 17.3 % (11.5-15.5); WBC 4.8 k/uL (3.8-10.6)
[2020-01-02 04:48] LABS: Platelet Count 74 k/uL (150-450)
[2020-01-02 05:31] LABS: Calcium 7.2 mg/dL (8.4-10.2); Magnesium 1.9 mg/dL (1.6-2.3); Potassium 4.4 mmol/L (3.5-5.1)
[2020-01-02 05:36] LABS: Vancomycin,Random 8.1 ug/mL
--- NOTE | 2020-01-02 07:08 | XR ---
EXAMINATION TYPE: XR chest 1V portable DATE OF EXAM: 01/02/2020 HISTORY: sob. REFERENCE: Previous study dated 01/01/2020. FINDINGS: There is unipolar pacemaker place on the left. The heart is enlarged. There is bibasilar airspace disease. There are small effusions. The overall ap pearance is worsened slightly. IMPRESSION: WORSENING BIBASILAR AIRSPACE DISEASE.
[2020-01-02] MEDS: ALBUTEROL NEBULIZED 2.5 MG/3 ML INHALATION PRN ×3 (07:31→15:20)
[2020-01-02] MEDS: MIDODRINE 5 MG TAB PO SCH ×3 (07:40→17:46)
[2020-01-02] MEDS: PANTOPRAZOLE 40 MG TABLET PO SCH (07:40)
[2020-01-02] MEDS ORDERED: VANCOMYCIN 1,500 MG in SODIUM CHLORIDE 0.9% 250 ML IVPB ONE (08:00)
[2020-01-02] MEDS ORDERED: SODIUM BICARB 8.4% 50 ML SYR (1 MEQ/ML) IV STA (08:11)
[2020-01-02] MEDS: NOREPINEPHRINE 8 MG in SODIUM CHLORIDE 0.9% 250 ML IV SCH (09:13)
[2020-01-02] MEDS: APIXABAN 5 MG TAB PO SCH ×2 (09:15→21:43)
[2020-01-02] MEDS: DOCUSATE 100 MG CAP PO SCH (09:15)
[2020-01-02] MEDS: AMIODARONE 200 MG TAB PO SCH (09:15)
[2020-01-02] MEDS: DIGOXIN 125 MCG TAB PO SCH (09:16)
[2020-01-02] MEDS: dexAMETHasone 4 MG TAB PO SCH (09:29)
[2020-01-02 09:48] LABS: ABG Base Excess -7.8 mmol/L; ABG HCO3 17 mmol/L (21-25); ABG Oxygen Saturation 96.3 % (94-97); ABG PCO2 25 mmHg (35-45); ABG PH 7.43 (7.35-7.45); ABG PO2 86 mmHg (83-108); ABG TCO2 17 mmol/L (19-24)
[2020-01-02 09:49] LABS: Allen Test Performed? no
[2020-01-02] MEDS ORDERED: DEXTROSE 5% IN WATER 1,000 ML IV ONE (10:47)
--- NOTE | 2020-01-02 11:00 | P.PN ---
Subjective Progress Note Date: 01/02/20 Principal diagnosis: Acute hypoxic respiratory failure, acute systolic congestive heart failure, hypotension, possible sepsis. 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 Patient was at Dr. Harris's office, and was noted to have significant bilateral lower leg edema, shortness of breath and weakness sent to the hospital for evaluation. Patient is very tired on presentation. He has had decreased oral intake, occasional fever, he did have some nausea and vomiting. Nursing also reports diarrhea. Chest x-ray on admission showed cardiomegaly, moderate central alveolar edema, stable small right pleural effusion, and worsening left basilar acute infiltrate and atelectasis. Admission lab work showed white blood cell count of 9.0, hemoglobin of 12.9, platelet count is 106, sodium was 128, chloride was 95, CO2 was only 12, BUN is 52, creatinine was 2.51, proBNP was 24,400, troponin was 0.034, and 0.053, today's urinalysis shows large amount of blood, trace leuk trase, white blood cells in clumps, and occasional bacteria with the possibility of urinary tract infection. Urine is quite turbid with sediment. Today patient was noted to have increased shortness of breath, using accessory muscles of breathing, he became hypotensive, requiring transfer to the intensive care unit. Follow-up chest x-ray today shows pulmonary edema, small right pleural effusion, today's labs show worsening renal function, and patient has only had 200 mL of urine output since admission. During her evaluation in the intensive care unit patient is awake, but he is quite dyspneic, tachypneic using accessory muscles of breathing, he was placed on BiPAP support, was given 80 of IV Lasix and the Lasix drip was started, he is hypotensive requiring levo fed infusion. We spoke to the patient and his about the CODE STATUS and the decided on supportive care measures, and no ventilator support, no CPR, no defibrillation. Triple-lumen central venous catheter was emergently placed in the right femoral area, and right brachial art line was placed for hemodynamic monitoring, he was placed on BiPAP support the pressures of 12 and 6 and FiO2 100%, he required a few doses of IV morphine, he found it very difficult to tolerate the BiPAP support, we did switch him to high flow oxygen with Airvo with FiO2 of 50%, and 40 L/m flow, and is currently tolerating it better, stat blood gas was obtained showing profound metabolic acidosis, and 2 doses of IV sodium bicarb was given and sodium bicarb infusion be started, blood cultures were sent, urine culture was sent, we'll send a lactic acid and empiric antibiotics were started in the form of Levaquin, Flagyl and vancomycin. Patient was reevaluated today on 01/01/20. Remains in the intensive care unit. Patient is doing fairly well. Significantly better compared to yesterday. However he is on multiple drips including a bicarb drip which I cut down to 25 mL per hour. He is on norepinephrine 0.12 mcg/kg/m and I cut it down to 0.06 mcg/kg/m he is on Lasix at 10 mg per hour. Dobutrex 2.5 mcg/kg/m and a decrease that to 5 mcg/kg/m. His ABG today showed a pO2 of 70 pCO2 of 23 pH of 7.48, and his bicarb today is 20. PH yesterday was 7.21. Patient remains on 50% FiO2 and 40 L high flow oxygen. Chest x-ray continues to show widened mediastinum and CHF findings/pulmonary edema with small bilateral effusions patient is making small amount of urine, roughly about 30 mL per hour. Renal profile showed a BUN of 68 creatinine of 3.25, slightly improved with improvement of blood pressure compared to yesterday. Lactic acid remains at 9.1. Liver enzymes are elevated including AST of 345 and ALT of 144 albumin is 2.2. Patient was reevaluated today on 01/02/20, remains on high flow oxygen 40 L/m, and 50% FiO2. Remains in the ICU, presently on bicarb drip at 75 mL per hour, Lasix 20 mg per hour, Dobutrex at 5 mcg/kg/m, and norepinephrine at 0.09 mcg/kg/m. Patient remains marginal, continues to have shortness of breath no cough no wheezing no fever no chills no hemoptysis no chest pain. Chest x-ray shows worsening congestive heart failure. CBC is relatively normal ABG today showed a pO2 of 86 pCO2 of 25 pH of 7.43. Sodium is 127 potassium 4.4 BUN is 74 creatinine is 3.03. Slight improvement in his renal profile. Clinically however the patient remains about the same, remains short of breath. And asking to be allowed to sit at the edge of the bed. Objective - Vital Signs Vital signs: Vital Signs Temp 97.5 F L 01/02/20 08:00 Pulse 109 H 01/02/20 10:00 Resp 28 H 01/02/20 10:00 BP 76/59 01/01/20 10:00 Pulse Ox 94 L 01/02/20 10:00 Intake & Output 01/01/20 01/02/20 01/02/20 18:59 06:59 18:59 Intake Total 9943.730 0442.135 440.814 Output Total 260 325 70 Balance 067.534 8034.135 370.814 Weight 91.7 kg Intake: IV 474 508 262 A line flush 39 33 12 Dextrose 5% in Water 1, 425 275 250 000 ml @ 25 mls/hr IV . Q24H [facility] with Sodium Bicarb (1 Meq/ml) 150 ml Rx#:[id number] Furosemide 100 mg In 10 Sodium Chloride 0.9% 90 ml @ 20 MG/HR 20 mls/hr IV .Q5H [facility] Rx#:[id number] metroNIDAZOLE-NS PMX 500 200 mg In Saline 1 100ml.bag @ 100 mls/hr IVPB Q8H [facility] Rx#:[id number] Intake, IV Titration 409.119 389.135 178.814 Amount DOBUTamine DRIP 500 mg In 89.843 120.443 Dextrose/Water 1 250ml. bag @ 5 MCG/KG/MIN 11.925 mls/hr IV .[id number] [facility] Rx#:[id number] Furosemide 100 mg In 200.000 188.667 96.333 Sodium Chloride 0.9% 90 ml @ 20 MG/HR 20 mls/hr IV .Q5H [facility] Rx#:[id number] Norepinephrine 8 mg In 119.276 80.025 82.481 Sodium Chloride 0.9% 250 ml @ 0.05 MCG/KG/MIN 7. 692 mls/hr IV .Q24H [facility] Rx#:[id number] Oral 330 600 Output: Urine 260 325 70 Other: Voiding Method Indwelling Catheter Indwelling Catheter Indwelling Catheter ABP, PAP, CO, CI - Last Documented Arterial Blood Pressure 112/58 - Exam GENERAL EXAM: Revealed 74-year-old white male, in mild respiratory distress HEENT: PERRLA, EOMI, no icterus, bilateral cervical adenopathy palpable. CHEST: No chest wall deformity. Symmetrical expansion. LUNGS: Equal air entry fine crackles at the bases.. AICD noted in the left upper chest wall area. CVS: Irregular rate and rhythm, normal S1 and S2, no gallops, 2/6 systolic murmur thought the precordium. ABDOMEN: Soft, nontender. No hepatosplenomegaly, normal bowel sounds, no guarding or rigidity. EXTREMITIES: No clubbing, significant 3+ lower extremity edema no cyanosis, 2+ pulses and upper and lower extremities. Inguinal lymphadenopathy MUSCULOSKELETAL: Muscle strength and tone normal. SPINE: No scoliosis or deformity SKIN: No rashes CENTRAL NERVOUS SYSTEM: Alert and oriented -3. No focal deficits, tone is normal in all 4 extremities. PSYCHIATRIC: Alert and oriented -3. Appropriate affect. Intact judgment and insight. - Labs CBC & Chem 7: 01/02/20 04:25 01/02/20 04:25 Labs: Abnormal Lab Results - Last 24 Hours (Table) 01/01/20 01/01/20 01/02/20 Range/Units 08:11 13:55 04:25 RBC 3.84 L (4.30-5.90) m/uL Hgb 11.9 L (13.0-17.5) gm/dL Hct 35.1 L (39.0-53.0) % RDW 17.3 H (11.5-15.5) % Plt Count 83 L (150-450) k/uL Lymphocytes # (1.0-4.8) k/uL Lymphocytes # (Manual) 0.71 L (1.0-4.8) k/uL ABG pH 7.48 H (7.35-7.45) ABG pCO2 21 L (35-45) mmHg ABG pO2 74 L (83-108) mmHg ABG HCO3 16 L (21-25) mmol/L ABG Total CO2 16 L (19-24) mmol/L Sodium 127 L (137-145) mmol/L Chloride 90 L (98-107) mmol/L Carbon Dioxide 14 L (22-30) mmol/L BUN 74 H (9-20) mg/dL Creatinine 3.03 H (0.66-1.25) mg/dL Glucose 139 H (74-99) mg/dL Calcium 7.2 L (8.4-10.2) mg/dL 01/02/20 01/02/20 Range/Units 04:25 09:40 RBC 3.84 L (4.30-5.90) m/uL Hgb 11.4 L (13.0-17.5) gm/dL Hct 34.8 L (39.0-53.0) % RDW 17.3 H (11.5-15.5) % Plt Count 74 L (150-450) k/uL Lymphocytes # 0.5 L (1.0-4.8) k/uL Lymphocytes # (Manual) (1.0-4.8) k/uL ABG pH (7.35-7.45) ABG pCO2 25 L (35-45) mmHg ABG pO2 (83-108) mmHg ABG HCO3 17 L (21-25) mmol/L ABG Total CO2 17 L (19-24) mmol/L Sodium (137-145) mmol/L Chloride (98-107) mmol/L Carbon Dioxide (22-30) mmol/L BUN (9-20) mg/dL Creatinine (0.66-1.25) mg/dL Glucose (74-99) mg/dL Calcium (8.4-10.2) mg/dL Microbiology - Last 24 Hours (Table) 01/01/20 23:10 Nasal Screen MRSA/MSSA - Preliminary Nasopharyngeal Swab 12/31/19 12:21 Blood Culture Gram Stain - Preliminary Blood Blood Culture - Preliminary Gram Neg Bacilli 12/31/19 16:14 Urine Culture - Final Urine,Catheterized 12/31/19 12:15 Blood Culture - Preliminary Blood No Growth after 24 hours 12/31/19 12:21 Blood Culture - Final Blood Assessment and Plan Assessment: #1. Acute hypoxic respiratory failure related to acute exacerbation of systolic CHF, chest x-ray showing pulmonary edema and pleural effusion #2. Hypotension, multifactorial, likely related to cardiogenic shock, rule out septic shock. Patient has gram-negative bacteremia. In one of his blood cultures. Remains on vancomycin and Levaquin for now. #3. Acute kidney injury, likely cardiorenal, rule out possibility of septic shock etiology #4. Acute anion gap metabolic acidosis, related to lactic acidosis #5. Troponin leak likely related to acute hypoxic rest or a failure and acute exacerbation of CHF #6. Recent diagnosis of low-grade B-cell lymphoma #7. Hypervolemic hyponatremia, improving. #8. Hyperuricemia, related to his underlying lymphoma #9. History of paroxysmal atrial fibrillation #10. History of severe nonischemic cardiomyopathy with EF of less than 20% status post AICD placement #11. Thrombocytopenia #12. Hypertension #13. Hyperlipidemia Recommendation: Continue hemodynamic support. Continue pressors and inotropes. Continue Cordarone. Continue Lasix drip. Continue Eliquis. Continue empiric antibiotics. Adjust based on the final blood culture. Continue midodrine. Continue sodium bicarb however cut down the dose. Follow up on all cultures including urine cultures and blood cultures. One blood culture is positive for gram-negative bacilli. Patient remains critically ill, Critical care time is 33 minutes Prognosis remains poor and guarded Time with Patient: Greater than 30
--- NOTE | 2020-01-02 11:01 | P.PN ---
Subjective Progress Note Date: 01/02/20 Principal diagnosis: CC: Shortness of breath Patient states that he still feels short of breath. He states that he wants to get up and start walking. Patient also stated that he was to go home. I had a lengthy discussion with the patient regarding his prognosis and told him that he is not ready to go home anytime soon. Patient is to occur again high flow. His blood cultures are positive for gram-negative rods. He is currently on Levaquin. ID consult has been placed. Patient is afebrile. Objective - Vital Signs Vital signs: Vital Signs Temp 97.5 F L 01/02/20 08:00 Pulse 109 H 01/02/20 10:00 Resp 28 H 01/02/20 10:00 BP 76/59 01/01/20 10:00 Pulse Ox 94 L 01/02/20 10:00 Intake & Output 01/01/20 01/02/20 01/02/20 18:59 06:59 18:59 Intake Total 1603.565 8234.135 440.814 Output Total 260 325 70 Balance 321.264 1432.135 370.814 Weight 91.7 kg Intake: IV 474 508 262 A line flush 39 33 12 Dextrose 5% in Water 1, 425 275 250 000 ml @ 25 mls/hr IV . Q24H [facility] with Sodium Bicarb (1 Meq/ml) 150 ml Rx#:[id number] Furosemide 100 mg In 10 Sodium Chloride 0.9% 90 ml @ 20 MG/HR 20 mls/hr IV .Q5H [facility] Rx#:[id number] metroNIDAZOLE-NS PMX 500 200 mg In Saline 1 100ml.bag @ 100 mls/hr IVPB Q8H [facility] Rx#:[id number] Intake, IV Titration 409.119 389.135 178.814 Amount DOBUTamine DRIP 500 mg In 89.843 120.443 Dextrose/Water 1 250ml. bag @ 5 MCG/KG/MIN 11.925 mls/hr IV .[id number] [facility] Rx#:[id number] Furosemide 100 mg In 200.000 188.667 96.333 Sodium Chloride 0.9% 90 ml @ 20 MG/HR 20 mls/hr IV .Q5H [facility] Rx#:[id number] Norepinephrine 8 mg In 119.276 80.025 82.481 Sodium Chloride 0.9% 250 ml @ 0.05 MCG/KG/MIN 7. 692 mls/hr IV .Q24H [facility] Rx#:[id number] Oral 330 600 Output: Urine 260 325 70 Other: Voiding Method Indwelling Catheter Indwelling Catheter Indwelling Catheter ABP, PAP, CO, CI - Last Documented Arterial Blood Pressure 112/58 - Exam General examination - Alert and Oriented 3. 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 Psych - patient in distress due to shortness of breath - Labs CBC & Chem 7: 01/02/20 04:25 01/02/20 04:25 Labs: Abnormal Lab Results - Last 24 Hours (Table) 01/01/20 01/01/20 01/02/20 Range/Units 08:11 13:55 04:25 RBC 3.84 L (4.30-5.90) m/uL Hgb 11.9 L (13.0-17.5) gm/dL Hct 35.1 L (39.0-53.0) % RDW 17.3 H (11.5-15.5) % Plt Count 83 L (150-450) k/uL Lymphocytes # (1.0-4.8) k/uL Lymphocytes # (Manual) 0.71 L (1.0-4.8) k/uL ABG pH 7.48 H (7.35-7.45) ABG pCO2 21 L (35-45) mmHg ABG pO2 74 L (83-108) mmHg ABG HCO3 16 L (21-25) mmol/L ABG Total CO2 16 L (19-24) mmol/L Sodium 127 L (137-145) mmol/L Chloride 90 L (98-107) mmol/L Carbon Dioxide 14 L (22-30) mmol/L BUN 74 H (9-20) mg/dL Creatinine 3.03 H (0.66-1.25) mg/dL Glucose 139 H (74-99) mg/dL Calcium 7.2 L (8.4-10.2) mg/dL 01/02/20 01/02/20 Range/Units 04:25 09:40 RBC 3.84 L (4.30-5.90) m/uL Hgb 11.4 L (13.0-17.5) gm/dL Hct 34.8 L (39.0-53.0) % RDW 17.3 H (11.5-15.5) % Plt Count 74 L (150-450) k/uL Lymphocytes # 0.5 L (1.0-4.8) k/uL Lymphocytes # (Manual) (1.0-4.8) k/uL ABG pH (7.35-7.45) ABG pCO2 25 L (35-45) mmHg ABG pO2 (83-108) mmHg ABG HCO3 17 L (21-25) mmol/L ABG Total CO2 17 L (19-24) mmol/L Sodium (137-145) mmol/L Chloride (98-107) mmol/L Carbon Dioxide (22-30) mmol/L BUN (9-20) mg/dL Creatinine (0.66-1.25) mg/dL Glucose (74-99) mg/dL Calcium (8.4-10.2) mg/dL Microbiology - Last 24 Hours (Table) 01/01/20 23:10 Nasal Screen MRSA/MSSA - Preliminary Nasopharyngeal Swab 12/31/19 12:21 Blood Culture Gram Stain - Preliminary Blood Blood Culture - Preliminary Gram Neg Bacilli 12/31/19 16:14 Urine Culture - Final Urine,Catheterized 12/31/19 12:15 Blood Culture - Preliminary Blood No Growth after 24 hours 12/31/19 12:21 Blood Culture - Final Blood Assessment and Plan Assessment: #Hypertension secondary to septic shock versus cardiogenic shock -Chest x-ray shows centrilobular edema and underlying infiltrates cannot be excluded and also right-sided pleural effusion. -Sight Effects Specialist on board -Lasix drip increased by nephrology -Titrated dobutamine and norepinephrine as tolerated -Resume midodrine. Hold BP meds which includes metoprolol -Start IV vancomycin, Levaquin and Flagyl. Check MRSA and discontinue vancomycin if negative. -Follow blood cultures and to finalize -Urine culture is negative -Check sputum culture -Chest x-ray on 01/02/2020 shows worsening pulmonary edema -Cardiology and pulmonology on board #Gram-negative darnell bacteremia -Patient currently on Levaquin. He is afebrile and there is no leukocytosis. -Consult infectious disease. #Acute hypoxic respiratory failure secondary to volume overload vs pneumonia -Patient currently on high flow oxygen -Patient refused intubation -DuoNeb's -Wean O2 as tolerated #Acute kidney injury on CK D - creatinine trending down however patient's urine output has not improved - likely due to tumor lysis syndrome versus cardiorenal syndrome -Uric acid is 19 -Nephrology and hematology on board #Metabolic acidosis #Lactic acidosis -Secondary to poor perfusion and lymphoma -Avoiding further fluids due to volume overload #Paroxysmal atrial fibrillation -Hold metoprolol. Resume digoxin and amiodarone #Hypervolemic Hyponatremia -Patient started on Lasix drip -Trend BMP #Acute on chronic systolic heart failure #Nonischemic cardiomyopathy with left ventricular ejection fraction less than 20% status post ICD -Diuresing as above -Beta addison on hold due to hypotension -No NESSA inhibitor or ARBI due to renal failure and hypotension #Recently diagnosed with lymphoma 2 months ago -Hematology on board -Patient started on dexamethasone -Hematology would like to start first dose chemotherapy while patient is inpatient and when patient is more stable. #Thrombocytopenia -Stable -Monitor platelets #Ascending aortic aneurysm -Patient follow-up *I had a lengthy discussion with the patient and the family regarding his poor prognosis. Patient agreed to change CODE STATUS to DNR/DNI however he was to continue fighting. is not ready for palliative or hospice consult. We'll need to continue to keep having discussions with the family. CODE STATUS DNR/DNI DVT prophylaxis: Heparin subcu 3 times a day monitor platelets closely
--- NOTE | 2020-01-02 11:58 | PN ---
PROGRESS NOTE Patient is seen for followup for acute kidney injury, mainly cardiorenal. Patient is currently in the ICU. His code status is NO CODE/NO CPR. Patient remains on Lasix drip which was increased to 20 mg an hour yesterday. He is maintained on small dose of Levophed as well as bicarb drip. Urine output has been at about 10-25 mL an hour with 24 hour output of only about 600 mL. The patient is complaining of shortness of breath. He remains on BiPAP. He has an indwelling Solis catheter. PHYSICAL EXAMINATION: On examination today, blood pressure was 116/57, heart rate 111 per minute, he is afebrile. Examination of the heart S1, S2. Examination of the lungs, decreased breath sounds at bases, basal crackles are heard. Abdomen is soft, nontender. Examination of lower extremities shows edema 2+ bilaterally. INTERNAL MEDICINE SPECIALIST exam grossly intact. LAB: Show sodium of 127, potassium 4.4, chloride 90. CO2 is 14, BUN 74, creatinine 3.03, hemoglobin 11.4 g/dL. ASSESSMENT: 1. Acute kidney injury, cardiorenal and secondary to hypotension, hypoperfusion. Urine output is on the lower side. Lasix was increased to 20 mg/hour. The patient is also maintained on dobutamine drip. He is not a candidate for renal replacement therapy. 2. Anion gap metabolic acidosis associated with lactic acidosis and renal failure, maintained on bicarb drip. 3. Lactic acidosis secondary to underlying lymphoma. 4. Hyponatremia which is mainly hypervolemic. I will change the bicarb drip concentration to adjust for the low sodium. 5. Severe cardiomyopathy, ejection fraction less than 20%. 6. Sepsis with blood cultures growing Gram-negative bacilli, maintained on Levaquin and Flagyl. 7. Hypotension associated with sepsis, poor cardiac status, maintained on midodrine orally and also on Levophed drip. PLAN: Change the bicarb drip to 150 mEq of sodium bicarb in half-normal saline to help with the low sodium. Continue Lasix drip at 20 mg an hour. Overall prognosis is guarded. Patient is not a candidate for renal replacement therapy. MMODL / IJN: [id number] /
[2020-01-02] MEDS: SODIUM CHLORIDE 0.45% 1,000 ML with SODIUM BICARB (1 MEQ/ML) 150 ML IV SCH ×2 (12:28)
[2020-01-02] MEDS: LEVOFLOXACIN 750MG-D5W PMX 750 MG in DEXTROSE/WATER 1 150ML.BAG IVPB SCH (13:35)
[2020-01-02] MEDS: CEFEPIME 1 GM in SODIUM CHLORIDE 0.9% 50 ML IVPB SCH ×2 (15:16→21:43)
--- NOTE | 2020-01-02 15:38 | P.PN ---
Subjective Gregorio appears less short of breath today although he still remains short of breath He is still on pressors His blood pressures 106/51 mmHg A. fib rates in the 80s to 90s So far he has not had any RVR Breath sounds are reduced bilaterally bronchial breath sounds bilaterally Heart sounds are soft and irregular Lateral lower extremity edema Impression Known cardiac myopathy frequent PVCs nonsustained ventricular tachycardia and atrial fibrillation Patient has an ICD He has had inappropriate ICD shocks for atrial fibrillation the past Currently has lymphoma Plan I spoke to his [place] and I recommended that return of his ICD Continue ICU management and medical management No intubation no aggressive resuscitation even medically Objective - Vital Signs Vital signs: Vital Signs Temp 97.5 F L 01/02/20 12:00 Pulse 90 01/02/20 15:23 Resp 21 01/02/20 15:00 BP 76/59 01/01/20 10:00 Pulse Ox 96 01/02/20 15:00 Intake & Output 01/01/20 01/02/20 01/02/20 18:59 06:59 18:59 Intake Total 9934.294 0486.135 1155.375 Output Total 260 325 265 Balance 974.320 4779.135 890.375 Weight 91.7 kg Intake: IV 474 508 452 A line flush 39 33 27 Dextrose 5% in Water 1, 425 275 325 000 ml @ 75 mls/hr IV . [id number] [facility] with Sodium Bicarb (1 Meq/ml) 150 ml Rx#:[id number] Furosemide 100 mg In 10 Sodium Chloride 0.9% 90 ml @ 20 MG/HR 20 mls/hr IV .Q5H [facility] Rx#:[id number] metroNIDAZOLE-NS PMX 500 200 100 mg In Saline 1 100ml.bag @ 100 mls/hr IVPB Q8H [facility] Rx#:[id number] Intake, IV Titration 409.119 389.135 703.375 Amount Cefepime 1 gm In Sodium 50 Chloride 0.9% 50 ml @ 100 mls/hr IVPB Q12HR [facility] Rx #:[id number] DOBUTamine DRIP 500 mg In 89.843 120.443 Dextrose/Water 1 250ml. bag @ 5 MCG/KG/MIN 11.925 mls/hr IV .[id number] [facility] Rx#:[id number] Furosemide 100 mg In 200.000 188.667 96.333 Sodium Chloride 0.9% 90 ml @ 20 MG/HR 20 mls/hr IV .Q5H [facility] Rx#:[id number] Levofloxacin 750Mg-D5w 150 Pmx 750 mg In Dextrose/ Water 1 150ml.bag @ 100 mls/hr IVPB Q48H [facility] Rx#: [id number] Norepinephrine 8 mg In 119.276 80.025 107.042 Sodium Chloride 0.9% 250 ml @ 0.05 MCG/KG/MIN 7. 692 mls/hr IV .Q24H [facility] Rx#:[id number] Sodium Chloride 0.45% 1, 300 000 ml @ 75 mls/hr IV . [id number] [facility] with Sodium Bicarb (1 Meq/ml) 150 ml Rx#:[id number] Oral 330 600 Output: Urine 260 325 265 Other: Voiding Method Indwelling Catheter Indwelling Catheter Indwelling Catheter ABP, PAP, CO, CI - Last Documented Arterial Blood Pressure 120/54 - Labs CBC & Chem 7: 01/02/20 04:25 01/02/20 04:25 Labs: Abnormal Lab Results - Last 24 Hours (Table) 01/02/20 01/02/20 01/02/20 Range/Units 04:25 04:25 09:40 RBC 3.84 L (4.30-5.90) m/uL Hgb 11.4 L (13.0-17.5) gm/dL Hct 34.8 L (39.0-53.0) % RDW 17.3 H (11.5-15.5) % Plt Count 74 L (150-450) k/uL Lymphocytes # 0.5 L (1.0-4.8) k/uL ABG pCO2 25 L (35-45) mmHg ABG HCO3 17 L (21-25) mmol/L ABG Total CO2 17 L (19-24) mmol/L Sodium 127 L (137-145) mmol/L Chloride 90 L (98-107) mmol/L Carbon Dioxide 14 L (22-30) mmol/L BUN 74 H (9-20) mg/dL Creatinine 3.03 H (0.66-1.25) mg/dL Glucose 139 H (74-99) mg/dL Calcium 7.2 L (8.4-10.2) mg/dL Microbiology - Last 24 Hours (Table) 12/31/19 12:15 Blood Culture - Preliminary Blood No Growth after 48 hours 01/02/20 12:30 Sputum Culture - Preliminary Sputum 01/01/20 23:10 Nasal Screen MRSA/MSSA - Preliminary Nasopharyngeal Swab 12/31/19 12:21 Blood Culture Gram Stain - Preliminary Blood Blood Culture - Preliminary Gram Neg Bacilli 12/31/19 16:14 Urine Culture - Final Urine,Catheterized 12/31/19 12:21 Blood Culture - Final Blood
[2020-01-02] MEDS: DOBUTamine DRIP 500 MG in DEXTROSE/WATER 1 250ML.BAG IV SCH (16:20)
[2020-01-02] MEDS: metroNIDAZOLE 500 MG TAB PO SCH (21:43)
[2020-01-02] MEDS: ATORVASTATIN 20 MG TAB PO SCH (21:43)
--- NOTE | 2020-01-03 00:26 | P.CONS ---
History of Present Illness - Reason for Consult Consult date: 12/31/19 NHL, SIRS, Dehydration, NUNO - History of Present Illness The pt is a 71 yr old white male, with multiple medical problems. The patient had presented to his PCP in early 11/27 with complains of progressive weakness, shortness of breath and cough off and on, mostly nonproductive. Over the past 2-3 weeks. He had received antibiotics as an outpatient without much response. He also reported decreased appetite, and onset of lower extremity swelling. On exam the patient was noted to have lymphadenopathy, and therefore had CT of the chest abdomen and pelvis on 11/11/19. This showed extensive adenopathy involving bilateral axilla, mediastinum, retrocrural, retroperitoneal, bilateral iliac and inguinal nodes. There is also splenomegaly at 19 cm. The largest lymph nodes were in the mediastinum, at 6.9 cm right para tracheal and 3.9 cm subcarinal. Patient had a PET scan on 11/27/19, which showed extensive uptake in the above mentioned lymph node areas. There was also uptake in the left femoral neck, right proximal femur, left acetabulum, iliac bones and proximal right humerus. Labs showed elevated uric acid 8.6, creatinine of 1.3, bilirubin of 1.6. CBC showed hemoglobin of 12.4, white count of 5.1, and platelets of 85. ANC was 1.7 with lymphocytes 1.9. The patient was referred for biopsy revealed thoracic surgery. the recommended biopsy by General surgery. Patient was also referred here and was supposed to be seen on 12/11/19. However, he was admitted to the hospital on 12/08/19, when he went in for a left supraclavicular node biopsy. The patient was hypotensive and tachycardic and was admitted to the ICU. He was found to be new onset atrial fibrillation. Hemoglobin remained stable in the 10-11 range, while creatinine also remained stable in the 1.2-1.3 range. the patient was stabilized from the cardiac standpoint, and then discharged. His consultation here was rescheduled and he was seen on 12/30/19. Initial biopsy was read as possible lymphoma and sent to the [facility] for additional consultation. Report became available actually on 12/30/19. 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 Cells were plasmacytoid with subset of CD138 positive cells. However, no immunoglobulin light chain or heavy chain expression was identified. 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 As CD5, CD10 and cyclin D1 were negative, CLL/SLL, follicular, as well as mantle cell lymphoma were felt to be unlikely. the patient denied any prior history of malignancy. He does have an extensive cardiac history including CAD, hypertension, cardiomyopathy, ventricular arrhythmias, CHF and AICD. Also has a history of ischemic stroke. The patient has had persistent failure to thrive, with multiple complaints including lethargy, intermittent confusion, decreased appetite, progressive edema, as well as progressive weakness. They were advised that his condition is very treatable, but his current performance status is extremely poor and would place him at very high risk of adverse events with treatment at this point. Given his current condition, there is also concern for other conditions such as hypercalcemia, progressive renal insufficiency, dehydration, etc. Given multiple ongoing issues, he was advised to go to the emergency room. Case was discussed in detail with the emergency room physician. On evaluation in the ER the patient was found to be in acute renal failure with creatinine in the high 2 range. He was also hypotensive. He was therefore admitted for further management. Review of Systems Constitutional: Reports anorexia, Reports fatigue, Reports malaise, Reports poor appetite, Reports weakness, Reports weight loss Eyes: denies blurred vision, denies pain Ears: deny: decreased hearing, ear discharge, earache, tinnitus Ears, nose, mouth and throat: Denies headache, Denies sore throat Cardiovascular: Reports as per HPI, Reports irregular heart beat, Reports leg edema, Reports rapid heart beat, Reports shortness of breath Respiratory: Reports dyspnea Gastrointestinal: Reports constipation, Reports loss of appetite Genitourinary: Reports as per HPI (penile and scrotal swelling) Musculoskeletal: Reports muscle weakness Integumentary: Denies pruritus, Denies rash Neurological: Reports change in mentation, Reports confusion, Reports memory loss, Reports weakness Psychiatric: Reports change in sleep habits, Reports confusion, Reports difficulty concentrating, Reports memory loss Endocrine: Reports as per HPI, Reports fatigue, Reports weight change Hematologic/Lymphatic: Reports as per HPI, Reports lymphadenopathy Past Medical History Past Medical History: Heart Failure, Hyperlipidemia, Hypertension, Memory Impairment Additional Past Medical History / Comment(s): weakness, 25 lb. weight loss recently, "just not feeling well" per spouse, enlarged lymph nodes per spouse History of Any Multi-Drug Resistant Organisms: None Reported Past Surgical History: AICD, Heart Catheterization, Pacemaker, Tonsillectomy Additional Past Surgical History / Comment(s): defibulator Past Anesthesia/Blood Transfusion Reactions: No Reported Reaction Type of Cardiac Device: AICD Device Placement Date:: 2012 Past Psychological History: No Psychological Hx Reported Smoking Status: Never smoker Past Alcohol Use History: None Reported Past Drug Use History: None Reported - Past Family History Mother Family Medical History: Cancer Father Family Medical History: Diabetes Mellitus Sister(s) Family Medical History: Cancer Medications and Allergies Home Medications Medication Instructions Recorded Confirmed Type Albuterol Nebulized [Ventolin 2.5 mg INHALATION RT-TID PRN 09/03/17 12/30/19 Hi story Nebulized] Atorvastatin [Lipitor] 20 mg PO HS #30 tab 09/21/17 12/30/19 Rx Docusate [Colace] 100 mg PO DAILY 12/07/19 12/30/19 History Metoprolol Succinate (ER) [Toprol 25 mg PO DAILY 12/07/19 12/30/19 History XL] Apixaban [Eliquis] 5 mg PO BID #60 tab 12/14/19 12/30/19 Rx Digoxin [Lanoxin] 125 mcg PO DAILY #30 tab 12/14/19 12/30/19 Rx Furosemide [Lasix] 20 mg PO BID@0900,1600 #60 tab 12/14/19 12/30/19 Rx Midodrine [ProAmatine] 5 mg PO AC-TID #90 tab 12/14/19 12/30/19 Rx Amiodarone [Cordarone] 100 mg PO DAILY 12/30/19 12/30/19 History Clotrimazole Glenys [Mycelex 10 mg MUCOUS MEM 5XD 12/30/19 12/30/19 History Glenys] dronabinoL [Marinol] 5 mg PO BID 12/30/19 12/30/19 History Allergies Allergy/AdvReac Type Severity Reaction Status Date / Time Penicillins Allergy Anaphylaxis Verified 12/30/19 17:04 venom-honey bee Allergy Anaphylaxis Verified 12/30/19 17:04 [bee venom (honey bee)] Physical Exam Vitals: Vital Signs Temp Pulse Pulse Resp BP BP BP 12/31/19 23:00 76 14 12/31/19 22:30 90 14 12/31/19 22:00 89 14 12/31/19 21:30 105 H 14 12/31/19 21:00 101 H 21 12/31/19 20:30 90 15 85/64 12/31/19 20:00 97.6 F 99 18 104/65 12/31/19 19:30 87 15 89/63 12/31/19 19:00 96 15 76/62 12/31/19 18:30 92 17 90/67 12/31/19 18:00 71 17 101/65 12/31/19 17:30 80 26 H 104/64 12/31/19 17:00 78 30 H 94/51 12/31/19 16:30 87 26 H 94/53 12/31/19 16:00 97.5 F L 92 82 23 89/70 12/31/19 15:30 126 H 97/68 12/31/19 15:00 91 24 100/54 12/31/19 14:30 81 29 H 107/70 12/31/19 14:00 98.3 F 81 25 H 96/60 12/31/19 13:30 80 23 89/71 12/31/19 13:14 73 26 H 12/31/19 12:41 98.2 F 82 28 H 90/56 12/31/19 11:25 84 12/31/19 11:15 80 12/31/19 10:50 81/49 12/31/19 10:45 81 32 H 87/50 12/31/19 08:17 82 28 H 105/54 12/31/19 07:15 76 28 H 80/51 12/31/19 07:10 72 12/31/19 07:00 76 12/31/19 05:00 97.6 F 71 20 97/64 Pulse Ox 12/31/19 23:00 94 L 12/31/19 22:30 94 L 12/31/19 22:00 94 L 12/31/19 21:30 94 L 12/31/19 21:00 93 L 12/31/19 20:30 94 L 12/31/19 20:00 95 12/31/19 19:30 93 L 12/31/19 19:00 93 L 12/31/19 18:30 92 L 12/31/19 18:00 91 L 12/31/19 17:30 12/31/19 17:00 92 L 12/31/19 16:30 12/31/19 16:00 93 L 12/31/19 15:30 94 L 12/31/19 15:00 91 L 12/31/19 14:30 93 L 12/31/19 14:00 99 12/31/19 13:30 98 12/31/19 13:14 12/31/19 12:41 94 L 12/31/19 11:25 12/31/19 11:15 12/31/19 10:50 12/31/19 10:45 95 12/31/19 08:17 94 L 12/31/19 07:15 94 L 12/31/19 07:10 12/31/19 07:00 12/31/19 05:00 94 L Intake and Output 12/31/19 12/31/19 01/01/20 14:59 22:59 06:59 Intake Total 150 1097.658 88 Output Total 140 109 15 Balance 10 988.658 73 Intake: IV 364 88 A line flush 9 3 Dextrose 5% in Water 1, 225 75 000 ml @ 75 mls/hr IV . [id number] [facility]ANE[facility] with Sodium Bicarb (1 Meq/ml) 150 ml Rx#:[id number] Furosemide 100 mg In 30 10 Sodium Chloride 0.9% 90 ml @ 10 MG/HR 10 mls/hr IV .Q10H [facility] Rx#: [id number] metroNIDAZOLE-NS PMX 500 100 mg In Saline 1 100ml.bag @ 100 mls/hr IVPB Q8H [facility] Rx#:[id number] Intake, IV Titration 150 733.658 Amount Dextrose 5% in Water 1, 225 000 ml @ 75 mls/hr IV . [id number] [facility] with Sodium Bicarb (1 Meq/ml) 150 ml Rx#:[id number] Furosemide 100 mg In 56.833 Sodium Chloride 0.9% 90 ml @ 10 MG/HR 10 mls/hr IV .Q10H [facility] Rx#: [id number] Levofloxacin 750Mg-D5w 150 Pmx 750 mg In Dextrose/ Water 1 150ml.bag @ 100 mls/hr IVPB Q48H [facility] Rx#: [id number] Norepinephrine 4 mg In 101.825 Sodium Chloride 0.9% 250 ml @ 0.05 MCG/KG/MIN 15. 145 mls/hr IV .[id number] [facility] Rx#:[id number] Vancomycin 1,500 mg In 250 Sodium Chloride 0.9% 250 ml @ 125 mls/hr IVPB ONCE ONE Rx#:[id number] metroNIDAZOLE-NS PMX 500 100 mg In Saline 1 100ml.bag @ 100 mls/hr IVPB Q8H [facility] Rx#:[id number] Output: Urine 140 109 15 Other: Voiding Method Indwelling Catheter Weight 79.5 kg ABP, PAP, CO, CI - Last 8 Hours Arterial Blood Pressure 105/50 Arterial Blood Pressure 104/54 Arterial Blood Pressure 100/53 Arterial Blood Pressure 103/55 Arterial Blood Pressure 119/62 Arterial Blood Pressure 100/48 Arterial Blood Pressure 110/57 Arterial Blood Pressure 86/45 Arterial Blood Pressure 135/65 Arterial Blood Pressure 112/55 Arterial Blood Pressure 102/54 Arterial Blood Pressure 116/60 Arterial Blood Pressure 102/51 Arterial Blood Pressure 101/55 Arterial Blood Pressure 112/55 Arterial Blood Pressure 94/47 - Constitutional General appearance: mild distress - EENT Eyes: EOMI, PERRLA ENT: hearing grossly normal, normal oropharynx - Neck Neck: lymphadenopathy (bilateral cervical, and supraclavicular, multiple confluent nodes, largest 1-1.5 cm) Thyroid: bilateral: normal size - Respiratory Respiratory: bilateral: diminished (only at bases, otherwise CTA) - Cardiovascular Rhythm: irregularly irregular Heart sounds: normal: S1, S2 - Gastrointestinal General gastrointestinal: normal bowel sounds, soft, splenomegaly - Integumentary Integumentary: normal - Neurologic Neurologic: CNII-XII intact - Musculoskeletal Musculoskeletal: generalized weakness, strength equal bilaterally - Psychiatric Psychiatric: A&O x's 3 Results CBC & Chem 7: 01/02/20 04:25 01/02/20 04:25 Labs: Abnormal Lab Results - Last 24 Hours (Table) 12/31/19 12/31/19 12/31/19 Range/Units 02:39 07:15 07:15 RBC 4.14 L (4.30-5.90) m/uL Hgb 12.8 L (13.0-17.5) gm/dL Hct 38.8 L (39.0-53.0) % RDW 17.2 H (11.5-15.5) % Plt Count 103 L (150-450) k/uL Lymphocytes # (Manual) 0.85 L (1.0-4.8) k/uL ABG pH (7.35-7.45) ABG pCO2 (35-45) mmHg ABG pO2 (83-108) mmHg ABG HCO3 (21-25) mmol/L ABG Total CO2 (19-24) mmol/L ABG O2 Saturation (94-97) % ABG Lactic Acid (0.5-1.6) mmol/L Sodium 128 L 130 L (137-145) mmol/L Chloride 94 L 95 L (98-107) mmol/L Carbon Dioxide 17 L 16 L (22-30) mmol/L BUN 57 H 56 H (9-20) mg/dL Creatinine 2.75 H 2.87 H (0.66-1.25) mg/dL Glucose 110 H 100 H (74-99) mg/dL POC Glucose (mg/dL) (75-99) mg/dL Plasma Lactic Acid Reji (0.7-2.0) mmol/L Uric Acid (3.5-8.5) mg/dL Calcium (8.4-10.2) mg/dL Phosphorus (2.5-4.5) mg/dL Total Bilirubin (0.2-1.3) mg/dL AST (17-59) U/L Troponin I (0.000-0.034) ng/mL Total Protein (6.3-8.2) g/dL Albumin (3.5-5.0) g/dL Urine Protein (Negative) Urine Ketones (Negative) Urine Blood (Negative) Ur Leukocyte Esterase (Negative) Urine RBC (0-5) /hpf Urine WBC (0-5) /hpf Urine WBC Clumps (None) /hpf Amorphous Sediment (None) /hpf Urine Bacteria (None) /hpf Hyaline Casts (0-2) /lpf Urine Mucus (None) /hpf 12/31/19 12/31/19 12/31/19 Range/Units 07:15 10:18 12:15 RBC (4.30-5.90) m/uL Hgb (13.0-17.5) gm/dL Hct (39.0-53.0) % RDW (11.5-15.5) % Plt Count (150-450) k/uL Lymphocytes # (Manual) (1.0-4.8) k/uL ABG pH (7.35-7.45) ABG pCO2 (35-45) mmHg ABG pO2 (83-108) mmHg ABG HCO3 (21-25) mmol/L ABG Total CO2 (19-24) mmol/L ABG O2 Saturation (94-97) % ABG Lactic Acid (0.5-1.6) mmol/L Sodium (137-145) mmol/L Chloride (98-107) mmol/L Carbon Dioxide (22-30) mmol/L BUN (9-20) mg/dL Creatinine (0.66-1.25) mg/dL Glucose (74-99) mg/dL POC Glucose (mg/dL) (75-99) mg/dL Plasma Lactic Acid Reji 13.7 H* (0.7-2.0) mmol/L Uric Acid 19.1 H* (3.5-8.5) mg/dL Calcium (8.4-10.2) mg/dL Phosphorus 5.6 H (2.5-4.5) mg/dL Total Bilirubin (0.2-1.3) mg/dL AST (17-59) U/L Troponin I (0.000-0.034) ng/mL Total Protein (6.3-8.2) g/dL Albumin (3.5-5.0) g/dL Urine Protein 1+ H (Negative) Urine Ketones Trace H (Negative) Urine Blood Large H (Negative) Ur Leukocyte Esterase Trace H (Negative) Urine RBC >182 H (0-5) /hpf Urine WBC 37 H (0-5) /hpf Urine WBC Clumps Occasional H (None) /hpf Amorphous Sediment Moderate H (None) /hpf Urine Bacteria Occasional H (None) /hpf Hyaline Casts 31 H (0-2) /lpf Urine Mucus Occasional H (None) /hpf 12/31/19 12/31/19 12/31/19 Range/Units 12:15 13:17 13:51 RBC (4.30-5.90) m/uL Hgb (13.0-17.5) gm/dL Hct (39.0-53.0) % RDW (11.5-15.5) % Plt Count (150-450) k/uL Lymphocytes # (Manual) (1.0-4.8) k/uL ABG pH 7.07 L* (7.35-7.45) ABG pCO2 21 L (35-45) mmHg ABG pO2 273 H (83-108) mmHg ABG HCO3 6 L* (21-25) mmol/L ABG Total CO2 7 L (19-24) mmol/L ABG O2 Saturation 99.2 H (94-97) % ABG Lactic Acid (0.5-1.6) mmol/L Sodium (137-145) mmol/L Chloride (98-107) mmol/L Carbon Dioxide (22-30) mmol/L BUN (9-20) mg/dL Creatinine (0.66-1.25) mg/dL Glucose (74-99) mg/dL POC Glucose (mg/dL) 100 H (75-99) mg/dL Plasma Lactic Acid Reji (0.7-2.0) mmol/L Uric Acid (3.5-8.5) mg/dL Calcium (8.4-10.2) mg/dL Phosphorus (2.5-4.5) mg/dL Total Bilirubin (0.2-1.3) mg/dL AST (17-59) U/L Troponin I 0.053 H* (0.000-0.034) ng/mL Total Protein (6.3-8.2) g/dL Albumin (3.5-5.0) g/dL Urine Protein (Negative) Urine Ketones (Negative) Urine Blood (Negative) Ur Leukocyte Esterase (Negative) Urine RBC (0-5) /hpf Urine WBC (0-5) /hpf Urine WBC Clumps (None) /hpf Amorphous Sediment (None) /hpf Urine Bacteria (None) /hpf Hyaline Casts (0-2) /lpf Urine Mucus (None) /hpf 12/31/19 12/31/19 12/31/19 Range/Units 14:36 14:36 14:36 RBC 3.78 L (4.30-5.90) m/uL Hgb 11.7 L (13.0-17.5) gm/dL Hct 35.7 L (39.0-53.0) % RDW 17.1 H (11.5-15.5) % Plt Count 122 L (150-450) k/uL Lymphocytes # (Manual) (1.0-4.8) k/uL ABG pH (7.35-7.45) ABG pCO2 (35-45) mmHg ABG pO2 (83-108) mmHg ABG HCO3 (21-25) mmol/L ABG Total CO2 (19-24) mmol/L ABG O2 Saturation (94-97) % ABG Lactic Acid (0.5-1.6) mmol/L Sodium 132 L (137-145) mmol/L Chloride 96 L (98-107) mmol/L Carbon Dioxide 10 L (22-30) mmol/L BUN 58 H (9-20) mg/dL Creatinine 3.35 H (0.66-1.25) mg/dL Glucose (74-99) mg/dL POC Glucose (mg/dL) (75-99) mg/dL Plasma Lactic Acid Reji (0.7-2.0) mmol/L Uric Acid (3.5-8.5) mg/dL Calcium 8.1 L (8.4-10.2) mg/dL Phosphorus (2.5-4.5) mg/dL Total Bilirubin 1.6 H (0.2-1.3) mg/dL AST 74 H (17-59) U/L Troponin I 0.050 H* (0.000-0.034) ng/mL Total Protein 4.3 L (6.3-8.2) g/dL Albumin 2.5 L (3.5-5.0) g/dL Urine Protein (Negative) Urine Ketones (Negative) Urine Blood (Negative) Ur Leukocyte Esterase (Negative) Urine RBC (0-5) /hpf Urine WBC (0-5) /hpf Urine WBC Clumps (None) /hpf Amorphous Sediment (None) /hpf Urine Bacteria (None) /hpf Hyaline Casts (0-2) /lpf Urine Mucus (None) /hpf 12/31/19 12/31/19 12/31/19 Range/Units 14:36 15:12 16:14 RBC (4.30-5.90) m/uL Hgb (13.0-17.5) gm/dL Hct (39.0-53.0) % RDW (11.5-15.5) % Plt Count (150-450) k/uL Lymphocytes # (Manual) (1.0-4.8) k/uL ABG pH 7.21 L (7.35-7.45) ABG pCO2 21 L (35-45) mmHg ABG pO2 71 L (83-108) mmHg ABG HCO3 9 L* (21-25) mmol/L ABG Total CO2 9 L (19-24) mmol/L ABG O2 Saturation 90.4 L (94-97) % ABG Lactic Acid 15.8 H* (0.5-1.6) mmol/L Sodium (137-145) mmol/L Chloride (98-107) mmol/L Carbon Dioxide (22-30) mmol/L BUN (9-20) mg/dL Creatinine (0.66-1.25) mg/dL Glucose (74-99) mg/dL POC Glucose (mg/dL) (75-99) mg/dL Plasma Lactic Acid Reji (0.7-2.0) mmol/L Uric Acid (3.5-8.5) mg/dL Calcium (8.4-10.2) mg/dL Phosphorus (2.5-4.5) mg/dL Total Bilirubin (0.2-1.3) mg/dL AST (17-59) U/L Troponin I (0.000-0.034) ng/mL Total Protein (6.3-8.2) g/dL Albumin (3.5-5.0) g/dL Urine Protein 1+ H (Negative) Urine Ketones Trace H (Negative) Urine Blood Large H (Negative) Ur Leukocyte Esterase (Negative) Urine RBC >182 H (0-5) /hpf Urine WBC (0-5) /hpf Urine WBC Clumps (None) /hpf Amorphous Sediment Rare H (None) /hpf Urine Bacteria Rare H (None) /hpf Hyaline Casts 16 H (0-2) /lpf Urine Mucus Rare H (None) /hpf 12/31/19 12/31/19 Range/Units 17:30 20:45 RBC (4.30-5.90) m/uL Hgb (13.0-17.5) gm/dL Hct (39.0-53.0) % RDW (11.5-15.5) % Plt Count (150-450) k/uL Lymphocytes # (Manual) (1.0-4.8) k/uL ABG pH (7.35-7.45) ABG pCO2 (35-45) mmHg ABG pO2 (83-108) mmHg ABG HCO3 (21-25) mmol/L ABG Total CO2 (19-24) mmol/L ABG O2 Saturation (94-97) % ABG Lactic Acid (0.5-1.6) mmol/L Sodium (137-145) mmol/L Chloride (98-107) mmol/L Carbon Dioxide (22-30) mmol/L BUN (9-20) mg/dL Creatinine (0.66-1.25) mg/dL Glucose (74-99) mg/dL POC Glucose (mg/dL) (75-99) mg/dL Plasma Lactic Acid Reji 13.4 H* 11.2 H* (0.7-2.0) mmol/L Uric Acid (3.5-8.5) mg/dL Calcium (8.4-10.2) mg/dL Phosphorus (2.5-4.5) mg/dL Total Bilirubin (0.2-1.3) mg/dL AST (17-59) U/L Troponin I (0.000-0.034) ng/mL Total Protein (6.3-8.2) g/dL Albumin (3.5-5.0) g/dL Urine Protein (Negative) Urine Ketones (Negative) Urine Blood (Negative) Ur Leukocyte Esterase (Negative) Urine RBC (0-5) /hpf Urine WBC (0-5) /hpf Urine WBC Clumps (None) /hpf Amorphous Sediment (None) /hpf Urine Bacteria (None) /hpf Hyaline Casts (0-2) /lpf Urine Mucus (None) /hpf Microbiology - Last 24 Hours (Table) 12/31/19 16:14 Urine Culture - Preliminary Urine,Catheterized Chest x-ray: report reviewed Assessment and Plan (1) Acute kidney injury Narrative/Plan: At the time of evaluation in the office, given the extent of disease and the patient's poor oral intake this was a concern. Labs confirmed for the same, showing acute kidney injury. Possible etiologies include dehydration due to po or oral intake and/or tumor lysis. - Nephrology consult - Uric acid and phosphorus level will be ordered. If uric acid level is elevated, patient will receive rasburicase. In that case tumor lysis labs will continue to monitor - Aggressive supportive care Current Visit: Yes Status: Acute Code(s): N17.9 - ACUTE KIDNEY FAILURE, UNSPECIFIED SNOMED Code(s): 87221427 (2) SIRS (systemic inflammatory response syndrome) Narrative/Plan: The patient had presented with hypotension, elevated heart rate and elevated respiratory rate with decreased oxygen saturation. He therefore meets criteria for SIRS. This is most likely due to inflammatory effects of the lymphoma, as well as third spacing due to the same. Discussed with critical care medicine and IM. Defer to them for aggressive supportive care. Current Visit: Yes Status: Acute Code(s): R65.10 - SIRS OF NON-INFECTIOUS ORIGIN W/O ACUTE ORGAN DYSFUNCTION SNOMED Code(s): 348424557 (3) Lymphoma Narrative/Plan: Patient's biopsy showed low-grade B-cell lymphoma. However clinical presentation has been quite aggressive, raising the possibility that there may be transformation. - At this time the patient's clinical situation is too fragile to start him on definitive chemoradiotherapy for his lymphoma. On the other hand he may not improve substantially without treating the underlying lymphoma. Case discussed with critical care medicine. Patient will be started on high-dose bolus Decadron 4 days. He can also consider adding a dose of Rituxan depending on his response. Assuming that there is sufficient improvement in the plan would be to and start systemic therapy with regimen such as R-CEOP ( no Adriamycin due to his cardiac history), which would be effective against both high-grade and low- grade B-cell lymphoma. - It was also discussed with the patient, and the admitting service that he most likely will require first cycle of chemotherapy inpatient, given high risk of complications including progressive tumor lysis. Current Visit: Yes Status: Acute Code(s): C85.90 - NON-HODGKIN LYMPHOMA, UNSPECIFIED, UNSPECIFIED SITE SNOMED Code(s): 983879606 Plan: The patient has multiple other medical problems, including an extensive cardiac history. Deferred to the admitting service and other consultants for management of the same.
[2020-01-03] MEDS: ALBUTEROL NEBULIZED 2.5 MG/3 ML INHALATION PRN ×4 (01:00→15:19)
--- NOTE | 2020-01-03 01:23 | P.CONS ---
History of Present Illness - Reason for Consult Consult date: 01/02/20 Gram-negative bacteremia Requesting physician: Kj Jacobson - Chief Complaint Weakness and shortness of breath x days - History of Present Illness Patient is a 74-year-old male with a past medical history significant for nonischemic cardiac myopathy with an EF of 20% history of 8 fibrillation and recent diagnosis of low-grade B-cell lymphoma patient has been sent to the ER on his oncologist's office with the patient was noticed to have significant bilate ral lower extremity edema and increased shortness of breath and weakness, the patient was complaining of some nausea and vomiting and did have some diarrhea shortness of breath mostly on exertion and even at rest patient also have a cough which has been moderate intensity with occasional whitish sputum and no hemoptysis patient on arrival to the ER has been afebrile and no fever has been documented during this admission the patient did have normal white count patient did have worsening of his respiratory status. The patient will be transferred out of the ICU is currently being treated with vancomycin and Levaquin patient did have a blood culture drawn which is now showing gram-negative bacilli that prompted his infectious disease consultation and she did have a chest x-ray on admission which was basilar infiltrate and chest x-ray this morning shows worsening bibasilar infiltrate Review of Systems Positive point has been mentioned in the HPI rest of the systems are negative Past Medical History Past Medical History: Heart Failure, Hyperlipidemia, Hypertension, Memory Impairment Additional Past Medical History / Comment(s): weakness, 25 lb. weight loss recently, "just not feeling well" per spouse, enlarged lymph nodes per spouse History of Any Multi-Drug Resistant Organisms: None Reported Past Surgical History: AICD, Heart Catheterization, Pacemaker, Tonsillectomy Additional Past Surgical History / Comment(s): defibulator Past Anesthesia/Blood Transfusion Reactions: No Reported Reaction Type of Cardiac Device: AICD Device Placement Date:: 2012 Past Psychological History: No Psychological Hx Reported Smoking Status: Never smoker Past Alcohol Use History: None Reported Past Drug Use History: None Reported - Past Family History Mother Family Medical History: Cancer Father Family Medical History: Diabetes Mellitus Sister(s) Family Medical History: Cancer Medications and Allergies Home Medications Medication Instructions Recorded Confirmed Type Albuterol Nebulized [Ventolin 2.5 mg INHALATION RT-TID PRN 09/03/17 12/30/19 History Nebulized] Atorvastatin [Lipitor] 20 mg PO HS #30 tab 09/21/17 12/30/19 Rx Docusate [Colace] 100 mg PO DAILY 12/07/19 12/30/19 History Metoprolol Succinate (ER) [Toprol 25 mg PO DAILY 12/07/19 12/30/19 History XL] Apixaban [Eliquis] 5 mg PO BID #60 tab 12/14/19 12/30/19 Rx Digoxin [Lanoxin] 125 mcg PO DAILY #30 tab 12/14/19 12/30/19 Rx Furosemide [Lasix] 20 mg PO BID@0900,1600 #60 tab 12/14/19 12/30/19 Rx Midodrine [ProAmatine] 5 mg PO AC-TID #90 tab 12/14/19 12/30/19 Rx Amiodarone [Cordarone] 100 mg PO DAILY 12/30/19 12/30/19 History Clotrimazole [place] [Mycelex 10 mg MUCOUS MEM 5XD 12/30/19 12/30/19 History Glenys] dronabinoL [Marinol] 5 mg PO BID 12/30/19 12/30/19 History Allergies Allergy/AdvReac Type Severity Reaction Status Date / Time Penicillins Allergy Anaphylaxis Verified 12/30/19 17:04 venom-honey bee Allergy Anaphylaxis Verified 12/30/19 17:04 [bee venom (honey bee)] Physical Exam Vitals: Vital Signs Temp Pulse Resp Pulse Ox 01/02/20 13:30 106 H 22 94 L 01/02/20 13:00 94 22 95 01/02/20 12:30 93 24 94 L 01/02/20 12:00 97.5 F L 93 23 96 01/02/20 11:32 92 01/02/20 11:30 81 23 96 01/02/20 11:22 88 01/02/20 11:00 117 H 22 94 L 01/02/20 10:30 86 23 95 01/02/20 10:00 109 H 28 H 94 L 01/02/20 09:30 111 H 21 96 01/02/20 09:00 112 H 25 H 95 01/02/20 08:30 98 28 H 95 01/02/20 08:00 97.5 F L 101 H 24 94 L 01/02/20 07:45 112 H 01/02/20 07:34 120 H 01/02/20 07:30 103 H 30 H 95 01/02/20 07:00 90 22 95 01/02/20 06:30 87 19 94 L 01/02/20 06:00 101 H 24 94 L 01/02/20 05:30 85 26 H 94 L 01/02/20 05:00 107 H 27 H 94 L 01/02/20 04:30 89 23 93 L 01/02/20 04:00 97.5 F L 87 27 H 94 L 01/02/20 03:35 94 L 01/02/20 03:30 99 21 94 L 01/02/20 03:00 91 15 91 L 01/02/20 02:30 98 26 H 94 L 01/02/20 02:00 99 27 H 95 01/02/20 01:30 105 H 28 H 95 01/02/20 01:00 92 22 95 01/02/20 00:30 109 H 20 94 L 01/02/20 00:00 97.9 F 105 H 23 95 01/01/20 23:35 95 01/01/20 23:30 95 19 94 L 01/01/20 23:00 105 H 23 94 L 01/01/20 22:30 99 19 95 01/01/20 22:00 96 21 95 01/01/20 21:30 115 H 23 95 01/01/20 21:00 98 23 95 01/01/20 20:30 97.7 F 97 18 95 01/01/20 20:00 88 27 H 94 L 01/01/20 19:30 98 25 H 94 L 01/01/20 19:00 89 94 L 01/01/20 18:34 116 H 22 01/01/20 18:30 95 24 95 01/01/20 18:25 92 20 01/01/20 18:00 94 26 H 93 L 01/01/20 17:30 104 H 23 94 L 01/01/20 17:00 67 21 94 L 01/01/20 16:30 95 23 94 L 01/01/20 16:00 92 22 95 01/01/20 15:30 88 25 H 94 L 01/01/20 15:00 102 H 25 H 94 L 01/01/20 14:30 86 24 93 L Intake and Output 01/01/20 01/02/20 01/02/20 22:59 06:59 14:59 Intake Total 1025.488 952.072 949.375 Output Total 220 215 190 Balance 805.488 737.072 759.375 Intake: IV 324 324 446 A line flush 24 24 21 Dextrose 5% in Water 1, 200 200 325 000 ml @ 75 mls/hr IV . [id number] [facility] with Sodium Bicarb (1 Meq/ml) 150 ml Rx#:[id number] metroNIDAZOLE-NS PMX 500 100 100 100 mg In Saline 1 100ml.bag @ 100 mls/hr IVPB Q8H [facility] Rx#:[id number] Intake, IV Titration 221.488 268.072 503.375 Amount DOBUTamine DRIP 500 mg In 120.443 Dextrose/Water 1 250ml. bag @ 5 MCG/KG/MIN 11.925 mls/hr IV .[id number] [facility] Rx#:[id number] Furosemide 100 mg In 100 188.667 96.333 Sodium Chloride 0.9% 90 ml @ 20 MG/HR 20 mls/hr IV .Q5H [facility] Rx#:[id number] Levofloxacin 750Mg-D5w 150 Pmx 750 mg In Dextrose/ Water 1 150ml.bag @ 100 mls/hr IVPB Q48H [facility] Rx#: [id number] Norepinephrine 8 mg In 1.045 79.405 107.042 Sodium Chloride 0.9% 250 ml @ 0.05 MCG/KG/MIN 7. 692 mls/hr IV .Q24H [facility] Rx#:[id number] Sodium Chloride 0.45% 1, 150 000 ml @ 75 mls/hr IV . [id number] [facility] with Sodium Bicarb (1 Meq/ml) 150 ml Rx#:[id number] Oral 480 360 Output: Urine 220 215 190 Other: Voiding Method Indwelling Catheter Indwelling Catheter Indwelling Catheter Weight 91.7 kg ABP, PAP, CO, CI - Last 8 Hours Arterial Blood Pressure 111/56 Arterial Blood Pressure 120/54 Arterial Blood Pressure 107/52 Arterial Blood Pressure 90/46 Arterial Blood Pressure 117/54 Arterial Blood Pressure 121/59 Arterial Blood Pressure 125/63 Arterial Blood Pressure 112/58 Arterial Blood Pressure 116/57 Arterial Blood Pressure 108/57 Arterial Blood Pressure 119/63 Arterial Blood Pressure 122/63 Arterial Blood Pressure 116/60 Arterial Blood Pressure 120/62 Arterial Blood Pressure 125/57 GENERAL DESCRIPTION: An elderly male lying in bed, no distress. No tachypnea or accessory muscle of respiration use. HEENT: Shows Pallor , no scleral icterus. Oral mucous membrane is dry. No pharyngeal erythema or thrush NECK: Trachea central, no thyromegaly. LUNGS: Unlabored breathing. Decreased pincer the base. No wheeze or crackle. HEART: S1, S2, regular rate and rhythm. No loud murmur ABDOMEN: Soft, no tenderness , guarding or rigidity, no organomegaly EXTREMITIES: 2+ edema of feet. SKIN: No rash, no masses palpable. NEUROLOGICAL: The patient is awake, alert, oriented x3, mood and affect normal. Results CBC & Chem 7: 01/02/20 04:25 01/02/20 04:25 Labs: Abnormal Lab Results - Last 24 Hours (Table) 01/02/20 01/02/20 01/02/20 Range/Units 04:25 04:25 09:40 RBC 3.84 L (4.30-5.90) m/uL Hgb 11.4 L (13.0-17.5) gm/dL Hct 34.8 L (39.0-53.0) % RDW 17.3 H (11.5-15.5) % Plt Count 74 L (150-450) k/uL Lymphocytes # 0.5 L (1.0-4.8) k/uL ABG pCO2 25 L (35-45) mmHg ABG HCO3 17 L (21-25) mmol/L ABG Total CO2 17 L (19-24) mmol/L Sodium 127 L (137-145) mmol/L Chloride 90 L (98-107) mmol/L Carbon Dioxide 14 L (22-30) mmol/L BUN 74 H (9-20) mg/dL Creatinine 3.03 H (0.66-1.25) mg/dL Glucose 139 H (74-99) mg/dL Calcium 7.2 L (8.4-10.2) mg/dL Microbiology - Last 24 Hours (Table) 01/02/20 12:30 Sputum Culture - Preliminary Sputum 01/01/20 23:10 Nasal Screen MRSA/MSSA - Preliminary Nasopharyngeal Swab 12/31/19 12:21 Blood Culture Gram Stain - Preliminary Blood Blood Culture - Preliminary Gram Neg Bacilli 12/31/19 16:14 Urine Culture - Final Urine,Catheterized 12/31/19 12:15 Blood Culture - Preliminary Blood No Growth after 24 hours 12/31/19 12:21 Blood Culture - Final Blood Assessment and Plan Assessment: 1- patient with gram-negative bacteremia in this patient admitted to the hospital with increasing shortness of breath as well as weakness with evidence of bibasilar infiltrate that it shows worsening on the chest x-ray this morning could be the likely source of this bacteremia however this patient also have a positive UA and some urinary symptoms underlying urinary source not entirely excluded 2- patient with penicillin ALLERGY that would limit the number of antibiotic safety use 3- renal insufficiency and high risk of nephrotoxicity from the vancomycin (1) Gram-negative bacteremia Current Visit: Yes Status: Acute Code(s): R78.81 - BACTEREMIA SNOMED Code(s): 904388321385 (2) Urinary tract infection Current Visit: Yes Status: Acute Code(s): N39.0 - URINARY TRACT INFECTION, SITE NOT SPECIFIED SNOMED Code(s): 24194258 (3) Pneumonia Current Visit: Yes Status: Acute Code(s): J18.9 - PNEUMONIA, UNSPECIFIED ORGANISM SNOMED Code(s): 194275990 Plan: 1- discontinue Levaquin and vancomycin 2- cefepime 1 g every 12 hours dose has been adjusted to the kidney function 3-obtain sputum for Gram stain and culture We will follow on clinical condition and cultures to further adjust medication if needed Thank you for this consultation will follow this patient with you Time with Patient: Greater than 30
[2020-01-03] MEDS: FUROSEMIDE 100 MG in SODIUM CHLORIDE 0.9% 90 ML IV SCH ×3 (04:38→13:55)
[2020-01-03] MEDS: SODIUM CHLORIDE 0.45% 1,000 ML with SODIUM BICARB (1 MEQ/ML) 150 ML IV SCH ×2 (04:55)
[2020-01-03 05:25] LABS: Anisocytosis Slight; Basophils % (A) 0 %; Eosinophils % (A) 0 %; HCT 31.8 % (39.0-53.0); HGB 10.3 gm/dL (13.0-17.5); Lymphocytes # (A) 0.4 k/uL (1.0-4.8); Lymphocytes % (A) 10 %; MCH 29.2 pg (25.0-35.0); MCHC 32.4 g/dL (31.0-37.0); MCV 90.1 fL (80.0-100.0); Mean Platelet Volume 9.5; Monocytes # (A) 0.2 k/uL (0-1.0); Monocytes % (A) 4 %; Neutrophils # (A) 3.4 k/uL (1.3-7.7); Neutrophils % (A) 84 %; Poikilocytosis Slight; RBC 3.53 m/uL (4.30-5.90); RDW 17.4 % (11.5-15.5)
[2020-01-03 05:32] LABS: Platelet Count 46 k/uL (150-450)
[2020-01-03 05:57] LABS: Calcium 6.6 mg/dL (8.4-10.2); Magnesium 1.8 mg/dL (1.6-2.3); Potassium 4.2 mmol/L (3.5-5.1); Uric Acid 7.6 mg/dL (3.5-8.5)
--- NOTE | 2020-01-03 06:49 | XR ---
EXAMINATION TYPE: XR chest 1V portable DATE OF EXAM: 01/03/2020 HISTORY: sob, pulm edema, chf. REFERENCE: Previous study dated 01/02/2020. FINDINGS: There is a unipolar pacemaker in place on the left. The heart is enlarged. There is bibasilar airspace disease. There are small, bilateral effusions. IMPRESSION: NO SIGNIFICANT INTERVAL CHANGE IN APPEARANCE OF THE CHEST.
[2020-01-03] MEDS: CEFEPIME 1 GM in SODIUM CHLORIDE 0.9% 50 ML IVPB SCH (09:21)
[2020-01-03] MEDS: MIDODRINE 5 MG TAB PO SCH ×2 (09:23→13:12)
[2020-01-03] MEDS: PANTOPRAZOLE 40 MG TABLET PO SCH (09:23)
[2020-01-03] MEDS: dexAMETHasone 4 MG TAB PO SCH (09:24)
[2020-01-03] MEDS: metroNIDAZOLE 500 MG TAB PO SCH ×2 (09:24→16:15)
[2020-01-03] MEDS: AMIODARONE 200 MG TAB PO SCH (09:24)
[2020-01-03] MEDS: DOCUSATE 100 MG CAP PO SCH (09:24)
[2020-01-03] MEDS: DIGOXIN 125 MCG TAB PO SCH (09:24)
--- NOTE | 2020-01-03 09:32 | P.PN ---
Subjective Progress Note Date: 01/03/20 Principal diagnosis: CC: Shortness of breath Patient is still in moderate to severe respiratory distress. Patient is complaining of shortness of breath. He is still on high flow oxygen. It appears that for the past 3 days patient has not improved much. Patient's blood cultures are growing gram-negative rods. Infectious disease has discontinued vancomycin and Levaquin. Patient is currently on IV cefepime and Flagyl. His sputum culture is growing gram-positive cocci and gram-negative bacteria. His MRSA screen is pending. Nephrology also started the patient on 150 mEq bicarb and half-normal saline. Patient's sodium this morning is decreasing. Patient's platelet also decreased from 76 to 46. I have discussed with hematology who agreed to hold the Eliquis until platelets are greater than 50. I will also discuss the plan with pulmonology. I also discussed with the son about the patient's poor prognosis. Son will speak with his sister and his mother about the patient's poor prognosis and about possible palliative or hospice care. I also discussed with his who at this time is not ready for palliative or hospice care. Patient does not appear to have much insight about his current illness so difficult to discuss goals of care with him. Objective - Vital Signs Vital signs: Vital Signs Temp 97.5 F L 01/03/20 08:00 Pulse 91 01/03/20 09:00 Resp 24 01/03/20 09:00 BP 76/59 01/01/20 10:00 Pulse Ox 93 L 01/03/20 09:00 Intake & Output 01/02/20 01/03/20 01/03/20 18:59 06:59 18:59 Intake Total 5653.110 1511.713 234 Output Total 395 715 220 Balance 1377.863 764.713 14 Weight 96.8 kg Intake: IV 461 836 9 A line flush 36 36 9 Cefepime 1 gm In Sodium 50 Chloride 0.9% 50 ml @ 100 mls/hr IVPB Q12HR [facility] Rx #:[id number] Dextrose 5% in Water 1, 325 750 000 ml @ 75 mls/hr IV . [id number] [facility] with Sodium Bicarb (1 Meq/ml) 150 ml Rx#:[id number] metroNIDAZOLE-NS PMX 500 100 mg In Saline 1 100ml.bag @ 100 mls/hr IVPB Q8H [facility] Rx#:[id number] Intake, IV Titration 1311.863 403.713 225 Amount Cefepime 1 gm In Sodium 50 Chloride 0.9% 50 ml @ 100 mls/hr IVPB Q12HR [facility] Rx #:[id number] DOBUTamine DRIP 500 mg In 240.488 Dextrose/Water 1 250ml. bag @ 5 MCG/KG/MIN 11.925 mls/hr IV .[id number] [facility] Rx#:[id number] Furosemide 100 mg In 239.333 195.667 Sodium Chloride 0.9% 90 ml @ 20 MG/HR 20 mls/hr IV .Q5H [facility] Rx#:[id number] Levofloxacin 750Mg-D5w 150 Pmx 750 mg In Dextrose/ Water 1 150ml.bag @ 100 mls/hr IVPB Q48H [facility] Rx#: [id number] Norepinephrine 8 mg In 107.042 58.046 Sodium Chloride 0.9% 250 ml @ 0.05 MCG/KG/MIN 7. 692 mls/hr IV .Q24H [facility] Rx#:[id number] Sodium Chloride 0.45% 1, 525 150 225 000 ml @ 75 mls/hr IV . [id number] [facility] with Sodium Bicarb (1 Meq/ml) 150 ml Rx#:[id number] Oral 240 Output: Urine 395 715 220 Other: Voiding Method Indwelling Catheter Indwelling Catheter Indwelling Catheter ABP, PAP, CO, CI - Last Documented Arterial Blood Pressure 101/52 - Exam General examination - Alert and Oriented 3. Moderate to severe respiratory distress, appears chronically debilitated and ill appearing Heart - + S1S2 no murmurs Lungs - crackles in bilateral lower lobes, ICD and right chest wall area Abdomen soft NT ND +ve BS Extremities -generalized edema PLANNER CHIEF - Moving all 4 extremities spontaneously Psych - patient in distress due to shortness of breath - Labs CBC & Chem 7: 01/03/20 05:05 01/03/20 05:05 Labs: Abnormal Lab Results - Last 24 Hours (Table) 01/02/20 01/03/20 01/03/20 Range/Units 09:40 05:05 05:05 RBC 3.53 L (4.30-5.90) m/uL Hgb 10.3 L (13.0-17.5) gm/dL Hct 31.8 L (39.0-53.0) % RDW 17.4 H (11.5-15.5) % Plt Count 46 L (150-450) k/uL Lymphocytes # 0.4 L (1.0-4.8) k/uL ABG pCO2 25 L (35-45) mmHg ABG HCO3 17 L (21-25) mmol/L ABG Total CO2 17 L (19-24) mmol/L Sodium 126 L (137-145) mmol/L Chloride 87 L (98-107) mmol/L BUN 84 H (9-20) mg/dL Creatinine 3.24 H (0.66-1.25) mg/dL Glucose 134 H (74-99) mg/dL Calcium 6.6 L (8.4-10.2) mg/dL Phosphorus 5.0 H (2.5-4.5) mg/dL Microbiology - Last 24 Hours (Table) 01/02/20 12:30 Gram Stain - Preliminary Sputum Sputum Culture - Preliminary 12/31/19 12:15 Blood Culture - Preliminary Blood No Growth after 48 hours 01/01/20 23:10 Nasal Screen MRSA/MSSA - Preliminary Nasopharyngeal Swab Assessment and Plan Assessment: #Hypertension secondary to septic shock versus cardiogenic shock #Possible pneumonia -Chest x-ray shows pulmonary edema and pleural effusions however a space disease cannot be ruled out. -Flooring Salesperson on board -Lasix drip increased by nephrology -Titrate off dobutamine and norepinephrine as tolerated -Resume midodrine. Hold BP meds which includes metoprolol -Sputum culture growing gram-negative and gram-positive cocci bacteria -Infectious disease managing antibiotics. IV vancomycin and Levaquin discontinued on 01/02/2020. Patient currently on cefepime and Flagyl. - IV vancomycin, Levaquin and Flagyl. Check MRSA and discontinue vancomycin if negative. -Follow blood cultures and to finalize -Urine culture is negative -Cardiology and pulmonology on board #Gram-negative darnell bacteremia likely source is pneumonia -Antibiotics as above -Infectious disease on board #Acute hypoxic respiratory failure secondary to volume overload vs pneumonia -Patient currently on high flow oxygen -Patient refused intubation -DuoNeb's -Wean O2 as tolerated #Acute kidney injury on CK D - likely due to tumor lysis syndrome versus cardiorenal syndrome -Uric acid is 19 -Nephrology and hematology on board -- Creatinine slightly worse today #Metabolic acidosis #Lactic acidosis -Secondary to poor perfusion and lymphoma -Avoiding further fluids due to volume overload -Patient on bicarb 150 mEq and half-normal saline drip -Nephrology on board #Paroxysmal atrial fibrillation -Hold metoprolol. Resume digoxin and amiodarone -Hold Eliquis due to thrombocytopenia (discussed with hematology said to restart Eliquis when platelets greater than 50) #Hypervolemic Hyponatremia -Patient started on Lasix drip -Nephrology managing -Trend BMP #Acute on chronic systolic heart failure #Nonischemic cardiomyopathy with left ventricular ejection fraction less than 20% status post ICD -Diuresing as above -Beta addison on hold due to hypotension -No NESSA inhibitor or ARBI due to renal failure and hypotension #Recently diagnosed with lymphoma 2 months ago -Hematology on board -Patient started on dexamethasone -Hematology would like to start first dose chemotherapy while patient is inpatient and when patient is more stable. #Thrombocytopenia -Decreasing -Monitor platelets -Hematology on board #Ascending aortic aneurysm -Patient follow-up *I had a lengthy discussion with the patient and the family regarding his poor prognosis. Patient agreed to change CODE STATUS to DNR/DNI. is not ready for palliative or hospice consult. I spoke with son on 01/03/2020 and discussed the poor prognosis of his father with him. Son said he will discuss with his mother and sister about possible hospice and palliative care. We'll need to continue to keep having discussions with the family. CODE STATUS DNR/DNI DVT prophylaxis: Anticoagulation on hold due to thrombocytopenia
[2020-01-03] MEDS: MORPHINE SULFATE 2 MG/ML SYRINGE IVP PRN ×2 (09:59→16:11)
[2020-01-03] MEDS: DOBUTamine DRIP 500 MG in DEXTROSE/WATER 1 250ML.BAG IV SCH (10:03)
[2020-01-03] MEDS: NOREPINEPHRINE 8 MG in SODIUM CHLORIDE 0.9% 250 ML IV SCH (10:04)
[2020-01-03] MEDS ORDERED: TOLVAPTAN 15 MG 1/2 TABLET PO ONE (10:30)
--- NOTE | 2020-01-03 10:45 | PN ---
PROGRESS NOTE The patient is seen for follow up for acute kidney injury, mainly cardiorenal and associated with hypotension and hypoperfusion. The patient has severe cardiomyopathy, ejection fraction of less than 20%. He has been in acute systolic heart failure and is maintained on dobutamine drip and Lasix drip. Lasix drip was increased to 20 mg an hour. Urine output seems to have picked up. However, patient remains short of breath. He is also maintained on bicarb drip for metabolic acidosis. Current code status is no code, no intubation. Patient is not a candidate for dialysis. PHYSICAL EXAMINATION: On examination, blood pressure is 122/57, heart rate 80 per minute. He is afebrile. Examination of the heart S1, S2. Examination of the lungs, decreased breath sounds at bases. Bilateral crackles are heard at the bases. Abdomen is soft, nontender. Examination of lower extremities shows edema 3+ bilaterally. MAINTENANCE PLANNER exam grossly intact. Patient is moving all 4 extremities. LABS: Show sodium 126, potassium 4.2, chloride 87, BUN 84, creatinine 3.24, hemoglobin 10.3 g/dL. ASSESSMENT: 1. Acute kidney injury, cardiorenal and secondary to hypotension and hypoperfusion. Currently maintained on Lasix drip which we will continue at the 20 mg an hour dose and patient is not a candidate for dialysis. 2. Hypervolemic hyponatremia. Continue to diurese patient. I will give a dose of tolvaptan as well. 3. Anion gap metabolic acidosis, currently maintained on bicarb drip. I will decrease the bicarb drip to 40 cc an hour. Continue with oral bicarb as well. 4. Hyperphosphatemia associated with renal failure. Add phosphate binders. 5. Severe cardiomyopathy, ejection fraction less than 20%. 6. Generalized debility. 7. Lactic acidosis secondary to underlying lymphoma. 8. Sepsis with gram-negative bacteremia. Urine culture shows no growth thus far. Currently maintained on antibiotics. PLAN: Decrease bicarb drip. Add tolvaptan x1. Overall prognosis is guarded. Patient is not a candidate for dialysis. MMODL / IJN: [id number] /
--- NOTE | 2020-01-03 12:17 | P.PN ---
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 Patient was at Dr. Harris's office, and was noted to have significant bilateral lower leg edema, shortness of breath and weakness sent to the hospital for evaluation. Patient is very tired on presentation. He has had decreased oral intake, occasional fever, he did have some nausea and vomiting. Nursing also reports diarrhea. Chest x-ray on admission showed cardiomegaly, m oderate central alveolar edema, stable small right pleural effusion, and worsening left basilar acute infiltrate and atelectasis. Admission lab work showed white blood cell count of 9.0, hemoglobin of 12.9, platelet count is 106, sodium was 128, chloride was 95, CO2 was only 12, BUN is 52, creatinine was 2.51, proBNP was 24,400, troponin was 0.034, and 0.053, today's urinalysis shows large amount of blood, trace leuk trase, white blood cells in clumps, and occasional bacteria with the possibility of urinary tract infection. Urine is quite turbid with sediment. Today patient was noted to have increased shortness of breath, using accessory muscles of breathing, he became hypotensive, requir ing transfer to the intensive care unit. Follow-up chest x-ray today shows pulmonary edema, small right pleural effusion, today's labs show worsening renal function, and patient has only had 200 mL of urine output since admission. During her evaluation in the intensive care unit patient is awake, but he is quite dyspneic, tachypneic using accessory muscles of breathing, he was placed on BiPAP support, was given 80 of IV Lasix and the Lasix drip was started, he is hypotensive requiring levo fed infusion. We spoke to the patient and his about the CODE STATUS and the decided on supportive care measures, and no ventilator support, no CPR, no defibrillation. Triple-lumen central venous catheter was emergently placed in the right femoral area, and right brachial art line was placed for hemodynamic monitoring, he was placed on BiPAP support the pressures of 12 and 6 and FiO2 100%, he required a few doses of IV morphine, he found it very difficult to tolerate the BiPAP support, we did switch him to high flow oxygen with Airvo with FiO2 of 50%, and 40 L/m flow, and is currently tolerating it better, stat blood gas was obtained showing profound metabolic acidosis, and 2 doses of IV sodium bicarb was given and sodium bicarb infusion be started, blood cultures were sent, urine culture was sent, we'll send a lactic acid and empiric antibiotics were started in the form of Levaquin, Flagyl and vancomycin. Patient was reevaluated today on 01/01/20. Remains in the intensive care unit. Patient is doing fairly well. Significantly better compared to yesterday. However he is on multiple drips including a bicarb drip which I cut down to 25 mL per hour. He is on norepinephrine 0.12 mcg/kg/m and I cut it down to 0.06 mcg/kg/m he is on Lasix at 10 mg per hour. Dobutrex 2.5 mcg/kg/m and a decrease that to 5 mcg/kg/m. His ABG today showed a pO2 of 70 pCO2 of 23 pH of 7.48, and his bicarb today is 20. PH yesterday was 7.21. Patient remains on 50% FiO2 and 40 L high flow oxygen. Chest x-ray continues to show widened mediastinum and CHF findings/pulmonary edema with small bilateral effusions patient is making small amount of urine, roughly about 30 mL per hour. Renal profile showed a BUN of 68 creatinine of 3.25, slightly improved with improvement of blood pressure compared to yesterday. Lactic acid remains at 9.1. Liver enzymes are elevated including AST of 345 and ALT of 144 albumin is 2.2. Patient was reevaluated today on 01/02/20, remains on high flow oxygen 40 L/m, and 50% FiO2. Remains in the ICU, presently on bicarb drip at 75 mL per hour, Lasix 20 mg per hour, Dobutrex at 5 mcg/kg/m, and norepinephrine at 0.09 mcg/kg/m. Patient remains marginal, continues to have shortness of breath no cough no wheezing no fever no chills no hemoptysis no chest pain. Chest x-ray shows worsening congestive heart failure. CBC is relatively normal ABG today s howed a pO2 of 86 pCO2 of 25 pH of 7.43. Sodium is 127 potassium 4.4 BUN is 74 creatinine is 3.03. Slight improvement in his renal profile. Clinically however the patient remains about the same, remains short of breath. And asking to be allowed to sit at the edge of the bed. Patient was reevaluated today on 01/03/20. Remains in moderate respiratory distress. Remains on high flow oxygen. Remains on Dobutrex at 5 mcg/kg/m, norepinephrine at 0.05 mcg/kg/m, bicarb at 75 ML per hour Lasix drip at 20 mg/h he is also on high FiO2 50% and flow of 40 L/m. Patient is now on cefepime and Flagyl his blood cultures are positive for gram-negative bacilli, sputum is showing gram-negative bacilli and gram-positive cocci. Final culture is pending. Clinically the patient is basically about the same, chest x-ray continues to show evidence of pulmonary edema, pleural effusions, underlying pneumonia is not entirely ruled out, CBC showed WBC count of 4 hemoglobin is 10.3. Platelets are 46,000, no ABG was done today. Electrolytes showed low sodium of 126, normal potassium, bicarb is 20 to BUN is 84 creatinine 3.24. Objective - Vital Signs Vital signs: Vital Signs Temp 97.5 F L 01/03/20 08:00 Pulse 88 01/03/20 11:58 Resp 30 H 01/03/20 11:30 BP 76/59 01/01/20 10:00 Pulse Ox 93 L 01/03/20 11:30 Intake & Output 01/02/20 01/03/20 01/03/20 18:59 06:59 18:59 Intake Total 8408.858 3412.713 645.986 Output Total 395 715 260 Balance 1377.863 764.713 385.986 Weight 96.8 kg Intake: IV 461 836 12 A line flush 36 36 12 Cefepime 1 gm In Sodium 50 Chloride 0.9% 50 ml @ 100 mls/hr IVPB Q12HR [facility] Rx #:[id number] Dextrose 5% in Water 1, 325 750 000 ml @ 75 mls/hr IV . [id number] [facility] with Sodium Bicarb (1 Meq/ml) 150 ml Rx#:[id number] metroNIDAZOLE-NS PMX 500 100 mg In Saline 1 100ml.bag @ 100 mls/hr IVPB Q8H [facility] Rx#:[id number] Intake, IV Titration 1311.863 403.713 633.986 Amount Cefepime 1 gm In Sodium 50 Chloride 0.9% 50 ml @ 100 mls/hr IVPB Q12HR [facility] Rx #:[id number] DOBUTamine DRIP 500 mg In 240.488 211.271 Dextrose/Water 1 250ml. bag @ 5 MCG/KG/MIN 11.925 mls/hr IV .[id number] [facility] Rx#:[id number] Furosemide 100 mg In 239.333 195.667 94 Sodium Chloride 0.9% 90 ml @ 20 MG/HR 20 mls/hr IV .Q5H [facility] Rx#:[id number] Levofloxacin 750Mg-D5w 150 Pmx 750 mg In Dextrose/ Water 1 150ml.bag @ 100 mls/hr IVPB Q48H [facility] Rx#: [id number] Norepinephrine 8 mg In 107.042 58.046 63.715 Sodium Chloride 0.9% 250 ml @ 0.05 MCG/KG/MIN 7. 692 mls/hr IV .Q24H [facility] Rx#:[id number] Sodium Chloride 0.45% 1, 525 150 265 000 ml @ 40 mls/hr IV . Q24H [facility] with Sodium Bicarb (1 Meq/ml) 150 ml Rx#:[id number] Oral 240 Output: Urine 395 715 260 Other: Voiding Method Indwelling Catheter Indwelling Catheter Indwelling Catheter ABP, PAP, CO, CI - Last Documented Arterial Blood Pressure 122/59 - Exam GENERAL EXAM: Revealed 74-year-old white male, in mild to moderate respiratory distress, requiring high FiO2 and high flow. HEENT: PERRLA, EOMI, no icterus, bilateral cervical adenopathy palpable. CHEST: No chest wall deformity. Symmetrical expansion. LUNGS: Equal air entry fine crackles at the bases.. AICD noted in the left upper chest wall area. CVS: Irregular rate and rhythm, normal S1 and S2, no gallops, 2/6 systolic murmur thought the precordium. ABDOMEN: Soft, nontender. No hepatosplenomegaly, normal bowel sounds, no guarding or rigidity. EXTREMITIES: No clubbing, significant 3+ lower extremity edema no cyanosis, 2+ pulses and upper and lower extremities. Inguinal lymphadenopathy MUSCULOSKELETAL: Muscle strength and tone normal. SPINE: No scoliosis or deformity SKIN: No rashes CENTRAL NERVOUS SYSTEM: Alert and oriented -3. No focal deficits, tone is normal in all 4 extremities. PSYCHIATRIC: Alert and oriented -3. Appropriate affect. Intact judgment and insight. - Labs CBC & Chem 7: 01/03/20 05:05 01/03/20 05:05 Labs: Abnormal Lab Results - Last 24 Hours (Table) 01/03/20 01/03/20 Range/Units 05:05 05:05 RBC 3.53 L (4.30-5.90) m/uL Hgb 10.3 L (13.0-17.5) gm/dL Hct 31.8 L (39.0-53.0) % RDW 17.4 H (11.5-15.5) % Plt Count 46 L (150-450) k/uL Lymphocytes # 0.4 L (1.0-4.8) k/uL Sodium 126 L (137-145) mmol/L Chloride 87 L (98-107) mmol/L BUN 84 H (9-20) mg/dL Creatinine 3.24 H (0.66-1.25) mg/dL Glucose 134 H (74-99) mg/dL Calcium 6.6 L (8.4-10.2) mg/dL Phosphorus 5.0 H (2.5-4.5) mg/dL Microbiology - Last 24 Hours (Table) 01/01/20 23:10 Nasal Screen MRSA/MSSA - Final Nasopharyngeal Swab 01/02/20 12:30 Gram Stain - Preliminary Sputum Sputum Culture - Preliminary 12/31/19 12:15 Blood Culture - Preliminary Blood No Growth after 48 hours Assessment and Plan Assessment: #1. Acute hypoxic respiratory failure related to acute exacerbation of systolic CHF, chest x-ray showing pulmonary edema and pleural effusion, patient has what seems to be a cardiogenic shock and septic shock. #2. Hypotension, multifactorial, likely related to cardiogenic shock, rule out septic shock. Patient has gram-negative bacteremia. In one of his blood cultures. Remains on vancomycin and Levaquin for now. #3. Acute kidney injury, likely cardiorenal, and possibly from sepsis and septic shock #4. Acute anion gap metabolic acidosis, related to lactic acidosis #5. Troponin leak likely related to acute hypoxic rest or a failure and acute exacerbation of CHF #6. Recent diagnosis of low-grade B-cell lymphoma #7. Hypervolemic hyponatremia, improving. #8. Hyperuricemia, related to his underlying lymphoma #9. History of paroxysmal atrial fibrillation #10. History of severe nonischemic cardiomyopathy with EF of less than 20% status post AICD placement #11. Thrombocytopenia #12. Hypertension #13. Hyperlipidemia Recommendation: Continue hemodynamic support. Continue pressors and inotropes. Continue Cordarone. Continue Lasix drip. Continue Eliquis. Continue empiric antibiotics. Presently on cefepime and Flagyl. Vancomycin was discontinued Continue midodrine. Continue sodium bicarb Follow up on all cultures including urine cultures and blood cultures. One blood culture is positive for gram-negative bacilli. Patient remains critically ill, Critical care time is 31 minutes Discussed his condition with the admitting physician. Overall prognosis is extremely poor Time with Patient: Greater than 30
[2020-01-03 13:02] VITALS: BMI 31.5
--- NOTE | 2020-01-03 13:30 | P.PN ---
Subjective Mr. Jennings remains very short of breath, tachypneic and using accessory muscles of respiration at rest Pulse rate 80s to 90s Tachypneic Blood pressure 93/49 216/58 mmHg On inotropes, pressors Known nonischemic cardiomyopathy cad Frequent ventricular ectopy Atrial fibrillation Lymphoma Abdominal Labs reviewed Sodium 126 potassium 4.2 BUN 84, creatinine 3.24, magnesium 1.8 Hemoglobin 10.3 Suggest morphine Turn off ICD tachycardia therapies Objective - Vital Signs Vital signs: Vital Signs Temp 97.5 F L 01/03/20 08:00 Pulse 87 01/03/20 13:00 Resp 26 H 01/03/20 13:00 BP 76/59 01/01/20 10:00 Pulse Ox 94 L 01/03/20 13:00 Intake & Output 01/02/20 01/03/20 01/03/20 18:59 06:59 18:59 Intake Total 5492.885 9337.713 774.986 Output Total 395 715 385 Balance 1377.863 764.713 389.986 Weight 96.8 kg 96.8 kg Intake: IV 461 836 21 A line flush 36 36 21 Cefepime 1 gm In Sodium 50 Chloride 0.9% 50 ml @ 100 mls/hr IVPB Q12HR [facility] Rx #:[id number] Dextrose 5% in Water 1, 325 750 000 ml @ 75 mls/hr IV . [id number] [facility] with Sodium Bicarb (1 Meq/ml) 150 ml Rx#:[id number] metroNIDAZOLE-NS PMX 500 100 mg In Saline 1 100ml.bag @ 100 mls/hr IVPB Q8H [facility] Rx#:[id number] Intake, IV Titration 1311.863 403.713 753.986 Amount Cefepime 1 gm In Sodium 50 Chloride 0.9% 50 ml @ 100 mls/hr IVPB Q12HR [facility] Rx #:[id number] DOBUTamine DRIP 500 mg In 240.488 211.271 Dextrose/Water 1 250ml. bag @ 5 MCG/KG/MIN 11.925 mls/hr IV .[id number] [facility] Rx#:[id number] Furosemide 100 mg In 239.333 195.667 94 Sodium Chloride 0.9% 90 ml @ 20 MG/HR 20 mls/hr IV .Q5H [facility] Rx#:[id number] Levofloxacin 750Mg-D5w 150 Pmx 750 mg In Dextrose/ Water 1 150ml.bag @ 100 mls/hr IVPB Q48H [facility] Rx#: [id number] Norepinephrine 8 mg In 107.042 58.046 63.715 Sodium Chloride 0.9% 250 ml @ 0.05 MCG/KG/MIN 7. 692 mls/hr IV .Q24H [facility] Rx#:[id number] Sodium Chloride 0.45% 1, 525 150 385 000 ml @ 40 mls/hr IV . Q24H [facility] with Sodium Bicarb (1 Meq/ml) 150 ml Rx#:[id number] Oral 240 Output: Urine 395 715 385 Other: Voiding Method Indwelling Catheter Indwelling Catheter Indwelling Catheter ABP, PAP, CO, CI - Last Documented Arterial Blood Pressure 93/49 - Labs CBC & Chem 7: 01/03/20 05:05 01/03/20 05:05 Labs: Abnormal Lab Results - Last 24 Hours (Table) 01/03/20 01/03/20 Range/Units 05:05 05:05 RBC 3.53 L (4.30-5.90) m/uL Hgb 10.3 L (13.0-17.5) gm/dL Hct 31.8 L (39.0-53.0) % RDW 17.4 H (11.5-15.5) % Plt Count 46 L (150-450) k/uL Lymphocytes # 0.4 L (1.0-4.8) k/uL Sodium 126 L (137-145) mmol/L Chloride 87 L (98-107) mmol/L BUN 84 H (9-20) mg/dL Creatinine 3.24 H (0.66-1.25) mg/dL Glucose 134 H (74-99) mg/dL Calcium 6.6 L (8.4-10.2) mg/dL Phosphorus 5.0 H (2.5-4.5) mg/dL Microbiology - Last 24 Hours (Table) 01/01/20 23:10 Nasal Screen MRSA/MSSA - Final Nasopharyngeal Swab 01/02/20 12:30 Gram Stain - Preliminary Sputum Sputum Culture - Preliminary 12/31/19 12:15 Blood Culture - Preliminary Blood No Growth after 48 hours
[2020-01-03 16:17] VITALS: RESP 24; TEMP 97.6
[2020-01-03 17:09] VITALS: PULSE 82
--- NOTE | 2020-01-03 18:13 | P.DS ---
Providers Date of admission: 12/30/19 19:13 Expected date of discharge: 01/03/20 Attending physician: Grady Tam MD Consults: 12/30/19 19:14 Consult Physician Routine Consulting Provider: Jd Harris Consult Reason/Comments: Lymphoma Do you want consulting provider notified?: Yes 12/31/19 09:09 Consult Physician Routine Consulting Provider: Marissa Shaikh Consult Reason/Comments: NUNO Do you want consulting provider notified?: Yes 12/31/19 09:33 Consult Physician Routine Consulting Provider: Oren Pizano Consult Reason/Comments: CHF Do you want consulting provider notified?: Yes 12/31/19 12:12 Consult Physician Urgent Consulting Provider: Ran Spencer Consult Reason/Comments: SOB Do you want consulting provider notified?: Yes 12/31/19 14:13 Consult Physician Routine Consulting Provider: Ran Spencer Consult Reason/Comments: septic shock Do you want consulting provider notified?: Yes 01/02/20 08:31 Consult Physician Urgent Consulting Provider: Chad Spann Consult Reason/Comments: bacteremia Do you want consulting provider notified?: Yes Primary care physician: Frank Perez Hospital Course: Discharge Diagnosis: Hypotension secondary to septic shock versus cardiogenic shock Possible pneumonia Gram-negative darnell bacteremia with likely source being pneumonia Acute hypoxic respiratory failure secondary to volume overload versus pneumonia Acute kidney injury on CK D Metabolic acidosis Lactic acidosis Paroxysmal atrial fibrillation Hypovolemic hyponatremia Acute on chronic systolic heart failure Lymphoma Thrombocytopenia Hospital Course: 74-year-old male with recently diagnosed lymphoma, extensive cardiac history with aortic aneurysm, paroxysmal A. fib, nonischemic cardiomyopathy left ventricular ejection fraction less than 20% status post AICD and recent diagnosis of lymphoma. Patient was sent in from his oncologist office due to bilateral lower extremity edema and also difficulty breathing. Patient was initially admitted to the general medical floor. However due to increased dyspnea and hypotension patient was then transferred to the ICU. Patient's chest x-ray was consistent with volume overload. Patient was started on Lasix drip and pressors. Patient was seen by nephrology who said that patient needs dialysis however he is not a candidate for dialysis due to coronary artery disease and systolic heart failure making him a high risk for ischemia with the dialysis. Patient also found to have gram-negative bacteremia. Infectious disease was on the case and managing his antibiotics. Hematology was also following the patient. Patient was started on dexamethasone for his lymphoma. Patient's kidney function was initially improving however then started worsening. Patient still had significant pulmonary edema on chest x-ray. Patient was still tachypneic and short of breath and was on pressors. I had a lengthy discussion with the family regarding his poor prognosis. Family agreed to comfort care as they did not want the patient to suffer. Patient will be transitioned to inpatient hospice. I anticipate that the patient will pass away soon. General examination - Alert and Oriented 3. Moderate to severe respiratory distress, appears chronically debilitated and ill appearing Heart - + S1S2 no murmurs Lungs - crackles in bilateral lower lobes, ICD and right chest wall area Abdomen soft NT ND +ve BS Extremities -generalized edema UG DESIGNER - Moving all 4 extremities spontaneously Psych - patient in distress due to shortness of breath A total of [40] minutes of time were spent preparing this complex discharge summary . Patient Condition at Discharge: Fair Plan - Discharge Summary Discharge Rx Participant: No New Discharge Prescriptions: No Action Albuterol Nebulized [Ventolin Nebulized] 2.5 mg INHALATION RT-TID PRN PRN Reason: Shortness Of Breath Atorvastatin [Lipitor] 20 mg PO HS #30 tab Docusate [Colace] 100 mg PO DAILY Metoprolol Succinate (ER) [Toprol XL] 25 mg PO DAILY Apixaban [Eliquis] 5 mg PO BID #60 tab Digoxin [Lanoxin] 125 mcg PO DAILY #30 tab Furosemide [Lasix] 20 mg PO BID@0900,1600 #60 tab Midodrine [ProAmatine] 5 mg PO AC-TID #90 tab Amiodarone [Cordarone] 100 mg PO DAILY Clotrimazole Glenys [Mycelex Glenys] 10 mg MUCOUS MEM 5XD dronabinoL [Marinol] 5 mg PO BID Discharge Medication List Albuterol Nebulized [Ventolin Nebulized] 2.5 mg INHALATION RT-TID PRN 09/03/17 [History] Atorvastatin [Lipitor] 20 mg PO HS #30 tab 09/21/17 [Rx] Docusate [Colace] 100 mg PO DAILY 12/07/19 [History] Metoprolol Succinate (ER) [Toprol XL] 25 mg PO DAILY 12/07/19 [History] Apixaban [Eliquis] 5 mg PO BID #60 tab 12/14/19 [Rx] Digoxin [Lanoxin] 125 mcg PO DAILY #30 tab 12/14/19 [Rx] Furosemide [Lasix] 20 mg PO BID@0900,1600 #60 tab 12/14/19 [Rx] Midodrine [ProAmatine] 5 mg PO AC-TID #90 tab 12/14/19 [Rx] Amiodarone [Cordarone] 100 mg PO DAILY 12/30/19 [History] Clotrimazole Glenys [Mycelex Glenys] 10 mg MUCOUS MEM 5XD 12/30/19 [History] dronabinoL [Marinol] 5 mg PO BID 12/30/19 [History] Follow up Appointment(s)/Referral(s): Frank Perez MD [Primary Care Provider] - 1-2 days Discharge Disposition: [facility]CH TO [facility]
[2020-01-04] MEDS ORDERED: LEVOFLOXACIN 750 MG TAB PO SCH (09:00)
--- NOTE | 2020-01-05 15:08 | CDI ---
Documentation Clarification Form Date: 01/05/20 From: Italia Lockwood Phone: If you have a question about this query, please contact Preethi Barnard, [employer]cl[employer] at [phone] between 8am and 5pm. Admit Date: Discharge Date: Patient Name: Visit Number: ATTENTION: The Clinical Documentation Specialists (CDI) and [facility] Coding Staff appreciate your assistance in clarifying documentation. Please respond to the clarification below the line at the bottom and electronically sign. The CDI & [facility] Coding staff will review the response and follow-up if needed. Please note: Queries are made part of the Legal Health Record. If you have any questions, please contact the author of this message via ITS. Dear Dr. Shaikh CKD is documented in Dr. Laura's 12/31 progress note. And in H&P by Anel as acute kid injury on top of CKD. History/Risk Factors: Patients Historical BUN/CR/GFR: 09/18/17 54, 09/19/17 56, 09/20/17 58, 09/21/17 67, 12/08/19 49, 12/08 - 12/14/19 49 - 56 Clinical Indicators: Current BUN/CR/GFR: 12/29 - 01/03/20 17 - 25 Treatment: Vasopressors for hypotension, IV NS at 80 mls/hr Consults [summarize [facility] [place] consultant's findings]: Nephrology documented acute kidney injury, cardiorenal In order to capture the severity of condition, please clarify the stage of the CKD, if known: CKD Stage 1 (GFR > 90) CKD Stage 2 (GFR 60-89) CKD Stage 3 (GFR 30-59) CKD Stage 4 (GFR 15-29) CKD Stage 5 (GFR <15) ESRD Not CKD - only NUNO Other, please specify Unable to determine ckd 3 MTDD
== END 2020-01-03 17:34 | disposition hospice, inpatient (51) | DRG 871 ==
LOC: EC 17:01 → 5NMEDONC 19:13 → 2SICU 12-31 13:14
PROVIDERS: ADMIT Internal Medicine; ATTEND Internal Medicine
PROC: 5A09357 Assistance with Respiratory Ventilation, Less than 24 Consecutive Hours, Continuous Positive Airway Pressure (ICD-10-PCS; principal; 2019-12-31)
PROC: 3E033XZ Introduction of Vasopressor into Peripheral Vein, Percutaneous Approach (ICD-10-PCS; 2019-12-31)
PROC: 06HM33Z Insertion of Infusion Device into Right Femoral Vein, Percutaneous Approach (ICD-10-PCS; 2019-12-31)
PROC: 03H733Z Insertion of Infusion Device into Right Brachial Artery, Percutaneous Approach (ICD-10-PCS; 2019-12-31)
DX: A41.50 Gram-negative sepsis, unspecified (principal); I50.23 Acute on chronic systolic (congestive) heart failure; J15.6 Pneumonia due to other Gram-negative bacteria; J96.01 Acute respiratory failure with hypoxia; R57.0 Cardiogenic shock; R65.21 Severe sepsis with septic shock; E88.3 Tumor lysis syndrome; C85.10 Unspecified B-cell lymphoma, unspecified site; E87.1 Hypo-osmolality and hyponatremia; E87.2 Acidosis; I13.0 Hypertensive heart and chronic kidney disease with heart failure and stage 1 through stage 4 chronic kidney disease, or unspecified chronic kidney disease; I42.8 Other cardiomyopathies; I47.2 Ventricular tachycardia; J98.11 Atelectasis; N17.9 Acute kidney failure, unspecified; N39.0 Urinary tract infection, site not specified; N18.3 Chronic kidney disease, stage 3 (moderate); D69.6 Thrombocytopenia, unspecified; I27.20 Pulmonary hypertension, unspecified; R62.7 Adult failure to thrive; E83.39 Other disorders of phosphorus metabolism; I71.2 Thoracic aortic aneurysm, without rupture; Z20.828 Contact with and (suspected) exposure to other viral communicable diseases; Z66 Do not resuscitate; Z51.5 Encounter for palliative care; E78.5 Hyperlipidemia, unspecified; E86.0 Dehydration; I25.10 Atherosclerotic heart disease of native coronary artery without angina pectoris; I44.7 Left bundle-branch block, unspecified; I48.0 Paroxysmal atrial fibrillation; F32.9 Major depressive disorder, single episode, unspecified; E79.0 Hyperuricemia without signs of inflammatory arthritis and tophaceous disease; R19.7 Diarrhea, unspecified; R16.1 Splenomegaly, not elsewhere classified; H91.90 Unspecified hearing loss, unspecified ear; I08.1 Rheumatic disorders of both mitral and tricuspid valves; R79.89 Other specified abnormal findings of blood chemistry; I49.3 Ventricular premature depolarization; Z79.01 Long term (current) use of anticoagulants; Z79.899 Other long term (current) drug therapy; Z88.0 Allergy status to penicillin; Z91.030 Bee allergy status; Z86.73 Personal history of transient ischemic attack (TIA), and cerebral infarction without residual deficits; Z87.891 Personal history of nicotine dependence; Z95.810 Presence of automatic (implantable) cardiac defibrillator; Z83.3 Family history of diabetes mellitus; Z80.9 Family history of malignant neoplasm, unspecified
CPT/HCPCS: 36415; 71045; 71046; 80048; 80053; 80202; 81001; 82533; 82550; 82805; 83605; 83735; 83880; 84100; 84484; 84550; 85025; 85027; 85610; 87040; 87070; 87077; 87086; 87186; 87205; 93005; 94640; 94660; 96374; 99285

== ENCOUNTER 2020-01-03 16:23 | Inpatient (IN) | payer MEDICAID ==
[2020-01-03] MEDS ORDERED: SODIUM CHLORIDE 0.9% 1,000 ML IV SCH (17:00)
[2020-01-03] MEDS ORDERED: LORazepam 2 MG/ML INJ IV PRN (17:00)
[2020-01-03] MEDS ORDERED: ACETAMINOPHEN SUPPOSITORY 650 MG SUPP RECTAL PRN (17:00)
[2020-01-03] MEDS ORDERED: ATROPINE OPHTH SOLN 1% 5ML BTL SUBLINGUAL PRN (17:00)
[2020-01-03] MEDS ORDERED: SCOPOLAMINE 1.5MG/72HR PATCH TRANSDERM SCH (17:00)
[2020-01-03] MEDS ORDERED: ONDANSETRON 4 MG/2 ML VIAL IVP PRN (17:00)
[2020-01-03] MEDS ORDERED: DRY MOUTH SPRAY 44.3 SPRAY/44.3 ML SPRAY MUCOUS MEM PRN (17:00)
[2020-01-03] MEDS ORDERED: MORPHINE SULFATE 2 MG/ML SYRINGE IV PRN (17:00)
[2020-01-03] MEDS: MORPHINE SULFATE (100 MG/2 ML) 100 MG in SODIUM CHLORIDE 0.9% 100 ML IV SCH (18:12)
--- NOTE | 2020-01-03 18:19 | P.HPIM ---
History of Present Illness H&P Date: 01/03/20 Chief Complaint: Inpatient hospice Please see previous discharge summary for inpatient hospital course. Patient was deemed a candidate for hospice due to her multiple comorbidities that included heart failure with an EF of 20%, renal failure and not being a candidate for dialysis, lymphoma. Patient will be started on comfort care measures. Review of Systems ROS unobtainable: due to mental status (Altered mental status) Past Medical History Past Medical History: Heart Failure, Hyperlipidemia, Hypertension, Memory Impairment Additional Past Medical History / Comment(s): weakness, 25 lb. weight loss recently, "just not feeling well" per spouse, enlarged lymph nodes per spouse History of Any Multi-Drug Resistant Organisms: None Reported Past Surgical History: AICD, Heart Catheterization, Pacemaker, Tonsillectomy Additional Past Surgical History / Comment(s): defibulator Past Anesthesia/Blood Transfusion Reactions: No Reported Reaction Type of Cardiac Device: AICD Device Placement Date:: 2012 Past Psychological History: No Psychological Hx Reported Smoking Status: Never smoker Past Alcohol Use History: None Reported Past Drug Use History: None Reported - Past Family History Mother Family Medical History: Cancer Father Family Medical History: Diabetes Mellitus Sister(s) Family Medical History: Cancer Medications and Allergies Home Medications Medication Instructions Recorded Confirmed Type Albuterol Nebulized [Ventolin 2.5 mg INHALATION RT-TID PRN 09/03/17 12/30/19 History Nebulized] Atorvastatin [Lipitor] 20 mg PO HS #30 tab 09/21/17 12/30/19 Rx Docusate [Colace] 100 mg PO DAILY 12/07/19 12/30/19 History Metoprolol Succinate (ER) [Toprol 25 mg PO DAILY 12/07/19 12/30/19 History XL] Apixaban [Eliquis] 5 mg PO BID #60 tab 12/14/19 12/30/19 Rx Digoxin [Lanoxin] 125 mcg PO DAILY #30 tab 12/14/19 12/30/19 Rx Furosemide [Lasix] 20 mg PO BID@0900,1600 #60 tab 12/14/19 12/30/19 Rx Midodrine [ProAmatine] 5 mg PO AC-TID #90 tab 12/14/19 12/30/19 Rx Amiodarone [Cordarone] 100 mg PO DAILY 12/30/19 12/30/19 History Clotrimazole Gelnys [Mycelex 10 mg MUCOUS MEM 5XD 12/30/19 12/30/19 History Glenys] dronabinoL [Marinol] 5 mg PO BID 12/30/19 12/30/19 History Allergies Allergy/AdvReac Type Severity Reaction Status Date / Time Penicillins Allergy Anaphylaxis Verified 12/30/19 17:04 venom-honey bee Allergy Anaphylaxis Verified 12/30/19 17:04 [bee venom (honey bee)] Physical Exam Osteopathic Statement: *. No significant issues noted on an osteopathic structural exam other than those noted in the History and Physical/Consult. Vitals: Intake and Output 01/03/20 01/03/20 01/03/20 06:59 14:59 22:59 Other: Weight 96.8 kg General: [Patient in moderate to severe respiratory distress]. Eye: [PERRL, EOMI, normal conjunctiva]. HENT: [Normocephalic, clear tympanic membranes, normal hearing, moist oral mucosa, no scleral icterus, no sinus tenderness]. Neck: [Supple, non-tender, no carotid bruits, no JVD, no lymphadenopathy]. Lungs: [bilateral lung crackles]. Heart: [Normal rate, regular rhythm, no murmur, gallop or edema]. Abdomen: [Soft, non-tender, non-distended, normal bowel sounds, no masses]. Musculoskeletal: [Normal range of motion and strength, no tenderness or swelling]. Neurologic: [no focal deficits]. Psychiatric: [Patient in respiratory distress]. Assessment and Plan Assessment: Hypotension secondary to septic shock versus cardiogenic shock Possible pneumonia Gram-negative darnell bacteremia with likely source being pneumonia Acute hypoxic respiratory failure secondary to volume overload versus pneumonia Acute kidney injury on CK D Metabolic acidosis Lactic acidosis Paroxysmal atrial fibrillation Hypovolemic hyponatremia Acute on chronic systolic heart failure Lymphoma Thrombocytopenia Plan: Comfort care measures in place DNR/DNI
[2020-01-03 18:31] VITALS: PULSE 99
[2020-01-04] MEDS: MORPHINE SULFATE (100 MG/2 ML) 100 MG in SODIUM CHLORIDE 0.9% 100 ML IV SCH (02:48)
[2020-01-04 05:37] VITALS: RESP 7
--- NOTE | 2020-01-04 16:37 | P.DS ---
Providers Date of admission: 01/03/20 17:34 Expected date of discharge: 01/04/20 Attending physician: Ran Spencer Primary care physician: Ran Spencer Hospital Course: Discharge Diagnosis: Hypotension secondary to septic shock versus cardiogenic shock Possible pneumonia Gram-negative darnell bacteremia with likely source being pneumonia Acute hypoxic respiratory failure secondary to volume overload versus pneumonia Acute kidney injury on CKD Metabolic acidosis Lactic acidosis Paroxysmal atrial fibrillation Hypovolemic hyponatremia Acute on chronic systolic heart failure Lymphoma Thrombocytopenia Hospital Course: Patient is a 74-year-old male with history of recently diagnosed lymphoma, aortic aneurysm, paroxysmal atrial fibrillation, nonischemic card iomyopathy with an ejection fraction less than 20% status post AICD, and multiple other comorbid conditions who initially was admitted to the medical floor secondary to pneumonia with shock and bacteremia. He was subsequently admitted to hospice and peacefully on the morning of 01/04/2020. I was not directly involved in the care of this patient, but just provided discharge summary. A total of 10 minutes of time were spent preparing this complex discharge summary . Plan - Discharge Summary New Discharge Prescriptions: No Action Albuterol Nebulized [Ventolin Nebulized] 2.5 mg INHALATION RT-TID PRN PRN Reason: Shortness Of Breath Atorvastatin [Lipitor] 20 mg PO HS #30 tab Docusate [Colace] 100 mg PO DAILY Metoprolol Succinate (ER) [Toprol XL] 25 mg PO DAILY Apixaban [Eliquis] 5 mg PO BID #60 tab Digoxin [Lanoxin] 125 mcg PO DAILY #30 tab Furosemide [Lasix] 20 mg PO BID@0900,1600 #60 tab Midodrine [ProAmatine] 5 mg PO AC-TID #90 tab Amiodarone [Cordarone] 100 mg PO DAILY Clotrimazole Glenys [Mycelex Glenys] 10 mg MUCOUS MEM 5XD dronabinoL [Marinol] 5 mg PO BID Discharge Medication List Albuterol Nebulized [Ventolin Nebulized] 2.5 mg INHALATION RT-TID PRN 09/03/17 [History] Atorvastatin [Lipitor] 20 mg PO HS #30 tab 09/21/17 [Rx] Docusate [Colace] 100 mg PO DAILY 12/07/19 [History] Metoprolol Succinate (ER) [Toprol XL] 25 mg PO DAILY 12/07/19 [History] Apixaban [Eliquis] 5 mg PO BID #60 tab 12/14/19 [Rx] Digoxin [Lanoxin] 125 mcg PO DAILY #30 tab 12/14/19 [Rx] Furosemide [Lasix] 20 mg PO BID@0900,1600 #60 tab 12/14/19 [Rx] Midodrine [ProAmatine] 5 mg PO AC-TID #90 tab 12/14/19 [Rx] Amiodarone [Cordarone] 100 mg PO DAILY 12/30/19 [History] Clotrimazole Glenys [Mycelex Glenys] 10 mg MUCOUS MEM 5XD 12/30/19 [History] dronabinoL [Marinol] 5 mg PO BID 12/30/19 [History] Discharge Disposition: - Preliminary Cause of Preliminary Cause of : shock
== END 2020-01-04 06:53 | disposition expired | DRG 951 ==
LOC: 2SICU 17:34 → 3SCARD 01-04 03:41
PROVIDERS: ADMIT Internal Medicine; ATTEND Internal Medicine
DX: Z51.5 Encounter for palliative care (principal); I50.23 Acute on chronic systolic (congestive) heart failure; J18.9 Pneumonia, unspecified organism; J96.01 Acute respiratory failure with hypoxia; A41.50 Gram-negative sepsis, unspecified; R65.21 Severe sepsis with septic shock; C85.90 Non-Hodgkin lymphoma, unspecified, unspecified site; E87.1 Hypo-osmolality and hyponatremia; E87.2 Acidosis; I42.8 Other cardiomyopathies; N17.9 Acute kidney failure, unspecified; Z66 Do not resuscitate; R57.0 Cardiogenic shock; D69.6 Thrombocytopenia, unspecified; I11.0 Hypertensive heart disease with heart failure; I48.0 Paroxysmal atrial fibrillation; I71.9 Aortic aneurysm of unspecified site, without rupture; E78.5 Hyperlipidemia, unspecified; E86.1 Hypovolemia; R41.3 Other amnesia; N18.9 Chronic kidney disease, unspecified; Z79.01 Long term (current) use of anticoagulants; Z79.899 Other long term (current) drug therapy; Z95.810 Presence of automatic (implantable) cardiac defibrillator; Z90.89 Acquired absence of other organs; Z88.0 Allergy status to penicillin; Z91.030 Bee allergy status; Z83.3 Family history of diabetes mellitus; Z80.9 Family history of malignant neoplasm, unspecified